=== PATIENT | male | born 1950 | race Caucasian/White ===

== ENCOUNTER 2016-08-04 09:20 | Emergency (ER) | payer MEDICARE ==
[2016-08-04 09:33] VITALS: RESP 16; TEMP 97.1
[2016-08-04] MEDS ORDERED: OXYMETAZOLINE 0.05% NASL SPRAY 15 ML NASAL STA (10:24)
--- NOTE | 2016-08-04 10:24 | ED ---
ENT HPI - General Chief complaint: ENT Stated complaint: NOSEBLEED Time Seen by Provider: 08/04/16 10:07 Source: patient, RN notes reviewed Mode of arrival: ambulatory Limitations: no limitations - History of Present Illness Initial comments: This patient is a 66-year-old man who presents today after he noticed bleeding from his nare that developed approximately 20 minutes before he arrived today. The patient states he was driving, and felt something wet on his nose. He discovered this was blood and given that he had a recent nosebleed he came directly here. He was seen on July 15 and had nasal tampon placed for nosebleed. The patient states that today's episode is not nearly as bad as that was. The patient notes that he usually takes 81 mg of aspirin per day but has not been taking this since the original nosebleed developed. MD complaint: epistaxis Onset/Timin -: hour(s) Location: nose Severity: mild Consistency: constant Improves with: none Worsens with: none Context-Epistaxis: history of similar - Related Data Home Medications Medication Instructions Recorded Confirmed Allopurinol [Zyloprim] 100 mg PO HS 08/09/15 08/04/16 Aspirin [Adult Low Dose Aspirin EC] 81 mg PO DAILY 08/09/15 08/04/16 Atorvastatin [Lipitor] 20 mg PO HS 08/09/15 08/04/16 Cholecalciferol (Vitamin D3) 1,000 unit PO HS 08/09/15 08/04/16 [Vitamin D] Enalapril [Vasotec] 10 mg PO BID 08/09/15 08/04/16 Fenofibrate Nanocrystallized 145 mg PO DAILY 08/09/15 08/04/16 [Tricor] Furosemide [Lasix] 40 mg PO BID 08/09/15 08/04/16 Insulin Aspart [NovoLOG] 3.7 - 3.9 pump SQ CONTINUOUS 08/09/15 08/04/16 Metolazone [Zaroxolyn] 5 mg PO HS 08/09/15 08/04/16 Omeprazole [PriLOSEC] 20 mg PO AC-BRKFST 08/09/15 08/04/16 Potassium Chloride [Klor-Con 20] 20 meq PO BID 08/09/15 08/04/16 Magnesium Oxide [Mag-Ox] 250 mg PO HS 01/30/16 08/04/16 Diclofenac Sodium/Misoprostol 1 tab PO BID PRN 07/15/16 08/04/16 [Arthrotec 75 mg-200 Mcg Tab] metFORMIN HCL [Glucophage] 1,000 mg PO BID 07/15/16 08/04/16 Allergies Allergy/AdvReac Type Severity Reaction Status Date / Time Sulfa (Sulfonamide Allergy Rash/Hives Verified 08/04/16 10:40 Antibiotics) codeine AdvReac Unknown Verified 08/04/16 10:40 ivory soap Allergy Rash/Hives Uncoded 08/04/16 09:32 Review of Systems ROS Statement: Those systems with pertinent positive or pertinent negative responses have been documented in the HPI. ROS Other: All systems not noted in ROS Statement are negative. Constitutional: Denies: fever, chills, weakness Eyes: Denies: eye pain, vision change ENT: Reports: epistaxis. Denies: ear pain, dental pain, hearing loss, congestion Respiratory: Denies: cough, dyspnea Cardiovascular: Denies: chest pain, palpitations, syncope Neurological: Denies: headache, weakness, numbness Hematological/Lymphatic: Denies: easy bleeding Past Medical History Past Medical History: Diabetes Mellitus, Hyperlipidemia, Hypertension, Osteoarthritis (OA), Skin Disorder Additional Past Medical History / Comment(s): wounds on both legs and swelling of the legs History of Any Multi-Drug Resistant Organisms: None Reported Past Surgical History: Appendectomy, Heart Catheterization Additional Past Surgical History / Comment(s): carpal tunnel surgery Past Anesthesia/Blood Transfusion Reactions: No Reported Reaction Past Psychological History: No Psychological Hx Reported Smoking Status: Never smoker Past Alcohol Use History: None Reported Past Drug Use History: None Reported - Past Family History Mother Family Medical History: Cancer, Thyroid Disorder Additional Family Medical History / Comment(s): of lung infection age 59 Brother(s) Family Medical History: COPD, Respiratory Disorder Additional Family Medical History / Comment(s): hx agent orange. Still living age 65 now General Exam Limitations: no limitations General appearance: alert, in no apparent distress Head exam: Present: atraumatic, normocephalic Eye exam: Present: normal appearance, PERRL, EOMI. Absent: scleral icterus, conjunctival injection ENT exam: Present: normal oropharynx, mucous membranes moist, other (There is no active bleeding into the oropharynx and the posterior pharynx is free of any visible clot.) Neck exam: Present: normal inspection, full ROM Respiratory exam: Present: normal lung sounds bilaterally. Absent: respiratory distress, wheezes, rales, rhonchi, stridor Cardiovascular Exam: Present: regular rate, normal rhythm, normal heart sounds. Absent: systolic murmur, diastolic murmur, rubs, gallop Course Vital Signs 08/04/16 08/04/16 09:29 11:48 Temperature 97.1 F L Pulse Rate 51 L 47 L Respiratory 16 16 Rate Blood Pressure 155/67 145/65 O2 Sat by Pulse 98 99 Oximetry Medical Decision Making - Medical Decision Making Patient's 66-year-old man with recurrence of epistaxis from the left nare. The patient did have oxymetazoline and pressure, and has had the bleeding stop. I did clear the anterior portion of the there and do not see a source of blood. There is a clot visible higher up and I discussed treatment options for this with the patient. I discussed that we could have him blow the clot out and see if there is any visible source of bleeding, but given how high the clot is, suspect that the patient would end up having nasal tampon placement. The patient states that the last time he had this done it was so unpleasant that he does not want to risk having this. He states that he would rather leave with the bleeding stopped and the clot intact and go see Dr. Chau. The patient will return should the bleeding recur, to have nasal tampon placed at that time. Disposition Clinical Impression: Epistaxis Disposition: HOME SELF-CARE Condition: Fair Instructions: Nosebleed (ED) Referrals: Adam Jacome DO [Primary Care Provider] - 1-2 days Odin Chapa MD [STAFF PHYSICIAN] - 1-2 days
[2016-08-04 11:49] VITALS: BP 145/65; PULSE 47
== END 2016-08-04 11:49 | disposition home or self-care (01) ==
LOC: EC 09:20
DX: R04.0 Epistaxis (principal); I10 Essential (primary) hypertension; E78.5 Hyperlipidemia, unspecified; E11.9 Type 2 diabetes mellitus without complications; M19.90 Unspecified osteoarthritis, unspecified site; Z79.82 Long term (current) use of aspirin; Z79.4 Long term (current) use of insulin; Z79.84 Long term (current) use of oral hypoglycemic drugs; Z79.899 Other long term (current) drug therapy; Z88.2 Allergy status to sulfonamides
CPT/HCPCS: 99283

== ENCOUNTER 2018-06-01 09:17 | Emergency (ER) | payer MEDICARE ==
[2018-06-01 09:27] VITALS: BP 141/58; PULSE 57; RESP 18; TEMP 97.9
--- NOTE | 2018-06-01 11:55 | CT ---
EXAMINATION TYPE: CT brain cspine wo con DATE OF EXAM: 06/01/2018 COMPARISON: NONE HISTORY: Fall head injury. Head and neck pain. CT DLP: 1360.2 mGycm. Automated Exposure Control for Dose Reduction was Utilized. TECHNIQUE: CT scan of the head and cervical spine are performed without contrast. FINDINGS: There is a 1.3 cm left frontal heterogenous scalp hematoma. There is no acute intracrania l hemorrhage, mass effect, or midline shift identified. The ventricles and sulci are symmetrically p rominent compatible with age-related volume loss. The globes are intact and the visualized sinuses a re clear. There is a well-corticated old healed fracture of the left zygomatic arch. Orbits appear sy mmetric. Lenses are in place. Cervical spine is visualized in its entirety from C1 through upper thoracic levels and demonstrates s atisfactory alignment without evidence of acute fracture or dislocation. Prevertebral soft tissue ap pears within normal limits. The C1-C2 articulation is unremarkable. There are multilevel moderate t o severe degenerative changes of the cervical spine with bridging anterior osteophytes and posterior disc osteophyte complex at C6-C7. Multilevel uncovertebral hypertrophy and facet arthropathy are also seen. There is straightening of the usual cervical lordosis. IMPRESSION: 1. There is no acute fracture or dislocation evident in the cervical spine. 2. Left frontal scalp hematoma measuring 1.3 cm in cystic thickness extending to the left supraorbita l/periorbital region without CT evidence of globe rupture or lens displacement. No acute intracranial hemorrhage, mass effect, or midline shift is seen.
--- NOTE | 2018-06-01 12:36 | ED ---
Head Injury HPI - General Chief complaint: Head Injury Stated complaint: fall, head injury Time Seen by Provider: 06/01/18 10:02 Source: patient Mode of arrival: ambulatory Limitations: no limitations - History of Present Illness Initial comments: This is a well-appearing 68-year-old male with past medical history of type 2 diabetes, hypertension and hyperlipidemia presented today for chief complaint of fall with head injury and neck stiffness. Patient states that at 7:30 AM he was sleeping off his porch from this snow when he slipped on ice falling foreward stricking left side of forehead, left shoulder and left knee on the ground. Pt stated he did not lose conciousnes and immediately stood up. Patient states he noticed pain at the site of abrasion on the left-sided forehead, as well as some neck stiffness. Patient denied headache, dizziness, chest pain, shortness breath, dyspnea on exertion, jaw pain, upper are paresthesias, gait abnormalities, palpitations or any other symptoms prior to falling. He insisted this was mechanical due to a slippery porch. He states he waited until the delivery he was expecting arrived then presented for evaluation to make sure that everything was okay, he denies any current headache , dizziness, nausea, vomiting, visual changes, gait changes, speech changes or any other neurological symptoms. Patient does admit to mild bilateral neck stiffness. He states he is able to fully range however at the neck. Remainder of ROS (-), he denies any injury to any other extremity, shoulder pain, knee pain, inability to weight-bear or ambulate, decreased range of motion at the left shoulder, left knee, anterior chest trauma, mid or low back pain, abdominal pain or any other symptoms. Denies use of anticoagulants. Patient was brought in by a friend to emergency department for evaluation. Upon arrival patient's vital signs per except limits, patient appears well he is pleasant and smiling and speaking with his friend. - Related Data Home Medications Medication Instructions Recorded Confirmed Allopurinol [Zyloprim] 100 mg PO HS 08/09/15 06/01/18 Cholecalciferol (Vitamin D3) 1,000 unit PO HS 08/09/15 06/01/18 [Vitamin D] Enalapril [Vasotec] 10 mg PO BID 08/09/15 06/01/18 Insulin Aspart [NovoLOG] 3.7 - 3.9 pump SQ CONTINUOUS 08/09/15 06/01/18 Metolazone [Zaroxolyn] 5 mg PO HS 08/09/15 06/01/18 Omeprazole [PriLOSEC] 20 mg PO AC-BRKFST 08/09/15 06/01/18 Potassium Chloride [Klor-Con 20] 20 meq PO BID 08/09/15 06/01/18 Magnesium Oxide [Mag-Ox] 250 mg PO HS 01/30/16 06/01/18 metFORMIN HCL [Glucophage] 1,000 mg PO BID 07/15/16 06/01/18 Atorvastatin [Lipitor] 40 mg PO HS 06/01/18 06/01/18 Furosemide [Lasix] 20 mg PO BID 06/01/18 06/01/18 Allergies/Adverse reactions: Allergies Allergy/AdvReac Type Severity Reaction Status Date / Time Sulfa (Sulfonamide Allergy Rash/Hives Verified 06/01/18 10:01 Antibiotics) codeine AdvReac Unknown Verified 06/01/18 10:01 ivory soap Allergy Rash/Hives Uncoded 06/01/18 09:26 Review of Systems ROS Statement: Those systems with pertinent positive or pertinent negative responses have been documented in the HPI. ROS Other: All systems not noted in ROS Statement are negative. Constitutional: Denies: fever, chills, night sweats Eyes: Denies: eye pain ENT: Denies: ear pain, throat pain, dental pain Respiratory: Denies: cough, dyspnea, wheezes, hemoptysis, stridor Cardiovascular: Denies: chest pain, palpitations, dyspnea on exertion, orthopnea Endocrine: Denies: fatigue Gastrointestinal: Denies: abdominal pain, nausea, vomiting, diarrhea, constipation, hematemesis, melena, hematochezia Genitourinary: Denies: urgency, dysuria Musculoskeletal: Reports: as per HPI (Neck pain). Denies: back pain, joint swelling, arthralgia Skin: Reports: lesions (Abrasion to left side of forehead, skin tear right lower extremity) Neurological: Denies: headache, weakness, numbness, paresthesias, confusion, abnormal gait, vertigo Past Medical History Past Medical History: Diabetes Mellitus, Hyperlipidemia, Hypertension, Osteoarthritis (OA), Skin Disorder Additional Past Medical History / Comment(s): wounds on both legs and swelling of the legs History of Any Multi-Drug Resistant Organisms: None Reported Past Surgical History: Appendectomy, Heart Catheterization Additional Past Surgical History / Comment(s): carpal tunnel surgery Past Anesthesia/Blood Transfusion Reactions: No Reported Reaction Past Psychological History: No Psychological Hx Reported Smoking Status: Never smoker Past Alcohol Use History: None Reported Past Drug Use History: None Reported - Past Family History Mother Family Medical History: Cancer, Thyroid Disorder Additional Family Medical History / Comment(s): of lung infection age 59 Brother(s) Family Medical History: COPD, Respiratory Disorder Additional Family Medical History / Comment(s): hx agent orange. Still living age 65 now General Exam - General Exam Comments Initial Comments: General: The patient is awake and alert, in no distress, and does not appear acutely ill. Eye: Pupils are equal, round and reactive to light, extra-ocular movements are intact. No nystagmus. There is normal conjunctiva bilaterally. No signs of icterus. Ears, nose, mouth and throat: There are moist mucous membranes and no oral lesions. Neck: The neck is supple, there is no tenderness or JVD. Cardiovascular: There is a regular rate and rhythm. No murmur, rub or gallop is appreciated. Respiratory: Lungs are clear to auscultation, respirations are non-labored, breath sounds are equal. No wheezes, stridor, rales, or rhonchi. Gastrointestinal: Soft, non-distended, non-tender abdomen without masses or organomegaly noted. There is no rebound or guarding present. No CVA tenderness. Bowel sounds are unremarkable. Musculoskeletal: She denies any midline tenderness to patient over the C-spine , he does admit to paravertebral tenderness. Patient is able to fully range at the C-spine with flexion and extension, lateral flexion and rotation. No tenderness to palpation along the thoracic or lumbar spine midline or paravertebral. Negative logroll no pedal patient hips. Inspection shoulders bilaterally reveals no obvious deformities, no palpable defects or step-offs, patient denies any pain to palpation of shoulder b/l Normal ROM at the shoulders equally bilaterally. Inspection the knees, reveals no swelling, abrasions or lacerations, no ecchymosis, patient is able to fully range at the knees bilaterally with vital 5 strength. Extensor mechanism intact. Strength 5 /5 of UE and LE equally b/l. Sensation intact of the UE and LE equally b/l. Radial pulses equal bilaterally 2+. Neurological: A&O x 3. CN II-XII intact, There are no obvious motor or sensory deficits. Coordination appears grossly intact. Speech is normal. Negative pronator drift, no gait abnormalities. Skin: Skin is warm and dry and no rashes. Large hematoma of the left forehead , there is superficial abrasion. Soft tissue swelling of the superior orbit. No palpable defects of the orbits patient denies any pain to palpation of the orbits. Psychiatric: Cooperative, appropriate mood & affect, normal judgment. Limitations: no limitations Course Vital Signs 06/01/18 09:24 Temperature 97.9 F Pulse Rate 57 L Respiratory 18 Rate Blood Pressure 141/58 O2 Sat by Pulse 99 Oximetry Medical Decision Making - Medical Decision Making EKG revealed no acute changes concerning for cardiac source of fall, pt adamantly states that this was mechanical denies any symptoms prior to falling. CT negative of the head and neck, patient denies any neurological symptoms, no focal neurological deficits on exam. Patient appears well. Patient states tetanus is up-to-date, he states he received a last year. Abrasion of the forehead and skin tear of the right lower extremity was cleansed with sterile water, iodine and bacitracin applied before sterile bandage. Case discussed in detail with Dr. Hawley who agrees the impression and plan, patient was discharged in stable condition. Pt is agreeable with discharge, stating is happy to go home, denies current symptoms. Return parameters discussed at length the patient verbalizes understanding. I emphasized the importance of close follow-up with primary care provider. I educated patient on expectations following large hematoma of the left forehead including eye swelling/ ecchymosis. Patient verbalized understanding of plan as well as return parameters. Patient was discharged in stable condition. Vital signs within acceptable limits. - EKG Data -: EKG Interpreted by Me (and reviewed by Dr. Hawley) EKG Comments: Ventricular rate 59 bpm, QRS duration 114 ms, QT/QTC 416/4 ms this a sinus rhythm complete heart block with junctional rhythm. EKG was done by myself as well as Dr. Jose L Hawley. No ST elevations or depressions Disposition Clinical Impression: Traumatic hematoma of forehead, Skin tear of right lower leg without complication, Abrasion of forehead Disposition: HOME SELF-CARE Condition: Good Instructions: Head Injury (ED), Hematoma (ED) Additional Instructions: Please use over the counter pain medication as discussed. Please follow-up with family doctor in the next 1-2 days, for evaluation of hematoma. Please return to emergency room if the symptoms increase or worsen or for any other concerns, including headache, dizziness, gait changes, speech changes, visual changes. Is patient prescribed a controlled substance at d/c from ED?: No Referrals: Adam Jacome DO [Primary Care Provider] - 1-2 days Time of Disposition: 12:35
== END 2018-06-01 12:50 | disposition home or self-care (01) ==
LOC: EC 09:17
DX: S81.811A Laceration without foreign body, right lower leg, initial encounter (principal); S00.83XA Contusion of other part of head, initial encounter; S13.4XXA Sprain of ligaments of cervical spine, initial encounter; E11.9 Type 2 diabetes mellitus without complications; E78.5 Hyperlipidemia, unspecified; I10 Essential (primary) hypertension; Z95.818 Presence of other cardiac implants and grafts; Z79.4 Long term (current) use of insulin; Z79.899 Other long term (current) drug therapy; Z88.2 Allergy status to sulfonamides; Z88.5 Allergy status to narcotic agent; Z91.048 Other nonmedicinal substance allergy status; W00.0XXA Fall on same level due to ice and snow, initial encounter; Y92.89 Other specified places as the place of occurrence of the external cause
CPT/HCPCS: 70450; 72125; 93005; 99284

== ENCOUNTER 2020-04-28 20:08 | Emergency (ER) | payer MEDICARE ==
[2020-04-28 20:26] VITALS: TEMP 98.7
[2020-04-28] MEDS ORDERED: BACITRACIN OINT 1 EACH PACKET TOPICAL ONE (20:46)
[2020-04-28] MEDS ORDERED: WATER FOR IRRIG, STERILE 1,000 ML BTL IRRIGATION ONE (20:46)
[2020-04-28] MEDS ORDERED: AMOXIC-POT CLAV 875MG STARTER PACK 2 TAB BTL PO STA (20:46)
--- NOTE | 2020-04-28 21:09 | XR ---
EXAMINATION TYPE: XR tibia fibula LT DATE OF EXAM: 04/28/2020 COMPARISON: NONE HISTORY: Cat bite. Pain TECHNIQUE: 3 views FINDINGS: I see no fracture nor dislocation. Joint spaces are normal. There is calcification of the a rteries. There is spurring on the patella. There is no evidence of a foreign body. Ankle mortise is a natomic. IMPRESSION: No acute bony abnormality.
[2020-04-28 21:25] VITALS: BP 113/56; PULSE 58; RESP 18
--- NOTE | 2020-04-28 21:48 | ED ---
Animal Bite HPI - General Chief Complaint: Animal Bite Stated Complaint: L Leg Cat Bite Time Seen by Provider: 04/28/20 20:37 Source: patient, family Mode of arrival: ambulatory Limitations: no limitations - History of Present Illness Initial Comments: 69-year-old male patient presents to the emergency department today for evaluation of cat bite to the left leg. Patient states that around an hour ago patient was walking through his home when the cat attacked his leg. This is his cat, up to date on immunizations. Patient states occasionally the cat gets "spooked". The cat does not go outside. Patient does admit to a history of diabetes and cellulitis to the lower legs. He denies any significant pain to the legs. Denies any other injuries. He is unsure if his tetanus is up to date. Patient denies any headache, neck pain, back pain, chest pain, shortness of breath, dizziness, weakness, abdominal pain, nausea, vomiting, or difficulties with bowel movements or urination. - Related Data Home Medications Medication Instructions Recorded Confirmed Cholecalciferol (Vitamin D3) 1,000 unit PO HS 08/09/15 06/01/18 [Vitamin D] Enalapril [Vasotec] 10 mg PO BID 08/09/15 06/01/18 Insulin Aspart [NovoLOG] 3.7 - 3.9 pump SQ CONTINUOUS 08/09/15 06/01/18 Omeprazole [PriLOSEC] 20 mg PO AC-BRKFST 08/09/15 06/01/18 Potassium Chloride [Klor-Con 20] 20 meq PO BID 08/09/15 06/01/18 allopurinoL [Zyloprim] 100 mg PO HS 08/09/15 06/01/18 metOLazone [Zaroxolyn] 5 mg PO HS 08/09/15 06/01/18 Magnesium Oxide [Mag-Ox] 250 mg PO HS 01/30/16 06/01/18 metFORMIN HCL [Glucophage] 1,000 mg PO BID 07/15/16 06/01/18 Atorvastatin [Lipitor] 40 mg PO HS 06/01/18 06/01/18 Furosemide [Lasix] 20 mg PO BID 06/01/18 06/01/18 Previous Rx's Medication Instructions Recorded Amoxic-Pot Clav 875-125Mg 1 tab PO Q12HR #20 tablet 04/28/20 [Augmentin 875-448] Allergies Allergy/AdvReac Type Severity Reaction Status Date / Time Sulfa (Sulfonamide Allergy Rash/Hives Verified 04/28/20 20:26 Antibiotics) codeine AdvReac Unknown Verified 04/28/20 20:26 ivory soap Allergy Rash/Hives Uncoded 04/28/20 20:26 Review of Systems ROS Statement: Those systems with pertinent positive or pertinent negative responses have been documented in the HPI. ROS Other: All systems not noted in ROS Statement are negative. Past Medical History Past Medical History: Diabetes Mellitus, Hyperlipidemia, Hypertension, Osteoarthritis (OA), Skin Disorder Additional Past Medical History / Comment(s): wounds on both legs and swelling of the legs History of Any Multi-Drug Resistant Organisms: None Reported Past Surgical History: Appendectomy, Heart Catheterization Additional Past Surgical History / Comment(s): carpal tunnel surgery Past Anesthesia/Blood Transfusion Reactions: No Reported Reaction Past Psychological History: No Psychological Hx Reported Smoking Status: Never smoker Past Alcohol Use History: None Reported Past Drug Use History: None Reported - Past Family History Mother Family Medical History: Cancer, Thyroid Disorder Additional Family Medical History / Comment(s): of lung infection age 59 Brother(s) Family Medical History: COPD, Respiratory Disorder Additional Family Medical History / Comment(s): hx agent orange. Still living age 65 now General Exam Limitations: no limitations General appearance: alert, in no apparent distress, other (This is a well- developed, well-nourished adult male patient in no acute distress. Vital signs upon presentation are temperature 98.7F, pulse 50, respirations 20, pulse ox 98% on room air) Respiratory exam: Present: normal lung sounds bilaterally. Absent: respiratory distress, wheezes, rales, rhonchi, stridor Cardiovascular Exam: Present: regular rate, normal rhythm, normal heart sounds. Absent: systolic murmur, diastolic murmur, rubs, gallop, clicks Extremities exam: Present: full ROM, normal capillary refill, other (There is superficial laceration noted to the left lower leg just above the ankle anteriorly, this measures about 2cm, no active bleeding. There is skin tear noted to the proximal lower leg, no active bleeding. Skin is otherwise warm and dry. There is soft tissue swelling surrounding the left ankle). Absent: normal inspection, tenderness, pedal edema, joint swelling, calf tenderness Neurological exam: Present: alert, oriented X3, CN II-XII intact Psychiatric exam: Present: normal affect, normal mood Skin exam: Present: warm, dry, intact, normal color. Absent: rash Course Vital Signs 04/28/20 04/28/20 20:21 21:24 Temperature 98.7 F Pulse Rate 50 L 58 L Respiratory 20 18 Rate Blood Pressure 79/49 113/56 O2 Sat by Pulse 98 98 Oximetry Medical Decision Making - Medical Decision Making 69-year-old male patient presents to the emergency department today for evaluation of cat bite to the right lower leg. This his domestic pet that does not go outside. Patient did intially have low blood pressure reading at 79/49 I do not feel this was accurate because multiple subsequent blood pressures in the department were in the 140s systolic over the 60s diastolic. Patient denied any dizziness or weakness. This equal examination did reveal skin tear and laceration to the right lower leg. These were irrigated and cleansed, bacitracin dressing was applied. We did not close these due to increased risk of infection. Patient was started on Augmentin. We discharged from with his primary care physician for recheck in 1-2 days. Return parameters were discussed in detail. He verbalizes understanding and agrees with this plan. - Radiology Data Radiology results: report reviewed, image reviewed X-ray of the left tibia and fibula was obtained. Report was reviewed in its entirety. Impression by Dr. Evans shows no acute bony abnormality. Disposition Clinical Impression: Cat bite of left lower leg Disposition: HOME SELF-CARE Condition: Good Instructions (If sedation given, give patient instructions): Animal Bite (ED) Additional Instructions: Keep wounds clean and dry. Complete antibiotic prescription in full. Follow up with your primary care physician for recheck in 1-2 days. Return to the emergency department for further evaluation for any new, worsening, or concerning symptoms. Prescriptions: Amoxic-Pot Clav 875-125Mg [Augmentin 875-125] 1 tab PO Q12HR #20 tablet Is patient prescribed a controlled substance at d/c from ED?: No Referrals: Adam Jacome DO [Primary Care Provider] - 1-2 days Time of Disposition: 21:49
== END 2020-04-28 21:59 | disposition home or self-care (01) ==
LOC: EC 20:08
DX: S81.812A Laceration without foreign body, left lower leg, initial encounter (principal); E11.9 Type 2 diabetes mellitus without complications; E78.5 Hyperlipidemia, unspecified; I10 Essential (primary) hypertension; M19.90 Unspecified osteoarthritis, unspecified site; Z79.899 Other long term (current) drug therapy; Z96.41 Presence of insulin pump (external) (internal); Z88.2 Allergy status to sulfonamides; Z88.5 Allergy status to narcotic agent; Z91.048 Other nonmedicinal substance allergy status; Z95.5 Presence of coronary angioplasty implant and graft; W55.01XA Bitten by cat, initial encounter; Y92.009 Unspecified place in unspecified non-institutional (private) residence as the place of occurrence of the external cause
CPT/HCPCS: 99283

== ENCOUNTER 2020-07-23 18:07 | Inpatient (IN) | payer MEDICARE ==
--- NOTE | 2020-07-23 18:39 | ED ---
General Adult HPI - General Chief complaint: Weakness Stated complaint: General weakness Time Seen by Provider: 07/23/20 18:28 Source: patient, EMS, RN notes reviewed Mode of arrival: EMS Limitations: physical limitation - History of Present Illness Initial comments: Patient is a pleasant 70-year-old male presenting to the emergency Department with complaints of general weakness. Onset of symptoms was close to week ago and progressively worsening. Patient has had several falls without significant injury. No confusion. No isolated area of weakness. Patient is easily fatigued. Patient does get some short of breath with walking up steps. No hi story of similar symptoms previously. - Related Data Home Medications Medication Instructions Recorded Confirmed Enalapril [Vasotec] 10 mg PO BID 08/09/15 07/23/20 Omeprazole [PriLOSEC] 20 mg PO DAILY 08/09/15 07/23/20 Potassium Chloride [Klor-Con 20] 20 meq PO BID 08/09/15 07/23/20 allopurinoL [Zyloprim] 100 mg PO HS 08/09/15 07/23/20 metOLazone [Zaroxolyn] 5 mg PO DAILY 08/09/15 07/23/20 Magnesium Oxide [Mag-Ox] 250 mg PO HS 01/30/16 07/23/20 metFORMIN HCL [Glucophage] 1,000 mg PO BID 07/15/16 07/23/20 Atorvastatin [Lipitor] 40 mg PO HS 06/01/18 07/23/20 Furosemide [Lasix] 40 mg PO BID 07/23/20 07/23/20 Insulin Aspart (For Pump) [NovoLOG 0.01 unit SQ-PUMP CONTINUOUS 07/23/20 07/23/20 (For Pump)] Spironolactone 100 mg PO DAILY 07/23/20 07/23/20 Zinc 50 mg PO DAILY 07/23/20 07/23/20 Allergies Allergy/AdvReac Type Severity Reaction Status Date / Time Sulfa (Sulfonamide Allergy Rash/Hives Verified 07/23/20 22:21 Antibiotics) codeine AdvReac Unknown Verified 07/23/20 22:21 ivory soap Allergy Rash/Hives Uncoded 07/23/20 18:34 Review of Systems ROS Statement: Those systems with pertinent positive or pertinent negative responses have been documented in the HPI. ROS Other: All systems not noted in ROS Statement are negative. Constitutional: Denies: fever Eyes: Denies: eye pain ENT: Denies: ear pain Respiratory: Reports: as per HPI. Denies: cough Cardiovascular: Denies: chest pain Endocrine: Reports: fatigue Gastrointestinal: Denies: abdominal pain Genitourinary: Denies: dysuria Musculoskeletal: Denies: back pain Skin: Denies: rash Neurological: Reports: as per HPI. Denies: headache, weakness, confusion Past Medical History Past Medical History: Diabetes Mellitus, Hyperlipidemia, Hypertension, Osteoarthritis (OA), Skin Disorder Additional Past Medical History / Comment(s): wounds on both legs and swelling of the legs History of Any Multi-Drug Resistant Organisms: None Reported Past Surgical History: Appendectomy, Heart Catheterization Additional Past Surgical History / Comment(s): carpal tunnel surgery Past Anesthesia/Blood Transfusion Reactions: No Reported Reaction Past Psychological History: No Psychological Hx Reported Smoking Status: Never smoker Past Alcohol Use History: None Reported Past Drug Use History: None Reported - Past Family History Mother Family Medical History: Cancer, Thyroid Disorder Additional Family Medical History / Comment(s): of lung infection age 59 Brother(s) Family Medical History: COPD, Respiratory Disorder Additional Family Medical History / Comment(s): hx agent orange. Still living age 65 now General Exam Limitations: physical limitation General appearance: alert, in no apparent distress Head exam: Present: normocephalic Eye exam: Present: normal appearance, PERRL, EOMI. Absent: nystagmus ENT exam: Present: normal oropharynx Neck exam: Present: normal inspection. Absent: tenderness, meningismus Respiratory exam: Present: normal lung sounds bilaterally Cardiovascular Exam: Present: bradycardia GI/Abdominal exam: Present: soft. Absent: tenderness Extremities exam: Present: pedal edema (+2 bilateral, patient states chronic). Absent: calf tenderness Neurological exam: Present: alert Psychiatric exam: Present: normal affect, normal mood Skin exam: Present: erythema (Bilateral lower legs which patient states is much improved from chronic) Course Vital Signs 07/23/20 07/23/20 07/23/20 18:29 21:21 22:38 Temperature 97.7 F Pulse Rate 51 L 68 68 Respiratory 16 16 Rate Blood Pressure 140/89 145/53 O2 Sat by Pulse 96 98 Oximetry 07/23/20 22:52 Temperature Pulse Rate 68 Respiratory Rate Blood Pressure O2 Sat by Pulse Oximetry EKG Findings - EKG Comments: EKG Findings:: Wide-complex bradycardia with a rate of 52. QRS 128. QT 416. QTC 382. Left axis. LVH. No acute ST change. Medical Decision Making - Medical Decision Making Patient reevaluated. Patient and family updated. Case was discussed with Dr. Patterson who will admit covering for Dr. Antonio. She is okay with admission to the floor with medications for potassium and nephrology consult - Lab Data Result diagrams: 07/23/20 20:47 07/23/20 20:47 Lab Results 07/23/20 07/23/20 07/23/20 Range/Units 20:47 20:47 20:47 WBC 11.1 H (3.8-10.6) k/uL RBC 4.16 L (4.30-5.90) m/uL Hgb 12.4 L (13.0-17.5) gm/dL Hct 38.5 L (39.0-53.0) % MCV 92.4 (80.0-100.0) fL MCH 29.9 (25.0-35.0) pg MCHC 32.3 (31.0-37.0) g/dL RDW 13.7 (11.5-15.5) % Plt Count 240 (150-450) k/uL MPV 8.1 Neutrophils % 84 % Lymphocytes % 6 % Monocytes % 7 % Eosinophils % 0 % Basophils % 1 % Neutrophils # 9.3 H (1.3-7.7) k/uL Lymphocytes # 0.7 L (1.0-4.8) k/uL Monocytes # 0.8 (0-1.0) k/uL Eosinophils # 0.0 (0-0.7) k/uL Basophils # 0.1 (0-0.2) k/uL PT 10.3 (9.0-12.0) sec INR 1.0 (<1.2) APTT 27.2 (22.0-30.0) sec Sodium 127 L (137-145) mmol/L Potassium 7.9 H* (3.5-5.1) mmol/L Chloride 100 (98-107) mmol/L Carbon Dioxide 16 L (22-30) mmol/L Anion Gap 11 mmol/L BUN 99 H (9-20) mg/dL Creatinine 1.84 H (0.66-1.25) mg/dL Est GFR (CKD-EPI)AfAm 42 (>60 ml/min/1.73 sqM) Est GFR (CKD-EPI)NonAf 36 (>60 ml/min/1.73 sqM) Glucose 117 H (74-99) mg/dL POC Glucose (mg/dL) (75-99) mg/dL POC Glu Online Producer ID Plasma Lactic Acid Clint (0.7-2.0) mmol/L Calcium 9.8 (8.4-10.2) mg/dL Magnesium 1.8 (1.6-2.3) mg/dL Total Bilirubin 0.6 (0.2-1.3) mg/dL AST 31 (17-59) U/L ALT 22 (4-49) U/L Alkaline Phosphatase 67 (38-126) U/L Troponin I (0.000-0.034) ng/mL NT-Pro-B Natriuret Pep pg/mL Total Protein 8.6 H (6.3-8.2) g/dL Albumin 4.8 (3.5-5.0) g/dL TSH 2.830 (0.465-4.680) mIU/L Free T4 1.15 (0.78-2.19) ng/dL Free T3 pg/mL 3.4 (2.8-5.3) pg/ml Urine Color Urine Appearance (Clear) Urine pH (5.0-8.0) Ur Specific [place] (1.001-1.035) Urine Protein (Negative) Urine Glucose (UA) (Negative) Urine Ketones (Negative) Urine Blood (Negative) Urine Nitrite (Negative) Urine Bilirubin (Negative) Urine Urobilinogen (<2.0) mg/dL Ur Leukocyte Esterase (Negative) 07/23/20 07/23/20 07/23/20 Range/Units 20:47 20:47 20:47 WBC (3.8-10.6) k/uL RBC (4.30-5.90) m/uL Hgb (13.0-17.5) gm/dL Hct (39.0-53.0) % MCV (80.0-100.0) fL MCH (25.0-35.0) pg MCHC (31.0-37.0) g/dL RDW (11.5-15.5) % Plt Count (150-450) k/uL MPV Neutrophils % % Lymphocytes % % Monocytes % % Eosinophils % % Basophils % % Neutrophils # (1.3-7.7) k/uL Lymphocytes # (1.0-4.8) k/uL Monocytes # (0-1.0) k/uL Eosinophils # (0-0.7) k/uL Basophils # (0-0.2) k/uL PT (9.0-12.0) sec INR (<1.2) APTT (22.0-30.0) sec Sodium (137-145) mmol/L Potassium (3.5-5.1) mmol/L Chloride (98-107) mmol/L Carbon Dioxide (22-30) mmol/L Anion Gap mmol/L BUN (9-20) mg/dL Creatinine (0.66-1.25) mg/dL Est GFR (CKD-EPI)AfAm (>60 ml/min/1.73 sqM) Est GFR (CKD-EPI)NonAf (>60 ml/min/1.73 sqM) Glucose (74-99) mg/dL POC Glucose (mg/dL) (75-99) mg/dL POC Glu Online Producer ID Plasma Lactic Acid Clint 1.3 (0.7-2.0) mmol/L Calcium (8.4-10.2) mg/dL Magnesium (1.6-2.3) mg/dL Total Bilirubin (0.2-1.3) mg/dL AST (17-59) U/L ALT (4-49) U/L Alkaline Phosphatase (38-126) U/L Troponin I <0.012 (0.000-0.034) ng/mL NT-Pro-B Natriuret Pep 30 pg/mL Total Protein (6.3-8.2) g/dL Albumin (3.5-5.0) g/dL TSH (0.465-4.680) mIU/L Free T4 (0.78-2.19) ng/dL Free T3 pg/mL (2.8-5.3) pg/ml Urine Color Urine Appearance (Clear) Urine pH (5.0-8.0) Ur Specific [place] (1.001-1.035) Urine Protein (Negative) Urine Glucose (UA) (Negative) Urine Ketones (Negative) Urine Blood (Negative) Urine Nitrite (Negative) Urine Bilirubin (Negative) Urine Urobilinogen (<2.0) mg/dL Ur Leukocyte Esterase (Negative) 07/23/20 07/23/20 Range/Units 21:10 21:48 WBC (3.8-10.6) k/uL RBC (4.30-5.90) m/uL Hgb (13.0-17.5) gm/dL Hct (39.0-53.0) % MCV (80.0-100.0) fL MCH (25.0-35.0) pg MCHC (31.0-37.0) g/dL RDW (11.5-15.5) % Plt Count (150-450) k/uL MPV Neutrophils % % Lymphocytes % % Monocytes % % Eosinophils % % Basophils % % Neutrophils # (1.3-7.7) k/uL Lymphocytes # (1.0-4.8) k/uL Monocytes # (0-1.0) k/uL Eosinophils # (0-0.7) k/uL Basophils # (0-0.2) k/uL PT (9.0-12.0) sec INR (<1.2) APTT (22.0-30.0) sec Sodium (137-145) mmol/L Potassium (3.5-5.1) mmol/L Chloride (98-107) mmol/L Carbon Dioxide (22-30) mmol/L Anion Gap mmol/L BUN (9-20) mg/dL Creatinine (0.66-1.25) mg/dL Est GFR (CKD-EPI)AfAm (>60 ml/min/1.73 sqM) Est GFR (CKD-EPI)NonAf (>60 ml/min/1.73 sqM) Glucose (74-99) mg/dL POC Glucose (mg/dL) 130 H (75-99) mg/dL POC Glu Online Producer ID Peace Brianda Plasma Lactic Acid Clint (0.7-2.0) mmol/L Calcium (8.4-10.2) mg/dL Magnesium (1.6-2.3) mg/dL Total Bilirubin (0.2-1.3) mg/dL AST (17-59) U/L ALT (4-49) U/L Alkaline Phosphatase (38-126) U/L Troponin I (0.000-0.034) ng/mL NT-Pro-B Natriuret Pep pg/mL Total Protein (6.3-8.2) g/dL Albumin (3.5-5.0) g/dL TSH (0.465-4.680) mIU/L Free T4 (0.78-2.19) ng/dL Free T3 pg/mL (2.8-5.3) pg/ml Urine Color Light Yellow Urine Appearance Clear (Clear) Urine pH 5.0 (5.0-8.0) Ur Specific [place] 1.009 (1.001-1.035) Urine Protein Negative (Negative) Urine Glucose (UA) Negative (Negative) Urine Ketones Negative (Negative) Urine Blood Negative (Negative) Urine Nitrite Negative (Negative) Urine Bilirubin Negative (Negative) Urine Urobilinogen <2.0 (<2.0) mg/dL Ur Leukocyte Esterase Negative (Negative) - Radiology Data Radiology results: report reviewed (Computed tomography scan of the brain shows atrophy. No acute intercranial abnormality.), image reviewed (Chest x-ray shows unchanged chronic elevation left diaphragm. No heart failure or consolidation. Minimal atelectasis) Critical Care Time Critical Care Time: Yes Total Critical Care Time: 33 Disposition Clinical Impression: Hyperkalemia, Acute renal failure Disposition: ADMITTED IP TO THIS [facility] Condition: Serious Is patient prescribed a controlled substance at d/c from ED?: No Referrals: Adam Jacome DO [Primary Care Provider] - 1-2 days Decision Time: 22:57
--- NOTE | 2020-07-23 19:54 | CT ---
EXAMINATION TYPE: CT brain wo con DATE OF EXAM: 07/23/2020 COMPARISON: 06/01/2018 HISTORY: Weakness in extremities CT DLP: 1159.4 mGycm Automated exposure control for dose reduction was used. There is cerebral cortical atrophy. There is no mass effect nor midline shift. There is no sign of in tracranial hemorrhage. Calvarium is intact. There is normal aeration of the mastoid sinuses. IMPRESSION: Cerebral atrophy. No acute intracranial abnormality. There is clearing of the left frontal scalp evan odin compared to old exam.
--- NOTE | 2020-07-23 19:56 | XR ---
EXAMINATION TYPE: XR chest 2V DATE OF EXAM: 07/23/2020 COMPARISON: 09/29/2012 HISTORY: Short of breath. Weakness TECHNIQUE: 2 views FINDINGS: There is some elevation of the left diaphragm. There is no heart failure. Heart appears sli ghtly enlarged. There are no hilar masses. I see no definite pleural effusion. IMPRESSION: There is some chronic elevation of the left diaphragm unchanged. No heart failure or pulm onary consolidation. Minimal atelectasis left lung base.
[2020-07-23 21:11] LABS: Basophils # (A) 0.1 k/uL (0-0.2); Basophils % (A) 1 %; Eosinophils % (A) 0 %; HCT 38.5 % (39.0-53.0); HGB 12.4 gm/dL (13.0-17.5); Lymphocytes # (A) 0.7 k/uL (1.0-4.8); Lymphocytes % (A) 6 %; MCH 29.9 pg (25.0-35.0); MCHC 32.3 g/dL (31.0-37.0); MCV 92.4 fL (80.0-100.0); Mean Platelet Volume 8.1; Monocytes # (A) 0.8 k/uL (0-1.0); Monocytes % (A) 7 %; Neutrophils # (A) 9.3 k/uL (1.3-7.7); Neutrophils % (A) 84 %; Platelet Count 240 k/uL (150-450); RBC 4.16 m/uL (4.30-5.90); RDW 13.7 % (11.5-15.5); WBC 11.1 k/uL (3.8-10.6)
[2020-07-23 21:21] LABS: Appearance,Urine Clear (Clear); Bilirubin,Urine Negative (Negative); Blood,Urine Negative (Negative); Color,Urine Light Yellow; Glucose,Urine (UA) Negative (Negative); Ketones,Urine Negative (Negative); Leukocyte Esterase,Urine Negative (Negative); Nitrite,Urine Negative (Negative); Protein,Urine Negative (Negative); Specific Gravity,Urine 1.009 (1.001-1.035); Urobilinogen,Urine <2.0 mg/dL (<2.0)
[2020-07-23 21:21] LABS: Partial Thromboplastin Time 27.2 sec (22.0-30.0); Prothrombin Time 10.3 sec (9.0-12.0)
[2020-07-23 21:50] LABS: Glucose,Whole Blood 130 mg/dL (75-99)
[2020-07-23 22:02] LABS: Albumin 4.8 g/dL (3.5-5.0); Calcium 9.8 mg/dL (8.4-10.2); Magnesium 1.8 mg/dL (1.6-2.3); Total Bilirubin 0.6 mg/dL (0.2-1.3); Total Protein 8.6 g/dL (6.3-8.2)
[2020-07-23 22:12] LABS: Potassium 7.9 mmol/L (3.5-5.1)
[2020-07-23] MEDS ORDERED: DEXTROSE 50% SYRINGE 50 ML IVP ONE (22:16)
[2020-07-23] MEDS ORDERED: ALBUTEROL NEB (CONC) 2.5 MG/0.5 ML INHALATION ONE (22:16)
[2020-07-23] MEDS ORDERED: INSULIN REGULAR 100 UNIT/ML VIAL IV ONE (22:16)
[2020-07-23] MEDS ORDERED: SODIUM CHLORIDE 0.9% 500 ML 500 ML IV STA (22:16)
[2020-07-23] MEDS ORDERED: SODIUM BICARB 8.4% 50 ML SYR (1 MEQ/ML) IV ONE (22:16)
[2020-07-23] MEDS ORDERED: SODIUM POLYSTYRENE SULFONATE 15 GM/60 ML BOTTLE PO ONE (22:16)
[2020-07-23] MEDS ORDERED: SODIUM CHLORIDE 0.9% 1,000 ML IV STA (22:16)
[2020-07-23 22:19] LABS: T4, Free (Free Thyroxine) 1.15 ng/dL (0.78-2.19)
[2020-07-23] MEDS ORDERED: CALCIUM GLUCONATE 1 GM in SODIUM CHLORIDE 0.9% 100 ML IVPB ONE (22:30)
[2020-07-23] MEDS ORDERED: NALOXONE 0.4 MG/ML 1 ML VIAL IV PRN (22:58)
--- NOTE | 2020-07-23 23:45 | XR ---
EXAMINATION TYPE: XR lumbar spine 2 or 3V DATE OF EXAM: 07/23/2020 COMPARISON: NONE HISTORY: Weakness TECHNIQUE: 3 views FINDINGS: Lumbar vertebra have normal alignment. There is spurring of the endplates. Posterior elemen ts are intact. There is no compression fracture. Disc spaces are fairly normal. Abdominal aorta is at heromatous. Sacroiliac joints are intact. IMPRESSION: Mild spondylotic changes. No fracture seen.
[2020-07-24] MEDS: ACETAMINOPHEN TAB 325 MG TAB PO PRN (01:44)
[2020-07-24 06:32] LABS: Basophils # (A) 0.1 k/uL (0-0.2); Basophils % (A) 1 %; Eosinophils # (A) 0.1 k/uL (0-0.7); Eosinophils % (A) 1 %; HCT 34.4 % (39.0-53.0); HGB 11.7 gm/dL (13.0-17.5); Lymphocytes # (A) 0.8 k/uL (1.0-4.8); Lymphocytes % (A) 10 %; MCH 31.1 pg (25.0-35.0); MCHC 33.9 g/dL (31.0-37.0); MCV 91.6 fL (80.0-100.0); Mean Platelet Volume 8.1; Monocytes # (A) 0.8 k/uL (0-1.0); Monocytes % (A) 10 %; Neutrophils # (A) 6.1 k/uL (1.3-7.7); Neutrophils % (A) 76 %; Platelet Count 213 k/uL (150-450); RBC 3.76 m/uL (4.30-5.90); RDW 13.3 % (11.5-15.5)
[2020-07-24 06:43] LABS: Albumin 4.1 g/dL (3.5-5.0); Calcium 9.5 mg/dL (8.4-10.2); Magnesium 1.9 mg/dL (1.6-2.3); Phosphorus 4.4 mg/dL (2.5-4.5); Total Bilirubin 0.6 mg/dL (0.2-1.3); Total Protein 7.4 g/dL (6.3-8.2)
[2020-07-24 06:46] LABS: Potassium 6.3 mmol/L (3.5-5.1)
[2020-07-24] MEDS ORDERED: Insulin Aspart (For Pump) 100 UNIT/ML VIAL SQ-PUMP SCH (09:00)
[2020-07-24] MEDS ORDERED: CALCIUM GLUCONATE 1 GM in SODIUM CHLORIDE 0.9% 100 ML IVPB ONE (09:00)
[2020-07-24] MEDS ORDERED: DEXTROSE 50% SYRINGE 50 ML IVP ONE (09:00)
[2020-07-24] MEDS ORDERED: INSULIN REGULAR 100 UNIT/ML VIAL IV ONE ×2 (09:00→19:36)
[2020-07-24] MEDS ORDERED: SODIUM BICARB 8.4% 50 ML SYR (1 MEQ/ML) IV ONE ×2 (09:00)
[2020-07-24] MEDS: ZINC SULFATE 220 MG CAP PO SCH (09:48)
[2020-07-24] MEDS: PANTOPRAZOLE 40 MG TABLET PO SCH (09:48)
[2020-07-24 12:01] LABS: Glucose,Whole Blood 190 mg/dL (75-99)
[2020-07-24 12:11] LABS: Calcium 9.8 mg/dL (8.4-10.2); Potassium 5.4 mmol/L (3.5-5.1)
--- NOTE | 2020-07-24 12:17 | P.HPIM ---
History of Present Illness H&P Date: 07/24/20 Chief Complaint: constipation, back and leg pain HISTORY OF PRESENT ILLNESS This is a 70-year-old male patient of Dr. Jacome and Dr. Nila Pena with past medical history of diabetes mellitus type 2, hypertension, hyperlipidemia, chronic lower extremity cellulitis. Patient complains of constipation for 1 week, pain in his lower back going into his legs. He states he has no strength in could not stand. He complains of shakiness. Symptoms have been going on for 1 week. He tried to call Dr. Jacome's office on Thursday and at the end of the day he was notified that Dr. Jacome is on vacation and thus decided to come into the hospital for evaluation. He was brought in by EMS as he states he was unable to stand or walk. Patient states he has been on Lasix and potassium for long period of time, metolazone was added and most recently spironolactone. W BC 11.1, hemoglobin 12.4. Potassium was 7.9, sodium 127, chloride 100, CO2 16, BUN 99 and creatinine 1.84. Blood sugar 117. Patient is status post Kayexalate 1 dose, insulin calcium gluconate and dextrose as well as albuterol. Repeat potassium this morning is 6.3. BUN 88 and creatinine 1.59. Patient admitted to the cardiac stepdown unit and consult in place with nephrology. REVIEW OF SYSTEMS Constitutional: No fever, no chills, no night sweats. No weight change. Reports weakness, Reportsfatigue Reports lethargy. No daytime sleepiness. EENT: No headache. No blurred vision or double vision, no loss of vision. No loss of Hearing, no ringing in the ears, no dizziness. No nasal drainage or congestion. No epistaxis. No sore throat. Lungs: No shortness of breath, cough, no sputum production. No wheezing. Cardiovascular: No chest pain, no lower extremity edema. No palpitations. No paroxysmal nocturnal dyspnea. No orthopnea. No lightheadedness or dizziness. No syncopal episodes. Abdominal: No abdominal pain. No nausea, vomiting. No diarrhea. Reports constipation. No bloody or tarry stools. No loss of appetite. Genitourinary: No dysuria, increased frequency, urgency. No urinary retention. Musculoskeletal: No myalgias. Reports muscle weakness, no gait dysfunction, no frequent falls. No back pain. No neck pain. Integumentary: Chronic lower extremity redness/wounds. No rash or pruritus. No unusual bruising. No change in hair or nails. Neurologic: No aphasia. No facial droop. No change in mentation. No head injury. No headache. No paralysis. No paresthesia. Psychiatric: No depression. No anxiety. Endocrine: No abnormal blood sugars. No weight change. No excessive sweating or thirst. No cold intolerance. SOCIAL HISTORY Patient is a lifelong nonsmoker. No alcohol use, marijuana or illicit drug use. 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 He lives at home alone. He is a . FAMILY HISTORY Mother at age 60 from lung cancer. Father at 57 after a fall off a roof. He has one brother that of cancer secondary to agent orange exposure. He has 4 half-sisters that he is never met. Patient has 2 children and 1 has an autoimmune disorder and waiting for double lung transplant. Second child has no major medical problems.. PHYSICAL EXAMINATION Gen: This is a 70-year-old morbidly obese male. He is sitting up in a recliner and appears to be comfortable and in no acute distress. HEENT: Head is atraumatic, normocephalic. Pupils equal, round. Sclerae is anicteric. NECK: Supple. No JVD. No lymphadenopathy. No thyromegaly. LUNGS: Clear to auscultation. No wheezes or rhonchi. No intercostal retractions. HEART: Regular rate and rhythm. No murmur. ABDOMEN: Morbidly obese. Soft. Bowel sounds are present. No masses. No tenderness. EXTREMITIES: No pedal edema. No calf tenderness. Chronic lower extremity erythema. NEUROLOGICAL: Patient is awake, alert and oriented x3. Cranial nerves 2 through 12 are grossly intact. ASSESSMENT AND PLAN 1. Acute kidney injury with chronic kidney disease stage III. Baseline c reatinine 1.3. Nephrology consult. Hold Lasix, Zaroxolyn, potassium, spironolactone, Vasotec. 2. Severe hyperkalemia secondary to acute kidney injury and use of spironolactone with potassium. I'll repeat calcium gluconate, regular insulin and dextrose given. Nephrology also ordered sodium bicarb. Lokelma 10 g oral 3 times daily for 48 hours and then 10 g daily ordered. 3. Metabolic acidosis secondary to acute kidney injury. Status post sodium bicarb. 4. Diabetes mellitus type 2. Patient is on insulin pump. 5. Hypertension. Hold Vasotec. 6. Chronic lower extremities edema and cellulitis. Hold Lasix, Zaroxolyn, spironolactone. Elevate legs. 7. Constipation. Senokot 2 tablets daily. Patient is status post 1 dose of oral Kayexalate. 8. Hyperlipidemia. Continue Lipitor 40 mg at bedtime. 9. Chronic gout. Continue allopurinol 100 mg daily. 10. Gastroesophageal reflux disease and GI prophylaxis. Continue Protonix 40 mg daily. 11. DVT prophylaxis. Heparin subcu. Patient will be admitted to the hospital for a minimum of 2 night stay. DISCHARGE PLAN Most likely return home. Consult PT and OT. Impression and plan of care have been directed as dictated by the signing physician. Meggan Arias nurse practitioner acting as scribe for signing physician. Past Medical History Past Medical History: Diabetes Mellitus, Hyperlipidemia, Hypertension, Osteoarthritis (OA), Skin Disorder Additional Past Medical History / Comment(s): wounds on both legs and swelling of the legs History of Any Multi-Drug Resistant Organisms: None Reported Past Surgical History: Appendectomy, Heart Catheterization Additional Past Surgical History / Comment(s): carpal tunnel surgery Past Anesthesia/Blood Transfusion Reactions: No Reported Reaction Past Psychological History: No Psychological Hx Reported Smoking Status: Never smoker Past Alcohol Use History: None Reported Past Drug Use History: None Reported - Past Family History Mother Family Medical History: Cancer, Thyroid Disorder Additional Family Medical History / Comment(s): of lung infection age 59 Brother(s) Family Medical History: COPD, Respiratory Disorder Additional Family Medical History / Comment(s): hx agent orange. Still living age 65 now Medications and Allergies Home Medications Medication Instructions Recorded Confirmed Type Enalapril [Vasotec] 10 mg PO BID 08/09/15 07/23/20 History Omeprazole [PriLOSEC] 20 mg PO DAILY 08/09/15 07/23/20 History Potassium Chloride [Klor-Con 20] 20 meq PO BID 08/09/15 07/23/20 History allopurinoL [Zyloprim] 100 mg PO HS 08/09/15 07/23/20 History metOLazone [Zaroxolyn] 5 mg PO DAILY 08/09/15 07/23/20 History Magnesium Oxide [Mag-Ox] 250 mg PO HS 01/30/16 07/23/20 History metFORMIN HCL [Glucophage] 1,000 mg PO BID 07/15/16 07/23/20 History Atorvastatin [Lipitor] 40 mg PO HS 06/01/18 07/23/20 History Furosemide [Lasix] 40 mg PO BID 07/23/20 07/23/20 History Insulin Aspart (For Pump) [NovoLOG 0.01 unit SQ-PUMP CONTINUOUS 07/23/20 07/23/20 History (For Pump)] Spironolactone 100 mg PO DAILY 07/23/20 07/23/20 History Zinc 50 mg PO DAILY 07/23/20 07/23/20 History Allergies Allergy/AdvReac Type Severity Reaction Status Date / Time Sulfa (Sulfonamide Allergy Rash/Hives Verified 07/23/20 22:21 Antibiotics) codeine AdvReac Unknown Verified 07/23/20 22:21 ivory soap Allergy Rash/Hives Uncoded 07/23/20 18:34 Physical Exam Vitals: Vital Signs Temp Pulse Resp BP Pulse Ox 07/24/20 03:00 59 L 21 96/66 98 07/24/20 02:00 55 L 20 96 07/24/20 01:00 62 19 07/24/20 00:00 58 L 20 121/43 100 07/23/20 23:00 65 19 136/77 96 07/23/20 22:56 58 L 18 136/77 98 07/23/20 22:52 68 07/23/20 22:38 68 07/23/20 22:00 53 L 22 139/68 97 07/23/20 21:21 68 16 145/53 98 07/23/20 21:00 137/49 07/23/20 20:00 100 07/23/20 19:00 140/89 07/23/20 18:29 97.7 F 51 L 16 140/89 99 Intake and Output 07/23/20 07/24/20 07/24/20 22:59 06:59 14:59 Other: Weight 127.913 kg Results CBC & Chem 7: 07/24/20 06:05 07/24/20 06:05 Labs: Abnormal Lab Results - Last 24 Hours (Table) 07/23/20 07/23/20 07/23/20 Range/Units 20:47 20:47 21:48 WBC 11.1 H (3.8-10.6) k/uL RBC 4.16 L (4.30-5.90) m/uL Hgb 12.4 L (13.0-17.5) gm/dL Hct 38.5 L (39.0-53.0) % Neutrophils # 9.3 H (1.3-7.7) k/uL Lymphocytes # 0.7 L (1.0-4.8) k/uL Sodium 127 L (137-145) mmol/L Potassium 7.9 H* (3.5-5.1) mmol/L Carbon Dioxide 16 L (22-30) mmol/L BUN 99 H (9-20) mg/dL Creatinine 1.84 H (0.66-1.25) mg/dL Glucose 117 H (74-99) mg/dL POC Glucose (mg/dL) 130 H (75-99) mg/dL Total Protein 8.6 H (6.3-8.2) g/dL 07/24/20 07/24/20 07/24/20 Range/Units 01:46 06:05 06:05 WBC (3.8-10.6) k/uL RBC 3.76 L (4.30-5.90) m/uL Hgb 11.7 L (13.0-17.5) gm/dL Hct 34.4 L (39.0-53.0) % Neutrophils # (1.3-7.7) k/uL Lymphocytes # 0.8 L (1.0-4.8) k/uL Sodium 130 L (137-145) mmol/L Potassium 6.5 H* 6.3 H* (3.5-5.1) mmol/L Carbon Dioxide 18 L (22-30) mmol/L BUN 88 H (9-20) mg/dL Creatinine 1.59 H (0.66-1.25) mg/dL Glucose (74-99) mg/dL POC Glucose (mg/dL) (75-99) mg/dL Total Protein (6.3-8.2) g/dL
--- NOTE | 2020-07-24 12:59 | P.NPCON ---
History of Present Illness - Reason for Consult acute renal failure, hyperkalemia - History of Present Illness Reason for consultation: Acute kidney injury and hyperkalemia History of present illness: Patient is a 70-year-old male seen in renal consultation for acute kidney injury and hyperkalemia. Patient has chronic kidney disease stage III with baseline creatinine in the range of 1.2-1.3 secondary to nephrosclerosis. Patient came to the hospital due to generalized weakness. He denies any dizziness or syncopal episodes. No vomiting or diarrhea. He's been a diabetic for about 12 years now. Patient's potassium level was elevated at 7.9 and creatinine was 1.84 on admission. He was taking lisinopril as well as spironolactone at home. He was also on Lasix and metolazone along with potassium supplementation. Hyperkalemia was medically treated and potassium level down to 5.4 this morning. Creatinine is also down to 1.4. He is currently sitting up in chair and having lunch. No edema. No chest pain or shortness of breath. Blood pressure is stable. Denies use of nonsteroidals. He did admit to constipation but had a good bowel movement today. Admits to good urine output. No hematuria or dysuria. Vital signs are stable. General: The patient appeared well nourished and normally developed. HEENT: Head exam is unremarkable. Neck is without jugular venous distension. LUNGS: Breath sounds decreased. HEART: Rate and Rhythm are regular. ABDOMEN: Soft, nontender. EXTREMITITES: No edema. Chronic skin changes noted. Past Medical History Past Medical History: Diabetes Mellitus, Hyperlipidemia, Hypertension, Osteoarthritis (OA), Skin Disorder Additional Past Medical History / Comment(s): wounds on both legs and swelling of the legs History of Any Multi-Drug Resistant Organisms: None Reported Past Surgical History: Appendectomy, Heart Catheterization Additional Past Surgical History / Comment(s): carpal tunnel surgery Past Anesthesia/Blood Transfusion Reactions: No Reported Reaction Past Psychological History: No Psychological Hx Reported Smoking Status: Never smoker Past Alcohol Use History: None Reported Past Drug Use History: None Reported - Past Family History Mother Family Medical History: Cancer, Thyroid Disorder Additional Family Medical History / Comment(s): of lung infection age 59 Brother(s) Family Medical History: COPD, Respiratory Disorder Additional Family Medical History / Comment(s): hx agent orange. Still living age 65 now Medications and Allergies Home Medications Medication Instructions Recorded Confirmed Type Enalapril [Vasotec] 10 mg PO BID 08/09/15 07/23/20 History Omeprazole [PriLOSEC] 20 mg PO DAILY 08/09/15 07/23/20 History Potassium Chloride [Klor-Con 20] 20 meq PO BID 08/09/15 07/23/20 History allopurinoL [Zyloprim] 100 mg PO HS 08/09/15 07/23/20 History metOLazone [Zaroxolyn] 5 mg PO DAILY 08/09/15 07/23/20 History Magnesium Oxide [Mag-Ox] 250 mg PO HS 01/30/16 07/23/20 History metFORMIN HCL [Glucophage] 1,000 mg PO BID 07/15/16 07/23/20 History Atorvastatin [Lipitor] 40 mg PO HS 06/01/18 07/23/20 History Furosemide [Lasix] 40 mg PO BID 07/23/20 07/23/20 History Insulin Aspart (For Pump) [NovoLOG 0.01 unit SQ-PUMP CONTINUOUS 07/23/20 07/23/20 History (For Pump)] Spironolactone 100 mg PO DAILY 07/23/20 07/23/20 History Zinc 50 mg PO DAILY 07/23/20 07/23/20 History Allergies Allergy/AdvReac Type Severity Reaction Status Date / Time Sulfa (Sulfonamide Allergy Rash/Hives Verified 07/23/20 22:21 Antibiotics) codeine AdvReac Unknown Verified 07/23/20 22:21 ivory soap Allergy Rash/Hives Uncoded 07/23/20 18:34 Physical Exam Vitals: Vital Signs Temp Pulse Pulse Resp BP BP Pulse Ox 07/24/20 08:00 97.8 F 63 18 158/68 99 07/24/20 03:00 59 L 21 96/66 98 07/24/20 02:00 55 L 20 96 07/24/20 01:00 62 19 07/24/20 00:00 58 L 20 121/43 100 07/23/20 23:00 65 19 136/77 96 07/23/20 22:56 58 L 18 136/77 98 07/23/20 22:52 68 07/23/20 22:38 68 07/23/20 22:00 53 L 22 139/68 97 07/23/20 21:21 68 16 145/53 98 07/23/20 21:00 137/49 07/23/20 20:00 100 07/23/20 19:00 140/89 07/23/20 18:29 97.7 F 51 L 16 140/89 99 Intake and Output 07/23/20 07/24/20 07/24/20 22:59 06:59 14:59 Intake Total 240 Balance 240 Intake: Oral 240 Other: Voiding Method Bedside Commode # Voids 1 Weight 127.913 kg 127.913 kg Results - Lab Results Most recent lab results Calcium 9.8 mg/dL (8.4-10.2) 07/24/20 11:40 Phosphorus 4.4 mg/dL (2.5-4.5) 07/24/20 06:05 Magnesium 1.9 mg/dL (1.6-2.3) 07/24/20 06:05 07/24/20 06:05 07/24/20 11:40 Assessment and Plan Plan: Assessment: 1. Acute kidney injury mostly prerenal secondary to hypovolemia from diuresis. Creatinine was 1.84 on admission and is down to 1.41 today. UA benign. 2. Chronic kidney disease stage IIIA. Baseline creatinine in the range of 1.2- 1.3 secondary to nephrosclerosis. 3. Hyperkalemia secondary to metabolic acidosis, acute kidney injury, lisin opril, Aldactone as well as potassium supplementation. Improved with medical management. 4. Metabolic acidosis secondary to acute kidney injury and metformin. Better. 5. Hypovolemic hyponatremia improved with IV hydration. 6. Diabetes mellitus. Plan: Hep-Lock IV fluids. Hold diuretics as well as lisinopril and spironolactone. Encourage oral intake. Renal diet. Add amlodipine 5 mg once daily. Add hydralazine 25 mg 3 times daily. To be held for systolic blood pressure less than 125. Check renal ultrasound. Repeat potassium level this evening. Thank you for the consultation. I will continue to follow the patient with you during his hospital stay.
[2020-07-24] MEDS: amLODIPine 5 MG TAB PO SCH (13:59)
[2020-07-24] MEDS: hydrALAZINE HCL 25 MG TAB PO SCH ×3 (13:59→21:20)
[2020-07-24] MEDS: SENNOSIDES-DOCUSATE SODIUM 1 EACH TAB PO SCH ×2 (14:00→17:32)
--- NOTE | 2020-07-24 15:09 | US ---
EXAMINATION TYPE: US kidneys/renal and bladder DATE OF EXAM: 07/24/2020 COMPARISON: None CLINICAL HISTORY: kaushal. abnormal labs EXAM MEASUREMENTS: Right Kidney: 12.8 x 6.1 x 6.8 cm Left Kidney: 14.2 x 5.6 x 6.9 cm Suboptimal due to patient body habitus Right Kidney: No hydronephrosis or masses seen Left Kidney: No hydronephrosis or masses seen Bladder: distended, anechoic Bilateral Jets not seen IMPRESSION: 1. Visualized retroperitoneal ultrasound appears unremarkable
[2020-07-24 16:56] LABS: Glucose,Whole Blood 165 mg/dL (75-99)
[2020-07-24] MEDS ORDERED: DEXTROSE 50% SYRINGE 50 ML IVP STA (19:32)
[2020-07-24] MEDS ORDERED: SODIUM BICARB 8.4% 50 ML SYR (1 MEQ/ML) IV STA (19:35)
[2020-07-24 20:13] LABS: Glucose,Whole Blood 251 mg/dL (75-99)
[2020-07-24] MEDS: [UNRECOGNIZED DRUG - OTHER] PO SCH (21:05)
[2020-07-24] MEDS: HEPARIN SODIUM,PORCINE 5,000 UNIT/ML 1 ML VIAL SQ SCH (21:11)
[2020-07-24] MEDS: INSULIN ASPART (NovoLOG) 100 UNIT/ML VIAL SQ SCH (21:11)
[2020-07-24] MEDS: ATORVASTATIN 40 MG TAB PO SCH (21:11)
[2020-07-24] MEDS: MAGNESIUM OXIDE 400 MG TAB PO SCH (21:11)
[2020-07-24] MEDS: allopurinoL 100 MG TAB PO SCH (21:11)
[2020-07-25 06:01] LABS: Glucose,Whole Blood 162 mg/dL (75-99)
[2020-07-25 08:25] LABS: Calcium 9.8 mg/dL (8.4-10.2); Magnesium 1.7 mg/dL (1.6-2.3); Potassium 5.4 mmol/L (3.5-5.1)
[2020-07-25] MEDS: ZINC SULFATE 220 MG CAP PO SCH (09:57)
[2020-07-25] MEDS: amLODIPine 5 MG TAB PO SCH (09:57)
[2020-07-25] MEDS: HEPARIN SODIUM,PORCINE 5,000 UNIT/ML 1 ML VIAL SQ SCH ×2 (09:58→21:00)
[2020-07-25] MEDS: hydrALAZINE HCL 25 MG TAB PO SCH ×3 (09:58→21:00)
[2020-07-25] MEDS: PANTOPRAZOLE 40 MG TABLET PO SCH (09:58)
[2020-07-25] MEDS: [UNRECOGNIZED DRUG - OTHER] PO SCH (10:08)
[2020-07-25 10:38] LABS: Glucose,Whole Blood 382 mg/dL (75-99)
--- NOTE | 2020-07-25 11:37 | P.PN ---
Subjective Patient is seen in follow-up for acute kidney injury on chronic kidney disease and hyperkalemia. Renal function improved. Potassium level V.4 this morning. Oral intake is good. Good urine output. No vomiting or diarrhea. Vital signs are stable. General: The patient appeared well nourished and normally developed. HEENT: Head exam is unremarkable. Neck is without jugular venous distension. LUNGS: Breath sounds decreased. HEART: Rate and Rhythm are regular. ABDOMEN: Soft, nontender. EXTREMITITES: No edema. Chronic skin changes noted. Objective - Vital Signs Vital signs: Vital Signs Temp 98.2 F 07/25/20 08:00 Pulse 60 07/25/20 08:00 Resp 18 07/25/20 08:00 BP 161/70 07/25/20 08:00 Pulse Ox 99 07/25/20 08:00 Intake & Output 07/24/20 07/25/20 07/25/20 18:59 06:59 18:59 Intake Total 695 480 236 Output Total 950 300 Balance -255 180 236 Weight 123.2 kg Intake: Oral 695 480 236 Output: Urine 950 300 Other: Voiding Method Bedside Commode Bedside Commode # Voids 1 1 # Bowel Movements 3 2 1 - Labs CBC & Chem 7: 07/24/20 06:05 07/25/20 07:00 Labs: Abnormal Lab Results - Last 24 Hours (Table) 07/24/20 07/24/20 07/24/20 Range/Units 11:40 11:45 16:50 Sodium 133 L (137-145) mmol/L Potassium 5.4 H (3.5-5.1) mmol/L BUN 78 H (9-20) mg/dL Creatinine 1.41 H (0.66-1.25) mg/dL Glucose 183 H (74-99) mg/dL POC Glucose (mg/dL) 190 H 165 H (75-99) mg/dL 07/24/20 07/24/20 07/24/20 Range/Units 17:40 20:12 22:34 Sodium (137-145) mmol/L Potassium 6.0 H 5.3 H (3.5-5.1) mmol/L BUN (9-20) mg/dL Creatinine (0.66-1.25) mg/dL Glucose (74-99) mg/dL POC Glucose (mg/dL) 251 H (75-99) mg/dL 07/25/20 07/25/20 07/25/20 Range/Units 05:59 07:00 10:36 Sodium 132 L (137-145) mmol/L Potassium 5.4 H (3.5-5.1) mmol/L BUN 64 H (9-20) mg/dL Creatinine (0.66-1.25) mg/dL Glucose 168 H (74-99) mg/dL POC Glucose (mg/dL) 162 H 382 H (75-99) mg/dL Assessment and Plan Plan: Assessment: 1. Acute kidney injury mostly prerenal secondary to hypovolemia from diuresis. Creatinine was 1.84 on admission and is down to 1.22 today. UA benign. No hydronephrosis noted on kidney ultrasound. 2. Chronic kidney disease stage IIIA. Baseline creatinine in the range of 1.2- 1.3 secondary to nephrosclerosis. 3. Hyperkalemia secondary to metabolic acidosis, acute kidney injury, lisinopril, Aldactone as well as potassium supplementation. Improved with medical management. 4. Metabolic acidosis secondary to acute kidney injury and metformin. Better. 5. Hypovolemic hyponatremia improved with IV hydration. 6. Diabetes mellitus. Plan: Lasix 20 mg IV once now. Encourage oral intake. Renal diet. Repeat potassium level this afternoon. Tight blood sugar control. Continue to hold lisinopril and Aldactone.
[2020-07-25] MEDS: INSULIN ASPART (NovoLOG) 100 UNIT/ML VIAL SQ SCH ×4 (11:38→21:00)
[2020-07-25] MEDS ORDERED: FUROSEMIDE 10 MG/ML 2 ML VIAL IV ONE (12:00)
[2020-07-25 12:07] LABS: Glucose,Whole Blood 262 mg/dL (75-99)
--- NOTE | 2020-07-25 13:22 | P.PN ---
Subjective Progress Note Date: 07/25/20 HISTORY OF PRESENT ILLNESS This is a 70-year-old male patient of Dr. Jacome and Dr. Nila Pena with past medical history of diabetes mellitus type 2, hypertension, hyperl ipidemia, chronic lower extremity cellulitis. Patient complains of constipation for 1 week, pain in his lower back going into his legs. He states he has no strength in could not stand. He complains of shakiness. Symptoms have been going on for 1 week. He tried to call Dr. Jacome's office on Thursday and at the end of the day he was notified that Dr. Jacome is on vacation and thus decided to come into the hospital for evaluation. He was brought in by EMS as he states he was unable to stand or walk. Patient states he has been on Lasix and potassium for long period of time, metolazone was added and most recently spironolactone. W BC 11.1, hemoglobin 12.4. Potassium was 7.9, sodium 127, chloride 100, CO2 16, BUN 99 and creatinine 1.84. Blood sugar 117. Patient is status post Kayexalate 1 dose, insulin calcium gluconate and dextrose as well as albuterol. Repeat potassium this morning is 6.3. BUN 88 and creatinine 1.59. Patient admitted to the cardiac stepdown unit and consult in place with nephrology. 07/25: Potassium this morning is 5.4. Sodium 132. Blood sugars are running between 168-382. Patient's insulin pump ran out of insulin last evening and this was removed. He will have his bring in supplies so he can resume insulin pump. Patient is currently covered with NovoLog scale only. Renal ultrasound was unremarkable. Nephrology is ordered Lasix 1 this morning. Lisinopril and Aldactone remain on hold. Anticipate possible discharge tomorrow REVIEW OF SYSTEMS Constitutional: No fever, no chills, no night sweats. No weight change. Reports weakness, Reportsfatigue Reports lethargy. No daytime sleepiness. EENT: No headache. No blurred vision or double vision, no loss of vision. No loss of Hearing, no ringing in the ears, no dizziness. No nasal drainage or congestion. No epistaxis. No sore throat. Lungs: No shortness of breath, cough, no sputum production. No wheezing. Cardiovascular: No chest pain, no lower extremity edema. No palpitations. No paroxysmal nocturnal dyspnea. No orthopnea. No lightheadedness or dizziness. No syncopal episodes. Abdominal: No abdominal pain. No nausea, vomiting. No diarrhea. Reports constipation. No bloody or tarry stools. No loss of appetite. Genitourinary: No dysuria, increased frequency, urgency. No urinary retention. Musculoskeletal: No myalgias. Reports muscle weakness, no gait dysfunction, no frequent falls. No back pain. No neck pain. Integumentary: Chronic lower extremity redness/wounds. No rash or pruritus. No unusual bruising. No change in hair or nails. Neurologic: No aphasia. No facial droop. No change in mentation. No head injury. No headache. No paralysis. No paresthesia. Psychiatric: No depression. No anxiety. Endocrine: No abnormal blood sugars. No weight change. No excessive sweating or thirst. No cold intolerance. PHYSICAL EXAMINATION Gen: This is a 70-year-old morbidly obese male. He is resting in a recliner and appears to be comfortable and in no acute distress. HEENT: Head is atraumatic, normocephalic. Pupils equal, round. Sclerae is anicteric. NECK: Supple. No JVD. No lymphadenopathy. No thyromegaly. LUNGS: Clear to auscultation. No wheezes or rhonchi. No intercostal retractions. HEART: Regular rate and rhythm. No murmur. ABDOMEN: Morbidly obese. Soft. Bowel sounds are present. No masses. No tenderness. EXTREMITIES: No pedal edema. No calf tenderness. Chronic lower extremity erythema. NEUROLOGICAL: Patient is awake, alert and oriented x3. Cranial nerves 2 through 12 are grossly intact. ASSESSMENT AND PLAN 1. Acute kidney injury with chronic kidney disease stage III. Baseline creatinine 1.3. Nephrology consult. Hold Lasix, Zaroxolyn, potassium, spironolactone, Vasotec. 2. Severe hyperkalemia secondary to acute kidney injury and use of spironolactone with potassium. Status post calcium gluconate, regular insulin a nd dextrose given. Nephrology also ordered sodium bicarb. Lokelma 10 g oral 3 times daily for 48 hours and then 10 g daily ordered. 3. Metabolic acidosis secondary to acute kidney injury. Status post sodium bicarb. 4. Diabetes mellitus type 2. Patient is on insulin pump. 5. Hypertension. Hold Vasotec. 6. Chronic lower extremities edema and cellulitis. Hold Lasix, Zaroxolyn, spironolactone. Elevate legs. 7. Constipation. Senokot 2 tablets daily. Patient is status post 1 dose of oral Kayexalate. 8. Hyperlipidemia. Continue Lipitor 40 mg at bedtime. 9. Chronic gout. Continue allopurinol 100 mg daily. 10. Gastroesophageal reflux disease and GI prophylaxis. Continue Protonix 40 mg daily. 11. DVT prophylaxis. Heparin subcu. DISCHARGE PLAN Most likely return home in the next 24 hours. Consult PT and OT. Impression and plan of care have been directed as dictated by the signing physician. Meggan Arias nurse practitioner acting as scribe for signing physician. Objective - Vital Signs Vital signs: Vital Signs Temp 98.1 F 07/25/20 03:58 Pulse 58 L 07/25/20 03:58 Resp 18 07/25/20 03:58 BP 140/70 07/25/20 03:58 Pulse Ox 95 07/25/20 03:58 Intake & Output 07/24/20 07/25/20 07/25/20 18:59 06:59 18:59 Intake Total 695 480 Output Total 950 300 Balance -255 180 Weight 123.2 kg Intake: Oral 695 480 Output: Urine 950 300 Other: Voiding Method Bedside Commode Bedside Commode # Voids 1 # Bowel Movements 3 2 - Labs CBC & Chem 7: 07/24/20 06:05 07/25/20 07:00 Labs: Abnormal Lab Results - Last 24 Hours (Table) 07/24/20 07/24/20 07/24/20 Range/Units 11:40 11:45 16:50 Sodium 133 L (137-145) mmol/L Potassium 5.4 H (3.5-5.1) mmol/L BUN 78 H (9-20) mg/dL Creatinine 1.41 H (0.66-1.25) mg/dL Glucose 183 H (74-99) mg/dL POC Glucose (mg/dL) 190 H 165 H (75-99) mg/dL 07/24/20 07/24/20 07/24/20 Range/Units 17:40 20:12 22:34 Sodium (137-145) mmol/L Potassium 6.0 H 5.3 H (3.5-5.1) mmol/L BUN (9-20) mg/dL Creatinine (0.66-1.25) mg/dL Glucose (74-99) mg/dL POC Glucose (mg/dL) 251 H (75-99) mg/dL 07/25/20 Range/Units 05:59 Sodium (137-145) mmol/L Potassium (3.5-5.1) mmol/L BUN (9-20) mg/dL Creatinine (0.66-1.25) mg/dL Glucose (74-99) mg/dL POC Glucose (mg/dL) 162 H (75-99) mg/dL
[2020-07-25 16:42] LABS: Glucose,Whole Blood 143 mg/dL (75-99)
[2020-07-25] MEDS: SENNOSIDES-DOCUSATE SODIUM 1 EACH TAB PO SCH (18:07)
[2020-07-25 20:25] LABS: Glucose,Whole Blood 234 mg/dL (75-99)
[2020-07-25] MEDS: allopurinoL 100 MG TAB PO SCH (20:59)
[2020-07-25] MEDS: ATORVASTATIN 40 MG TAB PO SCH (20:59)
[2020-07-25] MEDS: MAGNESIUM OXIDE 400 MG TAB PO SCH (21:00)
[2020-07-25] MEDS: ACETAMINOPHEN TAB 325 MG TAB PO PRN (22:56)
[2020-07-26 06:13] LABS: Glucose,Whole Blood 129 mg/dL (75-99)
[2020-07-26] MEDS: INSULIN ASPART (NovoLOG) 100 UNIT/ML VIAL SQ SCH (06:48)
[2020-07-26] MEDS: SENNOSIDES-DOCUSATE SODIUM 1 EACH TAB PO SCH (08:06)
[2020-07-26] MEDS: ZINC SULFATE 220 MG CAP PO SCH (08:06)
[2020-07-26] MEDS: HEPARIN SODIUM,PORCINE 5,000 UNIT/ML 1 ML VIAL SQ SCH (08:06)
[2020-07-26] MEDS: PANTOPRAZOLE 40 MG TABLET PO SCH (08:06)
--- NOTE | 2020-07-26 08:58 | P.DS ---
Providers Date of admission: 07/23/20 22:58 Expected date of discharge: 07/26/20 Attending physician: Rhoda Deng MD Consults: 07/23/20 22:58 Consult Physician Urgent Consulting Provider: Fredis Oliveira Consult Reason/Comments: Hyperkalemia, ARF Do you want consulting provider notified?: Yes Primary care physician: Adam [facility] Course: HISTORY OF PRESENT ILLNESS This is a 70-year-old male patient of Dr. Jacome and Dr. Nila Pena with past medical history of diabetes mellitus type 2, hypertension, hyperlipidemia, chronic lower extremity cellulitis. Patient complains of constipation for 1 week, pain in his lower back going into his legs. He states he has no strength in could not stand. He complains of shakiness. Symptoms have been going on for 1 week. He tried to call Dr. Jacome's office on Thursday and at the end of the day he was notified that Dr. Jacome is on vacation and thus decided to come into the hospital for evaluation. He was brought in by EMS as he states he was unable to stand or walk. Patient states he has been on Lasix and potassium for long period of time, metolazone was added and most recently spironolactone. W BC 11.1, hemoglobin 12.4. Potassium was 7.9, sodium 127, chloride 100, CO2 16, BUN 99 and creatinine 1.84. Blood sugar 117. Patient is status post Kayexalate 1 dose, insulin calcium gluconate and dextrose as well as albuterol. Repeat potassium this morning is 6.3. BUN 88 and creatinine 1.59. Patient admitted to the cardiac stepdown unit and consult in place with nephrology. 07/25: Potassium this morning is 5.4. Sodium 132. Blood sugars are running between 168-382. Patient's insulin pump ran out of insulin last evening and this was removed. He will have his bring in supplies so he can resume insulin pump. Patient is currently covered with NovoLog scale only. Renal ultrasound was unremarkable. Nephrology is ordered Lasix 1 this morning. Sari nopril and Aldactone remain on hold. Anticipate possible discharge tomorrow 07/26: Repeat blood work reveals sodium 130, potassium 4.8, chloride 97, CO2 24, BUN 57 creatinine 1.14. Insulin pump has been resumed with improved blood sugars. The patient denies any chest pain or shortness of breath. He has been seen by Dr. Oliveira with recommendations to hold diuretics potassium and Vasotec for discharge, BMP and magnesium on Thursday. He has been afebrile, heart rate 55, blood pressure 142/64, pulse ox 99% on room air. Patient will be discharged home today in stable condition. ASSESSMENT AND PLAN 1. Acute kidney injury with chronic kidney disease stage III. 2. Severe hyperkalemia secondary to acute kidney injury and use of spironolactone with potassium. 3. Metabolic acidosis secondary to acute kidney injury. 4. Diabetes mellitus type 2. 5. Hypertension. 6. Chronic lower extremities edema and cellulitis. 7. Constipation. 8. Hyperlipidemia. 9. Chronic gout. 10. Gastroesophageal reflux disease. DISCHARGE PLAN Home Impression and plan of care have been directed as dictated by the signing physician. Meggan Arias nurse practitioner acting as scribe for signing physician. Patient Condition at Discharge: Good Plan - Discharge Summary Discharge Rx Participant: No New Discharge Prescriptions: New hydrALAZINE HCL [Apresoline] 25 mg PO TID #90 tab amLODIPine [Norvasc] 5 mg PO DAILY #30 tab Sennosides-Docusate Sodium [Senokot-S] 2 each PO DAILY tab Continue Omeprazole [PriLOSEC] 20 mg PO DAILY allopurinoL [Zyloprim] 100 mg PO HS Magnesium Oxide [Mag-Ox] 250 mg PO HS metFORMIN HCL [Glucophage] 1,000 mg PO BID Atorvastatin [Lipitor] 40 mg PO HS Insulin Aspart (For Pump) [NovoLOG (For Pump)] 0.01 unit SQ-PUMP CONTINUOUS Zinc 50 mg PO DAILY Discontinued metOLazone [Zaroxolyn] 5 mg PO DAILY Enalapril [Vasotec] 10 mg PO BID Potassium Chloride [Klor-Con 20] 20 meq PO BID Furosemide [Lasix] 40 mg PO BID Spironolactone 100 mg PO DAILY Discharge Medication List Omeprazole [PriLOSEC] 20 mg PO DAILY 08/09/15 [History] allopurinoL [Zyloprim] 100 mg PO HS 08/09/15 [History] Magnesium Oxide [Mag-Ox] 250 mg PO HS 01/30/16 [History] metFORMIN HCL [Glucophage] 1,000 mg PO BID 07/15/16 [History] Atorvastatin [Lipitor] 40 mg PO HS 06/01/18 [History] Insulin Aspart (For Pump) [NovoLOG (For Pump)] 0.01 unit SQ-PUMP CONTINUOUS 07/23/20 [History] Zinc 50 mg PO DAILY 07/23/20 [History] Sennosides-Docusate Sodium [Senokot-S] 2 each PO DAILY tab 07/26/20 [Rx] amLODIPine [Norvasc] 5 mg PO DAILY #30 tab 07/26/20 [Rx] hydrALAZINE HCL [Apresoline] 25 mg PO TID #90 tab 07/26/20 [Rx] Follow up Appointment(s)/Referral(s): Adam Jacome DO [Primary Care Provider] - 1 Week Fredis Oliveira DO [STAFF PHYSICIAN] - 2 Weeks Ambulatory/Diagnostic Orders: Basic Metabolic Panel [LAB.AMB] Location: None Selected Basic Metabolic Panel [LAB.AMB] Location: None Selected Magnesium [LAB.AMB] Location: None Selected Discharge Disposition: HOME SELF-CARE
[2020-07-26] MEDS: hydrALAZINE HCL 25 MG TAB PO SCH (09:25)
[2020-07-26] MEDS: amLODIPine 5 MG TAB PO SCH (09:25)
[2020-07-26] MEDS: [UNRECOGNIZED DRUG - OTHER] PO SCH (09:26)
[2020-07-26 10:13] LABS: Calcium 9.8 mg/dL (8.4-10.2); Magnesium 1.6 mg/dL (1.6-2.3); Potassium 4.8 mmol/L (3.5-5.1)
[2020-07-26] MEDS: MAGNESIUM SULFATE-D5W PMX 1 GM in DEXTROSE/WATER 1 100ML.BAG IVPB SCH ×2 (11:43→12:55)
[2020-07-26 11:48] LABS: Glucose,Whole Blood 149 mg/dL (75-99)
[2020-07-26 11:59] VITALS: BP 142/64; PULSE 55; RESP 18; TEMP 97.6
--- NOTE | 2020-07-26 12:20 | P.PN ---
Subjective Patient is seen in follow-up for acute kidney injury on chronic kidney disease and hyperkalemia. Renal function continues to improve. Potassium level normal this morning. Oral intake is good. Good urine output. No vomiting or diarrhea. Vital signs are stable. General: The patient appeared well nourished and normally developed. HEENT: Head exam is unremarkable. Neck is without jugular venous distension. LUNGS: Breath sounds decreased. HEART: Rate and Rhythm are regular. ABDOMEN: Soft, nontender. EXTREMITITES: No edema. Chronic skin changes noted. Objective - Vital Signs Vital signs: Vital Signs Temp 97.6 F 07/26/20 11:57 Pulse 55 L 07/26/20 11:57 Resp 18 07/26/20 11:57 BP 142/64 07/26/20 11:57 Pulse Ox 99 07/26/20 11:57 Intake & Output 07/25/20 07/26/20 07/26/20 18:59 06:59 18:59 Intake Total 708 250 Balance 708 250 Weight 126.8 kg Intake: Oral 708 250 Other: Voiding Method Toilet Toilet # Voids 1 1 # Bowel Movements 1 - Labs CBC & Chem 7: 07/24/20 06:05 07/26/20 09:00 Labs: Abnormal Lab Results - Last 24 Hours (Table) 07/25/20 07/25/20 07/25/20 Range/Units 15:16 16:39 20:24 Sodium (137-145) mmol/L Potassium 5.5 H (3.5-5.1) mmol/L Chloride (98-107) mmol/L BUN (9-20) mg/dL Glucose (74-99) mg/dL POC Glucose (mg/dL) 143 H 234 H (75-99) mg/dL 07/26/20 07/26/20 07/26/20 Range/Units 06:11 09:00 11:47 Sodium 130 L (137-145) mmol/L Potassium (3.5-5.1) mmol/L Chloride 97 L (98-107) mmol/L BUN 57 H (9-20) mg/dL Glucose 169 H (74-99) mg/dL POC Glucose (mg/dL) 129 H 149 H (75-99) mg/dL Assessment and Plan Plan: Assessment: 1. Acute kidney injury mostly prerenal secondary to hypovolemia from diuresis. Creatinine was 1.84 on admission and is down to 1.14 today. UA benign. No hydronephrosis noted on kidney ultrasound. 2. Chronic kidney disease stage IIIA. Baseline creatinine in the range of 1.2- 1.3 secondary to nephrosclerosis. 3. Hyperkalemia secondary to metabolic acidosis, acute kidney injury, lisinopril, Aldactone as well as potassium supplementation. Improved with medical management. 4. Metabolic acidosis secondary to acute kidney injury and metformin. Better. 5. Hyponatremia secondary to acute kidney injury. 6. Diabetes mellitus. Plan: Encourage oral intake. Renal diet. Tight blood sugar control. Continue to hold diuretics, lisinopril and potassium supplementation. Anticipate discharge soon. Repeat BMP and magnesium level 2-3 days postdischarge. Patient will be provided with information on low potassium diet. He was also advised to monitor his weight closely at home and to call if gains more than 2-3 pounds or edema worsens. Follow up outpatient in 1 week.
== END 2020-07-26 14:52 | disposition home or self-care (01) | DRG 683 ==
LOC: EC 18:07 → 6NMEDSUR 22:58 → 3SCARD 23:31
PROVIDERS: ADMIT Internal Medicine; ATTEND Internal Medicine
DX: N17.9 Acute kidney failure, unspecified (principal); E87.1 Hypo-osmolality and hyponatremia; E87.2 Acidosis; E87.5 Hyperkalemia; Z79.4 Long term (current) use of insulin; R29.6 Repeated falls; E78.5 Hyperlipidemia, unspecified; I10 Essential (primary) hypertension; M19.90 Unspecified osteoarthritis, unspecified site; Z96.41 Presence of insulin pump (external) (internal); E11.22 Type 2 diabetes mellitus with diabetic chronic kidney disease; I12.9 Hypertensive chronic kidney disease with stage 1 through stage 4 chronic kidney disease, or unspecified chronic kidney disease; N18.31 Chronic kidney disease, stage 3a; K59.00 Constipation, unspecified; M1A.9XX0 Chronic gout, unspecified, without tophus (tophi); K21.9 Gastro-esophageal reflux disease without esophagitis; E86.1 Hypovolemia; T50.2X5A Adverse effect of carbonic-anhydrase inhibitors, benzothiadiazides and other diuretics, initial encounter; Z88.5 Allergy status to narcotic agent; Z88.2 Allergy status to sulfonamides; Z79.899 Other long term (current) drug therapy; Z83.49 Family history of other endocrine, nutritional and metabolic diseases; Z83.6 Family history of other diseases of the respiratory system; Z80.9 Family history of malignant neoplasm, unspecified; Z91.09 Other allergy status, other than to drugs and biological substances; Z82.5 Family history of asthma and other chronic lower respiratory diseases; Z80.1 Family history of malignant neoplasm of trachea, bronchus and lung
CPT/HCPCS: 36415; 70450; 71046; 72100; 76770; 80048; 80053; 81003; 83605; 83735; 83880; 84100; 84132; 84439; 84443; 84481; 84484; 85025; 85610; 85730; 93005; 94640; 96361; 96365; 96366; 96375; 99291

== ENCOUNTER 2020-08-13 15:08 | Inpatient (IN) | payer MEDICARE ==
[2020-08-13] MEDS ORDERED: FUROSEMIDE 10 MG/ML 4 ML VIAL IV STA (15:25)
--- NOTE | 2020-08-13 15:31 | ED ---
General Adult HPI - General Chief complaint: Extremity Problem,Nontraumatic Stated complaint: Water retention Time Seen by Provider: 08/13/20 15:16 Source: patient, RN notes reviewed, old records reviewed Mode of arrival: ambulatory Limitations: no limitations - History of Present Illness Initial comments: Patient is a pleasant 70-year-old male presenting to the emergency Department with leg edema. Onset of symptoms was over the past couple weeks, worse the past couple days. He should does have mild discomfort. Patient does notice some redness however this is somewhat chronic. Patient has had some leaking from his legs. Patient is having mild exertional dyspnea. No dyspnea at rest. No chest pain. Patient was in the hospital several weeks ago with critical potassium level. Patient states he was taken off his diuretics at that time. - Related Data Home Medications Medication Instructions Recorded Confirmed Omeprazole [PriLOSEC] 20 mg PO DAILY 08/09/15 08/13/20 allopurinoL [Zyloprim] 100 mg PO HS 08/09/15 08/13/20 metFORMIN HCL [Glucophage] 1,000 mg PO BID 07/15/16 08/13/20 Atorvastatin [Lipitor] 40 mg PO HS 06/01/18 08/13/20 Insulin Aspart (For Pump) [NovoLOG 0.01 unit SQ-PUMP CONTINUOUS 07/23/20 08/13/20 (For Pump)] Zinc 50 mg PO DAILY 07/23/20 08/13/20 Furosemide [Lasix] 80 mg PO DAILY 08/13/20 08/13/20 Magnesium Oxide 400 mg PO DAILY 08/13/20 08/13/20 Previous Rx's Medication Instructions Recorded Sennosides-Docusate Sodium 2 each PO DAILY tab 07/26/20 [Senokot-S] amLODIPine [Norvasc] 5 mg PO DAILY #30 tab 07/26/20 hydrALAZINE HCL [Apresoline] 25 mg PO TID #90 tab 07/26/20 Allergies Allergy/AdvReac Type Severity Reaction Status Date / Time Sulfa (Sulfonamide Allergy Rash/Hives Verified 08/13/20 15:13 Antibiotics) codeine AdvReac Unknown Verified 08/13/20 15:13 ivory soap Allergy Rash/Hives Uncoded 08/13/20 15:13 Review of Systems ROS Statement: Those systems with pertinent positive or pertinent negative responses have been documented in the HPI. ROS Other: All systems not noted in ROS Statement are negative. Constitutional: Denies: fever Eyes: Denies: eye pain ENT: Denies: ear pain Respiratory: Reports: as per HPI. Denies: cough Cardiovascular: Reports: dyspnea on exertion, edema. Denies: chest pain Endocrine: Denies: fatigue Gastrointestinal: Denies: abdominal pain Genitourinary: Denies: dysuria Musculoskeletal: Denies: back pain Skin: Denies: rash Neurological: Denies: weakness Past Medical History Past Medical History: Diabetes Mellitus, Hyperlipidemia, Hypertension, Osteoarthritis (OA), Skin Disorder Additional Past Medical History / Comment(s): wounds on both legs and swelling of the legs History of Any Multi-Drug Resistant Organisms: None Reported Past Surgical History: Appendectomy, Heart Catheterization Additional Past Surgical History / Comment(s): carpal tunnel surgery Past Anesthesia/Blood Transfusion Reactions: No Reported Reaction Past Psychological History: No Psychological Hx Reported Smoking Status: Never smoker Past Alcohol Use History: None Reported Past Drug Use History: None Reported - Past Family History Mother Family Medical History: Cancer, Thyroid Disorder Additional Family Medical History / Comment(s): of lung infection age 59 Brother(s) Family Medical History: COPD, Respiratory Disorder Additional Family Medical History / Comment(s): hx agent orange. Still living age 65 now General Exam Limitations: no limitations General appearance: alert, in no apparent distress Head exam: Present: normocephalic Eye exam: Present: normal appearance Neck exam: Present: normal inspection Respiratory exam: Present: normal lung sounds bilaterally Cardiovascular Exam: Present: regular rate, normal rhythm GI/Abdominal exam: Present: soft. Absent: tenderness Extremities exam: Present: pedal edema, other (Bilateral lower legs with +3 edema, erythema.). Absent: calf tenderness Neurological exam: Present: alert Psychiatric exam: Present: normal affect, normal mood Skin exam: Present: erythema (Bilateral lower legs) Course Vital Signs 08/13/20 15:09 Temperature 98.5 F Pulse Rate 71 Respiratory 18 Rate Blood Pressure 123/53 O2 Sat by Pulse 99 Oximetry EKG Findings - EKG Comments: EKG Findings:: Wide complex rhythm with a rate of 64. QRS 182. QT 46. QTc 501. Left axis. Right bundle branch block. Borderline ST depression laterally. Medical Decision Making - Medical Decision Making Patient reevaluated and updated. Case was discussed with Dr. Bland, who will admit covering for Dr. Antonio. - Lab Data Result diagrams: 08/13/20 15:58 08/13/20 15:58 Lab Results 08/13/20 08/13/20 08/13/20 Range/Units 15:58 15:58 15:58 WBC 7.7 (3.8-10.6) k/uL RBC 3.38 L (4.30-5.90) m/uL Hgb 9.9 L D (13.0-17.5) gm/dL Hct 30.6 L (39.0-53.0) % MCV 90.5 (80.0-100.0) fL MCH 29.3 (25.0-35.0) pg MCHC 32.3 (31.0-37.0) g/dL RDW 14.3 (11.5-15.5) % Plt Count 277 (150-450) k/uL MPV 8.0 Neutrophils % 79 % Lymphocytes % 10 % Monocytes % 8 % Eosinophils % 1 % Basophils % 1 % Neutrophils # 6.1 (1.3-7.7) k/uL Lymphocytes # 0.7 L (1.0-4.8) k/uL Monocytes # 0.6 (0-1.0) k/uL Eosinophils # 0.1 (0-0.7) k/uL Basophils # 0.1 (0-0.2) k/uL Hypochromasia Slight Poikilocytosis Slight PT 10.7 (9.0-12.0) sec INR 1.0 (<1.2) APTT 25.5 (22.0-30.0) sec Sodium 134 L (137-145) mmol/L Potassium 4.9 (3.5-5.1) mmol/L Chloride 99 (98-107) mmol/L Carbon Dioxide 26 (22-30) mmol/L Anion Gap 9 mmol/L BUN 26 H (9-20) mg/dL Creatinine 1.16 (0.66-1.25) mg/dL Est GFR (CKD-EPI)AfAm 73 (>60 ml/min/1.73 sqM) Est GFR (CKD-EPI)NonAf 64 (>60 ml/min/1.73 sqM) Glucose 176 H (74-99) mg/dL Plasma Lactic Acid Clint (0.7-2.0) mmol/L Calcium 9.0 (8.4-10.2) mg/dL Magnesium 1.8 (1.6-2.3) mg/dL Total Bilirubin 0.3 (0.2-1.3) mg/dL AST 24 (17-59) U/L ALT 29 (4-49) U/L Alkaline Phosphatase 91 (38-126) U/L Troponin I (0.000-0.034) ng/mL NT-Pro-B Natriuret Pep pg/mL Total Protein 6.9 (6.3-8.2) g/dL Albumin 3.8 (3.5-5.0) g/dL 08/13/20 08/13/20 08/13/20 Range/Units 15:58 15:58 15:58 WBC (3.8-10.6) k/uL RBC (4.30-5.90) m/uL Hgb (13.0-17.5) gm/dL Hct (39.0-53.0) % MCV (80.0-100.0) fL MCH (25.0-35.0) pg MCHC (31.0-37.0) g/dL RDW (11.5-15.5) % Plt Count (150-450) k/uL MPV Neutrophils % % Lymphocytes % % Monocytes % % Eosinophils % % Basophils % % Neutrophils # (1.3-7.7) k/uL Lymphocytes # (1.0-4.8) k/uL Monocytes # (0-1.0) k/uL Eosinophils # (0-0.7) k/uL Basophils # (0-0.2) k/uL Hypochromasia Poikilocytosis PT (9.0-12.0) sec INR (<1.2) APTT (22.0-30.0) sec Sodium (137-145) mmol/L Potassium (3.5-5.1) mmol/L Chloride (98-107) mmol/L Carbon Dioxide (22-30) mmol/L Anion Gap mmol/L BUN (9-20) mg/dL Creatinine (0.66-1.25) mg/dL Est GFR (CKD-EPI)AfAm (>60 ml/min/1.73 sqM) Est GFR (CKD-EPI)NonAf (>60 ml/min/1.73 sqM) Glucose (74-99) mg/dL Plasma Lactic Acid Clint 2.2 H* (0.7-2.0) mmol/L Calcium (8.4-10.2) mg/dL Magnesium (1.6-2.3) mg/dL Total Bilirubin (0.2-1.3) mg/dL AST (17-59) U/L ALT (4-49) U/L Alkaline Phosphatase (38-126) U/L Troponin I 0.015 (0.000-0.034) ng/mL NT-Pro-B Natriuret Pep 382 pg/mL Total Protein (6.3-8.2) g/dL Albumin (3.5-5.0) g/dL - Radiology Data Radiology results: image reviewed (Chest x-ray shows left lower lobe infiltrate) Disposition Clinical Impression: Leg edema, Pneumonia, Cellulitis Disposition: ADMITTED IP TO THIS HOSP Is patient prescribed a controlled substance at d/c from ED?: No Referrals: Adam Jacome DO [Primary Care Provider] - 1-2 days Decision Time: 18:11
[2020-08-13 16:12] LABS: Basophils # (A) 0.1 k/uL (0-0.2); Basophils % (A) 1 %; Eosinophils # (A) 0.1 k/uL (0-0.7); Eosinophils % (A) 1 %; HCT 30.6 % (39.0-53.0); HGB 9.9 gm/dL (13.0-17.5); Hypochromasia Slight; Lymphocytes # (A) 0.7 k/uL (1.0-4.8); Lymphocytes % (A) 10 %; MCH 29.3 pg (25.0-35.0); MCHC 32.3 g/dL (31.0-37.0); MCV 90.5 fL (80.0-100.0); Monocytes # (A) 0.6 k/uL (0-1.0); Monocytes % (A) 8 %; Neutrophils # (A) 6.1 k/uL (1.3-7.7); Neutrophils % (A) 79 %; Platelet Count 277 k/uL (150-450); Poikilocytosis Slight; RBC 3.38 m/uL (4.30-5.90); RDW 14.3 % (11.5-15.5); WBC 7.7 k/uL (3.8-10.6)
--- NOTE | 2020-08-13 16:14 | XR ---
EXAMINATION TYPE: XR chest 2V DATE OF EXAM: 08/13/2020 COMPARISON: 07/23/2020 HISTORY: Shortness of breath TECHNIQUE: Frontal and lateral views of the chest are obtained. FINDINGS: Scattered senescent parenchymal changes noted. Hyperinflation compatible with COPD. Patchy left lower lobe infiltrate may reflect developing pneumonia. Heart size is stable. Mediastinal structures are stable and grossly unremarkable. No evidence for hilar prominence. Degenerative changes dorsal spine. IMPRESSION: 1. Patchy left lower lobe infiltrate may reflect developing pneumonia.
[2020-08-13 16:23] LABS: Albumin 3.8 g/dL (3.5-5.0); Magnesium 1.8 mg/dL (1.6-2.3); Potassium 4.9 mmol/L (3.5-5.1); Total Bilirubin 0.3 mg/dL (0.2-1.3); Total Protein 6.9 g/dL (6.3-8.2)
[2020-08-13 16:30] LABS: Partial Thromboplastin Time 25.5 sec (22.0-30.0); Prothrombin Time 10.7 sec (9.0-12.0)
[2020-08-13] MEDS ORDERED: AZITHROMYCIN 500 MG in SODIUM CHLORIDE 0.9% 250 ML IVPB STA (18:12)
[2020-08-13] MEDS ORDERED: PNEUMONIA PROTOCOL UTILIZED 1 EACH MISC PO PRN (18:12)
[2020-08-13 18:18] LABS: Glucose,Whole Blood 142 mg/dL (75-99)
[2020-08-13] MEDS ORDERED: PIPERACILLIN-TAZOBACTAM 3.375 GM in SODIUM CHLORIDE 0.9% 100 ML IVPB STA (18:51)
[2020-08-13] MEDS ORDERED: Insulin Aspart (For Pump) 100 UNIT/ML VIAL SQ-PUMP SCH (19:15)
[2020-08-13] MEDS: allopurinoL 100 MG TAB PO SCH (20:15)
[2020-08-13] MEDS: metFORMIN 500 MG TAB PO SCH (20:15)
[2020-08-13] MEDS: ATORVASTATIN 40 MG TAB PO SCH (20:15)
[2020-08-13] MEDS: HEPARIN SODIUM,PORCINE 5,000 UNIT/ML 1 ML VIAL SQ SCH (20:16)
[2020-08-13 20:35] LABS: Glucose,Whole Blood 139 mg/dL (75-99)
[2020-08-13] MEDS: hydrALAZINE HCL 25 MG TAB PO SCH (21:32)
[2020-08-13] MEDS ORDERED: ACETAMINOPHEN TAB 325 MG TAB PO PRN (21:34)
[2020-08-13] MEDS ORDERED: INSPUCOR MISCELLANE PRN (21:44)
--- NOTE | 2020-08-13 21:45 | P.HPIM ---
History of Present Illness H&P Date: 08/13/20 Chief Complaint: Bilateral lower extremity slightness, left lower lobe pneum onia, anasarca, 70-year-old morbidly obese male one of Dr. Jacome patient was hospitalized in or service on 07/24/2020 for acute kidney injury with severe hyperkalemia and metabolic acidosis at the time. Patient was treated and done well was discharged home earlier without any diuretics based on the kidney function and the severely elevated BUN also potassium had subtle down since then back to normal. Patient apparently developed to have worsening anasarca and edema in the lower extremity was seen Dr. Oliveira nephrology started on furosemide 40 mg a day did not help much ended up calling Dr. Valenzuela office and was started on furosemide 40 mg twice a day still having significant water retention and had gained total of 15 pounds since he left the hospital with worsening dermatitis and broking skin in the lower part of his legs from the knee down with worsening redness discomfort irritation and drainage with his symptoms are more severe today and the been diuretic to the emergency department where was seen and evaluated found to be in anasarca with acute cellulitis of the lower extremity and chest x-ray showed left lower lobe pneumonia his kidney function and potassium level were better this time. Patient be continue on IV antibiotics to help both the cellulitis and pneumonia Review of Systems CONSTITUTIONAL: Well-developed no acute respiratory distress. Morbidly obese EYES: No icterus sclerae, no conjunctivitis. EARS, NOSE, MOUTH, THROAT, and FACE: No sore throat, lymphadenopathy, carotid bruits or deformity. RESPIRATORY: Decreased breath sound bilaterally with mild shortness of breath with exertion. CARDIOVASCULAR: Positive PND orthopnea palpitations no chest pain GASTROINTESTINAL: No Abd pain, Nausea or vomiting, no Diarrhea or constipation, No GI Bleed, no distention or masses. Significant abdominal distention and water retention with edema and anasarca fluid. GENITOURINARY: Negative for Hematuria or UTI, no kidney stones. Polyuria and frequency INTEGUMENT/BREAST: Negative for any muscular injury with mild osteoarthritis.. Significant cellulitis and anasarca worsening the lower extremity. HEMATOLOGIC/LYMPHATIC: Negative for bleed or purpura. MUSCULOSKELTAL: Negative for Myalgia or arthralgia. NEURLOGICAL: No LOC, Sz or syncope, blurred vision dizziness or abnormality.. BEHAVIORAL/PSYCH: Negative. ENDOCRINE: Negative. Family history: Mother age 60 from lung cancer, father age 57 from an accident, patient had 1 brother with eye from cancer from agent orange in [place] had for half-sister she never met patient has 2 children one of them has an autoimmune disorders waiting for double lung transplant second child has no major medical problem. Social history: Patient does not smoke, no alcohol or drug use, lives at home alone is a . Past Medical History Past Medical History: Diabetes Mellitus, Hyperlipidemia, Hypertension, Osteoarthritis (OA), Skin Disorder Additional Past Medical History / Comment(s): wounds on both legs and swelling of the legs History of Any Multi-Drug Resistant Organisms: None Reported Past Surgical History: Appendectomy, Heart Catheterization Additional Past Surgical History / Comment(s): carpal tunnel surgery Past Anesthesia/Blood Transfusion Reactions: No Reported Reaction Past Psychological History: No Psychological Hx Reported Smoking Status: Never smoker Past Alcohol Use History: None Reported Past Drug Use History: None Reported - Past Family History Mother Family Medical History: Cancer, Thyroid Disorder Additional Family Medical History / Comment(s): of lung infection age 59 Brother(s) Family Medical History: COPD, Respiratory Disorder Additional Family Medical History / Comment(s): hx agent orange. Still living age 65 now Medications and Allergies Home Medications Medication Instructions Recorded Confirmed Type Omeprazole [PriLOSEC] 20 mg PO DAILY 08/09/15 08/13/20 History allopurinoL [Zyloprim] 100 mg PO HS 08/09/15 08/13/20 History metFORMIN HCL [Glucophage] 1,000 mg PO BID 07/15/16 08/13/20 History Atorvastatin [Lipitor] 40 mg PO HS 06/01/18 08/13/20 History Insulin Aspart (For Pump) [NovoLOG 0.01 unit SQ-PUMP CONTINUOUS 07/23/20 08/13/20 History (For Pump)] Zinc 50 mg PO DAILY 07/23/20 08/13/20 History Sennosides-Docusate Sodium 2 each PO DAILY tab 07/26/20 08/13/20 Rx [Senokot-S] amLODIPine [Norvasc] 5 mg PO DAILY #30 tab 07/26/20 08/13/20 Rx hydrALAZINE HCL [Apresoline] 25 mg PO TID #90 tab 07/26/20 08/13/20 Rx Furosemide [Lasix] 80 mg PO DAILY 08/13/20 08/13/20 History Magnesium Oxide 400 mg PO DAILY 08/13/20 08/13/20 History Allergies Allergy/AdvReac Type Severity Reaction Status Date / Time Sulfa (Sulfonamide Allergy Rash/Hives Verified 08/13/20 15:13 Antibiotics) codeine AdvReac Unknown Verified 08/13/20 15:13 ivory soap Allergy Rash/Hives Uncoded 08/13/20 15:13 Physical Exam Vitals: Vital Signs Temp Pulse Resp BP Pulse Ox 08/13/20 15:09 98.5 F 71 18 123/53 99 Intake and Output 08/13/20 08/13/20 08/13/20 06:59 14:59 22:59 Other: Weight 131.542 kg General Appearance: Alert, cooperative, no distress, appears stated age. Morbidly obese Neck HEENT: Supple, no lymphadenopathy, no thyroid enlargement, no carotid bruits. Lungs: Decreased breath some bilaterally with fine rhonchi positive mild crack les mild expected wheezes. Worsening the left lower lobe Chest Wall: Decrease expansion with deep inspiration no tenderness and no deformity was found on exam, no costochondral pain or discomfort. Heart: Regular rate and rhythm, S1, S2 positive S3 with systolic murmur. Back: Symmetric, no curvature, ROM normal, no CVA tenderness. Abdomen: Soft, non-tender, bowel sounds active all four quadrants, no masses, no organomegaly. Significant anasarca consult tissue swelling the lower part of the abdomen. Extremities: Extremities normal, atraumatic, 2+ edema with significant cellulitis and swelling from 4 inches below the knee all the way to the ankle area with a broken skin and slight drainage Skin: Skin color, texture, tugor normal, no rashes or lesions. Neurologic: Alert oriented x3 cranial nerves II through XII intact, no motor deficit, no abnormal balance or gait. Results CBC & Chem 7: 08/13/20 15:58 08/13/20 15:58 Labs: Abnormal Lab Results - Last 24 Hours (Table) 08/13/20 08/13/20 08/13/20 Range/Units 15:58 15:58 15:58 RBC 3.38 L (4.30-5.90) m/uL Hgb 9.9 L D (13.0-17.5) gm/dL Hct 30.6 L (39.0-53.0) % Lymphocytes # 0.7 L (1.0-4.8) k/uL Sodium 134 L (137-145) mmol/L BUN 26 H (9-20) mg/dL Glucose 176 H (74-99) mg/dL POC Glucose (mg/dL) (75-99) mg/dL Plasma Lactic Acid Clint 2.2 H* (0.7-2.0) mmol/L 08/13/20 Range/Units 18:13 RBC (4.30-5.90) m/uL Hgb (13.0-17.5) gm/dL Hct (39.0-53.0) % Lymphocytes # (1.0-4.8) k/uL Sodium (137-145) mmol/L BUN (9-20) mg/dL Glucose (74-99) mg/dL POC Glucose (mg/dL) 142 H (75-99) mg/dL Plasma Lactic Acid Clint (0.7-2.0) mmol/L Thrombosis Risk Factor Assmnt - DVT/VTE Prophylaxis DVT/VTE Prophylaxis: Pharmacologic Prophylaxis ordered, Mechanical Prophylaxis ordered Assessment and Plan Assessment: 1 bilateral legs colitis: Patient will be admitted to the hospital started on Zosyn and azithromycin originally to cover both cellulitis and pneumonia with switch patient eventually to Unasyn and keep azithromycin for the lung. Cont inue topical care patient might see wound care continue 790 cream and change dressing daily. 2 left lower lobe pneumonia: Most likely atypical pneumonitis: Patient be on azithromycin currently keep watching for any hypoxia updraft with treatment on regular basis. 3 chronic kidney disease: Kidney function slightly but better than last admission been on less diuretics at this point. 4 anasarca: Patient is back on furosemide 40 mg twice a day titrate dose higher while watching the kidney function. 5 type 2 diabetes: Patient is on insulin pump to be continue. 6 hyperlipidemia: Continue patient on Lipitor 40 mg a day. 7 history of gout: Has been on allopurinol 100 mg daily. 8 severe electrolyte imbalance mostly secondary to acute kidney injury and spironolactone has not had problems since he left the hospital patient was tried on lokelma from last admission. 9 DVT prophylaxis: Patient will be on subcu heparin. 11 GI prophylaxis: Patient be on Protonix 40 mg daily. CODE STATUS: Full code. Admit patient to the inpatient service for more than 2 night stay.
[2020-08-13] MEDS: FUROSEMIDE 10 MG/ML 4 ML VIAL IV SCH (22:43)
[2020-08-14] MEDS ORDERED: PIPERACILLIN-TAZOBACTAM 3.375 GM in SODIUM CHLORIDE 0.9% 100 ML IVPB SCH (04:00)
[2020-08-14 07:10] LABS: Glucose,Whole Blood 107 mg/dL (75-99)
[2020-08-14] MEDS: amLODIPine 5 MG TAB PO SCH (07:34)
[2020-08-14] MEDS: PANTOPRAZOLE 40 MG TABLET PO SCH (07:34)
[2020-08-14] MEDS: MAGNESIUM OXIDE 400 MG TAB PO SCH (07:34)
[2020-08-14] MEDS: metFORMIN 500 MG TAB PO SCH ×2 (07:34→20:20)
[2020-08-14] MEDS: hydrALAZINE HCL 25 MG TAB PO SCH ×3 (07:34→21:08)
[2020-08-14] MEDS: ZINC SULFATE 220 MG CAP PO SCH (07:35)
[2020-08-14] MEDS: SENNOSIDES-DOCUSATE SODIUM 1 EACH TAB PO SCH (07:35)
[2020-08-14] MEDS: HEPARIN SODIUM,PORCINE 5,000 UNIT/ML 1 ML VIAL SQ SCH ×2 (07:35→20:20)
[2020-08-14] MEDS: FUROSEMIDE 10 MG/ML 4 ML VIAL IV SCH ×3 (07:35→23:23)
--- NOTE | 2020-08-14 08:07 | XR ---
EXAMINATION TYPE: XR chest 2V DATE OF EXAM: 08/14/2020 COMPARISON: Prior chest x-ray 08/13/2020 HISTORY: Pneumonia TECHNIQUE: Frontal and lateral views of the chest are obtained. FINDINGS: Right basilar density is present, the costophrenic angles are blunted. No evident pneumoth orax. Heart size is likely stable accounting for technique, rotation. Question some mild prominence o f interstitium IMPRESSION: Correlate for possible pneumonia, there may be pleural effusions, atelectasis, edema wit h congestive heart failure
[2020-08-14] MEDS ORDERED: NON FORMULARY DRUG (Omeprazole [Prilosec] 20 MG Capsule.Dr) PO SCH (09:00)
[2020-08-14] MEDS ORDERED: FUROSEMIDE 40 MG TAB PO SCH (09:00)
--- NOTE | 2020-08-14 09:34 | P.PN ---
Subjective Progress Note Date: 08/14/20 HISTORY OF PRESENT ILLNESS 70-year-old morbidly obese male one of Dr. Jacome patient was hospitalized in or service on 07/24/2020 for acute kidney injury with severe hyperkalemia and metabolic acidosis at the time. Patient was treated and done well was discharged home earlier without any diuretics based on the kidney function and the severely elevated BUN also potassium had subtle down since then back to normal. Patient apparently developed to have worsening anasarca and edema in the lower extremity was seen Dr. Oliveira nephrology started on furosemide 40 mg a day did not help much ended up calling Dr. Valenzuela office and was started on furosemide 40 mg twice a day still having significant water retention and had gained total of 15 pounds since he left the hospital with worsening dermatitis and broking skin in the lower part of his legs from the knee down with worsening redness discomfort irritation and drainage with his symptoms are more severe today and the been diuretic to the emergency department where was seen and evaluated found to be in anasarca with acute cellulitis of the lower extremity and chest x-ray showed left lower lobe pneumonia his kidney function and potassium level were better this time. Patient be continue on IV antibiotics to help both the cellulitis and pneumonia 08/14: Patient denies any new complaints. No shortness of breath. He has slight decreased edema from yesterday. Consult in place with Dr. Chang. We will change antibiotics to Unasyn for now will hold care to be addressed by Dr. Chang. Patient has been afebrile, heart rate 58, blood pressure 141/51, pulse ox 97% on room air. Repeat lactic acid 1.8. Patient is sitting in recliner encouraged to keep legs elevated. REVIEW OF SYSTEMS CONSTITUTIONAL: Well-developed no acute respiratory distress. Morbidly obese. Denies fever. EYES: No icterus sclerae, no conjunctivitis. EARS, NOSE, MOUTH, THROAT, and FACE: No sore throat, lymphadenopathy, carotid bruits or deformity. RESPIRATORY: Decreased breath sound bilaterally with mild shortness of breath with exertion. CARDIOVASCULAR: Positive PND orthopnea palpitations no chest pain GASTROINTESTINAL: No Abd pain, Nausea or vomiting, no Diarrhea or constipation, No GI Bleed, no distention or masses. Significant abdominal distention and water retention with edema and anasarca fluid. GENITOURINARY: Negative for Hematuria or UTI, no kidney stones. Polyuria and frequency INTEGUMENT/BREAST: Negative for any muscular injury with mild osteoarthritis.. Significant cellulitis and anasarca worsening the lower extremity. HEMATOLOGIC/LYMPHATIC: Negative for bleed or purpura. MUSCULOSKELTAL: Negative for Myalgia or arthralgia. NEURLOGICAL: No LOC, Sz or syncope, blurred vision dizziness or abnormality.. BEHAVIORAL/PSYCH: Negative. ENDOCRINE: Negative. PHYSICAL EXAMINATION General Appearance: Alert, cooperative, no distress, appears stated age. Morbidly obese. Resting in chair. Neck HEENT: Supple, no lymphadenopathy, no thyroid enlargement, no carotid b ruits. Lungs: Decreased breath some bilaterally with fine rhonchi positive mild crackles mild expected wheezes. Worsening the left lower lobe Chest Wall: Decrease expansion with deep inspiration no tenderness and no deformity was found on exam, no costochondral pain or discomfort. Heart: Regular rate and rhythm, S1, S2 positive S3 with systolic murmur. Back: Symmetric, no curvature, ROM normal, no CVA tenderness. Abdomen: Soft, non-tender, bowel sounds active all four quadrants, no masses, no organomegaly. Significant anasarca consult tissue swelling the lower part of the abdomen. Extremities: Extremities normal, atraumatic, 2+ edema with significant cellulitis and swelling from 4 inches below the knee all the way to the ankle area with a broken skin and slight drainage Skin: Skin color, texture, tugor normal, no rashes or lesions. Neurologic: Alert oriented x3 cranial nerves II through XII intact, no motor deficit, no abnormal balance or gait. ASSESSMENT AND PLAN 1 bilateral legs colitis: Patient will be admitted to the hospital started on Zosyn and azithromycin originally to cover both cellulitis and pneumonia with switch patient eventually to Unasyn and keep azithromycin for the lung. Consult with infectious disease. 2 left lower lobe pneumonia: Most likely atypical pneumonitis: Patient be on azithromycin currently keep watching for any hypoxia updraft with treatment on regular basis. 3 chronic kidney disease: Kidney function slightly but better than last admission been on less diuretics at this point. 4 anasarca: Patient is back on furosemide 40 mg twice a day titrate dose higher while watching the kidney function. 5 type 2 diabetes: Patient is on insulin pump to be continue. 6 hyperlipidemia: Continue patient on Lipitor 40 mg a day. 7 history of gout: Has been on allopurinol 100 mg daily. 8 severe electrolyte imbalance mostly secondary to acute kidney injury and spironolactone has not had problems since he left the hospital patient was tried on lokelma from last admission. 9 DVT prophylaxis: Patient will be on subcu heparin. 11 GI prophylaxis: Patient be on Protonix 40 mg daily. CODE STATUS: Full code. DISCHARGE PLAN Home Impression and plan of care have been directed as dictated by the signing physician. Meggan Arias nurse practitioner acting as scribe for signing physician. Objective - Vital Signs Vital signs: Vital Signs Temp 98.2 F 08/14/20 07:19 Pulse 58 L 08/14/20 07:19 Resp 19 08/14/20 07:19 BP 141/51 08/14/20 07:19 Pulse Ox 97 08/14/20 07:19 Intake & Output 08/13/20 08/14/20 08/14/20 18:59 06:59 18:59 Weight 131.542 kg 131.542 kg Other: # Voids 5 - Labs CBC & Chem 7: 08/13/20 15:58 08/13/20 15:58 Labs: Abnormal Lab Results - Last 24 Hours (Table) 08/13/20 08/13/20 08/13/20 Range/Units 15:58 15:58 15:58 RBC 3.38 L (4.30-5.90) m/uL Hgb 9.9 L D (13.0-17.5) gm/dL Hct 30.6 L (39.0-53.0) % Lymphocytes # 0.7 L (1.0-4.8) k/uL Sodium 134 L (137-145) mmol/L BUN 26 H (9-20) mg/dL Glucose 176 H (74-99) mg/dL POC Glucose (mg/dL) (75-99) mg/dL Plasma Lactic Acid Clint 2.2 H* (0.7-2.0) mmol/L 08/13/20 08/13/20 08/14/20 Range/Units 18:13 20:34 07:09 RBC (4.30-5.90) m/uL Hgb (13.0-17.5) gm/dL Hct (39.0-53.0) % Lymphocytes # (1.0-4.8) k/uL Sodium (137-145) mmol/L BUN (9-20) mg/dL Glucose (74-99) mg/dL POC Glucose (mg/dL) 142 H 139 H 107 H (75-99) mg/dL Plasma Lactic Acid Clint (0.7-2.0) mmol/L
[2020-08-14] MEDS ORDERED: AMPICILLIN-SULBACTAM 1.5 GM in SODIUM CHLORIDE 0.9% 50 ML IVPB SCH (10:00)
[2020-08-14 11:29] LABS: African American GFR (CKD) >90 (>60 ml/min/1.73 sqM); Anion Gap 10 mmol/L; Blood Urea Nitrogen 30 mg/dL (9-20); Carbon Dioxide 25 mmol/L (22-30); Chloride 99 mmol/L (98-107); Glucose 118 mg/dL (74-99); Non-African American GFR(CKD) 81 (>60 ml/min/1.73 sqM); Potassium 5.4 mmol/L (3.5-5.1); Sodium 134 mmol/L (137-145)
[2020-08-14 11:49] LABS: Glucose,Whole Blood 116 mg/dL (75-99)
[2020-08-14] MEDS ORDERED: INSULIN PUMP TARGET GLUCOSE 1 EACH MISC MISCELLANE PRN (14:49)
[2020-08-14] MEDS ORDERED: INSULIN ASPART (NovoLOG) 100 UNIT/ML VIAL SQ PRN (14:49)
[2020-08-14] MEDS ORDERED: INSULIN PUMP BASAL RATES 1 EACH MISC MISCELLANE PRN (14:49)
[2020-08-14] MEDS ORDERED: INSULIN PUMP ACTIVE INSULIN 1 EACH MISC MISCELLANE PRN (14:49)
[2020-08-14] MEDS: ceFAZolin 3 GM in SODIUM CHLORIDE 0.9% 100 ML IVPB SCH ×2 (16:25→23:23)
[2020-08-14] MEDS: AZITHROMYCIN 500 MG TAB PO SCH (16:25)
--- NOTE | 2020-08-14 16:48 | CONS ---
CONSULTATION REASON FOR CONSULT: Hyperkalemia. HISTORY OF PRESENT ILLNESS: Patient is a 70-year-old male who has a history of recent acute kidney injury in the earlier part of July which was mostly prerenal. He also had significant hyperkalemia at that time. The patient was discharged home and was supposed to follow up as outpatient. He was initially not sent home on diuretics; however, Lasix was started as outpatient, but patient developed worsening swelling of the lower extremities, about a 15-pound weight gain, and some shortness of breath. His potassium was elevated at 5.4 today. However, review of labs shows a serum potassium at 6.0 yesterday morning. The patient is complaining of constipation. His blood sugars have not been significantly elevated. He is currently voiding on his own. He has had issues with his prostate previously. The patient states that he has been careful with high-potassium foods prior to admission. No history of use of NSAIDs prior to admission. The patient was not on any KAYLIE inhibitors or angiotensin receptor blockers. PAST MEDICAL HISTORY: Recent acute kidney injury during a hospitalization the first week of July, type 2 diabetes, hyperlipidemia, hypertension, osteoarthritis, wounds in bilateral lower extremities. PAST SURGICAL HISTORY: Appendectomy, cardiac catheterization, carpal tunnel surgery. SOCIAL HISTORY: Negative for smoking, drug abuse or alcohol abuse. MEDICATIONS: Medications prior to admission included Prilosec, Zyloprim, Glucophage, Lipitor, insulin, Norvasc, hydralazine, Lasix, magnesium. ALLERGIES: ALLERGIES include SULFA, which causes rash and hives; CODEINE, unknown reaction; IVORY SOAP causes rash and hives. REVIEW OF SYSTEMS: As per HPI. Other systems negative. PHYSICAL EXAMINATION: Blood pressure was 141/51, heart rate 58 per minute. Patient is afebrile. EXAMINATION OF THE HEART: S1 and S2. EXAMINATION OF LUNGS: Decreased breath sounds at bases. ABDOMEN: Soft, morbidly obese. Examination of lower extremities shows 3 to 4+ edema bilaterally with chronic skin changes and some erythema noted on the lower extremities as well. CONTINUOUS WAVE OPERATOR exam is grossly intact. LABS: Labs show sodium 134, potassium 5.4, chloride 99, BUN 30, creatinine 0.95. ASSESSMENT: 1. Hyperkalemia along with volume overload. Rule out urine retention. Serum creatinine is at 0.9 to 1 mg/dL, which is better than 1.8 during his hospitalization in the first week of July. The patient also complains of constipation, which can add to the hyperkalemia. At this time blood sugar is not significantly elevated and there is no obvious GI bleed noted. The patient is being diuresed, which will hopefully help with the potassium. I will hold off on any Kayexalate. 2. Recent acute kidney injury, mostly prerenal, improved with hydration on the last admission. 3. Volume overload with significant lower extremity edema, maintained on IV Lasix q.8 hours, which I will continue for now. 4. Type 2 diabetes, maintained on Glucophage and sliding scale. 5. Pneumonia with chest x-ray showing right basilar density, currently maintained on antibiotics for pneumonia. 6. Recent acute kidney injury which was prerenal, with creatinine peaking at 1.8, now decreased, staying about 0.9 to 1 mg/dL. 7. Type 2 diabetes. 8. Chronic kidney disease, stage 3, secondary to nephrosclerosis. Creatinine about 0.9 to 1 mg/dL. PLAN: Continue to diurese patient. Expect improvement in potassium with ongoing use of loop diuretics. Rule out urine retention. Check postvoid residual. Repeat labs in a.m. Continue to maintain low-potassium diet. Patient does not need to follow the renal diets, particularly in terms of phosphate restriction. He needs specifically low- potassium diet. Thank you for this consultation. Will continue to follow the patient with you during his hospitalization. MMODL / IJN: [id number] /
[2020-08-14 17:07] LABS: Glucose,Whole Blood 88 mg/dL (75-99)
[2020-08-14] MEDS: INSULIN PUMP MEAL BOLUS 1 UNIT MISC MISCELLANE SCH ×2 (18:13→21:08)
--- NOTE | 2020-08-14 18:17 | CONS ---
CONSULTATION DATE OF SERVICE: 08/14/2020 REASON FOR FOLLOWUP: Bilateral lower extremity cellulitis. HISTORY OF PRESENT ILLNESS: The patient is a 70-year-old male with multiple comorbidities. The patient mentioned he was admitted to the hospital recently and did have diuretics that were discontinued, more likely because of his kidney function. The patient mentioned that since then he has noticed a gradual increase in swelling of both of his lower extremities. He has been evaluated in the outpatient setting by his primary care physician and Lasix was restarted. Dose was subsequently upped by his compensation analyst. However, the patient continued to have increasing swelling to the lower extremities and also developed some redness. The patient did have mild dull aching pain to the leg with intensity 3 to 4 out of 10 and no radiation. The patient also has some weeping edema. Denies high-grade fever, though. With these symptoms, the patient was evaluated by the ER physician on arrival in the ER. The patient has been afebrile. He is saturating 96% on room air. Initial chest x-ray did show some infiltrate in the left lower lobe, repeat x-ray showing a right basilar density and blunting of costophrenic angles, prominence of interstitium. Patient was started on Unasyn. Infectious Disease was consulted for further management of antibiotic therapy. REVIEW OF SYSTEMS: Positive points have been mentioned in HPI. Rest of the systems are negative. PAST MEDICAL HISTORY: Hypertension, hyperlipidemia, osteoarthritis, diabetes mellitus, previous history of venostasis ulcer. PAST SURGICAL HISTORY: Appendectomy, heart catheterization and carpal tunnel surgery. SOCIAL HISTORY: No history of smoking, drinking or drug use. FAMILY HISTORY: Mother with history of lung hypothyroidism. Father and brother with history of COPD. ALLERGIES: SULFA. MEDICATIONS: The patient is currently on Tylenol, Zyloprim, Norvasc, Lipitor, Zithromax, Unasyn, Lasix, heparin, hydralazine, NovoLog, magnesium oxide, Glucophage, Protonix, Senokot and zinc. PHYSICAL EXAMINATION: Blood pressure 136/56, pulse of 65, temperature 98. He is 96% on room air. General description is an elderly male up in the chair in no distress. No tachypnea or accessory muscle of respiration use. HEENT: Examination shows slight pallor. No scleral icterus. Oral mucous membrane is dry. No pharyngeal erythema or thrush. NECK: Trachea is central. No thyromegaly. LUNGS: Unlabored breathing. Decreased breath sounds in the base. No wheeze or crackle. HEART: S1, S2. Regular rate and rhythm. ABDOMEN: Soft. No tenderness. No guarding or rigidity. EXTREMITIES: Bilateral extremities with 3+ edema of the feet. This patient did have diffuse swelling and redness, slightly warm to touch. No foul-smelling drainage. Neurologically the patient is awake, alert, oriented x3. Mood and affect normal. LABS: Hemoglobin is 9.2, white count 7.7, BUN of 30, creatinine 0.95. DIAGNOSTIC IMPRESSION AND PLAN: 1. Patient with bilateral lower extremity cellulitis in this patient who did have diffuse swelling and redness, likely streptococcal disease. 2. Patient with abnormal x-ray. However, the patient does not have any respiratory symptoms. No fever to be suspicious for pneumonia. PLAN: 1. Discontinue Unasyn. 2. Start the patient on cefazolin 3 grams q.8 hours. 3. Santhosh wrap to the legs from just above to below the knee. 4. Will follow clinical condition and culture to further adjust medication if needed. Thank you for this consultation. Will follow this patient along with you. MMODL / IJN: [id number] /
[2020-08-14 20:18] LABS: Glucose,Whole Blood 216 mg/dL (75-99)
[2020-08-14] MEDS: allopurinoL 100 MG TAB PO SCH (20:20)
[2020-08-14] MEDS: ATORVASTATIN 40 MG TAB PO SCH (20:20)
[2020-08-15 02:17] LABS: Glucose,Whole Blood 75 mg/dL (75-99)
[2020-08-15 06:57] LABS: Glucose,Whole Blood 154 mg/dL (75-99)
[2020-08-15] MEDS: MAGNESIUM OXIDE 400 MG TAB PO SCH (08:29)
[2020-08-15] MEDS: HEPARIN SODIUM,PORCINE 5,000 UNIT/ML 1 ML VIAL SQ SCH ×2 (08:29→20:12)
[2020-08-15] MEDS: ZINC SULFATE 220 MG CAP PO SCH ×2 (08:29→08:38)
[2020-08-15] MEDS: hydrALAZINE HCL 25 MG TAB PO SCH ×3 (08:29→20:13)
[2020-08-15] MEDS: FUROSEMIDE 10 MG/ML 4 ML VIAL IV SCH ×3 (08:29→23:37)
[2020-08-15] MEDS: AZITHROMYCIN 500 MG TAB PO SCH (08:29)
[2020-08-15] MEDS: PANTOPRAZOLE 40 MG TABLET PO SCH (08:29)
[2020-08-15] MEDS: amLODIPine 5 MG TAB PO SCH (08:29)
[2020-08-15] MEDS: ceFAZolin 3 GM in SODIUM CHLORIDE 0.9% 100 ML IVPB SCH ×3 (08:29→23:37)
[2020-08-15] MEDS: SENNOSIDES-DOCUSATE SODIUM 1 EACH TAB PO SCH (08:30)
[2020-08-15] MEDS: INSULIN PUMP MEAL BOLUS 1 UNIT MISC MISCELLANE SCH ×4 (08:30→20:12)
[2020-08-15] MEDS: metFORMIN 500 MG TAB PO SCH ×2 (08:30→20:13)
--- NOTE | 2020-08-15 10:32 | P.PN ---
Subjective Progress Note Date: 08/15/20 HISTORY OF PRESENT ILLNESS This is a 70-year-old male admitted to the hospital for bilateral lo wer external he cellulitis and possible pneumonia. Blood culture no growth after 24 hours. Patient is afebrile, heart rate 58, blood pressure 157/68, pulse ox 97% on room air. Patient is maintained on Kefzol with signs of improvement. PHYSICAL EXAMINATION Gen: This is a 70-year-old male. He sitting in recliner. Legs are dependent position. HEENT: Head is atraumatic, normocephalic. Pupils equal, round. Sclerae is anicteric. NECK: Supple. No JVD. No lymphadenopathy. LUNGS: Decreased breath sounds at the bases. No wheezes or rhonchi. No intercostal retractions. HEART: Regular rate and rhythm. ABDOMEN: Soft. Bowel sounds are present. No masses. No tenderness. EXTREMITIES: 2+ bilateral pedal edema. Diffuse swelling and redness, slightly warm to touch. No drainage. NEUROLOGICAL: Patient is awake, alert and oriented x3. ASSESSMENT Bilateral lower extremity cellulitis Abnormal chest x-ray without respiratory symptoms Diabetes mellitus type 2 PLAN Continue Kefzol 3 g IV piggyback every 8 hours Santhosh wrap to the bilateral lower legs without Silvadene Plan for Keflex for 10 day course at the time of discharge Further recommendations as patient progresses. Thank you kindly for this consultation. The above dictated assessment and findings were discussed with Dr. Chang. The impression and plan of care have been directed as dictated. Meggan Arias nurse practitioner acting as scribe for Dr. Chang. Objective - Vital Signs Vital signs: Vital Signs Temp 97.5 F L 08/15/20 07:45 Pulse 58 L 08/15/20 07:45 Resp 17 08/15/20 07:45 BP 157/68 08/15/20 07:45 Pulse Ox 97 08/15/20 07:45 Intake & Output 08/14/20 08/15/20 08/15/20 18:59 06:59 18:59 Intake Total 250 Balance 250 Intake: Intake, IV Titration 250 Amount Ampicillin-Sulbactam 1.5 50 gm In Sodium Chloride 0.9 % 50 ml @ 100 mls/hr IVPB Q6HR [facility] Rx#:[id number] Piperacillin-Tazobactam 3 100 .375 gm In Sodium Chloride 0.9% 100 ml @ 25 mls/hr IVPB Q8H [facility] Rx#: [id number] ceFAZolin 3 gm In Sodium 100 Chloride 0.9% 100 ml @ 200 mls/hr IVPB Q8HR [facility] Rx#:[id number] Other: # Voids 2 - Labs CBC & Chem 7: 08/13/20 15:58 08/14/20 10:34 Labs: Abnormal Lab Results - Last 24 Hours (Table) 08/14/20 08/14/20 08/14/20 Range/Units 10:34 11:40 20:17 Sodium 134 L (137-145) mmol/L Potassium 5.4 H (3.5-5.1) mmol/L BUN 30 H (9-20) mg/dL Glucose 118 H (74-99) mg/dL POC Glucose (mg/dL) 116 H 216 H (75-99) mg/dL 08/15/20 Range/Units 06:55 Sodium (137-145) mmol/L Potassium (3.5-5.1) mmol/L BUN (9-20) mg/dL Glucose (74-99) mg/dL POC Glucose (mg/dL) 154 H (75-99) mg/dL Microbiology - Last 24 Hours (Table) 08/13/20 15:58 Blood Culture - Preliminary Blood No Growth after 24 hours
--- NOTE | 2020-08-15 10:38 | P.PN ---
Subjective Progress Note Date: 08/15/20 HISTORY OF PRESENT ILLNESS 70-year-old morbidly obese male one of Dr. Jacome patient was hospitalized in or service on 07/24/2020 for acute kidney injury with severe hyperkalemia and metabolic acidosis at the time. Patient was treated and done well was discharged home earlier without any diuretics based on the kidney function and the severely elevated BUN also potassium had subtle down since then back to normal. Patient apparently developed to have worsening anasarca and edema in the lower extremity was seen Dr. Oliveira nephrology started on furosemide 40 mg a day did not help much ended up calling Dr. Valenzuela office and was started on furosemide 40 mg twice a day still having significant water retention and had gained total of 15 pounds since he left the hospital with worsening dermatitis and broking skin in the lower part of his legs from the knee down with worsening redness discomfort irritation and drainage with his symptoms are more severe today and the been diuretic to the emergency department where was seen and evaluated found to be in anasarca with acute cellulitis of the lower extremity and chest x-ray showed left lower lobe pneumonia his kidney function and potassium level were better this time. Patient be continue on IV antibiotics to help both the cellulitis and pneumonia 08/14: Patient denies any new complaints. No shortness of breath. He has slight decreased edema from yesterday. Consult in place with Dr. Chang. We will change antibiotics to Unasyn for now will hold care to be addressed by Dr. Chang. Patient has been afebrile, heart rate 58, blood pressure 141/51, pulse ox 97% on room air. Repeat lactic acid 1.8. Patient is sitting in recliner encouraged to keep legs elevated. 08/15: Patient has been seen by Dr. Chang with plan to continue Kefzol only. Significant pneumonia has been ruled out. He denies any chest pain or shortness of breath. Patient has decreased edema today continued warmth to the lower extremity. Dr. Chang is recommending Santhosh wrap and elevation. No Silvadene. Patient has been afebrile, heart rate 50, blood pressure 157/68, pulse ox 97% on room air. Blood sugars are running between 75 and 154. Anticipate that he will be ready for discharge tomorrow. REVIEW OF SYSTEMS CONSTITUTIONAL: Well-developed no acute respiratory distress. Morbidly obese. Denies fever. EYES: No icterus sclerae, no conjunctivitis. EARS, NOSE, MOUTH, THROAT, and FACE: No sore throat, lymphadenopathy, carotid bruits or deformity. RESPIRATORY: Denies shortness of breath. CARDIOVASCULAR: Positive PND orthopnea palpitations no chest pain GASTROINTESTINAL: No Abd pain, Nausea or vomiting, no Diarrhea or constipation, No GI Bleed, no distention or masses. Significant abdominal distention and water retention with edema and anasarca fluid. GENITOURINARY: Negative for Hematuria or UTI, no kidney stones. Polyuria and frequency INTEGUMENT/BREAST: Negative for any muscular injury with mild osteoarthritis.. Significant cellulitis and anasarca worsening the lower extremity. HEMATOLOGIC/LYMPHATIC: Negative for bleed or purpura. MUSCULOSKELTAL: Negative for Myalgia or arthralgia. NEURLOGICAL: No LOC, Sz or syncope, blurred vision dizziness or abnormality.. BEHAVIORAL/PSYCH: Negative. ENDOCRINE: Negative. PHYSICAL EXAMINATION General Appearance: Alert, cooperative, no distress, appears stated age. Morbidly obese. Resting in chair with legs in a dependent position. Neck HEENT: Supple, no lymphadenopathy, no thyroid enlargement, no carotid bruits. Lungs: Decreased breath some bilaterally with fine rhonchi positive mild crackles mild expected wheezes. Worsening the left lower lobe Chest Wall: Decrease expansion with deep inspiration no tenderness and no deformity was found on exam, no costochondral pain or discomfort. Heart: Regular rate and rhythm, S1, S2 positive S3 with systolic murmur. Back: Symmetric, no curvature, ROM normal, no CVA tenderness. Abdomen: Soft, non-tender, bowel sounds active all four quadrants, no masses, no organomegaly. Significant anasarca consult tissue swelling the lower part of the abdomen. Extremities: Extremities normal, atraumatic, 2+ edema with significant cellulitis and swelling from 4 inches below the knee all the way to the ankle area with a broken skin and slight drainage Skin: Skin color, texture, tugor normal, no rashes or lesions. Neurologic: Alert oriented x3 cranial nerves II through XII intact, no motor deficit, no abnormal balance or gait. ASSESSMENT AND PLAN 1 bilateral legs cellulitis related to lower extremity edema with component of diabetes. Consult with Dr. Chang appreciated. Patient is on Kefzol. 2 left lower lobe pneumonia not entirely ruled out: Most likely atypical pneumonitis: Patient be on azithromycin currently keep watching for any hypoxia. 3 chronic kidney disease stage III: Kidney function slightly but better than last admission been on less diuretics at this point. 4 anasarca: Patient is back on furosemide 40 mg twice a day titrate dose higher while watching the kidney function. 5 type 2 diabetes: Patient is on insulin pump to be continue. 6 hyperlipidemia: Continue patient on Lipitor 40 mg a day. 7 chronic gout: Has been on allopurinol 100 mg daily. 8 severe electrolyte imbalance. 9 DVT prophylaxis: Patient will be on subcu heparin. 11 GI prophylaxis: Patient be on Protonix 40 mg daily. CODE STATUS: Full code. DISCHARGE PLAN Home on Impression and plan of care have been directed as dictated by the signing physician. Meggan Arias nurse practitioner acting as scribe for signing physician. Objective - Vital Signs Vital signs: Vital Signs Temp 97.5 F L 08/15/20 07:45 Pulse 58 L 08/15/20 07:45 Resp 17 08/15/20 07:45 BP 157/68 08/15/20 07:45 Pulse Ox 97 08/15/20 07:45 Intake & Output 08/14/20 08/15/20 08/15/20 18:59 06:59 18:59 Intake Total 250 Balance 250 Intake: Intake, IV Titration 250 Amount Ampicillin-Sulbactam 1.5 50 gm In Sodium Chloride 0.9 % 50 ml @ 100 mls/hr IVPB Q6HR [facility] Rx#:[id number] Piperacillin-Tazobactam 3 100 .375 gm In Sodium Chloride 0.9% 100 ml @ 25 mls/hr IVPB Q8H [facility] Rx#: [id number] ceFAZolin 3 gm In Sodium 100 Chloride 0.9% 100 ml @ 200 mls/hr IVPB Q8HR [facility] Rx#:[id number] Other: # Voids 2 - Labs CBC & Chem 7: 08/13/20 15:58 08/14/20 10:34 Labs: Abnormal Lab Results - Last 24 Hours (Table) 08/14/20 08/14/20 08/14/20 Range/Units 10:34 11:40 20:17 Sodium 134 L (137-145) mmol/L Potassium 5.4 H (3.5-5.1) mmol/L BUN 30 H (9-20) mg/dL Glucose 118 H (74-99) mg/dL POC Glucose (mg/dL) 116 H 216 H (75-99) mg/dL 08/15/20 Range/Units 06:55 Sodium (137-145) mmol/L Potassium (3.5-5.1) mmol/L BUN (9-20) mg/dL Glucose (74-99) mg/dL POC Glucose (mg/dL) 154 H (75-99) mg/dL Microbiology - Last 24 Hours (Table) 08/13/20 15:58 Blood Culture - Preliminary Blood No Growth after 24 hours
[2020-08-15 11:43] LABS: African American GFR (CKD) 81 (>60 ml/min/1.73 sqM); Anion Gap 12 mmol/L; Blood Urea Nitrogen 29 mg/dL (9-20); Calcium 9.1 mg/dL (8.4-10.2); Carbon Dioxide 23 mmol/L (22-30); Chloride 99 mmol/L (98-107); Glucose 164 mg/dL (74-99); Non-African American GFR(CKD) 70 (>60 ml/min/1.73 sqM); Potassium 4.3 mmol/L (3.5-5.1); Sodium 134 mmol/L (137-145)
[2020-08-15 12:00] LABS: Glucose,Whole Blood 162 mg/dL (75-99)
--- NOTE | 2020-08-15 15:24 | PN ---
PROGRESS NOTE Patient is seen for followup for hyperkalemia and history of acute kidney injury during his last admission. Patient was admitted with severe volume overload. He is currently being diuresed. Serum potassium is down to 4.3. Overall patient states he is feeling better. On examination today, blood pressure was 157/68, heart rate 58 per minute. He is afebrile. EXAMINATION OF THE HEART: S1 and S2. EXAMINATION OF LUNGS: Decreased breath sounds at bases. ABDOMEN: Soft, non-tender, obese. Examination of lower extremities shows chronic skin changes, chronic edema bilaterally. Labs show sodium 134, potassium 4.3, chloride 99, BUN 29, serum creatinine 1.07. ASSESSMENT: 1. Hyperkalemia associated with acute kidney injury, use of KAYLIE inhibitors, currently improved. The patient is being diuresed and serum potassium is around 4.3 at this time. Patient is also maintained on low-potassium diet. 2. Hypertension, currently maintained on Norvasc. However, Norvasc can contribute to lower extremity edema. Consider switching to another antihypertensive medication, possibly Coreg. Hydralazine will also cause salt and water retention. Continue with the Lasix for now. 3. Acute kidney injury on last admission, which was mostly prerenal, now improved. 4. Chronic kidney disease, stage 3, secondary to nephrosclerosis. Creatinine 0.9 to 1 at baseline. 5. Pneumonia with chest x-ray showing right basilar density, currently maintained on antibiotics. PLAN: Continue with IV Lasix. Consider changing Norvasc to Coreg, given the significant lower extremity edema. MMODL / IJN: [id number] /
[2020-08-15 16:48] LABS: Glucose,Whole Blood 127 mg/dL (75-99)
[2020-08-15] MEDS: allopurinoL 100 MG TAB PO SCH (20:11)
[2020-08-15] MEDS: ATORVASTATIN 40 MG TAB PO SCH (20:11)
[2020-08-15 20:42] LABS: Glucose,Whole Blood 177 mg/dL (75-99)
[2020-08-16 02:45] LABS: Glucose,Whole Blood 109 mg/dL (75-99)
[2020-08-16 04:02] VITALS: PULSE 53
[2020-08-16 07:00] LABS: Glucose,Whole Blood 198 mg/dL (75-99)
[2020-08-16] MEDS: hydrALAZINE HCL 25 MG TAB PO SCH (07:08)
[2020-08-16] MEDS: SENNOSIDES-DOCUSATE SODIUM 1 EACH TAB PO SCH (07:08)
[2020-08-16] MEDS: amLODIPine 5 MG TAB PO SCH (07:08)
[2020-08-16] MEDS: metFORMIN 500 MG TAB PO SCH (07:08)
[2020-08-16] MEDS: MAGNESIUM OXIDE 400 MG TAB PO SCH (07:08)
[2020-08-16] MEDS: PANTOPRAZOLE 40 MG TABLET PO SCH (07:09)
[2020-08-16] MEDS: FUROSEMIDE 10 MG/ML 4 ML VIAL IV SCH (07:09)
[2020-08-16] MEDS: ceFAZolin 3 GM in SODIUM CHLORIDE 0.9% 100 ML IVPB SCH (07:09)
[2020-08-16] MEDS: AZITHROMYCIN 500 MG TAB PO SCH (07:10)
[2020-08-16] MEDS: HEPARIN SODIUM,PORCINE 5,000 UNIT/ML 1 ML VIAL SQ SCH (07:10)
[2020-08-16 07:36] VITALS: BP 184/54; RESP 20; TEMP 99.2
[2020-08-16] MEDS: INSULIN PUMP MEAL BOLUS 1 UNIT MISC MISCELLANE SCH (09:01)
--- NOTE | 2020-08-16 11:23 | P.DS ---
Providers Date of admission: 08/13/20 18:12 Expected date of discharge: 08/16/20 Attending physician: Derek Bland Consults: 08/13/20 19:10 Consult Physician Routine Consulting Provider: Akila Nieves Consult Reason/Comments: CKD, Hyperkalemia Do you want consulting provider notified?: Yes 08/13/20 19:11 Consult Physician Routine Consulting Provider: Juan Chang Consult Reason/Comments: Celulitis Do you want consulting provider notified?: Yes Primary care physician: Adam Jacome [facility] Course: HISTORY OF PRESENT ILLNESS 70-year-old morbidly obese male one of Dr. Jacome patient was hospitalized in or service on 07/24/2020 for acute kidney injury with severe hyperkalemia and metabolic acidosis at the time. Patient was treated and done well was discharged home earlier without any diuretics based on the kidney function and the severely elevated BUN also potassium had subtle down since then back to normal. Patient apparently developed to have worsening anasarca and edema in the lower extremity was seen Dr. Oliveira nephrology started on furosemide 40 mg a day did not help much ended up calling Dr. Valenzuela office and was started on furosemide 40 mg twice a day still having significant water retention and had gained total of 15 pounds since he left the hospital with worsening dermatitis and broking skin in the lower part of his legs from the knee down with worsening redness discomfort irritation and drainage with his symptoms are more severe today and the been diuretic to the emergency department where was seen and billy mai found to be in anasarca with acute cellulitis of the lower extremity and chest x-ray showed left lower lobe pneumonia his kidney function and potassium level were better this time. Patient be continue on IV antibiotics to help both the cellulitis and pneumonia 08/14: Patient denies any new complaints. No shortness of breath. He has slight decreased edema from yesterday. Consult in place with Dr. Chang. We will change antibiotics to Unasyn for now will hold care to be addressed by Dr. Chang. Patient has been afebrile, heart rate 58, blood pressure 141/51, pulse ox 97% on room air. Repeat lactic acid 1.8. Patient is sitting in recliner encouraged to keep legs elevated. 08/15: Patient has been seen by Dr. Chang with plan to continue Kefzol only. Significant pneumonia has been ruled out. He denies any chest pain or shortness of breath. Patient has decreased edema today continued warmth to the lower extremity. Dr. Chang is recommending Santhosh wrap and elevation. No Silvadene. Patient has been afebrile, heart rate 50, blood pressure 157/68, pulse ox 97% on room air. Blood sugars are running between 75 and 154. Anticipate that he will be ready for discharge tomorrow. 08/16: Patient has been afebrile, heart rate 53, blood pressure 184/54, pulse ox 94% on room air. Patient is noted to have decreased swelling slight decrease in erythema. He does state he has decreased edema to his lower abdomen as well. Patient is currently on Kefzol and Dr. Chang has recommended Keflex at discharge. Patient encouraged to use support hose at home or Santhosh wraps to help with edema. Patient will be discharged home today in stable condition. ASSESSMENT AND PLAN 1 bilateral legs cellulitis related to lower extremity edema with component of diabetes. 2 left lower lobe pneumonia not entirely ruled out. 3 chronic kidney disease stage III 4 anasarca 5 type 2 diabetes 6 hyperlipidemia 7 chronic gout 8 severe electrolyte imbalance. DISCHARGE PLAN Home on Impression and plan of care have been directed as dictated by the signing physician. Meggan Arias nurse practitioner acting as scribe for signing physician. Patient Condition at Discharge: Good Plan - Discharge Summary Discharge Rx Participant: No New Discharge Prescriptions: New Cephalexin [Keflex] 500 mg PO Q8HR 10 Days #30 cap Continue Omeprazole [PriLOSEC] 20 mg PO DAILY allopurinoL [Zyloprim] 100 mg PO HS metFORMIN HCL [Glucophage] 1,000 mg PO BID Atorvastatin [Lipitor] 40 mg PO HS Insulin Aspart (For Pump) [NovoLOG (For Pump)] 0.01 unit SQ-PUMP CONTINUOUS Zinc 50 mg PO DAILY hydrALAZINE HCL [Apresoline] 25 mg PO TID #90 tab amLODIPine [Norvasc] 5 mg PO DAILY #30 tab Sennosides-Docusate Sodium [Senokot-S] 2 each PO DAILY tab Magnesium Oxide 400 mg PO DAILY Furosemide [Lasix] 80 mg PO DAILY Discharge Medication List Omeprazole [PriLOSEC] 20 mg PO DAILY 08/09/15 [History] allopurinoL [Zyloprim] 100 mg PO HS 08/09/15 [History] metFORMIN HCL [Glucophage] 1,000 mg PO BID 07/15/16 [History] Atorvastatin [Lipitor] 40 mg PO HS 06/01/18 [History] Insulin Aspart (For Pump) [NovoLOG (For Pump)] 0.01 unit SQ-PUMP CONTINUOUS 07/23/20 [History] Zinc 50 mg PO DAILY 07/23/20 [History] Sennosides-Docusate Sodium [Senokot-S] 2 each PO DAILY tab 07/26/20 [Rx] amLODIPine [Norvasc] 5 mg PO DAILY #30 tab 07/26/20 [Rx] hydrALAZINE HCL [Apresoline] 25 mg PO TID #90 tab 07/26/20 [Rx] Furosemide [Lasix] 80 mg PO DAILY 08/13/20 [History] Magnesium Oxide 400 mg PO DAILY 08/13/20 [History] Cephalexin [Keflex] 500 mg PO Q8HR 10 Days #30 cap 08/16/20 [Rx] Follow up Appointment(s)/Referral(s): Adam Jacome DO [Primary Care Provider] - 1-2 days (office will call with appointment time)
[2020-08-16 11:39] LABS: Glucose,Whole Blood 124 mg/dL (75-99)
--- NOTE | 2020-08-16 13:22 | P.PN ---
Subjective Progress Note Date: 08/16/20 HISTORY OF PRESENT ILLNESS This is a 70-year-old male admitted to the hospital for bilateral low er external he cellulitis and possible pneumonia. Blood culture no growth after 48 hours. Patient has been afebrile, heart rate 53, blood pressure 184/54, pulse ox 94% on room air. Patient is noted to have decreased swelling slight decrease in erythema. He does state he has decreased edema to his lower abdomen as well. Patient is currently on Kefzol with improvement. PHYSICAL EXAMINATION Gen: This is a 70-year-old male. He sitting in recliner. Legs are dependent position. HEENT: Head is atraumatic, normocephalic. Pupils equal, round. Sclerae is anicteric. NECK: Supple. No JVD. No lymphadenopathy. LUNGS: Decreased breath sounds at the bases. No wheezes or rhonchi. No intercostal retractions. HEART: Regular rate and rhythm. ABDOMEN: Soft. Bowel sounds are present. No masses. No tenderness. EXTREMITIES: 2+ bilateral pedal edema. Mild swelling and redness. No drainage. NEUROLOGICAL: Patient is awake, alert and oriented x3. ASSESSMENT Bilateral lower extremity cellulitis Abnormal chest x-ray without respiratory symptoms Diabetes mellitus type 2 PLAN Continue Kefzol 3 g IV piggyback every 8 hours Santhosh wrap to the bilateral lower legs without Silvadene Plan for Keflex for 10 day course at the time of discharge Further recommendations as patient progresses. Thank you kindly for this consultation. The above dictated assessment and findings were discussed with Dr. Chang. The impression and plan of care have been directed as dictated. Meggan Arias nurse practitioner acting as scribe for Dr. Chang. Objective - Vital Signs Vital signs: Vital Signs Temp 99.2 F 08/16/20 07:36 Pulse 53 L 08/16/20 07:36 Resp 20 08/16/20 08:00 BP 184/54 08/16/20 07:36 Pulse Ox 94 L 08/16/20 07:36 Intake & Output 08/15/20 08/16/20 08/16/20 18:59 06:59 18:59 Intake Total 100 700 Balance 100 700 Intake: Intake, IV Titration 100 200 Amount ceFAZolin 3 gm In Sodium 100 200 Chloride 0.9% 100 ml @ 200 mls/hr IVPB Q8HR [facility] Rx#:[id number] Oral 500 - Labs CBC & Chem 7: 08/13/20 15:58 08/15/20 10:39 Labs: Abnormal Lab Results - Last 24 Hours (Table) 08/15/20 08/15/20 08/15/20 Range/Units 10:39 11:56 16:42 Sodium 134 L (137-145) mmol/L BUN 29 H (9-20) mg/dL Glucose 164 H (74-99) mg/dL POC Glucose (mg/dL) 162 H 127 H (75-99) mg/dL 08/15/20 08/16/20 08/16/20 Range/Units 20:41 02:44 06:58 Sodium (137-145) mmol/L BUN (9-20) mg/dL Glucose (74-99) mg/dL POC Glucose (mg/dL) 177 H 109 H 198 H (75-99) mg/dL Microbiology - Last 24 Hours (Table) 08/13/20 15:58 Blood Culture - Preliminary Blood No Growth after 48 hours
--- NOTE | 2020-08-16 17:34 | PN ---
PROGRESS NOTE Patient is seen for followup for hyperkalemia and chronic kidney disease with a history of acute kidney injury on previous admission on 07/24/2020. Currently the patient is being diuresed for significant lower extremity edema. Serum potassium has improved and it is down to 4.3 from yesterday. PHYSICAL EXAMINATION: On examination today, blood pressure was 184/54, heart rate 53 per minute. Patient is afebrile. EXAMINATION OF THE HEART: S1 and S2. EXAMINATION OF LUNGS: Bilateral breath sounds are heard. Decreased breath sounds at bases. ABDOMEN: Soft, morbidly obese. Examination of lower extremities shows chronic edema bilaterally. RECREATION COUNSELOR exam is grossly intact. LABS: Labs show sodium 134 yesterday, potassium 4.3, BUN 29, creatinine 1.07. ASSESSMENT: 1. Chronic kidney disease secondary to nephrosclerosis. Baseline creatinine around 1 mg/dL, NKF stage III. 2. Hyperkalemia associated with acute kidney injury, currently improved with ongoing diuresis, and patient is maintained on a low-potassium diet. 3. Hypertension, currently on Norvasc and hydralazine. Consider switching the Norvasc down the road because of lower extremity edema. 4. Acute kidney injury last admission on 07/24/2020, mostly prerenal at that time. 5. Pneumonia with chest x-ray showing right basilar density, maintained on antibiotics. PLAN: Patient can be discharged. We will see him as outpatient for followup in about one week's time. He can continue with Lasix 60 mg twice a day post discharge along with Zaroxolyn 2.5 mg daily with close monitoring of weight and edema. MMODL / IJN: [id number] /
== END 2020-08-16 15:00 | disposition home or self-care (01) | DRG 637 ==
LOC: EC 15:08 → 4SSUR 18:12
PROVIDERS: ADMIT Internal Medicine Geriatric Medicine; ATTEND Internal Medicine Geriatric Medicine
DX: E11.628 Type 2 diabetes mellitus with other skin complications (principal); J18.9 Pneumonia, unspecified organism; E87.2 Acidosis; L03.115 Cellulitis of right lower limb; L03.116 Cellulitis of left lower limb; Z68.41 Body mass index [BMI] 40.0-44.9, adult; N17.9 Acute kidney failure, unspecified; E11.22 Type 2 diabetes mellitus with diabetic chronic kidney disease; N18.30 Chronic kidney disease, stage 3 unspecified; Z79.4 Long term (current) use of insulin; E66.01 Morbid (severe) obesity due to excess calories; E78.5 Hyperlipidemia, unspecified; I12.9 Hypertensive chronic kidney disease with stage 1 through stage 4 chronic kidney disease, or unspecified chronic kidney disease; M19.90 Unspecified osteoarthritis, unspecified site; I45.10 Unspecified right bundle-branch block; E87.5 Hyperkalemia; K59.00 Constipation, unspecified; E87.70 Fluid overload, unspecified; M1A.9XX0 Chronic gout, unspecified, without tophus (tophi); L30.9 Dermatitis, unspecified; I87.8 Other specified disorders of veins; Z96.41 Presence of insulin pump (external) (internal); Z79.899 Other long term (current) drug therapy; Z90.49 Acquired absence of other specified parts of digestive tract; Z98.890 Other specified postprocedural states; Z82.5 Family history of asthma and other chronic lower respiratory diseases; Z88.5 Allergy status to narcotic agent; Z88.2 Allergy status to sulfonamides; Z83.49 Family history of other endocrine, nutritional and metabolic diseases; Z80.1 Family history of malignant neoplasm of trachea, bronchus and lung
CPT/HCPCS: 36415; 71046; 80048; 80053; 83605; 83735; 83880; 84484; 85025; 85610; 85730; 87040; 93005; 96365; 96375; 99285

== ENCOUNTER 2020-08-25 14:58 | Inpatient (IN) | payer MEDICARE ==
[2020-08-25] MEDS ORDERED: SODIUM CHLORIDE 0.9% 500 ML 500 ML IV STA (15:32)
--- NOTE | 2020-08-25 15:42 | ED ---
SOB HPI - General Chief Complaint: Shortness of Breath Stated Complaint: Diff Breathing Time Seen by Provider: 08/25/20 15:25 Source: patient, EMS, RN notes reviewed Mode of arrival: EMS Limitations: no limitations - History of Present Illness Initial Comments: This is a 70-year-old male with a recent admission for renal failure and hyperkalemia who was brought in by family today because of fever and difficulty breathing and altered mental status. Patient still states his legs are weak is cannulated anywhere. He was found on arrival have a temperature 102.7. He has been shortness of breath he denies any overt cough or phlegm production at this time no chest pain. No dysuria no hematuria no sore throat rhinorrhea earaches MD Complaint: shortness of breath - Related Data Home Medications Medication Instructions Recorded Confirmed Omeprazole [PriLOSEC] 20 mg PO DAILY 08/09/15 08/25/20 allopurinoL [Zyloprim] 100 mg PO HS 08/09/15 08/25/20 metFORMIN HCL [Glucophage] 1,000 mg PO BID 07/15/16 08/25/20 Atorvastatin [Lipitor] 40 mg PO HS 06/01/18 08/25/20 Insulin Aspart (For Pump) [NovoLOG 0.01 unit SQ-PUMP CONTINUOUS 07/23/20 08/25/20 (For Pump)] Zinc 50 mg PO DAILY 07/23/20 08/25/20 Magnesium Oxide 400 mg PO BID 08/13/20 08/25/20 Ammonium Lactate Cream [Lac-Hydrin 1 applic TOPICAL DAILY PRN 08/25/20 08/25/20 12% Cream] Cephalexin [Keflex] 500 mg PO Q8H 08/25/20 08/25/20 Furosemide [Lasix] 40 mg PO BID 08/25/20 08/25/20 Sennosides-Docusate Sodium 2 tab PO DAILY 08/25/20 08/25/20 [Senokot-S] metOLazone [Zaroxolyn] 2.5 mg PO DAILY 08/25/20 08/25/20 Previous Rx's Medication Instructions Recorded amLODIPine [Norvasc] 5 mg PO DAILY #30 tab 07/26/20 hydrALAZINE HCL [Apresoline] 25 mg PO TID #90 tab 07/26/20 Allergies Allergy/AdvReac Type Severity Reaction Status Date / Time Sulfa (Sulfonamide Allergy Rash/Hives Verified 08/25/20 15:43 Antibiotics) codeine AdvReac Unknown Verified 08/25/20 15:43 ivory soap Allergy Rash/Hives Uncoded 08/25/20 15:43 Review of Systems ROS Statement: Those systems with pertinent positive or pertinent negative responses have been documented in the HPI. ROS Other: All systems not noted in ROS Statement are negative. Past Medical History Past Medical History: Diabetes Mellitus, Hyperlipidemia, Hypertension, Os teoarthritis (OA), Skin Disorder Additional Past Medical History / Comment(s): wounds on both legs and swelling of the legs History of Any Multi-Drug Resistant Organisms: None Reported Past Surgical History: Appendectomy, Heart Catheterization Additional Past Surgical History / Comment(s): carpal tunnel surgery Past Anesthesia/Blood Transfusion Reactions: No Reported Reaction Past Psychological History: No Psychological Hx Reported Smoking Status: Never smoker Past Alcohol Use History: None Reported Past Drug Use History: None Reported - Past Family History Mother Family Medical History: Cancer, Thyroid Disorder Additional Family Medical History / Comment(s): of lung infection age 59 Brother(s) Family Medical History: COPD, Respiratory Disorder Additional Family Medical History / Comment(s): hx agent orange. Still living age 65 now General Exam - General Exam Comments Initial Comments: this is a well-developed well-nourished awake alert oriented 3 male Limitations: no limitations General appearance: alert, lethargic Head exam: Present: atraumatic, normocephalic, normal inspection Eye exam: Present: normal appearance, PERRL, EOMI. Absent: scleral icterus, conjunctival injection, periorbital swelling ENT exam: Present: mucous membranes dry Neck exam: Present: normal inspection. Absent: tenderness, meningismus, lymphadenopathy Respiratory exam: Present: decreased breath sounds. Absent: respiratory distress, wheezes, rales, rhonchi, stridor Cardiovascular Exam: Present: regular rate, normal rhythm, normal heart sounds. Absent: systolic murmur, diastolic murmur, rubs, gallop, clicks GI/Abdominal exam: Present: soft, normal bowel sounds. Absent: distended, tenderness, guarding, rebound, rigid Extremities exam: Present: full ROM, normal capillary refill, pedal edema, other (stasis dermaitis on both lower extremities). Absent: tenderness, joint swelling, calf tenderness Back exam: Present: normal inspection Neurological exam: Present: alert, oriented X3, CN II-XII intact Psychiatric exam: Present: normal affect, normal mood Skin exam: Present: warm, dry, other (stasis dermatitis is mentioned above). Absent: rash Course Vital Signs 08/25/20 08/25/20 08/25/20 14:59 15:30 16:00 Temperature 102.7 F H Pulse Rate 84 82 85 Respiratory 20 26 H 26 H Rate Blood Pressure 162/64 158/54 143/59 O2 Sat by Pulse 97 Oximetry 08/25/20 08/25/20 16:30 17:21 Temperature Pulse Rate 85 Respiratory 26 H 26 H Rate Blood Pressure 153/57 O2 Sat by Pulse 99 Oximetry - Reevaluation(s) Reevaluation #1: 08/25/20 17:33 patient was noted have elevated troponin though he is had no complaints of chest pain palpitations or shortness of breath. Medical Decision Making - Medical Decision Making I did discuss [employer] the patient family as well as Dr. Deng. Patient be admitted consultation by cardiology. IV antibiotics. UA is pending at this time is patient has not been able to produce urine thus far. - Lab Data Result diagrams: 08/25/20 15:51 08/25/20 15:51 Lab Results 08/25/20 08/25/20 08/25/20 Range/Units 15:51 15:51 15:51 WBC 15.4 H (3.8-10.6) k/uL RBC 3.74 L (4.30-5.90) m/uL Hgb 10.6 L (13.0-17.5) gm/dL Hct 32.4 L (39.0-53.0) % MCV 86.7 (80.0-100.0) fL MCH 28.3 (25.0-35.0) pg MCHC 32.7 (31.0-37.0) g/dL RDW 14.9 (11.5-15.5) % Plt Count 266 (150-450) k/uL MPV 7.7 Neutrophils % 94 % Lymphocytes % 2 % Monocytes % 2 % Eosinophils % 0 % Basophils % 0 % Neutrophils # 14.5 H (1.3-7.7) k/uL Lymphocytes # 0.3 L (1.0-4.8) k/uL Monocytes # 0.3 (0-1.0) k/uL Eosinophils # 0.0 (0-0.7) k/uL Basophils # 0.0 (0-0.2) k/uL Poikilocytosis Slight Sodium 128 L (137-145) mmol/L Potassium 3.7 (3.5-5.1) mmol/L Chloride 85 L (98-107) mmol/L Carbon Dioxide 28 (22-30) mmol/L Anion Gap 15 mmol/L BUN 49 H (9-20) mg/dL Creatinine 1.35 H (0.66-1.25) mg/dL Est GFR (CKD-EPI)AfAm 61 (>60 ml/min/1.73 sqM) Est GFR (CKD-EPI)NonAf 52 (>60 ml/min/1.73 sqM) Glucose 100 H (74-99) mg/dL Plasma Lactic Acid Clint 3.5 H* (0.7-2.0) mmol/L Calcium 9.2 (8.4-10.2) mg/dL Magnesium 1.9 (1.6-2.3) mg/dL Total Bilirubin 1.1 (0.2-1.3) mg/dL AST 42 (17-59) U/L ALT 36 (4-49) U/L Alkaline Phosphatase 110 (38-126) U/L Creatine Kinase 107 (55-170) U/L Troponin I (0.000-0.034) ng/mL Total Protein 7.7 (6.3-8.2) g/dL Albumin 4.1 (3.5-5.0) g/dL Lipase 49 (23-300) U/L 08/25/20 Range/Units 15:51 WBC (3.8-10.6) k/uL RBC (4.30-5.90) m/uL Hgb (13.0-17.5) gm/dL Hct (39.0-53.0) % MCV (80.0-100.0) fL MCH (25.0-35.0) pg MCHC (31.0-37.0) g/dL RDW (11.5-15.5) % Plt Count (150-450) k/uL MPV Neutrophils % % Lymphocytes % % Monocytes % % Eosinophils % % Basophils % % Neutrophils # (1.3-7.7) k/uL Lymphocytes # (1.0-4.8) k/uL Monocytes # (0-1.0) k/uL Eosinophils # (0-0.7) k/uL Basophils # (0-0.2) k/uL Poikilocytosis Sodium (137-145) mmol/L Potassium (3.5-5.1) mmol/L Chloride (98-107) mmol/L Carbon Dioxide (22-30) mmol/L Anion Gap mmol/L BUN (9-20) mg/dL Creatinine (0.66-1.25) mg/dL Est GFR (CKD-EPI)AfAm (>60 ml/min/1.73 sqM) Est GFR (CKD-EPI)NonAf (>60 ml/min/1.73 sqM) Glucose (74-99) mg/dL Plasma Lactic Acid Clint (0.7-2.0) mmol/L Calcium (8.4-10.2) mg/dL Magnesium (1.6-2.3) mg/dL Total Bilirubin (0.2-1.3) mg/dL AST (17-59) U/L ALT (4-49) U/L Alkaline Phosphatase (38-126) U/L Creatine Kinase (55-170) U/L Troponin I 0.091 H* (0.000-0.034) ng/mL Total Protein (6.3-8.2) g/dL Albumin (3.5-5.0) g/dL Lipase (23-300) U/L - EKG Data -: EKG Interpreted by Ct EKG shows normal: sinus rhythm EKG Comments: sinus rhythm with evidence of maxillary junctional rhythm QRS 102 QT since QTC 338/399 with exodeviation LVH this was compared with EKG dated 08/13/20 - Radiology Data Radiology results: report reviewed (Imaging reviewed evidence of basilar atelectasis with pleural reaction no evident overt infiltrate at this time though pneumonitis is suspected), image reviewed Disposition Clinical Impression: Pneumonitis, Renal insufficiency, Elevated troponin, Dehydration, Leukocytosis, Dysrhythmia, cardiac, Failure to thrive Disposition: ADMITTED IP TO THIS [facility] Condition: Fair Referrals: Adam Jacome DO [Primary Care Provider] - 1-2 days
[2020-08-25 16:19] LABS: Albumin 4.1 g/dL (3.5-5.0); Calcium 9.2 mg/dL (8.4-10.2); Magnesium 1.9 mg/dL (1.6-2.3); Potassium 3.7 mmol/L (3.5-5.1); Total Bilirubin 1.1 mg/dL (0.2-1.3); Total Protein 7.7 g/dL (6.3-8.2)
[2020-08-25 16:20] LABS: Basophils % (A) 0 %; Eosinophils % (A) 0 %; HCT 32.4 % (39.0-53.0); HGB 10.6 gm/dL (13.0-17.5); Lymphocytes # (A) 0.3 k/uL (1.0-4.8); Lymphocytes % (A) 2 %; MCH 28.3 pg (25.0-35.0); MCHC 32.7 g/dL (31.0-37.0); MCV 86.7 fL (80.0-100.0); Mean Platelet Volume 7.7; Monocytes # (A) 0.3 k/uL (0-1.0); Monocytes % (A) 2 %; Neutrophils # (A) 14.5 k/uL (1.3-7.7); Neutrophils % (A) 94 %; Platelet Count 266 k/uL (150-450); Poikilocytosis Slight; RBC 3.74 m/uL (4.30-5.90); RDW 14.9 % (11.5-15.5); WBC 15.4 k/uL (3.8-10.6)
[2020-08-25] MEDS ORDERED: SODIUM CHLORIDE 0.9% 1,000 ML IV STA ×2 (16:25)
[2020-08-25] MEDS ORDERED: cefTRIAXone IN SWFI 1,000 MG/10 ML SYRINGE IVP STA (16:37)
--- NOTE | 2020-08-25 17:00 | XR ---
EXAMINATION TYPE: XR chest 2V DATE OF EXAM: 08/25/2020 COMPARISON: 08/14/2020 HISTORY: Fever and weakness TECHNIQUE: 2 views FINDINGS: There is poor inspiration. Left and right diaphragm are slightly elevated. There is slight blunting of the costophrenic angles. There is mild pulmonary congestion. IMPRESSION: There is some mild atelectasis at the lung bases and pleural reaction. Pulmonary vascular ity increased slightly compared to old exam. No overt heart failure. Atelectasis increased compared t o old exam.
[2020-08-25] MEDS ORDERED: PNEUMONIA PROTOCOL UTILIZED 1 EACH MISC PO PRN (17:36)
[2020-08-25] MEDS ORDERED: Insulin Aspart (For Pump) 100 UNIT/ML VIAL SQ-PUMP SCH (17:45)
[2020-08-25] MEDS ORDERED: ACETAMINOPHEN TAB 325 MG TAB PO STA (18:29)
[2020-08-25] MEDS: FUROSEMIDE 40 MG TAB PO SCH (19:02)
[2020-08-25] MEDS ORDERED: ACETAMINOPHEN TAB 325 MG TAB PO PRN (19:17)
[2020-08-25] MEDS: allopurinoL 100 MG TAB PO SCH (19:44)
[2020-08-25] MEDS ORDERED: metFORMIN 500 MG TAB PO SCH (21:00)
[2020-08-25 21:10] LABS: Glucose,Whole Blood 104 mg/dL (75-99)
[2020-08-25] MEDS: INSULIN ASPART (NovoLOG) 100 UNIT/ML VIAL SQ SCH (21:34)
[2020-08-25] MEDS: MAGNESIUM OXIDE 400 MG TAB PO SCH (21:39)
[2020-08-25] MEDS: ATORVASTATIN 40 MG TAB PO SCH (21:39)
[2020-08-25] MEDS: hydrALAZINE HCL 25 MG TAB PO SCH (21:39)
[2020-08-26 04:22] LABS: Appearance,Urine Clear (Clear); Bilirubin,Urine Negative (Negative); Blood,Urine Negative (Negative); Color,Urine Yellow; Glucose,Urine (UA) Negative (Negative); Hyaline Casts,Urine 1 /lpf (0-2); Ketones,Urine Negative (Negative); Leukocyte Esterase,Urine Negative (Negative); Nitrite,Urine Negative (Negative); PH, Urine 5.5 (5.0-8.0); Protein,Urine 1+ (Negative); RBC,Urine 2 /hpf (0-5); Specific Gravity,Urine 1.012 (1.001-1.035); Urobilinogen,Urine <2.0 mg/dL (<2.0); WBC,Urine 1 /hpf (0-5)
[2020-08-26] MEDS: INSULIN ASPART (NovoLOG) 100 UNIT/ML VIAL SQ SCH ×4 (06:28→19:37)
[2020-08-26] MEDS: PANTOPRAZOLE 40 MG TABLET PO SCH (06:30)
[2020-08-26] MEDS: FUROSEMIDE 40 MG TAB PO SCH (06:30)
[2020-08-26 06:36] LABS: Glucose,Whole Blood 193 mg/dL (75-99)
--- NOTE | 2020-08-26 07:35 | XR ---
EXAMINATION TYPE: XR chest 1V portable DATE OF EXAM: 08/26/2020 HISTORY: Shortness of breath. COMPARISON: August 25, 2020 TECHNIQUE: Single view of the chest is submitted. FINDINGS: Demonstrated are scattered senescent parenchymal change. There is no evidence for focal infiltrate. Blunting left costophrenic angle may reflect small effusio n. Mild pleural parenchymal reaction and minimal atelectasis The heart is stable. Hilar and mediastinal structures are within normal limits. Degenerative changes are seen of the dorsal spine. IMPRESSION: 1. Overall stable chest..
--- NOTE | 2020-08-26 08:56 | P.HPIM ---
History of Present Illness H&P Date: 08/26/20 Chief Complaint: Shortness of breath History of present illness This is a 70-year-old morbidly obese patient of Dr. Jacome. Who was recently admitted on 08/13/2020 with worsening anasarca and edema to the lower extremities. He was discharged on 08/16/2020 with Keflex for bilateral lower leg cellulitis related to edema and left lower lobe pneumonia. Prior to that hospitalization patient was admitted on 07/24/2020 for acute kidney injury with severe hyper kalemia and metabolic acidosis. Patient presented to the emergency room complaint of shortness of breath, fever and altered mental status. Patient states that he had shortness of breath denied any cough or sputum production. No chest pain. No complaints of lower extremity edema, redness or drainage. No dysuria, no hematuria no rhinorrhea sore throat or earaches. Upon arrival to the emergency department patient's temperature was 102.7. Patient had elevated troponin EKG showed junctional rhythm. Patient had no complaints of chest pain palpitations. At this time patient is found resting comfortably in bed in no acute distress. Patient states that on Thursday he had a doctor's appointment when he went home he began having chills and was unable to get warm. Patient denies any difficulty swallowing. Denies any cough or history of blood clots. He is complaining of constipation. Patient states that his legs have improved significantly. Patient was discharged on Keflex which she completed. Patient's pulse ox of 93% on room air. The patient seen his family doctor on Thursday he was found to have a systolic murmur that was new. He was set up for an echocardiogram and an EKG for next week. Review Of Systems: Constitutional: + fever,+ chills, no night sweats. No weight change. No weakness, fatigue or lethargy. No daytime sleepiness. EENT: No headache. No blurred vision or double vision, no loss of vision. No loss of Hearing, no ringing in the ears, no dizziness. No nasal drainage or congestion. No epistaxis. No sore throat. Lungs: + shortness of breath, no cough, no sputum production. No wheezing. Cardiovascular: No chest pain, no lower extremity edema. No palpitations. No paroxysmal nocturnal dyspnea. No orthopnea. No lightheadedness or dizziness. No syncopal episodes. Abdominal: no abdominal discomfort. No nausea, vomiting. no diarrhea. No constipation. No bloody or tarry stools. no loss of appetite. Genitourinary: No dysuria, increased frequency, urgency. No urinary retention. Musculoskeletal: No myalgias. No muscle weakness, no gait dysfunction, no frequent falls. No back pain. No neck pain. Integumentary: No wounds, no lesions. No rash or pruritus. No unusual bruising. No change in hair or nails. Neurologic: No aphasia. No facial droop. No change in mentation. No head injury. No headache. No paralysis. No paresthesia. Psychiatric: No depression. No anxiety. No mood swings. Endocrine: No abnormal blood sugars. No weight change. No excessive sweating or thirst. Social history: Mother age 60 from lung cancer, father age 67 from an accident. Francois sanchez has one brother who from cancer from [place] in [place]. Half- sister never met, patient has 2 children one of them has autoimmune disorder awaiting a double lung transplant. Second child has no major medical problems Family history: Patient does not smoke, no alcohol or drug use, lives at home alone he is a Physical examination General Appearance: Alert, cooperative, no distress, 70-year-old obese male appears stated age. Neck HEENT: Supple, no lymphadenopathy, no thyroid enlargement, no carotid bruits. Lungs: Clear to auscultation without crackles or wheezes no rhonchi, no deformity. Chest Wall: Chest wall normal expansion with deep inspiration no tenderness and no deformity was found on exam, no costochondral pain or discomfort. Heart: Regular rate and rhythm, S1, S2 normal, + pansystolic murmur, no rub or gallop. Back: Symmetric, no curvature, ROM normal, no CVA tenderness. Abdomen: Soft, non-tender, no rebound or rigidity, no hepatosplenomegaly. Extremities: Vascular dermatitis resolved Extremities normal, atraumatic, no cyanosis or edema. Pulses: 2+ and symmetric. Skin: Skin color, texture, tugor normal, no rashes or lesions. Neurologic: Alert oriented x3 cranial nerves II through XII intact, no motor deficit, no abnormal balance or gait Assessment and plan 1. Sepsis with unknown source possible pneumonitis rule out aspiration pneumonia venous stasis dermatitis bilateral lower extremities improved unlikely source. Swallowing evaluation, Rocephin 2 g, consult infectious disease, blood cultures pending, sputum culture pending, pro-calcitonin ordered 2. Acute hypoxic respiratory failure underlining atelectasis with mild pleural effusion and possible chf., See above note. 3. Elevated troponin with junctional rhythm noted, a new systolic murmur. Consult cardiology, echocardiogram ordered 4. Diabetes mellitus. Hold metformin, NovoLog sliding scale, Accu-Cheks before meals at bedtime 5. Hyperlipidemia. Continue Lipitor 40 mg by mouth at bedtime 6. Hypertension. Continue amlodipine 5 mg by mouth daily, hydralazine 25 mg by mouth 3 times a day, Levoxyl and 2.5 mg by mouth daily 7. Chronic kidney disease stage III. Consult nephrology 8. Gout. Continue allopurinol 100 mg by mouth at bedtime 9. GERD. Protonix 40 mg by mouth before meals breakfast 10. DVT prophylaxis. Heparin subcu, pneumatic compression stockings 11. GI prophylaxis. Protonix CODE STATUS: Full code The patient will be admitted for minimum of 2 nights day Discharge plan: Past Medical History Past Medical History: Diabetes Mellitus, Hyperlipidemia, Hypertension, Osteoarthritis (OA), Skin Disorder Additional Past Medical History / Comment(s): wounds on both legs and swelling of the legs-treated for cellulitis Jul-2020 History of Any Multi-Drug Resistant Organisms: None Reported Past Surgical History: Appendectomy, Heart Catheterization Additional Past Surgical History / Comment(s): carpal tunnel surgery Past Anesthesia/Blood Transfusion Reactions: No Reported Reaction Smoking Status: Never smoker - Past Family History Mother Family Medical History: Cancer, Thyroid Disorder Additional Family Medical History / Comment(s): of lung infection age 59 Brother(s) Family Medical History: COPD, Respiratory Disorder Additional Family Medical History / Comment(s): hx agent orange. Still living age 64 now Medications and Allergies Home Medications Medication Instructions Recorded Confirmed Type Omeprazole [PriLOSEC] 20 mg PO DAILY 08/09/15 08/25/20 History allopurinoL [Zyloprim] 100 mg PO HS 08/09/15 08/25/20 History metFORMIN HCL [Glucophage] 1,000 mg PO BID 07/15/16 08/25/20 History Atorvastatin [Lipitor] 40 mg PO HS 06/01/18 08/25/20 History Insulin Aspart (For Pump) [NovoLOG 0.01 unit SQ-PUMP CONTINUOUS 07/23/20 08/25/20 History (For Pump)] Zinc 50 mg PO DAILY 07/23/20 08/25/20 History amLODIPine [Norvasc] 5 mg PO DAILY #30 tab 07/26/20 08/25/20 Rx hydrALAZINE HCL [Apresoline] 25 mg PO TID #90 tab 07/26/20 08/25/20 Rx Magnesium Oxide 400 mg PO BID 08/13/20 08/25/20 History Ammonium Lactate Cream [Lac-Hydrin 1 applic TOPICAL DAILY PRN 08/25/20 08/25/20 History 12% Cream] Cephalexin [Keflex] 500 mg PO Q8H 08/25/20 08/25/20 History Furosemide [Lasix] 40 mg PO BID 08/25/20 08/25/20 History Sennosides-Docusate Sodium 2 tab PO DAILY 08/25/20 08/25/20 History [Senokot-S] metOLazone [Zaroxolyn] 2.5 mg PO DAILY 08/25/20 08/25/20 History Allergies Allergy/AdvReac Type Severity Reaction Status Date / Time Sulfa (Sulfonamide Allergy Rash/Hives Verified 08/25/20 15:43 Antibiotics) codeine AdvReac Unknown Verified 08/25/20 15:43 ivory soap Allergy Rash/Hives Uncoded 08/25/20 15:43 Physical Exam Vitals: Vital Signs Temp Pulse Pulse Resp BP BP Pulse Ox 08/26/20 04:00 98.4 F 70 20 128/60 95 08/26/20 02:00 79 20 08/26/20 00:00 99.9 F H 79 20 135/60 96 08/25/20 20:00 102.0 F H 90 20 141/63 95 08/25/20 19:01 90 20 144/63 95 08/25/20 18:53 102.8 F H 08/25/20 18:30 93 28 H 125/56 08/25/20 17:21 26 H 08/25/20 16:30 85 26 H 153/57 99 08/25/20 16:00 85 26 H 143/59 08/25/20 15:30 82 26 H 158/54 08/25/20 14:59 102.7 F H 84 20 162/64 97 Intake and Output 08/25/20 08/26/20 08/26/20 22:59 06:59 14:59 Intake Total 1550 1280 Balance 1550 1280 Intake: Intake, IV Titration 1550 800 Amount Sodium Chloride 0.9% 1, 800 000 ml @ 130 mls/hr IV . Q7H42M [facility] Rx#:[id number] Sodium Chloride 0.9% 1, 1000 000 ml @ 999 mls/hr IV . Q1H1M [facility] Rx#:[id number] Sodium Chloride 0.9% 500 500 ml 500 ml @ 999 mls/hr IV .Q31M [facility] Rx#:[id number] cefTRIAXone 2 gm In 50 Sodium Chloride 0.9% 50 ml @ 100 mls/hr IVPB Q24H [facility] Rx#:[id number] Oral 480 Other: Voiding Method Diaper Diaper Incontinent Incontinent # Voids 3 Weight 78.018 kg Results CBC & Chem 7: 08/25/20 15:51 08/25/20 15:51 Labs: Abnormal Lab Results - Last 24 Hours (Table) 08/25/20 08/25/20 08/25/20 Range/Units 15:51 15:51 15:51 WBC 15.4 H (3.8-10.6) k/uL RBC 3.74 L (4.30-5.90) m/uL Hgb 10.6 L (13.0-17.5) gm/dL Hct 32.4 L (39.0-53.0) % Neutrophils # 14.5 H (1.3-7.7) k/uL Lymphocytes # 0.3 L (1.0-4.8) k/uL Sodium 128 L (137-145) mmol/L Chloride 85 L (98-107) mmol/L BUN 49 H (9-20) mg/dL Creatinine 1.35 H (0.66-1.25) mg/dL Glucose 100 H (74-99) mg/dL POC Glucose (mg/dL) (75-99) mg/dL Plasma Lactic Acid Clint 3.5 H* (0.7-2.0) mmol/L Troponin I (0.000-0.034) ng/mL Urine Protein (Negative) 08/25/20 08/25/20 08/26/20 Range/Units 15:51 21:05 03:52 WBC (3.8-10.6) k/uL RBC (4.30-5.90) m/uL Hgb (13.0-17.5) gm/dL Hct (39.0-53.0) % Neutrophils # (1.3-7.7) k/uL Lymphocytes # (1.0-4.8) k/uL Sodium (137-145) mmol/L Chloride (98-107) mmol/L BUN (9-20) mg/dL Creatinine (0.66-1.25) mg/dL Glucose (74-99) mg/dL POC Glucose (mg/dL) 104 H (75-99) mg/dL Plasma Lactic Acid Clint (0.7-2.0) mmol/L Troponin I 0.091 H* (0.000-0.034) ng/mL Urine Protein 1+ H (Negative) 08/26/20 Range/Units 06:23 WBC (3.8-10.6) k/uL RBC (4.30-5.90) m/uL Hgb (13.0-17.5) gm/dL Hct (39.0-53.0) % Neutrophils # (1.3-7.7) k/uL Lymphocytes # (1.0-4.8) k/uL Sodium (137-145) mmol/L Chloride (98-107) mmol/L BUN (9-20) mg/dL Creatinine (0.66-1.25) mg/dL Glucose (74-99) mg/dL POC Glucose (mg/dL) 193 H (75-99) mg/dL Plasma Lactic Acid Clint (0.7-2.0) mmol/L Troponin I (0.000-0.034) ng/mL Urine Protein (Negative) Thrombosis Risk Factor Assmnt - Choose All That Apply Any of the Below Risk Factors Present?: Yes Each Factor Represents 1 point: Obesity (BMI >25), Sepsis (< 1month), Swollen legs (current) Other Risk Factors: Yes Each Risk Factor Represents 2 Points: Age 61-74 years Other congenital or acquired thrombophilia - If yes, enter type in comment: No Thrombosis Risk Factor Assessment Total Risk Factor Score: 5 Thrombosis Risk Factor Assessment Level: High Risk
[2020-08-26] MEDS ORDERED: metOLazone 2.5 MG TAB PO SCH (09:00)
[2020-08-26] MEDS: amLODIPine 5 MG TAB PO SCH (09:12)
[2020-08-26] MEDS: SENNOSIDES-DOCUSATE SODIUM 1 EACH TAB PO SCH (09:12)
[2020-08-26] MEDS: ZINC SULFATE 220 MG CAP PO SCH (09:12)
[2020-08-26] MEDS: MAGNESIUM OXIDE 400 MG TAB PO SCH (09:12)
[2020-08-26] MEDS: hydrALAZINE HCL 25 MG TAB PO SCH ×2 (09:12→19:45)
[2020-08-26 12:22] LABS: Glucose,Whole Blood 201 mg/dL (75-99)
[2020-08-26] MEDS ORDERED: SODIUM CHLORIDE 0.9% 1,000 ML IV SCH (13:15)
--- NOTE | 2020-08-26 13:18 | P.NPCON ---
History of Present Illness - Reason for Consult Consult date: 08/26/20 acute renal failure - Chief Complaint Shortness of breath - History of Present Illness 70-year-old gentleman coming to the hospital with the above complaints. He has history of edema, takes Lasix and metolazone at home. As per him he was getting weak denies any nausea vomiting diarrhea. Poor oral intake. On admission labs were abnormal with a serum potassium of 3.7, sodium of 128, bicarb of 28 and a creatinine of 1.35. Baseline creatinine 0.9-1.0 MG per DL. His lactic acid was 3.5 and takes metformin at home. No documented hypotensive episodes takes amlodipine and hydralazine at home. Denies any NSAID use or recent contrast studies. Review of Systems Constitutional: Reports as per HPI Past Medical History Past Medical History: Diabetes Mellitus, Hyperlipidemia, Hypertension, Osteoarthritis (OA), Skin Disorder Additional Past Medical History / Comment(s): wounds on both legs and swelling of the legs-treated for cellulitis Jul-2020 History of Any Multi-Drug Resistant Organisms: None Reported Past Surgical History: Appendectomy, Heart Catheterization Additional Past Surgical History / Comment(s): carpal tunnel surgery Past Anesthesia/Blood Transfusion Reactions: No Reported Reaction Smoking Status: Never smoker - Past Family History Mother Family Medical History: Cancer, Thyroid Disorder Additional Family Medical History / Comment(s): of lung infection age 59 Brother(s) Family Medical History: COPD, Respiratory Disorder Additional Family Medical History / Comment(s): hx agent orange. Still living age 64 now Medications and Allergies Home Medications Medication Instructions Recorded Confirmed Type Omeprazole [PriLOSEC] 20 mg PO DAILY 08/09/15 08/25/20 History allopurinoL [Zyloprim] 100 mg PO HS 08/09/15 08/25/20 History metFORMIN HCL [Glucophage] 1,000 mg PO BID 07/15/16 08/25/20 History Atorvastatin [Lipitor] 40 mg PO HS 06/01/18 08/25/20 History Insulin Aspart (For Pump) [NovoLOG 0.01 unit SQ-PUMP CONTINUOUS 07/23/20 08/25/20 History (For Pump)] Zinc 50 mg PO DAILY 07/23/20 08/25/20 History amLODIPine [Norvasc] 5 mg PO DAILY #30 tab 07/26/20 08/25/20 Rx hydrALAZINE HCL [Apresoline] 25 mg PO TID #90 tab 07/26/20 08/25/20 Rx Magnesium Oxide 400 mg PO BID 08/13/20 08/25/20 History Ammonium Lactate Cream [Lac-Hydrin 1 applic TOPICAL DAILY PRN 08/25/20 08/25/20 History 12% Cream] Cephalexin [Keflex] 500 mg PO Q8H 08/25/20 08/25/20 History Furosemide [Lasix] 40 mg PO BID 08/25/20 08/25/20 History Sennosides-Docusate Sodium 2 tab PO DAILY 08/25/20 08/25/20 History [Senokot-S] metOLazone [Zaroxolyn] 2.5 mg PO DAILY 08/25/20 08/25/20 History Allergies Allergy/AdvReac Type Severity Reaction Status Date / Time Sulfa (Sulfonamide Allergy Rash/Hives Verified 08/25/20 15:43 Antibiotics) codeine AdvReac Unknown Verified 08/25/20 15:43 ivory soap Allergy Rash/Hives Uncoded 08/25/20 15:43 Physical Exam Vitals: Vital Signs Temp Pulse Pulse Resp BP BP Pulse Ox 08/26/20 11:55 99.1 F 71 20 132/60 92 L 08/26/20 08:00 98.5 F 68 20 139/64 97 08/26/20 04:00 98.4 F 70 20 128/60 95 08/26/20 02:00 79 20 08/26/20 00:00 99.9 F H 79 20 135/60 96 08/25/20 20:00 102.0 F H 90 20 141/63 95 08/25/20 19:01 90 20 144/63 95 08/25/20 18:53 102.8 F H 08/25/20 18:30 93 28 H 125/56 08/25/20 17:21 26 H 08/25/20 16:30 85 26 H 153/57 99 08/25/20 16:00 85 26 H 143/59 08/25/20 15:30 82 26 H 158/54 08/25/20 14:59 102.7 F H 84 20 162/64 97 Intake and Output 08/25/20 08/26/20 08/26/20 22:59 06:59 14:59 Intake Total 1550 1280 0 Output Total 1075 Balance 1550 1280 -1075 Intake: Intake, IV Titration 1550 800 Amount Sodium Chloride 0.9% 1, 800 000 ml @ 130 mls/hr IV . Q7H42M [facility] Rx#:[id number] Sodium Chloride 0.9% 1, 1000 000 ml @ 999 mls/hr IV . Q1H1M [facility] Rx#:[id number] Sodium Chloride 0.9% 500 500 ml 500 ml @ 999 mls/hr IV .Q31M [facility] Rx#:[id number] cefTRIAXone 2 gm In 50 Sodium Chloride 0.9% 50 ml @ 100 mls/hr IVPB Q24H [facility] Rx#:[id number] Oral 480 0 Output: Urine 1075 Other: Voiding Method Diaper Diaper Incontinent Incontinent # Voids 3 Weight 78.018 kg No acute distress S1-S2 heard Lungs clear Abdomen soft No edema Results - Lab Results Most recent lab results Calcium 9.2 mg/dL (8.4-10.2) 08/25/20 15:51 Magnesium 1.9 mg/dL (1.6-2.3) 08/25/20 15:51 08/25/20 15:51 08/25/20 15:51 Assessment and Plan Assessment: #1 acute kidney injury secondary to prerenal process from overdiuresis. Baseline creatinine 0.9-1.0 MG per DL. -Urine analysis benign. #2 hypokalemia with alkalosis secondary to diuretics #3 hypovolemic hyponatremia #4 hypertension #5 lactic acidosis secondary to metformin. Plan: #1 agree with stopping metformin. Can be restarted at discharge based on the kidney function if GFR more than 45 ML's per minute. #2 discontinue diuretics, clinically dry. Start on normal saline at 75 ML's an hour. #3 reason hydralazine to 25 mg twice a day. If systolic persistently more than 140 systolic increase amlodipine to 10 mg. #4 repeat labs in the morning, avoid nephrotoxic agents and hypotensive episodes.
[2020-08-26 14:15] LABS: Hemoglobin A1C 7.2 % (4.0-6.0)
--- NOTE | 2020-08-26 15:04 | P.CRDCN ---
History of Present Illness Consult date: 08/26/20 Chief complaint: arrythmia History of present illness: The patient is a 70-year-old male with past medical history of diabetes mellitus, dyslipidemia, hypertension, and chronic cellulitis, who was admitted to the hospital for increased shortness of breath, fever, and mental status changes. The patient was recently admitted in July, where he was treated for cellulitis and left lower lobe pneumonia. He was febrile on admission. EKG showed AV disassociation with a ventricular rate of 70. The patient had no complaints of palpitations, dizziness, or lightheadedness. The patient was interviewed and examined lying comfortably in bed. He did report some back discomfort. He states his shortness of breath has improved. He continues to have lower extremity swelling and cellulitis, however the patient states it has significantly improved since his last admission. No chest pain or chest pressure. DIAGNOSTICS: EKG shows AV dissociation with ventricular rate of 70 bpm WBC 15.4, hemoglobin 10.6, platelet 266, sodium 128, potassium 3.7, BUN 49, creatinine 1.35, troponin 0.091, AST 42, ALT 36, BNP 1590 Vital signs 139/64, SpO2 97% on 4 L nasal cannula, respiratory rate 20, pulse rate 68, temperature 98.5F PAST MEDICAL HISTORY: Diabetes, dyslipidemia, hypertension, cellulitis REVIEW OF SYSTEMS: No fever or chills. No cough or expectoration. No diaphoresis. Patient denies headache, dizziness, blurred vision, double vision. Patient denies any stomach discomfort. No nausea, vomiting. No hematochezia. No hematemesis. Denies any black stools or blood in his stools. Denies dysuria or hematuria. No muscle weakness or numbness. PHYSICAL EXAMINATION: This is a 70-year-old [place] male in no apparent distress at the time of my examination. HEENT: Head is atraumatic, normocephalic. Pupils are equal, round. Sclerae anicteric. Conjunctivae are clear. Mucous membranes of the mouth are moist. Neck is supple. There is no jugular venous distention. No carotid bruit is heard. CHEST EXAMINATION: Lungs are diminished auscultation bilaterally. No chest wall tenderness is noted on palpation or with deep breathing. HEART EXAMINATION: Heart regular rate and rhythm. S1, S2 heard. Systolic murmur audible. No gallops or rub. ABDOMEN: Soft, nontender. Bowel sounds are heard. No organomegaly noted. EXTREMITIES: 2+ peripheral edema with chronic ulcers. NEUROLOGIC EXAMINATION: Patient is awake, alert and oriented x3. FINAL ASSESSMENT AND PLAN: #1 septicemia, unknown source #2 shortness of breath, acute hypoxic respiratory failure #3 elevated troponin #4 AV disassociation, currently asymptomatic #5 systolic murmur, echocardiogram pending #6 hypertension #7 dylipidemia #8 diabetes mellitus #9 hyponatremia PLAN: Echocardiogram pending for new systolic murmur Continue telemetry monitoring, avoid AV justine ce agents Further recommendations based on clinical course The patient has been seen and evaluated. Plan of care has been reviewed and agreed upon by Dr Starks. Past Medical History Past Medical History: Diabetes Mellitus, Hyperlipidemia, Hypertension, Osteoarthritis (OA), Skin Disorder Additional Past Medical History / Comment(s): wounds on both legs and swelling of the legs-treated for cellulitis Jul-2020 History of Any Multi-Drug Resistant Organisms: None Reported Past Surgical History: Appendectomy, Heart Catheterization Additional Past Surgical History / Comment(s): carpal tunnel surgery Past Anesthesia/Blood Transfusion Reactions: No Reported Reaction Smoking Status: Never smoker - Past Family History Mother Family Medical History: Cancer, Thyroid Disorder Additional Family Medical History / Comment(s): of lung infection age 59 Brother(s) Family Medical History: COPD, Respiratory Disorder Additional Family Medical History / Comment(s): hx agent orange. Still living age 65 now Medications and Allergies Home Medications Medication Instructions Recorded Confirmed Type Omeprazole [PriLOSEC] 20 mg PO DAILY 08/09/15 08/25/20 History allopurinoL [Zyloprim] 100 mg PO HS 08/09/15 08/25/20 History metFORMIN HCL [Glucophage] 1,000 mg PO BID 07/15/16 08/25/20 History Atorvastatin [Lipitor] 40 mg PO HS 06/01/18 08/25/20 History Insulin Aspart (For Pump) [NovoLOG 0.01 unit SQ-PUMP CONTINUOUS 07/23/20 08/25/20 History (For Pump)] Zinc 50 mg PO DAILY 07/23/20 08/25/20 History amLODIPine [Norvasc] 5 mg PO DAILY #30 tab 07/26/20 08/25/20 Rx hydrALAZINE HCL [Apresoline] 25 mg PO TID #90 tab 07/26/20 08/25/20 Rx Magnesium Oxide 400 mg PO BID 08/13/20 08/25/20 History Ammonium Lactate Cream [Lac-Hydrin 1 applic TOPICAL DAILY PRN 08/25/20 08/25/20 History 12% Cream] Cephalexin [Keflex] 500 mg PO Q8H 08/25/20 08/25/20 History Furosemide [Lasix] 40 mg PO BID 08/25/20 08/25/20 History Sennosides-Docusate Sodium 2 tab PO DAILY 08/25/20 08/25/20 History [Senokot-S] metOLazone [Zaroxolyn] 2.5 mg PO DAILY 08/25/20 08/25/20 History Allergies Allergy/AdvReac Type Severity Reaction Status Date / Time Sulfa (Sulfonamide Allergy Rash/Hives Verified 08/25/20 15:43 Antibiotics) codeine AdvReac Unknown Verified 08/25/20 15:43 ivory soap Allergy Rash/Hives Uncoded 08/25/20 15:43 Physical Exam Vitals: Vital Signs Temp Pulse Pulse Resp BP BP Pulse Ox 08/26/20 11:55 99.1 F 71 20 132/60 92 L 08/26/20 08:00 98.5 F 68 20 139/64 97 08/26/20 04:00 98.4 F 70 20 128/60 95 08/26/20 02:00 79 20 08/26/20 00:00 99.9 F H 79 20 135/60 96 08/25/20 20:00 102.0 F H 90 20 141/63 95 08/25/20 19:01 90 20 144/63 95 08/25/20 18:53 102.8 F H 08/25/20 18:30 93 28 H 125/56 08/25/20 17:21 26 H 08/25/20 16:30 85 26 H 153/57 99 08/25/20 16:00 85 26 H 143/59 08/25/20 15:30 82 26 H 158/54 08/25/20 14:59 102.7 F H 84 20 162/64 97 Intake and Output 08/25/20 08/26/20 08/26/20 22:59 06:59 14:59 Intake Total 1550 1280 240 Output Total 1325 Balance 1550 1280 -1085 Intake: Intake, IV Titration 1550 800 Amount Sodium Chloride 0.9% 1, 800 000 ml @ 130 mls/hr IV . Q7H42M [facility] Rx#:[id number] Sodium Chloride 0.9% 1, 1000 000 ml @ 999 mls/hr IV . Q1H1M [facility] Rx#:[id number] Sodium Chloride 0.9% 500 500 ml 500 ml @ 999 mls/hr IV .Q31M [facility] Rx#:[id number] cefTRIAXone 2 gm In 50 Sodium Chloride 0.9% 50 ml @ 100 mls/hr IVPB Q24H [facility] Rx#:[id number] Oral 480 240 Output: Urine 1325 Other: Voiding Method Diaper Diaper Incontinent Incontinent # Voids 3 Weight 78.018 kg Results 08/25/20 15:51 08/25/20 15:51 Cardiac Enzymes 08/25/20 08/25/20 Range/Units 15:51 15:51 AST 42 (17-59) U/L Troponin I 0.091 H* (0.000-0.034) ng/mL CBC 08/25/20 Range/Units 15:51 WBC 15.4 H (3.8-10.6) k/uL RBC 3.74 L (4.30-5.90) m/uL Hgb 10.6 L (13.0-17.5) gm/dL Hct 32.4 L (39.0-53.0) % Plt Count 266 (150-450) k/uL Comprehensive Metabolic Panel 08/25/20 Range/Units 15:51 Sodium 128 L (137-145) mmol/L Potassium 3.7 (3.5-5.1) mmol/L Chloride 85 L (98-107) mmol/L Carbon Dioxide 28 (22-30) mmol/L BUN 49 H (9-20) mg/dL Creatinine 1.35 H (0.66-1.25) mg/dL Glucose 100 H (74-99) mg/dL Calcium 9.2 (8.4-10.2) mg/dL AST 42 (17-59) U/L ALT 36 (4-49) U/L Alkaline Phosphatase 110 (38-126) U/L Total Protein 7.7 (6.3-8.2) g/dL Albumin 4.1 (3.5-5.0) g/dL Current Medications Generic Name Dose Route Start Last Admin Trade Name Freq PRN Reason Stop Dose Admin Acetaminophen 650 mg 08/25/20 19:17 Acetaminophen Tab 325 Mg Tab PO Q4HR PRN Fever and/ or Pain Allopurinol 100 mg 08/25/20 21:00 08/25/20 19:44 Allopurinol 100 Mg Tab PO 100 mg HS [facility] Administration Amlodipine Besylate 5 mg 08/26/20 09:00 08/26/20 09:12 Amlodipine 5 Mg Tab PO 5 mg DAILY [facility] Administration Atorvastatin Calcium 40 mg 08/25/20 21:00 08/25/20 21:39 Atorvastatin 40 Mg Tab PO 40 mg HS [facility] Administration Heparin Sodium (Porcine) 5,000 unit 08/26/20 21:00 Heparin Sodium,Porcine 5,000 Unit/Ml 1 Ml Vial SQ Q12HR [facility] Hydralazine HCl 25 mg 08/26/20 21:00 Hydralazine Hcl 25 Mg Tab PO BID [facility] Ceftriaxone Sodium 2 gm/ 50 mls @ 100 mls/hr 08/26/20 17:00 Sodium Chloride IVPB Q24H [facility] Sodium Chloride 1,000 mls @ 75 mls/hr 08/26/20 13:15 Saline 0.9% IV .[id number] [facility] Insulin Aspart 0 unit 08/25/20 21:00 08/26/20 12:22 Insulin Aspart (Novolog) 100 Unit/Ml Vial SQ 2 unit ACHS [facility] Administration Protocol Lactic Acid 1 applic 08/25/20 17:41 Ammonium Lactate 12% Cream 140 Gm Tube TOPICAL DAILY PRN dry skin on feet Miscellaneous Information 1 each 08/25/20 17:36 Pneumonia Protocol Utilized 1 Each Misc PO ONCE PRN Per Protocol Pantoprazole Sodium 40 mg 08/26/20 07:30 08/26/20 06:30 Pantoprazole 40 Mg Tablet PO 40 mg AC-BRKFST [facility] Administration Senna/Docusate Sodium 2 each 08/26/20 09:00 08/26/20 09:12 Sennosides-Docusate Sodium 1 Each Tab PO 2 each DAILY [facility] Administration Zinc Sulfate 220 mg 08/26/20 09:00 08/26/20 09:12 Zinc Sulfate 220 Mg Cap PO 220 mg DAILY [facility] Administration Intake and Output 08/25/20 08/26/20 08/26/20 22:59 06:59 14:59 Intake Total 1550 1280 240 Output Total 1325 Balance 1550 1280 -1085 Intake: Intake, IV Titration 1550 800 Amount Sodium Chloride 0.9% 1, 800 000 ml @ 130 mls/hr IV . Q7H42M [facility] Rx#:[id number] Sodium Chloride 0.9% 1, 1000 000 ml @ 999 mls/hr IV . Q1H1M [facility] Rx#:[id number] Sodium Chloride 0.9% 500 500 ml 500 ml @ 999 mls/hr IV .Q31M [facility] Rx#:[id number] cefTRIAXone 2 gm In 50 Sodium Chloride 0.9% 50 ml @ 100 mls/hr IVPB Q24H [facility] Rx#:[id number] Oral 480 240 Output: Urine 1325 Other: Voiding Method Diaper Diaper Incontinent Incontinent # Voids 3 Weight 78.018 kg 08/25/20 15:51 08/25/20 15:51
[2020-08-26 17:16] LABS: Glucose,Whole Blood 287 mg/dL (75-99)
[2020-08-26] MEDS ORDERED: FUROSEMIDE 10 MG/ML 4 ML VIAL ONE (18:46)
[2020-08-26] MEDS ORDERED: FUROSEMIDE 10 MG/ML 2 ML VIAL IV ONE (18:54)
[2020-08-26] MEDS: IPRATROPIUM-ALBUTEROL 3 ML NEB INHALATION SCH (19:12)
--- NOTE | 2020-08-26 19:24 | XR ---
EXAMINATION TYPE: XR chest 1V portable DATE OF EXAM: 08/26/2020 COMPARISON: Today HISTORY: Fluid overload Heart is enlarged. There is pulmonary vascular congestion. There is blunting of the costophrenic angl es more on the left side. There are chest leads. IMPRESSION: Congestive heart failure. There is increasing pleural fluid and some infiltrate at the le ft lung base compared to exam 12 hours ago. Pulmonary congestion increased.
[2020-08-26 19:31] LABS: Glucose,Whole Blood 319 mg/dL (75-99)
[2020-08-26] MEDS: methylPREDNISolone SOD SUCCI 40 MG/ML 1 ML VIAL IV SCH ×2 (19:31→23:01)
[2020-08-26] MEDS: LORATADINE-PSEUDOEPH 5-120 MG 1 EACH TAB.ER.12H PO SCH (19:38)
[2020-08-26] MEDS: ATORVASTATIN 40 MG TAB PO SCH (19:44)
[2020-08-26] MEDS: allopurinoL 100 MG TAB PO SCH (19:44)
[2020-08-26 19:50] LABS: HCT 31.7 % (39.0-53.0); Hypochromasia Slight; MCH 28.5 pg (25.0-35.0); MCHC 31.6 g/dL (31.0-37.0); MCV 90.1 fL (80.0-100.0); Mean Platelet Volume 8.1; Platelet Count 220 k/uL (150-450); Poikilocytosis Slight; RBC 3.51 m/uL (4.30-5.90); RDW 14.8 % (11.5-15.5); WBC 14.8 k/uL (3.8-10.6)
[2020-08-26] MEDS: HEPARIN SODIUM,PORCINE 5,000 UNIT/ML 1 ML VIAL SQ SCH (19:57)
[2020-08-26 20:22] LABS: Calcium 8.3 mg/dL (8.4-10.2)
[2020-08-26] MEDS ORDERED: LEVOFLOXACIN 750MG-D5W PMX 750 MG in DEXTROSE/WATER 1 150ML.BAG IVPB ONE (22:45)
--- NOTE | 2020-08-27 00:05 | CONS ---
CONSULTATION DATE OF SERVICE: 08/26/2020 REASON FOR CONSULTATION: Fever and question of pneumonia. HISTORY OF PRESENT ILLNESS: The patient is a 70-year-old male who was recently admitted to this facility with extensive bilateral lower extremity swelling and cellulitis. The patient was treated with IV cefazolin, subsequent discharged home on oral Keflex. The patient now presented back to the hospital concerning for rigors and chills that apparently started on Thursday after the patient came home from a doctor's visit. The patient denies having any headache or URI symptoms. Denies having any chest pain. He did have some shortness of breath on exertion, though denies any cough or sputum production. Denies any abdominal pain and no diarrhea. The patient did have swelling bilateral lower extremities with some dry skin. Mentioned swelling and redness is slightly worse over the last few days. The patient did not have any open wound or any drainage. The patient was noticed to have some mental status changes at home. With these symptoms, the patient was brought to the hospital. On arrival to the ER, the patient did have fever of 102.7 degrees Fahrenheit. The patient was initially not hypoxic, subsequently had slight hypoxemia requiring a nasal cannula oxygen. The patient did have a white count of 15.4 on admission. Creatinine was 1.12. Urine was negative. Phipps PCR was negative. Influenza PCR negative. Chest x-ray mostly pulmonary vascular congestion and CHF with some confusion and atelectasis. The patient was started on Rocephin with concern for possible pneumonia. Infectious Disease was consulted for further management of antibiotic therapy. REVIEW OF SYSTEMS: Positive points have been mentioned in HPI. Rest of the systems are negative. PAST MEDICAL HISTORY: Hypertension, hyperlipidemia, osteoarthritis, diabetes mellitus, venous stasis ulcer, history of recent admission for cellulitis. PAST SURGICAL HISTORY: Appendectomy, PTCA with stent, carpal tunnel surgery. SOCIAL HISTORY: Denies smoking, drinking or drug use. FAMILY HISTORY: Father and brother with history of COPD. ALLERGIES: TO SULFA AND CODEINE. MEDICATIONS: The patient is currently on Rocephin 2 grams daily. He is on Tylenol, DuoNeb, Zyloprim, Norvasc, Lipitor, Lasix, heparin, hydralazine, NovoLog, Claritin, Solu-Medrol Protonix, zinc sulfate. PHYSICAL EXAMINATION: Blood pressure 152/100 with a pulse of 87, temperature 99, T-max 102, he is 95% on 5 L nasal cannula. General description is an elderly male up in the chair in no distress. No tachypnea or accessory muscles of respiration use. HEENT: Examination shows slight pallor. No scleral icterus. Oral mucous membranes dry. NECK: Trachea central. No thyromegaly. LUNGS: Unlabored breathing, decreased breath sounds at bases. No wheeze. HEART: S1, S2. Regular rate and rhythm. ABDOMEN soft. No tenderness. No guarding. No rigidity. EXTREMITIES did have diffuse swelling and redness, slightly warm. Right leg ischemia and no drainage. NEUROLOGICAL: Patient is awake, alert, oriented times three. Mood and affect normal. LABS: Hemoglobin is 10.3, white count 14.8, admission white count was 15.4. BUN of 43, creatinine 1.12. Procalcitonin 15.31. Urine is negative. Phipps PCR is negative. DIAGNOSTIC IMPRESSION AND PLAN: Patient admitted to the hospital with fever and mental status changes in this patient who did have x-ray finding. However, the patient did not have significant cough or sputum production concerning for possible lower extremity cellulitis. Pneumonia less likely but not entirely excluded. PLAN: 1. Antibiotic will be adjusted to cefazolin 2 grams q.8 hours and Levaquin. 2. Try to obtain sputum for Gram stain and culture. 3. Santhosh wrap to the leg to keep the swelling down. 4. We will follow on his clinical condition and culture to further adjust medication if needed. Thank you for this consultation. Will follow this patient along with you. MMODL / IJN: [id number] /
[2020-08-27] MEDS: INSULIN ASPART (NovoLOG) 100 UNIT/ML VIAL SQ SCH (06:29)
[2020-08-27] MEDS: PANTOPRAZOLE 40 MG TABLET PO SCH (06:30)
[2020-08-27 06:36] LABS: Glucose,Whole Blood 321 mg/dL (75-99)
[2020-08-27 07:04] LABS: Basophils % (A) 0 %; Eosinophils % (A) 0 %; HCT 28.9 % (39.0-53.0); HGB 9.3 gm/dL (13.0-17.5); Hypochromasia Slight; Lymphocytes # (A) 0.4 k/uL (1.0-4.8); Lymphocytes % (A) 4 %; MCH 28.5 pg (25.0-35.0); MCHC 32.2 g/dL (31.0-37.0); MCV 88.5 fL (80.0-100.0); Mean Platelet Volume 8.2; Monocytes # (A) 0.3 k/uL (0-1.0); Monocytes % (A) 4 %; Neutrophils # (A) 7.3 k/uL (1.3-7.7); Neutrophils % (A) 90 %; Platelet Count 200 k/uL (150-450); Poikilocytosis Slight; RBC 3.27 m/uL (4.30-5.90); RDW 14.5 % (11.5-15.5); WBC 8.1 k/uL (3.8-10.6)
[2020-08-27 07:13] LABS: Albumin 3.5 g/dL (3.5-5.0); Calcium 8.3 mg/dL (8.4-10.2); Potassium 4.3 mmol/L (3.5-5.1); Total Bilirubin 0.7 mg/dL (0.2-1.3); Total Protein 6.7 g/dL (6.3-8.2)
[2020-08-27] MEDS: IPRATROPIUM-ALBUTEROL 3 ML NEB INHALATION SCH ×4 (08:30→20:41)
[2020-08-27] MEDS: SENNOSIDES-DOCUSATE SODIUM 1 EACH TAB PO SCH (08:54)
[2020-08-27] MEDS: amLODIPine 5 MG TAB PO SCH (08:54)
[2020-08-27] MEDS: ZINC SULFATE 220 MG CAP PO SCH (08:54)
[2020-08-27] MEDS: HEPARIN SODIUM,PORCINE 5,000 UNIT/ML 1 ML VIAL SQ SCH ×2 (08:55→20:32)
[2020-08-27] MEDS: methylPREDNISolone SOD SUCCI 40 MG/ML 1 ML VIAL IV SCH ×2 (08:55→20:32)
[2020-08-27] MEDS: hydrALAZINE HCL 25 MG TAB PO SCH ×3 (08:55→20:30)
[2020-08-27] MEDS ORDERED: FUROSEMIDE 40 MG TAB PO SCH (09:00)
[2020-08-27] MEDS: LORATADINE-PSEUDOEPH 5-120 MG 1 EACH TAB.ER.12H PO SCH ×2 (09:12→20:31)
--- NOTE | 2020-08-27 11:32 | ECHOF ---
Referral Reason:elevated troponin MEASUREMENTS -------- HEIGHT: 172.7 cm WEIGHT: 78.0 kg BP: 140/90 RVIDd: 3.0 cm (< 3.3) IVSd: 1.5 cm (0.6 - 1.1) LVIDd: 4.9 cm (3.9 - 5.3) LVPWd: 1.4 cm (0.6 - 1.1) IVSs: 2.5 cm LVIDs: 2.0 cm LVPWs: 2.5 cm Ao Diam: 2.5 cm (2.0 - 3.7) AV Cusp: 1.1 cm (1.5 - 2.6) LA Diam: 5.2 cm (2.7 - 3.8) MV EXCURSION: 27.332 mm (> 18.000) MV EF SLOPE: 96 mm/s (70 - 150) EPSS: 0.5 cm MV E Cruz: 1.05 m/s MV DecT: 177 ms MV A Cruz: 0.55 m/s MV E/A Ratio: 1.93 AV maxP.01 mmHg AV meanP.95 mmHg RAP: 5.00 mmHg RVSP: 13.45 mmHg FINDINGS -------- Sinus rhythm. This was a technically difficult study with suboptimal views. The left ventricular size is normal. There is moderate concentric left ventricular hypertrophy. O verall left ventricular systolic function is normal with, an EF between 55 - 60 %. The right ventricle is normal in size. The left atrial size is normal. The right atrial size is normal. Lumason used There is moderate to severe aortic valve sclerosis. There is mild aortic stenosis present. Peak/m oren gradient across the Aortic Valve is 24.01mmHg / 14.95mmHg. Mild mitral annular calcification present. There is trace mitral regurgitation. The tricuspid valve appears structurally normal. Trace tricuspid regurgitation present. Right greg tricular systolic pressure is normal at < 35 mmHg. The pulmonic valve was not well visualized. There is no pulmonic regurgitation present. The aortic root size is normal. IVC Not well visulized. There is no pericardial effusion. CONCLUSIONS -------- 1. This was a technically difficult study with suboptimal views. 2. There is moderate concentric left ventricular hypertrophy. 3. Overall left ventricular systolic function is normal with, an EF between 55 - 60 %. 4. There is moderate to severe aortic valve sclerosis. 5. There is mild aortic stenosis present. 6. Peak/mean gradient across the Aortic Valve is 24.01mmHg / 14.95mmHg. 7. There is trace mitral regurgitation. 8. Trace tricuspid regurgitation present. 9. There is no pericardial effusion. VEGETABLE GRADER: Niharika Pedersen RDCS
[2020-08-27 11:39] LABS: Glucose,Whole Blood 501 mg/dL (75-99)
[2020-08-27 11:39] LABS: Glucose,Whole Blood 457 mg/dL (75-99)
[2020-08-27] MEDS ORDERED: INSULIN PUMP BASAL RATES 1 EACH MISC MISCELLANE PRN (11:55)
[2020-08-27] MEDS ORDERED: INSULIN PUMP TARGET GLUCOSE 1 EACH MISC MISCELLANE PRN (11:55)
[2020-08-27] MEDS ORDERED: INSULIN PUMP ACTIVE INSULIN 1 EACH MISC MISCELLANE PRN (11:55)
[2020-08-27] MEDS ORDERED: INSPUCOR MISCELLANE PRN (11:55)
--- NOTE | 2020-08-27 11:56 | US ---
EXAMINATION TYPE: US chest DATE OF EXAM: 08/27/2020 COMPARISON: Chest x-ray 08/26/2020 CLINICAL HISTORY: eval pleural eff. possible pleural effusion TECHNIQUE: Targeted ultrasound of the posterior lower bilateral hemithoraces EXAM MEASUREMENTS: Right Pleural Effusion pocket size: no significant fluid collection visualized at this time Left Pleural Effusion pocket size: no significant fluid collection visualized at this time Right side NOT marked for possible thoracentesis outside the dept. Left side NOT marked for possible thoracentesis outside the dept. Pulmonologists are able to review the images in the patient?s EMR. IMPRESSIONS: No evident posterior pleural effusion
[2020-08-27] MEDS ORDERED: INSULIN ASPART (NovoLOG) 100 UNIT/ML VIAL SQ ONE (12:51)
--- NOTE | 2020-08-27 13:51 | P.PN ---
Subjective Progress Note Date: 08/27/20 HISTORY OF PRESENT ILLNESS: Patient examined this morning. He is sitting up in the chair. He states he is feeling well. He denies chest pain or pressure. Denies shortness of breath. Infectious disease is following for sepsis. Cultures are negative. Repeat EKG today shows continued AV disassociation. patient asymptomatic. Vital signs stable. Echocardiogram completed revealing ejection fraction 55-60%, moderate to severe aortic valve sclerosis, mild aortic stenosis, trace mitral regurgitation, and trace tricuspid regurgitation PHYSICAL EXAM: VITAL SIGNS: Reviewed. GENERAL: Well-developed in no acute distress. NECK: Supple. No JVD or thyromegaly LUNGS: Respirations even and unlabored. Lungs diminished bilaterally. HEART: Regular rate and rhythm. S1 and S2 heard. Systolic murmur noted. EXTREMITIES: Normal range of motion. No clubbing or cyanosis. Peripheral pulses intact. 2+ bilateral lower extremity edema with evidence of cellulitis. ASSESSMENT: Sepsis, possible due to pneumonia versus cellulitis of lower extremities Acute hypoxic respiratory failure AV disassociation, currently asymptomatic New systolic murmur: echo revealing moderate to severe aortic valve sclerosis, mild aortic stenosis, trace mitral regurgitation, and trace tricuspid regurgitation Abnormal troponin, no sign of acute coronary syndrome Hypertension Hyperlipidemia Diabetes mellitus, type II Chronic kidney disease PLAN: Continue antibiotics per infectious disease Continue current cardiac medications Repeat EKG in AM. No plans for PPM at this time. Avoid AV justine blocking agents. Patient stated on IV lasix today per internal medicine. Further recommendations pending patient course Nurse practitioner note has been reviewed by physician. Signing provider agrees with the documented findings, assessment, and plan of care. Objective - Vital Signs Vital signs: Vital Signs Temp 98.4 F 08/27/20 12:00 Pulse 72 08/27/20 12:14 Resp 16 08/27/20 12:14 BP 136/61 08/27/20 12:00 Pulse Ox 96 08/27/20 12:00 Intake & Output 08/26/20 08/27/20 08/27/20 18:59 06:59 18:59 Intake Total 1158 150 720 Output Total 1325 300 Balance -167 -150 720 Weight 124.1 kg Intake: Intake, IV Titration 800 150 Amount Levofloxacin 750Mg-D5w 100 Pmx 750 mg In Dextrose/ Water 1 150ml.bag @ 100 mls/hr IVPB ONCE ONE Rx#: [id number] Sodium Chloride 0.9% 1, 700 000 ml @ 75 mls/hr IV . [id number] [facility] Rx#:[id number] ceFAZolin 2 gm In Sodium 50 Chloride 0.9% 50 ml @ 100 mls/hr IVPB Q8HR [facility] Rx# :[id number] cefTRIAXone 2 gm In 100 Sodium Chloride 0.9% 50 ml @ 100 mls/hr IVPB Q24H [facility] Rx#:[id number] Oral 358 720 Output: Urine 1325 300 Other: Voiding Method Toilet Toilet Urinal Urinal # Voids 1 2 - Labs CBC & Chem 7: 08/27/20 06:11 08/27/20 06:11 Labs: Abnormal Lab Results - Last 24 Hours (Table) 08/25/20 08/26/20 08/26/20 Range/Units 21:59 09:12 16:54 WBC (3.8-10.6) k/uL RBC (4.30-5.90) m/uL Hgb (13.0-17.5) gm/dL Hct (39.0-53.0) % Lymphocytes # (1.0-4.8) k/uL Sodium (137-145) mmol/L Chloride (98-107) mmol/L BUN (9-20) mg/dL Glucose (74-99) mg/dL POC Glucose (mg/dL) 287 H (75-99) mg/dL Hemoglobin A1c 7.2 H (4.0-6.0) % Calcium (8.4-10.2) mg/dL Alkaline Phosphatase (38-126) U/L Procalcitonin 15.31 H (0.02-0.09) ng/mL 08/26/20 08/26/20 08/26/20 Range/Units 19:30 19:37 19:37 WBC 14.8 H (3.8-10.6) k/uL RBC 3.51 L (4.30-5.90) m/uL Hgb 10.0 L (13.0-17.5) gm/dL Hct 31.7 L (39.0-53.0) % Lymphocytes # (1.0-4.8) k/uL Sodium 128 L (137-145) mmol/L Chloride 88 L (98-107) mmol/L BUN 43 H (9-20) mg/dL Glucose 321 H (74-99) mg/dL POC Glucose (mg/dL) 319 H (75-99) mg/dL Hemoglobin A1c (4.0-6.0) % Calcium 8.3 L (8.4-10.2) mg/dL Alkaline Phosphatase (38-126) U/L Procalcitonin (0.02-0.09) ng/mL 08/27/20 08/27/20 08/27/20 Range/Units 06:11 06:11 06:14 WBC (3.8-10.6) k/uL RBC 3.27 L (4.30-5.90) m/uL Hgb 9.3 L (13.0-17.5) gm/dL Hct 28.9 L (39.0-53.0) % Lymphocytes # 0.4 L (1.0-4.8) k/uL Sodium 127 L (137-145) mmol/L Chloride 87 L (98-107) mmol/L BUN 44 H (9-20) mg/dL Glucose 318 H (74-99) mg/dL POC Glucose (mg/dL) 321 H (75-99) mg/dL Hemoglobin A1c (4.0-6.0) % Calcium 8.3 L (8.4-10.2) mg/dL Alkaline Phosphatase 141 H (38-126) U/L Procalcitonin (0.02-0.09) ng/mL 08/27/20 08/27/20 Range/Units 11:35 11:37 WBC (3.8-10.6) k/uL RBC (4.30-5.90) m/uL Hgb (13.0-17.5) gm/dL Hct (39.0-53.0) % Lymphocytes # (1.0-4.8) k/uL Sodium (137-145) mmol/L Chloride (98-107) mmol/L BUN (9-20) mg/dL Glucose (74-99) mg/dL POC Glucose (mg/dL) 501 H 457 H (75-99) mg/dL Hemoglobin A1c (4.0-6.0) % Calcium (8.4-10.2) mg/dL Alkaline Phosphatase (38-126) U/L Procalcitonin (0.02-0.09) ng/mL Microbiology - Last 24 Hours (Table) 08/25/20 19:03 Blood Culture - Preliminary Blood No Growth after 24 hours 08/25/20 19:04 Blood Culture - Preliminary Blood No Growth after 24 hours 08/25/20 15:51 Blood Culture - Preliminary Blood No Growth after 24 hours
[2020-08-27] MEDS: INSULIN PUMP MEAL BOLUS 1 UNIT MISC MISCELLANE SCH ×3 (13:54→20:35)
[2020-08-27 14:05] LABS: Glucose,Whole Blood 514 mg/dL (75-99)
[2020-08-27 14:05] LABS: Glucose,Whole Blood 531 mg/dL (75-99)
--- NOTE | 2020-08-27 14:35 | P.PN ---
Subjective Progress Note Date: 08/27/20 History of present illness This is a 70-year-old morbidly obese patient of Dr. Jacome. Who was recently admitted on 08/13/2020 with worsening anasarca and edema to the lower extremities. He was discharged on 08/16/2020 with Keflex for bilateral lower leg cellulitis related to edema and left lower lobe pneumonia. Prior to that hospitalization patient was admitted on 07/24/2020 for acute kidney injury with severe hyper kalemia and metabolic acidosis. Patient presented to the emergency room complaint of shortness of breath, fever and altered mental status. Patient states that he had shortness of breath denied any cough or sputum production. No chest pain. No complaints of lower extremity edema, redness or drainage. No dysuria, no hematuria no rhinorrhea sore throat or earaches. Upon arrival to the emergency department patient's temperature was 102.7. Patient had elevated troponin EKG showed junctional rhythm. Patient had no complaints of chest pain palpitations. At this time patient is found resting comfortably in bed in no acute distress. Patient states that on Thursday he had a doctor's appointment when he went home he began having chills and was unable to get warm. Patient denies any difficulty swallowing. Denies any cough or history of blood clots. He is complaining of constipation. Patient states that his legs have improved significantly. Patient was discharged on Keflex which she completed. Patient's pulse ox of 93% on room air. The patient seen his family doctor on Thursday he was found to have a systolic murmur that was new. He was set up for an echocardiogram and an EKG for next week. 08/27: Chest x-ray done last evening reveals heart failure. Increasing pleural fluid and some infiltrate at the left lung base. Echocardiogram reveals EF of 55-60% with moderate concentric left ventricular hypertrophy, moderate to severe aortic sclerosis, mild aortic stenosis, trace mitral regurgitation, trace tricuspid regurgitation. Patient has been seen by Dr. Chang and adjusted antibiotics to cefazolin 2 g every 8 hours and continue Levaquin. Sputum culture is status post received. Santhosh wrap to be on the patient's lower legs. Ultrasound of the chest ordered which found no evidence of pleural effusion. Patient is followed by cardiology with plan for repeat EKG, avoid AV justine blocking agents, no plan for permanent pacemaker at this time. Patient is currently on oral Lasix 40 mg twice daily which will be changed to IV. Solu- Medrol decreased frequency to 40 mg every 12 hours. The patient denies sore throat. No choking episodes. He states his lower extremity legs are looking better. He does complain of constipation for 1 week for which Senokot S obese scheduled. He denies having any cough. Patient has been afebrile, heart rate 68, blood pressure 136/61, pulse ox 96% on 5 L high flow nasal cannula. Review Of Systems: Constitutional: Denies fever, denies chills, no night sweats. No weight change. Reports weakness, fatigue or lethargy. No daytime sleepiness. EENT: No headache. No blurred vision or double vision, no loss of vision. No loss of Hearing, no ringing in the ears, no dizziness. No nasal drainage or congestion. No epistaxis. No sore throat. Lungs: + shortness of breath, no cough, no sputum production. No wheezing. Cardiovascular: No chest pain, no lower extremity edema. No palpitations. No paroxysmal nocturnal dyspnea. No orthopnea. No lightheadedness or dizziness. No syncopal episodes. Abdominal: no abdominal discomfort. No nausea, vomiting. no diarrhea. Reports constipation. No bloody or tarry stools. no loss of appetite. Genitourinary: No dysuria, increased frequency, urgency. No urinary retention. Musculoskeletal: No myalgias. No muscle weakness, no gait dysfunction, no frequent falls. No back pain. No neck pain. Integumentary: No wounds, no lesions. No rash or pruritus. No unusual bruising. No change in hair or nails. Neurologic: No aphasia. No facial droop. No change in mentation. No head injury. No headache. No paralysis. No paresthesia. Psychiatric: No depression. No anxiety. No mood swings. Endocrine: No abnormal blood sugars. No weight change. No excessive sweating or thirst. Physical examination General Appearance: Alert, cooperative, no distress, 70-year-old obese male appears stated age. Neck HEENT: Supple, no lymphadenopathy, no thyroid enlargement, no carotid bruits. Lungs: Clear to auscultation without crackles or wheezes no rhonchi, no deformity. Chest Wall: Chest wall normal expansion with deep inspiration no tenderness and no deformity was found on exam, no costochondral pain or discomfort. Heart: Regular rate and rhythm, S1, S2 normal, + pansystolic murmur, no rub or gallop. Back: Symmetric, no curvature, ROM normal, no CVA tenderness. Abdomen: Soft, non-tender, no rebound or rigidity, no hepatosplenomegaly. Extremities: Vascular dermatitis resolved Extremities normal, atraumatic, no cyanosis 1-2+ edema. Pulses: 2+ and symmetric. Skin: Skin color, texture, tugor normal, no rashes or lesions. Neurologic: Alert oriented x3 cranial nerves II through XII intact, no motor deficit, no abnormal balance or gait Assessment and plan 1. Sepsis with unknown source possible pneumonitis rule out aspiration pneumonia venous stasis dermatitis bilateral lower extremities improved unlikely source. Swallowing evaluation, Rocephin 2 g, consult infectious disease, blood cultures pending, sputum culture pending, pro-calcitonin ordered 2. Acute hypoxic respiratory failure underlining atelectasis with mild pleural effusion and possible chf., See above note. 3. Elevated troponin with junctional rhythm noted, a new systolic murmur. Con sult cardiology, echocardiogram ordered 4. Diabetes mellitus2, uncontrolled with hyperglycemia. Resume metformin 1000 mg twice daily, patient to be resumed on his insulin pump. Family to bring and supplies. 5. Hyperlipidemia. Continue Lipitor 40 mg by mouth at bedtime 6. Hypertension. Continue amlodipine 5 mg by mouth daily, hydralazine 25 mg by mouth 3 times a day. 7. Chronic kidney disease stage III. Consult nephrology 8. Gout. Continue allopurinol 100 mg by mouth at bedtime 9. GERD. Protonix 40 mg by mouth before meals breakfast 10. DVT prophylaxis. Heparin subcu, pneumatic compression stockings 11. GI prophylaxis. Protonix CODE STATUS: Full code Discharge plan: home Impression and plan of care have been directed as dictated by the signing physician. Meggan Arias nurse practitioner acting as scribe for signing physician. Objective - Vital Signs Vital signs: Vital Signs Temp 97.5 F L 08/27/20 08:00 Pulse 78 08/27/20 08:40 Resp 18 08/27/20 08:40 BP 138/63 08/27/20 08:00 Pulse Ox 100 08/27/20 08:00 Intake & Output 08/26/20 08/27/20 08/27/20 18:59 06:59 18:59 Intake Total 1158 150 240 Output Total 1325 300 Balance -167 -150 240 Weight 124.1 kg Intake: Intake, IV Titration 800 150 Amount Levofloxacin 750Mg-D5w 100 Pmx 750 mg In Dextrose/ Water 1 150ml.bag @ 100 mls/hr IVPB ONCE ONE Rx#: [id number] Sodium Chloride 0.9% 1, 700 000 ml @ 75 mls/hr IV . [id number] [facility] Rx#:[id number] ceFAZolin 2 gm In Sodium 50 Chloride 0.9% 50 ml @ 100 mls/hr IVPB Q8HR [facility] Rx# :[id number] cefTRIAXone 2 gm In 100 Sodium Chloride 0.9% 50 ml @ 100 mls/hr IVPB Q24H [facility] Rx#:[id number] Oral 358 240 Output: Urine 1325 300 Other: Voiding Method Toilet Urinal # Voids 1 - Labs CBC & Chem 7: 08/27/20 06:11 08/27/20 06:11 Labs: Abnormal Lab Results - Last 24 Hours (Table) 08/25/20 08/26/20 08/26/20 Range/Units 21:59 09:12 12:00 WBC (3.8-10.6) k/uL RBC (4.30-5.90) m/uL Hgb (13.0-17.5) gm/dL Hct (39.0-53.0) % Lymphocytes # (1.0-4.8) k/uL Sodium (137-145) mmol/L Chloride (98-107) mmol/L BUN (9-20) mg/dL Glucose (74-99) mg/dL POC Glucose (mg/dL) 201 H (75-99) mg/dL Hemoglobin A1c 7.2 H (4.0-6.0) % Calcium (8.4-10.2) mg/dL Alkaline Phosphatase (38-126) U/L Procalcitonin 15.31 H (0.02-0.09) ng/mL 08/26/20 08/26/20 08/26/20 Range/Units 16:54 19:30 19:37 WBC 14.8 H (3.8-10.6) k/uL RBC 3.51 L (4.30-5.90) m/uL Hgb 10.0 L (13.0-17.5) gm/dL Hct 31.7 L (39.0-53.0) % Lymphocytes # (1.0-4.8) k/uL Sodium (137-145) mmol/L Chloride (98-107) mmol/L BUN (9-20) mg/dL Glucose (74-99) mg/dL POC Glucose (mg/dL) 287 H 319 H (75-99) mg/dL Hemoglobin A1c (4.0-6.0) % Calcium (8.4-10.2) mg/dL Alkaline Phosphatase (38-126) U/L Procalcitonin (0.02-0.09) ng/mL 08/26/20 08/27/20 08/27/20 Range/Units 19:37 06:11 06:11 WBC (3.8-10.6) k/uL RBC 3.27 L (4.30-5.90) m/uL Hgb 9.3 L (13.0-17.5) gm/dL Hct 28.9 L (39.0-53.0) % Lymphocytes # 0.4 L (1.0-4.8) k/uL Sodium 128 L 127 L (137-145) mmol/L Chloride 88 L 87 L (98-107) mmol/L BUN 43 H 44 H (9-20) mg/dL Glucose 321 H 318 H (74-99) mg/dL POC Glucose (mg/dL) (75-99) mg/dL Hemoglobin A1c (4.0-6.0) % Calcium 8.3 L 8.3 L (8.4-10.2) mg/dL Alkaline Phosphatase 141 H (38-126) U/L Procalcitonin (0.02-0.09) ng/mL 08/27/20 Range/Units 06:14 WBC (3.8-10.6) k/uL RBC (4.30-5.90) m/uL Hgb (13.0-17.5) gm/dL Hct (39.0-53.0) % Lymphocytes # (1.0-4.8) k/uL Sodium (137-145) mmol/L Chloride (98-107) mmol/L BUN (9-20) mg/dL Glucose (74-99) mg/dL POC Glucose (mg/dL) 321 H (75-99) mg/dL Hemoglobin A1c (4.0-6.0) % Calcium (8.4-10.2) mg/dL Alkaline Phosphatase (38-126) U/L Procalcitonin (0.02-0.09) ng/mL Microbiology - Last 24 Hours (Table) 08/25/20 19:03 Blood Culture - Preliminary Blood No Growth after 24 hours 08/25/20 19:04 Blood Culture - Preliminary Blood No Growth after 24 hours 08/25/20 15:51 Blood Culture - Preliminary Blood No Growth after 24 hours
[2020-08-27] MEDS: metFORMIN 500 MG TAB PO SCH (15:05)
[2020-08-27] MEDS: FUROSEMIDE 10 MG/ML 4 ML VIAL IV SCH (15:05)
--- NOTE | 2020-08-27 16:29 | PN ---
PROGRESS NOTE Patient is seen for followup for acute kidney injury and hyponatremia. The patient was recently discharged from the hospital after admission for hyperkalemia and volume overload. He had been on diuretics which were held, but now restarted. During this time patient was started on antibiotics for possible underlying infection. The source is likely cellulitis. There was concern for pneumonia as well. The patient is being followed by ID. It looks like IV diuretics have been restarted. At this time, patient does have significant edema in his lower extremities. He denies any chest pains, shortness of breath, nausea or vomiting. PHYSICAL EXAMINATION: On examination today, blood pressure was 136/61, heart rate 68 per minute. Patient is afebrile. Examination of lower extremities shows chronic skin changes with significant scaling and edema noted bilaterally. GRADES 1 6 TUTOR exam grossly intact. Edema in the upper extremities also noted. LABS: Labs show sodium 127, potassium 4.0, chloride 87, BUN 44, creatinine 1.04. Calcium was 8.3. ASSESSMENT: 1. Hyponatremia appears to be hypervolemic at this time. Agree with restarting IV diuretics. If serum sodium is not improved tomorrow, I will add tolvaptan. 2. Cellulitis lower extremities, maintained on antibiotics. 3. Hypokalemia secondary to diuretics, status post replacement. 4. History of chronic obstructive pulmonary disease. 5. Metabolic alkalosis secondary to diuretics, currently improved. 6. Chronic kidney disease stage 3 secondary to nephrosclerosis. Baseline creatinine around 1 to 1.2 mg/dL. 7. Pneumonia on last admission with right basilar density, status post antibiotics at that time. PLAN: Continue with IV Lasix. Repeat labs in a.m. Add tolvaptan if sodium is not improved. Monitor potassium as patient has history of hyperkalemia. Continue antibiotics as per ID. MMODL / IJN: [id number] /
[2020-08-27 16:38] LABS: Glucose,Whole Blood 429 mg/dL (75-99)
[2020-08-27] MEDS: LEVOFLOXACIN 500 MG TAB PO SCH (20:31)
[2020-08-27] MEDS: allopurinoL 100 MG TAB PO SCH (20:32)
[2020-08-27] MEDS: ATORVASTATIN 40 MG TAB PO SCH (20:32)
[2020-08-27 20:35] LABS: Glucose,Whole Blood 322 mg/dL (75-99)
[2020-08-27] MEDS: AMMONIUM LACTATE 12% CREAM 140 GM TUBE TOPICAL PRN (23:24)
--- NOTE | 2020-08-28 05:52 | PN ---
PROGRESS NOTE DATE OF SERVICE: 08/27/2020 REASON FOR FOLLOWUP: Lower extremity cellulitis and question of pneumonia. INTERVAL HISTORY: Patient is currently afebrile. Patient is breathing more comfortably. The patient denies having any chest pain. Minimal cough. No nausea, no vomiting. No abdominal pain. No diarrhea. EXAMINATION: VITAL SIGNS: Blood pressure 172/77 with a pulse of 78, temperature 97.5. He is 99% on 4 L nasal cannula. GENERAL DESCRIPTION: Is an elderly male up in the bed in no distress. RESPIRATORY SYSTEM: Unlabored breathing, decreased breath sounds at the bases, no wheeze. HEART: S1, S2. Regular rate and rhythm. ABDOMEN: Soft, no tenderness. SKIN: Lower extremities have swelling and dry scaly skin. Minimal redness, no drainage. LABS: Hemoglobin 9.8, white count 8.1. BUN of 44, creatinine 1.04. Sputum culture pending. Blood culture so far negative. DIAGNOSTIC IMPRESSION AND PLAN: Patient admitted to the hospital with fever. Concern for lower extremity cellulitis and pneumonia. Patient is covered with cefazolin and Levaquin. X-ray will be repeated and we will round on the patient tomorrow. Continue supportive care. MMODL / IJN: [id number] /
[2020-08-28] MEDS: PANTOPRAZOLE 40 MG TABLET PO SCH (06:35)
[2020-08-28] MEDS: metFORMIN 500 MG TAB PO SCH ×2 (06:35→17:00)
[2020-08-28] MEDS: INSULIN PUMP MEAL BOLUS 1 UNIT MISC MISCELLANE SCH ×4 (07:12→20:18)
[2020-08-28 07:13] LABS: Glucose,Whole Blood 197 mg/dL (75-99)
[2020-08-28] MEDS: IPRATROPIUM-ALBUTEROL 3 ML NEB INHALATION SCH ×4 (08:04→19:50)
[2020-08-28] MEDS: HEPARIN SODIUM,PORCINE 5,000 UNIT/ML 1 ML VIAL SQ SCH ×2 (09:24→20:18)
[2020-08-28] MEDS: FUROSEMIDE 10 MG/ML 4 ML VIAL IV SCH ×2 (09:24→20:19)
[2020-08-28] MEDS: hydrALAZINE HCL 25 MG TAB PO SCH ×3 (09:25→20:18)
[2020-08-28] MEDS: amLODIPine 5 MG TAB PO SCH (09:25)
[2020-08-28] MEDS: LORATADINE-PSEUDOEPH 5-120 MG 1 EACH TAB.ER.12H PO SCH ×2 (09:25→20:18)
[2020-08-28] MEDS: ZINC SULFATE 220 MG CAP PO SCH (09:25)
[2020-08-28] MEDS: methylPREDNISolone SOD SUCCI 40 MG/ML 1 ML VIAL IV SCH (09:25)
[2020-08-28] MEDS: SENNOSIDES-DOCUSATE SODIUM 1 EACH TAB PO SCH (09:25)
[2020-08-28] MEDS: AMMONIUM LACTATE 12% CREAM 140 GM TUBE TOPICAL PRN (09:35)
--- NOTE | 2020-08-28 09:49 | XR ---
EXAMINATION TYPE: XR chest 1V portable DATE OF EXAM: 08/28/2020 COMPARISON: 08/26/2020 HISTORY: Shortness of breath TECHNIQUE: Single frontal view of the chest is obtained. FINDINGS: The heart is enlarged and there is elevated hemidiaphragm bilaterally with small bilateral effusions and basilar infiltrate. Interval improvement in appearance of the interstitium. No pneumot horax. Arthropathy of the shoulders. IMPRESSION: 1. Bilateral lower lobe infiltrate and small effusion. 2. Improving CHF.
[2020-08-28 09:50] LABS: Calcium 8.7 mg/dL (8.4-10.2); Magnesium 2.4 mg/dL (1.6-2.3); Potassium 4.2 mmol/L (3.5-5.1)
[2020-08-28] MEDS ORDERED: TOLVAPTAN 15 MG 1/2 TABLET PO ONE (10:15)
[2020-08-28 12:07] LABS: Glucose,Whole Blood 284 mg/dL (75-99)
[2020-08-28] MEDS: CLOTRIMAZOLE/BETAMETH 1-0.05% LOTION 30 ML BTL TOPICAL SCH ×2 (13:02→20:19)
--- NOTE | 2020-08-28 14:44 | P.PN ---
Subjective Progress Note Date: 08/28/20 History of present illness This is a 70-year-old morbidly obese patient of Dr. Jacome. Who was recently admitted on 08/13/2020 with worsening anasarca and edema to the lower extremities. He was discharged on 08/16/2020 with Keflex for bilateral lower leg cellulitis related to edema and left lower lobe pneumonia. Prior to that hospitalization patient was admitted on 07/24/2020 for acute kidney injury with severe hyper kalemia and metabolic acidosis. Patient presented to the emergency room complaint of shortness of breath, fever and altered mental status. Patient states that he had shortness of breath denied any cough or sputum production. No chest pain. No complaints of lower extremity edema, redness or drainage. No dysuria, no hematuria no rhinorrhea sore throat or earaches. Upon arrival to the emergency department patient's temperature was 102.7. Patient had elevated troponin EKG showed junctional rhythm. Patient had no complaints of chest pain palpitations. At this time patient is found resting comfortably in bed in no acute distress. Patient states that on Thursday he had a doctor's appointment when he went home he began having chills and was unable to get warm. Patient denies any difficulty swallowing. Denies any cough or history of blood clots. He is complaining of constipation. Patient states that his legs have improved significantly. Patient was discharged on Keflex which she completed. Patient's pulse ox of 93% on room air. The patient seen his family doctor on Thursday he was found to have a systolic murmur that was new. He was set up for an echocardiogram and an EKG for next week. 08/27: Chest x-ray done last evening reveals heart failure. Increasing pleural fluid and some infiltrate at the left lung base. Echocardiogram reveals EF of 55-60% with moderate concentric left ventricular hypertrophy, moderate to severe aortic sclerosis, mild aortic stenosis, trace mitral regurgitation, trace tricuspid regurgitation. Patient has been seen by Dr. Chang and adjusted antibiotics to cefazolin 2 g every 8 hours and continue Levaquin. Sputum culture is status post received. Santhosh wrap to be on the patient's lower legs. Ultrasound of the chest ordered which found no evidence of pleural effusion. Patient is followed by cardiology with plan for repeat EKG, avoid AV justine blocking agents, no plan for permanent pacemaker at this time. Patient is currently on oral Lasix 40 mg twice daily which will be changed to IV. Solu- Medrol decreased frequency to 40 mg every 12 hours. The patient denies sore throat. No choking episodes. He states his lower extremity legs are looking better. He does complain of constipation for 1 week for which Senokot S obese scheduled. He denies having any cough. Patient has been afebrile, heart rate 68, blood pressure 136/61, pulse ox 96% on 5 L high flow nasal cannula. 08/28: Patient denies any new complaints. We will discontinue IV steroids. Discussed case with Dr. Pena and recommended Lasix transitioned to oral. Patient has been seen by Dr. Virgen this morning. Lotrisone cream will be added to wound care for the lower legs. Patient has been afebrile, heart rate 60, blood pressure 144/65, pulse ox 90% on room air. Sodium 125, potassium 4.2, chloride 86, BUN 52 and creatinine 1.02. Blood sugars running between 197 and 284. Patient has been resumed on his insulin pump with improvement of his blood sugars although still high. Dr. Nieves is added Samsca 15 mg oral once today. Anticipate possible discharge home tomorrow. Review Of Systems: Constitutional: Denies fever, denies chills, no night sweats. No weight change. Reports weakness, fatigue or lethargy. No daytime sleepiness. EENT: No headache. No blurred vision or double vision, no loss of vision. No loss of Hearing, no ringing in the ears, no dizziness. No nasal drainage or congestion. No epistaxis. No sore throat. Lungs: Denies shortness of breath, no cough, no sputum production. No wheezing. Cardiovascular: No chest pain, no lower extremity edema. No palpitations. No paroxysmal nocturnal dyspnea. No orthopnea. No lightheadedness or dizziness. No syncopal episodes. Abdominal: no abdominal discomfort. No nausea, vomiting. no diarrhea. Reports constipation. No bloody or tarry stools. no loss of appetite. Genitourinary: No dysuria, increased frequency, urgency. No urinary retention. Musculoskeletal: No myalgias. No muscle weakness, no gait dysfunction, no frequent falls. No back pain. No neck pain. Integumentary: No wounds, no lesions. No rash or pruritus. No unusual bruising. No change in hair or nails. Neurologic: No aphasia. No facial droop. No change in mentation. No head injury. No headache. No paralysis. No paresthesia. Psychiatric: No depression. No anxiety. No mood swings. Endocrine: No abnormal blood sugars. No weight change. No excessive sweating or thirst. Physical examination General Appearance: Alert, cooperative, no distress, 70-year-old obese male appears stated age. Neck HEENT: Supple, no lymphadenopathy, no thyroid enlargement, no carotid bruits. Lungs: Clear to auscultation without crackles or wheezes no rhonchi, no deformity. Chest Wall: Chest wall normal expansion with deep inspiration no tenderness and no deformity was found on exam, no costochondral pain or discomfort. Heart: Regular rate and rhythm, S1, S2 normal, + pansystolic murmur, no rub or gallop. Back: Symmetric, no curvature, ROM normal, no CVA tenderness. Abdomen: Soft, non-tender, no rebound or rigidity, no hepatosplenomegaly. Extremities: Vascular dermatitis resolved Extremities normal, atraumatic, no cya nosis 1+ edema. Pulses: 2+ and symmetric. Skin: Skin color, texture, tugor normal, no rashes or lesions. Neurologic: Alert oriented x3 cranial nerves II through XII intact, no motor deficit, no abnormal balance or gait Assessment and plan 1. Sepsis with unknown source possible pneumonitis rule out aspiration pneumonia venous stasis dermatitis bilateral lower extremities improved unlikely source. Swallowing evaluation, Kefzol 2 g IV piggyback every 8 hours, Levaquin, consult infectious disease appreciated, blood cultures pending, sputum culture pending. 2. Acute hypoxic respiratory failure underlining atelectasis with mild pleural effusion and possible chf. IV Lasix changed to oral 40 mg twice daily. 3. Elevated troponin with junctional rhythm noted, a new systolic murmur. Consult cardiology, echocardiogram ordered 4. Diabetes mellitus2, uncontrolled with hyperglycemia. Resume metformin 1000 mg twice daily, patient to be resumed on his insulin pump. 5. Hyperlipidemia. Continue Lipitor 40 mg by mouth at bedtime 6. Hypertension. Continue amlodipine 5 mg by mouth daily, hydralazine 25 mg by mouth 3 times a day. 7. Chronic kidney disease stage III. Consult nephrology 8. Gout. Continue allopurinol 100 mg by mouth at bedtime 9. GERD. Protonix 40 mg by mouth before meals breakfast 10. DVT prophylaxis. Heparin subcu, pneumatic compression stockings 11. GI prophylaxis. Protonix CODE STATUS: Full code Discharge plan: home on Thursday Impression and plan of care have been directed as dictated by the signing physician. Meggan Arias nurse practitioner acting as scribe for signing physician. Objective - Vital Signs Vital signs: Vital Signs Temp 97.8 F 08/28/20 12:00 Pulse 68 08/28/20 12:00 Resp 16 08/28/20 12:00 BP 144/65 08/28/20 12:00 Pulse Ox 98 08/28/20 12:00 Intake & Output 08/27/20 08/28/20 08/28/20 18:59 06:59 18:59 Intake Total 2346 512 6753 Output Total 1000 Balance 1440 -460 1080 Weight 125.1 kg Intake: Oral 4273 928 2132 Output: Urine 1000 Other: Voiding Method Toilet Toilet Toilet Urinal # Voids 2 1 - Labs CBC & Chem 7: 08/27/20 06:11 08/28/20 09:15 Labs: Abnormal Lab Results - Last 24 Hours (Table) 08/27/20 08/27/20 08/28/20 Range/Units 16:37 20:34 07:11 Sodium (137-145) mmol/L Chloride (98-107) mmol/L BUN (9-20) mg/dL Glucose (74-99) mg/dL POC Glucose (mg/dL) 429 H 322 H 197 H (75-99) mg/dL Magnesium (1.6-2.3) mg/dL 08/28/20 08/28/20 Range/Units 09:15 12:06 Sodium 125 L (137-145) mmol/L Chloride 86 L (98-107) mmol/L BUN 52 H (9-20) mg/dL Glucose 261 H (74-99) mg/dL POC Glucose (mg/dL) 284 H (75-99) mg/dL Magnesium 2.4 H (1.6-2.3) mg/dL Microbiology - Last 24 Hours (Table) 08/27/20 08:41 Gram Stain - Final Sputum Sputum Culture - Final 08/25/20 19:04 Blood Culture - Preliminary Blood No Growth after 48 hours 08/25/20 19:03 Blood Culture - Preliminary Blood No Growth after 48 hours 08/25/20 15:51 Blood Culture - Preliminary Blood No Growth after 48 hours
--- NOTE | 2020-08-28 14:47 | P.PN ---
Subjective Progress Note Date: 08/28/20 HISTORY OF PRESENT ILLNESS: 08/27/2020 Patient examined this morning. He is sitting up in the chair. He states he is feeling well. He denies chest pain or pressure. Denies shortness of breath. Infectious disease is following for sepsis. Cultures are negative. Repeat EKG today shows continued AV disassociation. patient asymptomatic. Vital signs stable. Echocardiogram completed revealing ejection fraction 55-60%, moderate to severe aortic valve sclerosis, mild aortic stenosis, trace mitral regurgitation, and trace tricuspid regurgitation 08/28/2020 Patient examined this morning. He is sitting up in the chair. He denies chest pain or pressure. Denies shortness of breath. Patient was transitioned to oral Lasix today per internal medicine. Repeat chest x-ray today reveals bilateral lower lobe infiltrate and small effusion. Improving CHF. Blood pressure 144/65. He is on room air with oxygen saturations greater than 92%. Repeat EKG today shows continued AV disassociation. Patient remains asymptomatic. PHYSICAL EXAM: VITAL SIGNS: Reviewed. GENERAL: Well-developed in no acute distress. NECK: Supple. No JVD or thyromegaly LUNGS: Respirations even and unlabored. Lungs diminished bilaterally. HEART: Regular rate and rhythm. S1 and S2 heard. Systolic murmur noted. EXTREMITIES: Normal range of motion. No clubbing or cyanosis. Peripheral pulses intact. 2+ bilateral lower extremity edema with evidence of cellulitis. ASSESSMENT: Sepsis, possible due to pneumonia versus cellulitis of lower extremities Acute hypoxic respiratory failure AV disassociation, currently asymptomatic New systolic murmur: echo revealing moderate to severe aortic valve sclerosis, mild aortic stenosis, trace mitral regurgitation, and trace tricuspid regurgitation Abnormal troponin, no sign of acute coronary syndrome Hypertension Hyperlipidemia Diabetes mellitus, type II Chronic kidney disease PLAN: Continue antibiotics per infectious disease Continue current cardiac medications Repeat EKG in AM. No plans for PPM at this time. Avoid AV justine blocking agents. Further recommendations pending patient course Nurse practitioner note has been reviewed by physician. Signing provider agrees with the documented findings, assessment, and plan of care. Objective - Vital Signs Vital signs: Vital Signs Temp 97.8 F 08/28/20 12:00 Pulse 68 08/28/20 12:00 Resp 16 08/28/20 12:00 BP 144/65 08/28/20 12:00 Pulse Ox 98 08/28/20 12:00 Intake & Output 08/27/20 08/28/20 08/28/20 18:59 06:59 18:59 Intake Total 4319 885 6243 Output Total 1000 Balance 1440 -460 1080 Weight 125.1 kg Intake: Oral 5777 765 4327 Output: Urine 1000 Other: Voiding Method Toilet Toilet Toilet Urinal # Voids 2 1 - Labs CBC & Chem 7: 08/27/20 06:11 08/28/20 09:15 Labs: Abnormal Lab Results - Last 24 Hours (Table) 08/27/20 08/27/20 08/28/20 Range/Units 16:37 20:34 07:11 Sodium (137-145) mmol/L Chloride (98-107) mmol/L BUN (9-20) mg/dL Glucose (74-99) mg/dL POC Glucose (mg/dL) 429 H 322 H 197 H (75-99) mg/dL Magnesium (1.6-2.3) mg/dL 08/28/20 08/28/20 Range/Units 09:15 12:06 Sodium 125 L (137-145) mmol/L Chloride 86 L (98-107) mmol/L BUN 52 H (9-20) mg/dL Glucose 261 H (74-99) mg/dL POC Glucose (mg/dL) 284 H (75-99) mg/dL Magnesium 2.4 H (1.6-2.3) mg/dL Microbiology - Last 24 Hours (Table) 08/27/20 08:41 Gram Stain - Final Sputum Sputum Culture - Final 08/25/20 19:04 Blood Culture - Preliminary Blood No Growth after 48 hours 08/25/20 19:03 Blood Culture - Preliminary Blood No Growth after 48 hours 08/25/20 15:51 Blood Culture - Preliminary Blood No Growth after 48 hours
[2020-08-28] MEDS ORDERED: FUROSEMIDE 40 MG TAB PO SCH (16:00)
--- NOTE | 2020-08-28 16:12 | PN ---
PROGRESS NOTE Patient is seen for followup for acute kidney injury and hyponatremia. This morning his sodium has dropped to 125. Overall patient states he is feeling well. He is maintained on Lasix for volume overload. No significant chest pains or shortness of breath. On examination today, this morning blood pressure was 141/63, heart rate of 68 per minute. He is afebrile. Examination shows chronic skin changes, lower extremities, with chronic edema. ABDOMEN: Soft. Morbidly obese. Lungs and heart are not examined. 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 Labs show sodium 125, potassium 4.2, chloride 86, BUN 52, creatinine 1.02. ASSESSMENT: 1. Hyponatremia, currently hypervolemic, maintained on IV Lasix. Will add a dose of tolvaptan. Repeat labs in a.m. 2. Acute kidney injury, currently mostly cardiorenal. Renal function has improved. Continue to diurese patient. 3. History of hyperkalemia, now resolved. 4. Cellulitis of the lower extremities creatinine 1 to 1.2 mg/dL. 5. Pneumonia on last admission with right basilar density, status post antibiotics. PLAN: Maintain IV Lasix. Tolvaptan x1. Avoid excessive free water intake and continue with salt restriction. Repeat labs in a.m. MMODL / IJN: [id number] /
[2020-08-28 17:00] LABS: Glucose,Whole Blood 375 mg/dL (75-99)
[2020-08-28 19:58] LABS: Glucose,Whole Blood 355 mg/dL (75-99)
[2020-08-28] MEDS: LEVOFLOXACIN 500 MG TAB PO SCH (20:18)
[2020-08-28] MEDS: allopurinoL 100 MG TAB PO SCH (20:18)
[2020-08-28] MEDS: ATORVASTATIN 40 MG TAB PO SCH (20:18)
--- NOTE | 2020-08-28 21:59 | PN ---
PROGRESS NOTE DATE OF SERVICE: 08/28/2020 REASON FOR FOLLOWUP: Bilateral lower extremity cellulitis and a question of pneumonia. INTERVAL HISTORY: The patient is currently afebrile. The patient is breathing more comfortably. The patient denies having any chest pain. Minimal cough. No nausea or vomiting. No abdominal pain or diarrhea. PHYSICAL EXAMINATION: Blood pressure 152/68 with a pulse of 78, temperature 98. He is 93% on room air. General description is an elderly male up in the chair in no distress. RESPIRATORY SYSTEM: Unlabored breathing with decreased breath sounds at the base. No wheeze. HEART: S1, S2. Regular rate and rhythm. ABDOMEN: Soft. No tenderness. LOWER EXTREMITIES: Swelling. Minimal redness. No drainage. LABS: BUN of 52, creatinine 1.02. DIAGNOSTIC IMPRESSION AND PLAN: Patient with bilateral lower extremity cellulitis and a question of pneumonia. Sputum has been negative. Chest x-ray did show improvement. Currently on cefazolin and Levaquin; to continue and monitor his clinical course closely. MMODL / IJN: [id number] /
[2020-08-29] MEDS: metFORMIN 500 MG TAB PO SCH (06:40)
[2020-08-29] MEDS: PANTOPRAZOLE 40 MG TABLET PO SCH (06:40)
[2020-08-29 07:04] LABS: Glucose,Whole Blood 95 mg/dL (75-99)
[2020-08-29] MEDS: IPRATROPIUM-ALBUTEROL 3 ML NEB INHALATION SCH ×2 (08:36→12:08)
[2020-08-29 08:39] VITALS: RESP 18
[2020-08-29] MEDS ORDERED: FUROSEMIDE 40 MG TAB PO SCH (09:00)
[2020-08-29] MEDS: LORATADINE-PSEUDOEPH 5-120 MG 1 EACH TAB.ER.12H PO SCH (09:04)
[2020-08-29] MEDS: SENNOSIDES-DOCUSATE SODIUM 1 EACH TAB PO SCH (09:04)
[2020-08-29] MEDS: FUROSEMIDE 10 MG/ML 4 ML VIAL IV SCH (09:04)
[2020-08-29] MEDS: hydrALAZINE HCL 25 MG TAB PO SCH (09:04)
[2020-08-29] MEDS: ZINC SULFATE 220 MG CAP PO SCH (09:04)
[2020-08-29] MEDS: amLODIPine 5 MG TAB PO SCH (09:04)
[2020-08-29] MEDS: HEPARIN SODIUM,PORCINE 5,000 UNIT/ML 1 ML VIAL SQ SCH (09:04)
[2020-08-29] MEDS: INSULIN PUMP MEAL BOLUS 1 UNIT MISC MISCELLANE SCH ×2 (09:13→13:15)
[2020-08-29] MEDS: CLOTRIMAZOLE/BETAMETH 1-0.05% LOTION 30 ML BTL TOPICAL SCH (09:14)
[2020-08-29 11:27] VITALS: BP 146/67; PULSE 60; TEMP 97.9
[2020-08-29 11:43] LABS: Calcium 9.2 mg/dL (8.4-10.2)
[2020-08-29 11:47] LABS: Glucose,Whole Blood 128 mg/dL (75-99)
--- NOTE | 2020-08-29 13:25 | P.DS ---
Providers Date of admission: 08/25/20 17:36 Expected date of discharge: 08/29/20 Attending physician: Rhoda Deng MD Consults: 08/25/20 17:36 Consult Physician Routine Consulting Provider: Eder Starks Consult Reason/Comments: elevated troponin, cardiac dysrhythmia Do you want consulting provider notified?: Already Contacted 08/26/20 08:40 Consult Physician Routine Consulting Provider: Akila Nieves Consult Reason/Comments: CKD 3 Do you want consulting provider notified?: Yes 08/26/20 08:42 Consult Physician Routine Consulting Provider: Juan Chang Consult Reason/Comments: poss. aspiration pneumonia Do you want consulting provider notified?: Yes Primary care physician: Adam BerryAyaz [facility] Course: History of present illness This is a 70-year-old morbidly obese patient of Dr. Jacome. Who was recently admitted on 08/13/2020 with worsening anasarca and edema to the lower extremities. He was discharged on 08/16/2020 with Keflex for bilateral lower leg cellulitis related to edema and left lower lobe pneumonia. Prior to that hospitalization patient was admitted on 07/24/2020 for acute kidney injury with severe hyper kalemia and metabolic acidosis. Patient presented to the emergency room complaint of shortness of breath, fever and altered mental status. Patient states that he had shortness of breath denied any cough or sputum production. No chest pain. No complaints of lower extremity edema, redness or drainage. No dysuria, no hematuria no rhinorrhea sore throat or earaches. Upon arrival to the emergency department patient's temperature was 102.7. Patient had elevated troponin EKG showed junctional rhythm. Patient had no complaints of chest pain palpitations. At this time patient is found resting comfortably in bed in no acute distress. Patient states that on Thursday he had a doctor's appointment when he went home he began having chills and was unable to get warm. Patient denies any difficulty swallowing. Denies any cough or history of blood clots. He is complaining of constipation. Patient states that his legs have improved significantly. Patient was discharged on Keflex which she completed. Patient's pulse ox of 93% on room air. The patient seen his family doctor on Thursday he was found to have a systolic murmur that was new. He was set up for an echocardiogram and an EKG for next week. 08/27: Chest x-ray done last evening reveals heart failure. Increasing pleural fluid and some infiltrate at the left lung base. Echocardiogram reveals EF of 55-60% with moderate concentric left ventricular hypertrophy, moderate to severe aortic sclerosis, mild aortic stenosis, trace mitral regurgitation, trace tricuspid regurgitation. Patient has been seen by Dr. Chang and adjusted ant ibiotics to cefazolin 2 g every 8 hours and continue Levaquin. Sputum culture is status post received. Santhosh wrap to be on the patient's lower legs. Ultrasound of the chest ordered which found no evidence of pleural effusion. Patient is followed by cardiology with plan for repeat EKG, avoid AV justine blocking agents, no plan for permanent pacemaker at this time. Patient is currently on oral Lasix 40 mg twice daily which will be changed to IV. Solu-Medrol decreased frequency to 40 mg every 12 hours. The patient denies sore throat. No choking episodes. He states his lower extremity legs are looking better. He does complain of constipation for 1 week for which Senokot S obese scheduled. He denies having any cough. Patient has been afebrile, heart rate 68, blood pressure 136/61, pulse ox 96% on 5 L high flow nasal cannula. 08/28: Patient denies any new complaints. We will discontinue IV steroids. Discussed case with Dr. Pena and recommended Lasix transitioned to oral. Patient has been seen by Dr. Chang this morning. Lotrisone cream will be added to wound care for the lower legs. Patient has been afebrile, heart rate 60, blood pressure 144/65, pulse ox 90% on room air. Sodium 125, potassium 4.2, chloride 86, BUN 52 and creatinine 1.02. Blood sugars running between 197 and 284. Patient has been resumed on his insulin pump with improvement of his blood sugars although still high. Dr. Nieves is added Samsca 15 mg oral once today. Anticipate possible discharge home tomorrow. 08/29: Patient is hoping to go home today. Repeat blood work reveals a sodium of 130, BUN 62 and creatinine 1.04. Patient is currently on Lasix 40 mg IV every 12 hours. Patient is also on antibiotics in the form of Levaquin and cefazolin. Dr. Chang is recommended Keflex for a [address] Nieves is recommended to continue Lasix 40 mg twice daily. He has been afebrile, heart rate 60, blood pressure 147/67, pulse ox 98% on room air. Patient will be discharged home today in stable condition. Assessment and plan 1. Sepsis secondary to lower extremity cellulitis and possible pneumonia not completely ruled out 2. Acute hypoxic respiratory failure underlining atelectasis with mild pleural effusion and possible acute on chronic diastolic heart failure 3. Elevated troponin with junctional rhythm noted, a new systolic murmur. No acute coronary syndrome. 4. Diabetes mellitus2, uncontrolled with hyperglycemia. 5. Hyperlipidemia. 6. Hypertension. 7. Chronic kidney disease stage III. 8. Chronic gout. 9. GERD. Discharge plan: home Impression and plan of care have been directed as dictated by the signing physician. Meggan Arias nurse practitioner acting as scribe for signing physician. Patient Condition at Discharge: Good Plan - Discharge Summary Discharge Rx Participant: No New Discharge Prescriptions: New Cephalexin [Keflex] 500 mg PO TID 10 Days #30 cap Continue Omeprazole [PriLOSEC] 20 mg PO DAILY allopurinoL [Zyloprim] 100 mg PO HS metFORMIN HCL [Glucophage] 1,000 mg PO BID Atorvastatin [Lipitor] 40 mg PO HS Insulin Aspart (For Pump) [NovoLOG (For Pump)] 0.01 unit SQ-PUMP CONTINUOUS Zinc 50 mg PO DAILY hydrALAZINE HCL [Apresoline] 25 mg PO TID #90 tab amLODIPine [Norvasc] 5 mg PO DAILY #30 tab Magnesium Oxide 400 mg PO BID Ammonium Lactate Cream [Lac-Hydrin 12% Cream] 1 applic TOPICAL DAILY PRN PRN Reason: dry skin on feet Sennosides-Docusate Sodium [Senokot-S] 2 tab PO DAILY Furosemide [Lasix] 40 mg PO BID Discontinued metOLazone [Zaroxolyn] 2.5 mg PO DAILY Cephalexin [Keflex] 500 mg PO Q8H Discharge Medication List Omeprazole [PriLOSEC] 20 mg PO DAILY 08/09/15 [History] allopurinoL [Zyloprim] 100 mg PO HS 08/09/15 [History] metFORMIN HCL [Glucophage] 1,000 mg PO BID 07/15/16 [History] Atorvastatin [Lipitor] 40 mg PO HS 06/01/18 [History] Insulin Aspart (For Pump) [NovoLOG (For Pump)] 0.01 unit SQ-PUMP CONTINUOUS 07/23/20 [History] Zinc 50 mg PO DAILY 07/23/20 [History] amLODIPine [Norvasc] 5 mg PO DAILY #30 tab 07/26/20 [Rx] hydrALAZINE HCL [Apresoline] 25 mg PO TID #90 tab 07/26/20 [Rx] Magnesium Oxide 400 mg PO BID 08/13/20 [History] Ammonium Lactate Cream [Lac-Hydrin 12% Cream] 1 applic TOPICAL DAILY PRN 08/25/20 [History] Furosemide [Lasix] 40 mg PO BID 08/25/20 [History] Sennosides-Docusate Sodium [Senokot-S] 2 tab PO DAILY 08/25/20 [History] Cephalexin [Keflex] 500 mg PO TID 10 Days #30 cap 08/29/20 [Rx] Follow up Appointment(s)/Referral(s): Adam Jacome DO [Primary Care Provider] - 1 Week Fredis Oliveira DO [STAFF PHYSICIAN] - 1 Week Clifton Pena MD [STAFF PHYSICIAN] - 1 Week Juan Chang MD [STAFF PHYSICIAN] - 1 Week Discharge Disposition: HOME SELF-CARE
--- NOTE | 2020-08-29 14:36 | PN ---
PROGRESS NOTE DATE OF SERVICE: 08/29/2020 REASON FOR FOLLOWUP: Bilateral lower extremity cellulitis and question of pneumonia. INTERVAL HISTORY: The patient is currently afebrile. Patient is breathing comfortably, currently 98% on room air. The patient denies having any chest pain or shortness of breath. Minimal cough. No nausea, no vomiting. No abdominal pain. Overall swelling and discomfort the leg has improved. PHYSICAL EXAMINATION: Blood pressure 146/67 with a pulse of 60, temperature 97.9. He is 98% on room air. General description is an elderly male up in the chair in no distress. RESPIRATORY SYSTEM: Unlabored breathing with decreased intensity of breath sounds. No wheeze. HEART: S1, S2. Regular rate and rhythm. ABDOMEN: Soft, no tenderness. Legs are currently swollen and minimally red, no drainage. LABS: BUN of 62, creatinine 1.04. Blood culture negative. Sputum is negative. DIAGNOSTIC IMPRESSION AND PLAN: Patient with fever source likely bilateral lower extremity cellulitis. Pneumonitis less likely, but not entirely excluded. Overall improvement. Finish therapy with oral Keflex 500 mg p.o. q.8 hours for 10 days. This was discussed with the admitting team. MMODL / IJN: [id number] /
--- NOTE | 2020-08-29 14:36 | P.PN ---
Subjective Progress Note Date: 08/29/20 HISTORY OF PRESENT ILLNESS: 08/27/2020 Patient examined this morning. He is sitting up in the chair. He states he is feeling well. He denies chest pain or pressure. Denies shortness of breath. Infectious disease is following for sepsis. Cultures are negative. Repeat EKG today shows continued AV disassociation. patient asymptomatic. Vital signs stable. Echocardiogram completed revealing ejection fraction 55-60%, moderate to severe aortic valve sclerosis, mild aortic stenosis, trace mitral regurgitation, and trace tricuspid regurgitation 08/28/2020 Patient examined this morning. He is sitting up in the chair. He denies chest pain or pressure. Denies shortness of breath. Patient was transitioned to oral Lasix today per internal medicine. Repeat chest x-ray today reveals bilateral lower lobe infiltrate and small effusion. Improving CHF. Blood pressure 144/65. He is on room air with oxygen saturations greater than 92%. Repeat EKG today shows continued AV disassociation. Patient remains asymptomatic. 08/29/2020 Patient examined this morning at the bedside. Patient denies chest pain or pressure. Denies shortness of breath. Vital signs are stable. He is hoping to be discharged home today. PHYSICAL EXAM: VITAL SIGNS: Reviewed. GENERAL: Well-developed in no acute distress. NECK: Supple. No JVD or thyromegaly LUNGS: Respirations even and unlabored. Lungs diminished bilaterally. HEART: Regular rate and rhythm. S1 and S2 heard. Systolic murmur noted. EXTREMITIES: Normal range of motion. No clubbing or cyanosis. Peripheral pul ses intact. 2+ bilateral lower extremity edema with evidence of cellulitis. ASSESSMENT: Sepsis, possible due to pneumonia versus cellulitis of lower extremities Acute hypoxic respiratory failure AV disassociation, currently asymptomatic New systolic murmur: echo revealing moderate to severe aortic valve sclerosis, mild aortic stenosis, trace mitral regurgitation, and trace tricuspid regurgitation Abnormal troponin, no sign of acute coronary syndrome Hypertension Hyperlipidemia Diabetes mellitus, type II Chronic kidney disease PLAN: Patient is stable for discharge home today from a cardiac perspective Patient is to follow up on an outpatient basis. Nurse practitioner note has been reviewed by physician. Signing provider agrees with the documented findings, assessment, and plan of care. Objective - Vital Signs Vital signs: Vital Signs Temp 97.9 F 08/29/20 11:26 Pulse 60 08/29/20 13:05 Resp 18 08/29/20 13:05 BP 146/67 08/29/20 11:26 Pulse Ox 98 08/29/20 11:26 Intake & Output 08/28/20 08/29/20 08/29/20 18:59 06:59 18:59 Intake Total 2986 463 2628 Output Total 1000 1650 Balance 620 -1110 1100 Weight 123.5 kg Intake: Oral 8890 590 7245 Output: Urine 1000 1650 Other: Voiding Method Toilet Toilet # Voids 1 # Bowel Movements 1 - Labs CBC & Chem 7: 08/27/20 06:11 08/29/20 09:05 Labs: Abnormal Lab Results - Last 24 Hours (Table) 08/28/20 08/28/20 08/29/20 Range/Units 16:58 19:56 09:05 Sodium 130 L (137-145) mmol/L Chloride 90 L (98-107) mmol/L BUN 62 H (9-20) mg/dL Glucose 150 H (74-99) mg/dL POC Glucose (mg/dL) 375 H 355 H (75-99) mg/dL 08/29/20 Range/Units 11:43 Sodium (137-145) mmol/L Chloride (98-107) mmol/L BUN (9-20) mg/dL Glucose (74-99) mg/dL POC Glucose (mg/dL) 128 H (75-99) mg/dL Microbiology - Last 24 Hours (Table) 08/25/20 19:04 Blood Culture - Preliminary Blood No Growth after 72 hours 08/25/20 19:03 Blood Culture - Preliminary Blood No Growth after 72 hours 08/25/20 15:51 Blood Culture - Preliminary Blood No Growth after 72 hours
--- NOTE | 2020-08-29 14:51 | PN ---
PROGRESS NOTE Patient is seen for followup for acute kidney injury, hypokalemia and hyponatremia. Patient's serum sodium had dropped to 125 yesterday. He is hypervolemic and is maintained on IV Lasix. Patient did get a dose of tolvaptan yesterday and his sodium is up to 130 today. He feels well. Denies any significant complaints. PHYSICAL EXAMINATION: On examination today, blood pressure was 146/67, heart rate 60 per minute. He is afebrile. Examination of lower extremities shows significant chronic skin changes with chronic edema. 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 Lungs and heart are not examined. Abdomen is obese. LABS: Labs show sodium 130, potassium 4.0, chloride 90, CO2 of 27. BUN 62, creatinine 1.04. ASSESSMENT: 1. Hyponatremia which is hypervolemic currently improved, status post tolvaptan yesterday. Continue to maintain patient on fluid restriction. Continue with the diuresis. Repeat labs as outpatient in 2 to 3 days. Follow up in the office in one week's time. 2. Acute kidney injury mostly cardiorenal and from over-diuresis on initial admission. However, currently the patient is volume overloaded. 3. History of hyperkalemia, could now resolved. 4. Cellulitis lower extremities. 5. Chronic kidney disease secondary to nephrosclerosis. Baseline creatinine 1-1.2 mg/dL, stage 3. PLAN: Continue with oral Lasix 40 mg b.i.d. post discharge. Follow up in the office in one week. Continue with fluid restriction. The patient can liberalize potassium intake in his diet to some degree. MMODL / IJN: [id number] /
== END 2020-08-29 14:48 | disposition home or self-care (01) | DRG 871 ==
LOC: EC 14:58 → 3SCARD 17:36
PROVIDERS: ADMIT Internal Medicine; ATTEND Internal Medicine
PROC: 5A0935A Assistance with Respiratory Ventilation, Less than 24 Consecutive Hours, High Flow/Velocity Cannula (ICD-10-PCS; principal; 2020-08-27)
DX: A41.9 Sepsis, unspecified organism (principal); J18.9 Pneumonia, unspecified organism; J96.01 Acute respiratory failure with hypoxia; I50.33 Acute on chronic diastolic (congestive) heart failure; N17.9 Acute kidney failure, unspecified; E87.4 Mixed disorder of acid-base balance; I45.89 Other specified conduction disorders; I13.0 Hypertensive heart and chronic kidney disease with heart failure and stage 1 through stage 4 chronic kidney disease, or unspecified chronic kidney disease; E87.1 Hypo-osmolality and hyponatremia; J44.0 Chronic obstructive pulmonary disease with (acute) lower respiratory infection; L03.115 Cellulitis of right lower limb; Z68.41 Body mass index [BMI] 40.0-44.9, adult; L03.116 Cellulitis of left lower limb; E11.22 Type 2 diabetes mellitus with diabetic chronic kidney disease; E66.01 Morbid (severe) obesity due to excess calories; E11.65 Type 2 diabetes mellitus with hyperglycemia; Z79.4 Long term (current) use of insulin; N18.30 Chronic kidney disease, stage 3 unspecified; Z20.822 Contact with and (suspected) exposure to COVID-19; T50.2X5A Adverse effect of carbonic-anhydrase inhibitors, benzothiadiazides and other diuretics, initial encounter; R62.7 Adult failure to thrive; E86.0 Dehydration; E86.1 Hypovolemia; E87.6 Hypokalemia; I87.2 Venous insufficiency (chronic) (peripheral); E78.5 Hyperlipidemia, unspecified; I35.8 Other nonrheumatic aortic valve disorders; K59.00 Constipation, unspecified; K21.9 Gastro-esophageal reflux disease without esophagitis; M1A.9XX0 Chronic gout, unspecified, without tophus (tophi); T38.3X5A Adverse effect of insulin and oral hypoglycemic [antidiabetic] drugs, initial encounter; M19.90 Unspecified osteoarthritis, unspecified site; R77.8 Other specified abnormalities of plasma proteins; Z79.899 Other long term (current) drug therapy; Z96.41 Presence of insulin pump (external) (internal); Z87.19 Personal history of other diseases of the digestive system; Z90.49 Acquired absence of other specified parts of digestive tract; Z87.39 Personal history of other diseases of the musculoskeletal system and connective tissue; Z95.5 Presence of coronary angioplasty implant and graft; Z98.890 Other specified postprocedural states; Z88.5 Allergy status to narcotic agent; Z88.2 Allergy status to sulfonamides; Z91.048 Other nonmedicinal substance allergy status; Z82.5 Family history of asthma and other chronic lower respiratory diseases; Z80.1 Family history of malignant neoplasm of trachea, bronchus and lung; Z83.49 Family history of other endocrine, nutritional and metabolic diseases
CPT/HCPCS: 36415; 71045; 71046; 76604; 80048; 80053; 81001; 82550; 83036; 83605; 83690; 83735; 83880; 84145; 84484; 85025; 85027; 87040; 87070; 87205; 87636; 93005; 93306; 94640; 94760; 96361; 96374; 99285

== ENCOUNTER 2020-08-30 19:13 | Inpatient (IN) | payer MEDICARE ==
--- NOTE | 2020-08-30 20:38 | ED ---
Weakness HPI - General Chief complaint: Weakness Stated complaint: Weakness Time Seen by Provider: 08/30/20 19:28 Source: patient, EMS Mode of arrival: EMS Limitations: no limitations - History of Present Illness Initial comments: 70-year-old male patient with past medical history significant for coronary artery disease, diabetes mellitus, hyperlipidemia, hypertension recently admitted for sepsis related to cellulitis bilateral lower extremities, metabolic acidosis with acute kidney injury was discharged from the hospital yesterday. Returning today for evaluation due to increased exhaustion. States that he is unable to get up to even go to the bathroom on his own. States that he feels super dry and dehydrated. Denies headache, blurred vision, double vision. Denies chest pain or shortness of breath. Denies any nausea or vomiting. States he has not had any meals or drinks today. Did have elevated temperature today at 102 degrees F. Is taking Keflex prescribed at discharge. Patient denies any recent rash, cough, abdominal pain, diarrhea, constipation, back pain, numbness, tingling, hematuria, dysuria, urinary urgency, urinary frequency, or any other complaints. - Related Data Home Medications Medication Instructions Recorded Confirmed Omeprazole [PriLOSEC] 20 mg PO DAILY 08/09/15 08/30/20 allopurinoL [Zyloprim] 100 mg PO HS 08/09/15 08/30/20 metFORMIN HCL [Glucophage] 1,000 mg PO BID 07/15/16 08/30/20 Atorvastatin [Lipitor] 40 mg PO HS 06/01/18 08/30/20 Insulin Aspart (For Pump) [NovoLOG 0.01 unit SQ-PUMP CONTINUOUS 07/23/20 08/30/20 (For Pump)] Zinc 50 mg PO DAILY 07/23/20 08/30/20 Magnesium Oxide 400 mg PO BID 08/13/20 08/30/20 Ammonium Lactate Cream [Lac-Hydrin 1 applic TOPICAL DAILY PRN 08/25/20 08/30/20 12% Cream] Furosemide [Lasix] 40 mg PO BID 08/25/20 08/30/20 Sennosides-Docusate Sodium 2 tab PO DAILY 08/25/20 08/30/20 [Senokot-S] Previous Rx's Medication Instructions Recorded amLODIPine [Norvasc] 5 mg PO DAILY #30 tab 07/26/20 hydrALAZINE HCL [Apresoline] 25 mg PO TID #90 tab 07/26/20 Cephalexin [Keflex] 500 mg PO TID 10 Days #30 cap 08/29/20 Allergies Allergy/AdvReac Type Severity Reaction Status Date / Time Sulfa (Sulfonamide Allergy Rash/Hives Verified 08/30/20 21:00 Antibiotics) codeine AdvReac Unknown Verified 08/30/20 21:00 ivory soap Allergy Rash/Hives Uncoded 08/30/20 21:00 Review of Systems ROS Statement: Those systems with pertinent positive or pertinent negative responses have been documented in the HPI. ROS Other: All systems not noted in ROS Statement are negative. Past Medical History Past Medical History: Coronary Artery Disease (CAD), Diabetes Mellitus, Hyperlipidemia, Hypertension, Osteoarthritis (OA), Skin Disorder Additional Past Medical History / Comment(s): wounds on both legs and swelling of the legs-treated for cellulitis Jul-2020 History of Any Multi-Drug Resistant Organisms: None Reported Past Surgical History: Appendectomy, Heart Catheterization Additional Past Surgical History / Comment(s): carpal tunnel surgery Past Anesthesia/Blood Transfusion Reactions: No Reported Reaction Past Psychological History: No Psychological Hx Reported Smoking Status: Never smoker Past Alcohol Use History: None Reported Past Drug Use History: None Reported - Past Family History Mother Family Medical History: Cancer, Thyroid Disorder Additional Family Medical History / Comment(s): of lung infection age 59 Brother(s) Family Medical History: COPD, Respiratory Disorder Additional Family Medical History / Comment(s): hx agent orange. Still living age 65 now General Exam Limitations: no limitations General appearance: alert, in no apparent distress, other (This is a well-developed, well-nourished male patient in no acute distress.) Respiratory exam: Present: normal lung sounds bilaterally. Absent: respiratory distress, wheezes, rales, rhonchi, stridor Cardiovascular Exam: Present: regular rate, normal rhythm, normal heart sounds. Absent: systolic murmur, diastolic murmur, rubs, gallop, clicks GI/Abdominal exam: Present: soft, normal bowel sounds. Absent: distended, tenderness, guarding, rebound, rigid Neurological exam: Present: alert, oriented X3, CN II-XII intact Psychiatric exam: Present: normal affect, normal mood Skin exam: Present: warm, dry, intact, normal color. Absent: rash Course Vital Signs 08/30/20 08/30/20 08/30/20 19:24 20:28 21:00 Temperature 99.0 F Pulse Rate 76 71 87 Respiratory 20 20 20 Rate Blood Pressure 104/57 108/65 107/64 O2 Sat by Pulse 93 L 94 L 94 L Oximetry 08/30/20 22:00 Temperature Pulse Rate 60 Respiratory 20 Rate Blood Pressure 101/57 O2 Sat by Pulse 94 L Oximetry EKG Findings - EKG Comments: EKG Findings:: EKG obtained at 2013 shows A-V dissociation with a rate of 71. QRS is 104, QT 400, QTC 434. No evidence of ST elevation or depression. Medical Decision Making - Medical Decision Making 70-year-old male patient presents to the emergency department today for evaluation of generalized weakness, "exhaustion", and fever. Physical examination did reveal flaking skin to the lower extremities with generalized swelling. Lungs are clear to auscultation. Vital signs are unremarkable here. Labs reviewed and did reveal increased white blood cell count at 25,000. Also elevated lactic acid 2.1. BUN and creatinine are elevated. Patient was discharged yesterday after admission for similar complaints. He'll be admitted to the hospital restarted on IV antibiotics. Case was discussed with Dr. Marrero who wanted Dr. Chang and Dr. Nieves consulted. Patient is agreeable with this plan. Case discussed with my attending Dr. Barxton. - Lab Data Result diagrams: 08/30/20 20:37 08/30/20 20:37 Lab Results 08/30/20 08/30/20 08/30/20 Range/Units 20:37 20:37 20:37 WBC 25.5 H (3.8-10.6) k/uL RBC 3.62 L (4.30-5.90) m/uL Hgb 10.3 L (13.0-17.5) gm/dL Hct 31.1 L (39.0-53.0) % MCV 85.9 (80.0-100.0) fL MCH 28.5 (25.0-35.0) pg MCHC 33.2 (31.0-37.0) g/dL RDW 14.7 (11.5-15.5) % Plt Count 274 (150-450) k/uL MPV 8.4 Neutrophils % 96 % Lymphocytes % 0 % Monocytes % 4 % Eosinophils % 0 % Basophils % 1 % Neutrophils # 24.4 H (1.3-7.7) k/uL Lymphocytes # 0.1 L (1.0-4.8) k/uL Monocytes # 0.9 (0-1.0) k/uL Eosinophils # 0.0 (0-0.7) k/uL Basophils # 0.1 (0-0.2) k/uL Poikilocytosis Slight PT 12.0 (9.0-12.0) sec INR 1.2 H (<1.2) APTT 28.0 (22.0-30.0) sec Sodium 131 L (137-145) mmol/L Potassium 4.4 (3.5-5.1) mmol/L Chloride 88 L (98-107) mmol/L Carbon Dioxide 33 H (22-30) mmol/L Anion Gap 10 mmol/L BUN 62 H (9-20) mg/dL Creatinine 1.63 H (0.66-1.25) mg/dL Est GFR (CKD-EPI)AfAm 48 (>60 ml/min/1.73 sqM) Est GFR (CKD-EPI)NonAf 42 (>60 ml/min/1.73 sqM) Glucose 94 (74-99) mg/dL Plasma Lactic Acid Clint (0.7-2.0) mmol/L Calcium 9.0 (8.4-10.2) mg/dL Magnesium 1.6 (1.6-2.3) mg/dL Total Bilirubin 0.9 (0.2-1.3) mg/dL AST 34 (17-59) U/L ALT 33 (4-49) U/L Alkaline Phosphatase 119 (38-126) U/L Troponin I (0.000-0.034) ng/mL Total Protein 6.5 (6.3-8.2) g/dL Albumin 3.4 L (3.5-5.0) g/dL 08/30/20 08/30/20 Range/Units 20:37 20:37 WBC (3.8-10.6) k/uL RBC (4.30-5.90) m/uL Hgb (13.0-17.5) gm/dL Hct (39.0-53.0) % MCV (80.0-100.0) fL MCH (25.0-35.0) pg MCHC (31.0-37.0) g/dL RDW (11.5-15.5) % Plt Count (150-450) k/uL MPV Neutrophils % % Lymphocytes % % Monocytes % % Eosinophils % % Basophils % % Neutrophils # (1.3-7.7) k/uL Lymphocytes # (1.0-4.8) k/uL Monocytes # (0-1.0) k/uL Eosinophils # (0-0.7) k/uL Basophils # (0-0.2) k/uL Poikilocytosis PT (9.0-12.0) sec INR (<1.2) APTT (22.0-30.0) sec Sodium (137-145) mmol/L Potassium (3.5-5.1) mmol/L Chloride (98-107) mmol/L Carbon Dioxide (22-30) mmol/L Anion Gap mmol/L BUN (9-20) mg/dL Creatinine (0.66-1.25) mg/dL Est GFR (CKD-EPI)AfAm (>60 ml/min/1.73 sqM) Est GFR (CKD-EPI)NonAf (>60 ml/min/1.73 sqM) Glucose (74-99) mg/dL Plasma Lactic Acid Clint 2.1 H* (0.7-2.0) mmol/L Calcium (8.4-10.2) mg/dL Magnesium (1.6-2.3) mg/dL Total Bilirubin (0.2-1.3) mg/dL AST (17-59) U/L ALT (4-49) U/L Alkaline Phosphatase (38-126) U/L Troponin I 0.033 (0.000-0.034) ng/mL Total Protein (6.3-8.2) g/dL Albumin (3.5-5.0) g/dL - Radiology Data Radiology results: report reviewed, image reviewed Two-view x-ray of the chest is obtained. Report is reviewed in its entirety. Impression by Dr. Evans shows pleural reaction infiltrate and atelectasis left lung bases not significantly different than recent exam. Cardiomegaly unchanged. No obvious heart failure. Disposition Clinical Impression: Sepsis, Leukocytosis, Weakness Disposition: ADMITTED IP TO THIS HOSP Condition: Serious Referrals: Adam Jacome DO [Primary Care Provider] - 1-2 days Decision to Admit Reason: Admit from EC Decision Date: 08/30/20 Decision Time: 22:38
[2020-08-30 20:50] LABS: Basophils # (A) 0.1 k/uL (0-0.2); Basophils % (A) 1 %; Eosinophils % (A) 0 %; HCT 31.1 % (39.0-53.0); HGB 10.3 gm/dL (13.0-17.5); Lymphocytes # (A) 0.1 k/uL (1.0-4.8); Lymphocytes % (A) 0 %; MCH 28.5 pg (25.0-35.0); MCHC 33.2 g/dL (31.0-37.0); MCV 85.9 fL (80.0-100.0); Mean Platelet Volume 8.4; Monocytes # (A) 0.9 k/uL (0-1.0); Monocytes % (A) 4 %; Neutrophils # (A) 24.4 k/uL (1.3-7.7); Neutrophils % (A) 96 %; Platelet Count 274 k/uL (150-450); Poikilocytosis Slight; RBC 3.62 m/uL (4.30-5.90); RDW 14.7 % (11.5-15.5); WBC 25.5 k/uL (3.8-10.6)
[2020-08-30 20:58] LABS: Albumin 3.4 g/dL (3.5-5.0); Magnesium 1.6 mg/dL (1.6-2.3); Potassium 4.4 mmol/L (3.5-5.1); Total Bilirubin 0.9 mg/dL (0.2-1.3); Total Protein 6.5 g/dL (6.3-8.2)
[2020-08-30 21:04] LABS: INR 1.2 (<1.2)
--- NOTE | 2020-08-30 22:10 | XR ---
EXAMINATION TYPE: XR chest 2V DATE OF EXAM: 08/30/2020 COMPARISON: 08/28/2020 HISTORY: Fever TECHNIQUE: FINDINGS: Heart is enlarged. There is some mild infiltrate and atelectasis in left lower lobe. There is some blunting of left costophrenic angle. There are no hilar masses. There are chest leads. There is no heart failure. Right costophrenic angle is clear. IMPRESSION: There is some pleural reaction and infiltrate and atelectasis left lung base not signific antly different than recent exam. Cardiomegaly unchanged. No obvious heart failure.
[2020-08-30] MEDS ORDERED: LEVOFLOXACIN 500 MG TAB PO STA (22:33)
[2020-08-30] MEDS ORDERED: NALOXONE 0.4 MG/ML 1 ML VIAL IV PRN (22:33)
[2020-08-30] MEDS: LEVOFLOXACIN 500 MG TAB PO SCH (23:01)
[2020-08-30 23:03] LABS: Appearance,Urine Clear (Clear); Bilirubin,Urine Negative (Negative); Blood,Urine Negative (Negative); Color,Urine Yellow; Glucose,Urine (UA) Negative (Negative); Ketones,Urine Negative (Negative); Leukocyte Esterase,Urine Negative (Negative); Nitrite,Urine Negative (Negative); Protein,Urine Trace (Negative); Specific Gravity,Urine 1.013 (1.001-1.035); Urobilinogen,Urine <2.0 mg/dL (<2.0)
[2020-08-31 06:03] LABS: Basophils % (A) 0 %; Eosinophils % (A) 0 %; HCT 29.6 % (39.0-53.0); HGB 9.6 gm/dL (13.0-17.5); Lymphocytes # (A) 0.3 k/uL (1.0-4.8); Lymphocytes % (A) 2 %; MCHC 32.4 g/dL (31.0-37.0); MCV 86.5 fL (80.0-100.0); Mean Platelet Volume 8.8; Monocytes # (A) 0.4 k/uL (0-1.0); Monocytes % (A) 3 %; Neutrophils # (A) 14.1 k/uL (1.3-7.7); Neutrophils % (A) 94 %; Platelet Count 217 k/uL (150-450); Poikilocytosis Slight; RBC 3.43 m/uL (4.30-5.90); RDW 14.9 % (11.5-15.5); WBC 15.1 k/uL (3.8-10.6)
[2020-08-31 06:17] LABS: Albumin 3.1 g/dL (3.5-5.0); Calcium 8.4 mg/dL (8.4-10.2); Magnesium 1.7 mg/dL (1.6-2.3); Potassium 3.6 mmol/L (3.5-5.1)
[2020-08-31 08:03] LABS: Glucose,Whole Blood 155 mg/dL (75-99)
[2020-08-31] MEDS ORDERED: INSPUCOR MISCELLANE PRN (08:34)
[2020-08-31] MEDS ORDERED: INSULIN PUMP ACTIVE INSULIN 1 EACH MISC MISCELLANE PRN (08:34)
[2020-08-31] MEDS ORDERED: INSULIN PUMP TARGET GLUCOSE 1 EACH MISC MISCELLANE PRN (08:34)
[2020-08-31] MEDS ORDERED: INSULIN ASPART (NovoLOG) 100 UNIT/ML VIAL SQ PRN (08:34)
[2020-08-31] MEDS ORDERED: INSULIN PUMP BASAL RATES 1 EACH MISC MISCELLANE PRN (08:34)
[2020-08-31] MEDS ORDERED: AMMONIUM LACTATE 12% CREAM 140 GM TUBE TOPICAL PRN (09:15)
[2020-08-31] MEDS ORDERED: CEPHALEXIN 500 MG CAP PO SCH (09:30)
--- NOTE | 2020-08-31 11:31 | P.HPIM ---
History of Present Illness H&P Date: 08/31/20 Chief Complaint: Weakness HISTORY OF PRESENT ILLNESS This is a 70-year-old male patient of Dr. Jacome and Dr. Nila Pena with past medical history of diabetes mellitus type 2, hypertension, hyperlipidemia, chronic kidney disease stage III, chronic lower extremity cellulitis. Patient was discharged home from the hospital on August 29 at which time he was treated for sepsis from lower extremity cellulitis with possible pneumonia, acute hypoxic respiratory failure secondary to atelectasis pleural effusion and acute on chronic diastolic heart failure. The patient states that once he was home he developed weakness in his legs. He states he was eating and drinking okay. He denies having any palpitations. He's had no increase in the chronic edema of his lower extremities. He denies any headache, no sore throat. He denies having any falls. No back pain. There was concern however for fever of 102 at home. Patient was discharged home on Keflex. Patient presented to [facility] emergency center and he has been afebrile. Heart rate 70s, blood pressure 104/57, pulse ox 93% on room air. Kathy BC initially 25.5, hemoglobin 10.3. Sodium 131, potassium 4.4, chloride 88, CO2 33, BUN 62 and creatinine 1.63. Blood sugar 94. Urinalysis showed trace protein. COVID-19 not detected. Note that at the day of discharge his BUN was 62 and creatinine 1.04. Patient was admitted to the [facility] floor and consu lt requested with Dr. Chang, and nephrology. Patient was started on Kefzol and Levaquin. Subsequently, influenza testing added. Blood cultures are in progress. REVIEW OF SYSTEMS Constitutional: No fever, no chills, no night sweats. No weight change. Reports weakness, Reportsfatigue Reports lethargy. No daytime sleepiness. EENT: No headache. No blurred vision or double vision, no loss of vision. No loss of Hearing, no ringing in the ears, no dizziness. No nasal drainage or congestion. No epistaxis. No sore throat. Lungs: No shortness of breath, cough, no sputum production. No wheezing. Cardiovascular: No chest pain, no lower extremity edema. No palpitations. No paroxysmal nocturnal dyspnea. No orthopnea. No lightheadedness or dizziness. No syncopal episodes. Abdominal: No abdominal pain. No nausea, vomiting. No diarrhea. Reports constipation. No bloody or tarry stools. No loss of appetite. Genitourinary: No dysuria, increased frequency, urgency. No urinary retention. Musculoskeletal: No myalgias. Reports muscle weakness, reports gait dysfunction, no frequent falls. No back pain. No neck pain. Integumentary: Chronic lower extremity redness/wounds. No rash or pruritus. No unusual bruising. No change in hair or nails. Neurologic: No aphasia. No facial droop. No change in mentation. No head injury. No headache. No paralysis. No paresthesia. Psychiatric: No depression. No anxiety. Endocrine: No abnormal blood sugars. No weight change. No excessive sweating or thirst. No cold intolerance. SOCIAL HISTORY Patient is a lifelong nonsmoker. No alcohol use, marijuana or illicit drug use. 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 He lives at home alone. He is a . FAMILY HISTORY Mother at age 60 from lung cancer. Father at 57 after a fall off a roof. He has one brother that of cancer secondary to agent orange exposur e. He has 4 half-sisters that he is never met. Patient has 2 children and 1 has an autoimmune disorder and waiting for double lung transplant. Second child has no major medical problems.. PHYSICAL EXAMINATION Gen: This is a 70-year-old morbidly obese male. He is sitting up in a recliner and appears to be comfortable and in no acute distress. HEENT: Head is atraumatic, normocephalic. Pupils equal, round. Sclerae is anicteric. NECK: Supple. No JVD. No lymphadenopathy. No thyromegaly. LUNGS: Clear to auscultation. No wheezes or rhonchi. No intercostal re tractions. HEART: Regular rate and rhythm. Systolic murmur. ABDOMEN: Morbidly obese. Soft. Bowel sounds are present. No masses. No tenderness. EXTREMITIES: 1+ pedal edema. No calf tenderness. Chronic lower extremity erythema. NEUROLOGICAL: Patient is awake, alert and oriented x3. Cranial nerves 2 through 12 are grossly intact. ASSESSMENT AND PLAN 1. Acute kidney injury with chronic kidney disease stage III. Baseline creatinine 1.3. Nephrology consult. The following medications were discontinued on previous hospitalization Zaroxolyn, potassium, spironolactone, Vasotec. Continue Lasix 40 mg oral twice daily for now. 2. Hyponatremia . Consult with nephrology. 3. Chronic systolic heart failure, stable. 4. Diabetes mellitus type 2. Patient is on insulin pump. Continue patient's insulin pump. 5. Hypertension. Continue amlodipine 5 mg daily, hydralazine 25 mg twice daily. 6. Chronic lower extremities mild cellulitis. Continue Kefzol, Levaquin, consult with Dr. Chang. Elevate legs. 7. Constipation. Senokot 2 tablets daily. Patient is status post 1 dose of oral Kayexalate. 8. Hyperlipidemia. Continue Lipitor 40 mg at bedtime. 9. Chronic gout. Continue allopurinol 100 mg daily. 10. Gastroesophageal reflux disease and GI prophylaxis. Continue Protonix 40 mg daily. 11. DVT prophylaxis. Heparin subcu. Patient will be admitted to the hospital for a minimum of 2 night stay. DISCHARGE PLAN Most likely return home. Consult PT and OT. Impression and plan of care have been directed as dictated by the signing physician. Meggan Arias nurse practitioner acting as scribe for signing physician. Past Medical History Past Medical History: Coronary Artery Disease (CAD), Diabetes Mellitus, Hyperlipidemia, Hypertension, Osteoarthritis (OA), Skin Disorder Additional Past Medical History / Comment(s): wounds on both legs and swelling of the legs-treated for cellulitis Jul-2020 History of Any Multi-Drug Resistant Organisms: None Reported Past Surgical History: Appendectomy, Heart Catheterization Additional Past Surgical History / Comment(s): carpal tunnel surgery Past Anesthesia/Blood Transfusion Reactions: No Reported Reaction Past Psychological History: No Psychological Hx Reported Smoking Status: Never smoker Past Alcohol Use History: None Reported Past Drug Use History: None Reported - Past Family History Mother Family Medical History: Cancer, Thyroid Disorder Additional Family Medical History / Comment(s): of lung infection age 59 Brother(s) Family Medical History: COPD, Respiratory Disorder Additional Family Medical History / Comment(s): hx agent orange. Still living age 65 now Medications and Allergies Home Medications Medication Instructions Recorded Confirmed Type Omeprazole [PriLOSEC] 20 mg PO DAILY 08/09/15 08/30/20 History allopurinoL [Zyloprim] 100 mg PO HS 08/09/15 08/30/20 History metFORMIN HCL [Glucophage] 1,000 mg PO BID 07/15/16 08/30/20 History Atorvastatin [Lipitor] 40 mg PO HS 06/01/18 08/30/20 History Insulin Aspart (For Pump) [NovoLOG 0.01 unit SQ-PUMP CONTINUOUS 07/23/20 08/30/20 History (For Pump)] Zinc 50 mg PO DAILY 07/23/20 08/30/20 History amLODIPine [Norvasc] 5 mg PO DAILY #30 tab 07/26/20 08/30/20 Rx hydrALAZINE HCL [Apresoline] 25 mg PO TID #90 tab 07/26/20 08/30/20 Rx Magnesium Oxide 400 mg PO BID 08/13/20 08/30/20 History Ammonium Lactate Cream [Lac-Hydrin 1 applic TOPICAL DAILY PRN 08/25/20 08/30/20 History 12% Cream] Furosemide [Lasix] 40 mg PO BID 08/25/20 08/30/20 History Sennosides-Docusate Sodium 2 tab PO DAILY 08/25/20 08/30/20 History [Senokot-S] Cephalexin [Keflex] 500 mg PO TID 10 Days #30 cap 08/29/20 08/30/20 Rx Allergies Allergy/AdvReac Type Severity Reaction Status Date / Time Sulfa (Sulfonamide Allergy Rash/Hives Verified 08/30/20 21:00 Antibiotics) codeine AdvReac Unknown Verified 08/30/20 21:00 ivory soap Allergy Rash/Hives Uncoded 08/30/20 21:00 Physical Exam Vitals: Vital Signs Temp Pulse Pulse Resp BP BP Pulse Ox 08/31/20 08:00 98 F 59 L 16 118/64 95 08/31/20 06:51 73 16 143/77 97 08/31/20 00:00 98.6 F 63 20 150/48 95 08/30/20 22:00 60 20 101/57 94 L 08/30/20 21:00 87 20 107/64 94 L 08/30/20 20:28 71 20 108/65 94 L 08/30/20 19:24 99.0 F 76 20 104/57 93 L Intake and Output 08/30/20 08/31/20 08/31/20 22:59 06:59 14:59 Intake Total 236 Output Total 400 Balance -400 236 Intake: Oral 236 Output: Urine 400 Other: Weight 123.377 kg Results CBC & Chem 7: 08/31/20 05:50 08/31/20 05:50 Labs: Abnormal Lab Results - Last 24 Hours (Table) 08/30/20 08/30/20 08/30/20 Range/Units 20:37 20:37 20:37 WBC 25.5 H (3.8-10.6) k/uL RBC 3.62 L (4.30-5.90) m/uL Hgb 10.3 L (13.0-17.5) gm/dL Hct 31.1 L (39.0-53.0) % Neutrophils # 24.4 H (1.3-7.7) k/uL Lymphocytes # 0.1 L (1.0-4.8) k/uL INR 1.2 H (<1.2) Sodium 131 L (137-145) mmol/L Chloride 88 L (98-107) mmol/L Carbon Dioxide 33 H (22-30) mmol/L BUN 62 H (9-20) mg/dL Creatinine 1.63 H (0.66-1.25) mg/dL Glucose (74-99) mg/dL POC Glucose (mg/dL) (75-99) mg/dL Plasma Lactic Acid Clint (0.7-2.0) mmol/L Total Protein (6.3-8.2) g/dL Albumin 3.4 L (3.5-5.0) g/dL Urine Protein (Negative) 08/30/20 08/30/20 08/31/20 Range/Units 20:37 22:31 05:50 WBC 15.1 H (3.8-10.6) k/uL RBC 3.43 L (4.30-5.90) m/uL Hgb 9.6 L (13.0-17.5) gm/dL Hct 29.6 L (39.0-53.0) % Neutrophils # 14.1 H (1.3-7.7) k/uL Lymphocytes # 0.3 L (1.0-4.8) k/uL INR (<1.2) Sodium (137-145) mmol/L Chloride (98-107) mmol/L Carbon Dioxide (22-30) mmol/L BUN (9-20) mg/dL Creatinine (0.66-1.25) mg/dL Glucose (74-99) mg/dL POC Glucose (mg/dL) (75-99) mg/dL Plasma Lactic Acid Clint 2.1 H* (0.7-2.0) mmol/L Total Protein (6.3-8.2) g/dL Albumin (3.5-5.0) g/dL Urine Protein Trace H (Negative) 08/31/20 08/31/20 Range/Units 05:50 08:01 WBC (3.8-10.6) k/uL RBC (4.30-5.90) m/uL Hgb (13.0-17.5) gm/dL Hct (39.0-53.0) % Neutrophils # (1.3-7.7) k/uL Lymphocytes # (1.0-4.8) k/uL INR (<1.2) Sodium 128 L (137-145) mmol/L Chloride 89 L (98-107) mmol/L Carbon Dioxide 31 H (22-30) mmol/L BUN 55 H (9-20) mg/dL Creatinine (0.66-1.25) mg/dL Glucose 152 H (74-99) mg/dL POC Glucose (mg/dL) 155 H (75-99) mg/dL Plasma Lactic Acid Clint (0.7-2.0) mmol/L Total Protein 6.0 L (6.3-8.2) g/dL Albumin 3.1 L (3.5-5.0) g/dL Urine Protein (Negative)
[2020-08-31 11:39] LABS: Glucose,Whole Blood 216 mg/dL (75-99)
[2020-08-31] MEDS: FUROSEMIDE 40 MG TAB PO SCH ×2 (12:48→16:11)
[2020-08-31] MEDS: amLODIPine 5 MG TAB PO SCH (12:49)
[2020-08-31] MEDS: Insulin Aspart (For Pump) 100 UNIT/ML VIAL SQ-PUMP SCH (12:50)
[2020-08-31] MEDS: INSULIN PUMP MEAL BOLUS 1 UNIT MISC MISCELLANE SCH ×3 (12:50→23:45)
--- NOTE | 2020-08-31 14:38 | P.CONS ---
History of Present Illness - Reason for Consult Consult date: 08/31/20 - History of Present Illness HISTORY OF PRESENT ILLNESS This is a 70-year-old male patient known to ID service with past medical history of diabetes mellitus type 2, hypertension, hyperlipidemia, chronic kidney disease stage III, chronic lower extremity cellulitis. Patient was discharged home from the hospital on August 29 at which time he was treated for sepsis from lower extremity cellulitis with possible pneumonia, acute hypoxic respiratory failure secondary to atelectasis pleural effusion and acute on chronic diastolic heart failure. The patient states that once he was home he developed weakness over his body but especially in his legs. He states he was eating and drinking okay. He denies having any palpitations. He's had no increase in the chronic edema of his lower extremities. No worsening of the redness in the lower extremities. He denies any headache, no sore throat. He denies having any falls. No back pain. There was concern however for fever of 102 at home. Patient was discharged home on Keflex. Patient presented to [facility] emergency center and he has been afebrile. Heart rate 70s, blood pressure 104/57, pulse ox 93% on room air. Kathy BC initially 25.5, hemoglobin 10.3. Sodium 131, potassium 4.4, chloride 88, CO2 33, BUN 62 and creatinine 1.63. Blood sugar 94. Urinalysis showed trace protein. COVID-19 not detected. Note that at the day of discharge his BUN was 62 and creatinine 1.04. Patient was admitted to the [facility] floor and consu lt requested with Dr. Chang, and nephrology. Patient was started on Kefzol and Levaquin. Subsequently, influenza testing added. Blood cultures are in progress. REVIEW OF SYSTEMS Constitutional: No fever, no chills, no night sweats. No weight change. Reports weakness, fatigue or lethargy. EENT: No headache. No nasal drainage or congestion. No epistaxis. No sore throat. Lungs: No shortness of breath, cough, no sputum production. No wheezing. Cardiovascular: No chest pain, chronic lower extremity edema. No lightheadedness or dizziness. No syncopal episodes. Abdominal: No abdominal pain. No nausea, vomiting. No diarrhea. No constipation. No loss of appetite. Genitourinary: No dysuria, increased frequency, urgency. No urinary retention. Musculoskeletal: No myalgias. Reports muscle weakness. Integumentary: No wounds, no lesions. No rash or pruritus. Neurologic: No aphasia. No facial droop. No change in mentation. Endocrine: No abnormal blood sugars. PHYSICAL EXAMINATION Gen: This is a 70-year-old morbidly obese male. He is sitting up in a recliner and appears to be comfortable and in no acute distress. HEENT: Head is atraumatic, normocephalic. Pupils equal, round. Sclerae is anicteric. NECK: Supple. No JVD. No lymphadenopathy. No thyromegaly. LUNGS: Clear to auscultation. No wheezes or rhonchi. No intercostal retractions. HEART: Regular rate and rhythm. Systolic murmur. ABDOMEN: Morbidly obese. Soft. Bowel sounds are present. No masses. No tenderness. EXTREMITIES: 1+ pedal edema. No calf tenderness. Chronic lower extremity erythema. NEUROLOGICAL: Patient is awake, alert and oriented x3. Cranial nerves 2 through 12 are grossly intact. ASSESSMENT Fever at home of unclear etiology Acute kidney injury and chronic kidney disease stage III Chronic lower extremity cellulitis, stable Diabetes mellitus type 2 on insulin pump PLAN Continue Kefzol and Levaquin Continue Lac-Hydrin on lower extremities Elevation of the lower extremities Follow up on blood culture results Further recommendations based upon patient's clinical course Thank you kindly for this consultation. The above dictated assessment and findings were discussed with Dr. Chang. The impression and plan of care have been directed as dictated. Meggan Arias nurse practitioner acting as scribe for Dr. Chang. Past Medical History Past Medical History: Coronary Artery Disease (CAD), Diabetes Mellitus, Hyperlipidemia, Hypertension, Osteoarthritis (OA), Skin Disorder Additional Past Medical History / Comment(s): wounds on both legs and swelling of the legs-treated for cellulitis Jul-2020 History of Any Multi-Drug Resistant Organisms: None Reported Past Surgical History: Appendectomy, Heart Catheterization Additional Past Surgical History / Comment(s): carpal tunnel surgery Past Anesthesia/Blood Transfusion Reactions: No Reported Reaction Past Psychological History: No Psychological Hx Reported Smoking Status: Never smoker Past Alcohol Use History: None Reported Past Drug Use History: None Reported - Past Family History Mother Family Medical History: Cancer, Thyroid Disorder Additional Family Medical History / Comment(s): of lung infection age 59 Brother(s) Family Medical History: COPD, Respiratory Disorder Additional Family Medical History / Comment(s): hx agent orange. Still living age 65 now Medications and Allergies Home Medications Medication Instructions Recorded Confirmed Type Omeprazole [PriLOSEC] 20 mg PO DAILY 08/09/15 08/30/20 History allopurinoL [Zyloprim] 100 mg PO HS 08/09/15 08/30/20 History metFORMIN HCL [Glucophage] 1,000 mg PO BID 07/15/16 08/30/20 History Atorvastatin [Lipitor] 40 mg PO HS 06/01/18 08/30/20 History Insulin Aspart (For Pump) [NovoLOG 0.01 unit SQ-PUMP CONTINUOUS 07/23/20 08/30/20 History (For Pump)] Zinc 50 mg PO DAILY 07/23/20 08/30/20 History amLODIPine [Norvasc] 5 mg PO DAILY #30 tab 07/26/20 08/30/20 Rx hydrALAZINE HCL [Apresoline] 25 mg PO TID #90 tab 07/26/20 08/30/20 Rx Magnesium Oxide 400 mg PO BID 08/13/20 08/30/20 History Ammonium Lactate Cream [Lac-Hydrin 1 applic TOPICAL DAILY PRN 08/25/20 08/30/20 History 12% Cream] Furosemide [Lasix] 40 mg PO BID 08/25/20 08/30/20 History Sennosides-Docusate Sodium 2 tab PO DAILY 08/25/20 08/30/20 History [Senokot-S] Cephalexin [Keflex] 500 mg PO TID 10 Days #30 cap 08/29/20 08/30/20 Rx Allergies Allergy/AdvReac Type Severity Reaction Status Date / Time Sulfa (Sulfonamide Allergy Rash/Hives Verified 08/30/20 21:00 Antibiotics) codeine AdvReac Unknown Verified 08/30/20 21:00 ivory soap Allergy Rash/Hives Uncoded 08/30/20 21:00 Physical Exam Vitals: Vital Signs Temp Pulse Pulse Resp BP BP Pulse Ox 08/31/20 08:00 98 F 59 L 16 118/64 95 08/31/20 06:51 73 16 143/77 97 08/31/20 00:00 98.6 F 63 20 150/48 95 08/30/20 22:00 60 20 101/57 94 L 08/30/20 21:00 87 20 107/64 94 L 08/30/20 20:28 71 20 108/65 94 L 08/30/20 19:24 99.0 F 76 20 104/57 93 L Intake and Output 08/30/20 08/31/20 08/31/20 22:59 06:59 14:59 Intake Total 236 Output Total 400 Balance -400 236 Intake: Oral 236 Output: Urine 400 Other: Weight 123.377 kg Results CBC & Chem 7: 08/31/20 05:50 08/31/20 05:50 Labs: Abnormal Lab Results - Last 24 Hours (Table) 08/30/20 08/30/20 08/30/20 Range/Units 20:37 20:37 20:37 WBC 25.5 H (3.8-10.6) k/uL RBC 3.62 L (4.30-5.90) m/uL Hgb 10.3 L (13.0-17.5) gm/dL Hct 31.1 L (39.0-53.0) % Neutrophils # 24.4 H (1.3-7.7) k/uL Lymphocytes # 0.1 L (1.0-4.8) k/uL INR 1.2 H (<1.2) Sodium 131 L (137-145) mmol/L Chloride 88 L (98-107) mmol/L Carbon Dioxide 33 H (22-30) mmol/L BUN 62 H (9-20) mg/dL Creatinine 1.63 H (0.66-1.25) mg/dL Glucose (74-99) mg/dL POC Glucose (mg/dL) (75-99) mg/dL Plasma Lactic Acid Clint (0.7-2.0) mmol/L Total Protein (6.3-8.2) g/dL Albumin 3.4 L (3.5-5.0) g/dL Urine Protein (Negative) 08/30/20 08/30/20 08/31/20 Range/Units 20:37 22:31 05:50 WBC 15.1 H (3.8-10.6) k/uL RBC 3.43 L (4.30-5.90) m/uL Hgb 9.6 L (13.0-17.5) gm/dL Hct 29.6 L (39.0-53.0) % Neutrophils # 14.1 H (1.3-7.7) k/uL Lymphocytes # 0.3 L (1.0-4.8) k/uL INR (<1.2) Sodium (137-145) mmol/L Chloride (98-107) mmol/L Carbon Dioxide (22-30) mmol/L BUN (9-20) mg/dL Creatinine (0.66-1.25) mg/dL Glucose (74-99) mg/dL POC Glucose (mg/dL) (75-99) mg/dL Plasma Lactic Acid Clint 2.1 H* (0.7-2.0) mmol/L Total Protein (6.3-8.2) g/dL Albumin (3.5-5.0) g/dL Urine Protein Trace H (Negative) 08/31/20 08/31/20 08/31/20 Range/Units 05:50 08:01 11:38 WBC (3.8-10.6) k/uL RBC (4.30-5.90) m/uL Hgb (13.0-17.5) gm/dL Hct (39.0-53.0) % Neutrophils # (1.3-7.7) k/uL Lymphocytes # (1.0-4.8) k/uL INR (<1.2) Sodium 128 L (137-145) mmol/L Chloride 89 L (98-107) mmol/L Carbon Dioxide 31 H (22-30) mmol/L BUN 55 H (9-20) mg/dL Creatinine (0.66-1.25) mg/dL Glucose 152 H (74-99) mg/dL POC Glucose (mg/dL) 155 H 216 H (75-99) mg/dL Plasma Lactic Acid Clint (0.7-2.0) mmol/L Total Protein 6.0 L (6.3-8.2) g/dL Albumin 3.1 L (3.5-5.0) g/dL Urine Protein (Negative)
[2020-08-31] MEDS: FLUTICASONE 50MCG/SPRAY NASAL 16GM EA NOSTRIL SCH (15:43)
[2020-08-31] MEDS ORDERED: hydrALAZINE HCL 25 MG TAB PO SCH (16:00)
--- NOTE | 2020-08-31 16:27 | CONS ---
CONSULTATION REASON FOR CONSULT: Renal failure. HISTORY OF PRESENT ILLNESS: The patient is a 70-year-old male who was recently discharged from the hospital on 08/29/2020 and was readmitted on 08/31/2020 with complaints of increased weakness. The patient on initial admission last admission he was noted to be mildly volume depleted and diuretics were held. However, he developed worsening edema of lower extremities and was restarted on diuretics. He stated that when he went home, he was quite weak and was not able to perform activities of daily living and therefore came right back to the hospital. On admission, patient was noted to have low blood pressure with systolic around 101 mmHg. Lasix is currently at 40 mg p.o. b.i.d. His lower extremity edema is stable, somewhat improved, but still present. No significant complaints of chest pains or shortness of breath. No fever or cough noted. No abdominal pain, diarrhea, nausea or vomiting. PAST MEDICAL HISTORY: Chronic kidney disease stage 3, lower extremity cellulitis, chronic edema lower extremities, type 2 diabetes, hypertension, lower extremity cellulitis, coronary artery disease. PAST SURGICAL HISTORY: Appendectomy, cardiac catheterization, carpal tunnel surgery. SOCIAL HISTORY: Negative for smoking, drug abuse or alcohol abuse. MEDICATIONS: Medications prior to admission included Prilosec, Zyloprim, Glucophage, Lipitor, Norvasc, hydralazine, magnesium, Lasix, Keflex. ALLERGIES: Allergies include SULFA, CODEINE, IVORY SOAP. REVIEW OF SYSTEMS: As per HPI. Other systems negative. PHYSICAL EXAMINATION: On examination, patient is comfortable, awake, alert, oriented x3, not in any acute distress. Blood pressure is 143/77, heart rate 59 per minute. He is afebrile. O2 saturations 95% on room air. EXAMINATION OF THE HEART: S1, S2. EXAMINATION OF THE LUNGS: Bilateral breath sounds are heard. Abdomen is soft, nontender. Examination of lower extremities shows chronic skin changes, chronic edema which is somewhat improved. CROWN BUFFER exam is grossly intact. LABS: Labs show sodium 128, potassium 3.6, chloride 89. CO2 is 31, BUN 55, serum creatinine 1.12. ASSESSMENT: 1. Hyponatremia with hyponatremia present on last admission as well which was mostly hypervolemic and the patient is maintained on loop diuretics, which I will continue. He did receive a couple of doses of tolvaptan on his last admission and we can repeat the tolvaptan if his sodium is lower in a.m. I will continue with the oral Lasix for now. 2. Weakness, possibly related to hypotension. The hydralazine has been decreased and we can check orthostatics. Parameters for hydralazine have been added. We may be able to discontinue the Norvasc down the road. 3. History of hyperkalemia previously, now resolved. Potassium is actually on the lower side now associated with diuresis. 4. Lower extremity cellulitis, maintained on antibiotics. PLAN: May continue with oral Lasix for now. Maintain salt restriction. Add tolvaptan if sodium is lower tomorrow. Decrease hydralazine. Consider holding Norvasc if blood pressure remains on the lower side as it can also cause lower extremity edema. Repeat labs in a.m. MMODL / IJN: [id number] /
[2020-08-31 16:46] LABS: Glucose,Whole Blood 191 mg/dL (75-99)
[2020-08-31] MEDS: ACETAMINOPHEN TAB 325 MG TAB PO PRN (17:49)
[2020-08-31 20:31] LABS: Glucose,Whole Blood 151 mg/dL (75-99)
[2020-08-31] MEDS: allopurinoL 100 MG TAB PO SCH (21:09)
[2020-08-31] MEDS: ATORVASTATIN 40 MG TAB PO SCH (21:09)
[2020-08-31] MEDS: hydrALAZINE HCL 25 MG TAB PO SCH (21:09)
[2020-08-31] MEDS: MAGNESIUM OXIDE 400 MG TAB PO SCH (21:10)
[2020-08-31] MEDS: HEPARIN SODIUM,PORCINE 5,000 UNIT/ML 1 ML VIAL SQ SCH (21:15)
[2020-08-31] MEDS: LEVOFLOXACIN 500 MG TAB PO SCH (23:46)
[2020-09-01] MEDS: ACETAMINOPHEN TAB 325 MG TAB PO PRN (00:25)
[2020-09-01 07:05] LABS: Glucose,Whole Blood 134 mg/dL (75-99)
[2020-09-01] MEDS: hydrALAZINE HCL 25 MG TAB PO SCH ×2 (08:14→20:57)
[2020-09-01] MEDS: HEPARIN SODIUM,PORCINE 5,000 UNIT/ML 1 ML VIAL SQ SCH ×2 (08:14→20:56)
[2020-09-01] MEDS: SENNOSIDES-DOCUSATE SODIUM 1 EACH TAB PO SCH (08:14)
[2020-09-01] MEDS: PANTOPRAZOLE 40 MG TABLET PO SCH (08:15)
[2020-09-01] MEDS: amLODIPine 5 MG TAB PO SCH (08:15)
[2020-09-01] MEDS: MAGNESIUM OXIDE 400 MG TAB PO SCH ×2 (08:15→20:57)
[2020-09-01] MEDS: ZINC SULFATE 220 MG CAP PO SCH (08:15)
[2020-09-01] MEDS: FUROSEMIDE 40 MG TAB PO SCH ×2 (08:15→15:21)
[2020-09-01] MEDS: INSULIN PUMP MEAL BOLUS 1 UNIT MISC MISCELLANE SCH ×4 (10:15→21:02)
--- NOTE | 2020-09-01 11:03 | P.PN ---
Subjective Patient is seen in follow-up for acute kidney injury and hyponatremia. Currently maintained on Lasix 40 mg twice daily. Good urine output. Oral i ntake is fair. No vomiting or diarrhea. Vital signs are stable. General: The patient appeared well nourished and normally developed. HEENT: Head exam is unremarkable. Neck is without jugular venous distension. LUNGS: Breath sounds decreased. HEART: Rate and Rhythm are regular. ABDOMEN: Soft, nontender. EXTREMITITES: Chronic changes noted. 2+ edema. No drainage. Objective - Vital Signs Vital signs: Vital Signs Temp 98.1 F 09/01/20 07:57 Pulse 74 09/01/20 07:57 Resp 19 09/01/20 07:57 BP 114/65 09/01/20 07:57 Pulse Ox 97 09/01/20 07:57 Intake & Output 08/31/20 09/01/20 09/01/20 18:59 06:59 18:59 Intake Total 1068 Output Total 400 Balance 1068 -400 Weight 123.377 kg Intake: Oral 1068 Output: Urine 400 Other: Voiding Method Toilet Urinal # Voids 1 - Labs CBC & Chem 7: 08/31/20 05:50 08/31/20 05:50 Labs: Abnormal Lab Results - Last 24 Hours (Table) 08/31/20 08/31/20 08/31/20 Range/Units 11:38 16:46 20:29 POC Glucose (mg/dL) 216 H 191 H 151 H (75-99) mg/dL 09/01/20 Range/Units 07:00 POC Glucose (mg/dL) 134 H (75-99) mg/dL Microbiology - Last 24 Hours (Table) 08/30/20 23:00 Blood Culture - Preliminary Blood No Growth after 24 hours 08/30/20 22:42 Blood Culture - Preliminary Blood No Growth after 24 hours Assessment and Plan Plan: Assessment: 1. Hypervolemic hyponatremia. Today's labs pending. 2. Lower extremity cellulitis maintained on antibiotics. 3. Volume overload. Improving with diuresis. 4. Generalized weakness possibly related to hypotension. 5. Acute on chronic diastolic CHF. 6. Acute kidney injury mostly prerenal secondary to hypotension and cardiorenal syndrome. Creatinine 1.63 on admission and was down to 1.12 as of yesterday. Plan: Maintain Lasix 40 mg twice daily. 1500 mL fluid restriction and low-salt diet. Follow-up morning labs. Hold antihypertensives for systolic blood pressure less than 110. Continue to monitor renal function and urine output.
[2020-09-01 11:08] LABS: African American GFR (CKD) 74 (>60 ml/min/1.73 sqM); Anion Gap 11 mmol/L; Blood Urea Nitrogen 57 mg/dL (9-20); Calcium 8.4 mg/dL (8.4-10.2); Carbon Dioxide 29 mmol/L (22-30); Chloride 87 mmol/L (98-107); Glucose 193 mg/dL (74-99); Magnesium 1.9 mg/dL (1.6-2.3); Non-African American GFR(CKD) 64 (>60 ml/min/1.73 sqM); Potassium 3.7 mmol/L (3.5-5.1); Sodium 127 mmol/L (137-145)
[2020-09-01 11:30] LABS: Glucose,Whole Blood 189 mg/dL (75-99)
[2020-09-01] MEDS: FLUTICASONE 50MCG/SPRAY NASAL 16GM EA NOSTRIL SCH (11:32)
--- NOTE | 2020-09-01 14:49 | P.PN ---
Subjective Progress Note Date: 09/01/20 This is a 70-year-old male patient of Dr. Jacome and Dr. Nila Pena with past medical history of diabetes mellitus type 2, hypertension, hyperlipidemia, chronic kidney disease stage III, chronic lower extremity cellulitis. Patient was discharged home from the hospital on August 29 at which time he was treated for sepsis from lower extremity cellulitis with possible pneumonia, acute hypoxic respiratory failure secondary to atelectasis pleural effusion and acute on chronic diastolic heart failure. The patient states that once he was home he developed weakness in his legs. He states he w as eating and drinking okay. He denies having any palpitations. He's had no increase in the chronic edema of his lower extremities. He denies any headache, no sore throat. He denies having any falls. No back pain. There was concern however for fever of 102 at home. Patient was discharged home on Keflex. Patient presented to [facility] emergency center and he has been afebrile. Heart rate 70s, blood pressure 104/57, pulse ox 93% on room air. Kathy BC initially 25.5, hemoglobin 10.3. Sodium 131, potassium 4.4, chloride 88, CO2 33, BUN 62 and creatinine 1.63. Blood sugar 94. Urinalysis showed trace protein. COVID-19 not detected. Note that at the day of discharge his BUN was 62 and creatinine 1.04. Patient was admitted to the [facility] floor and consult requested with Dr. Chang, and nephrology. Patient was started on Kefzol and Levaquin. Subsequently, influenza testing added. Blood cultures are in progress. 09/01: Patient is not having any significant complaints except for fatigue, no murmur chills, he still has a T-max of 100.2, etiology could still be the leg cellulitis bilaterally, however this is improving, echocardiogram failed to reveal any vegetation, there is no abdominal pain diarrhea, there is no new rashes, patient does not have any sinus infection, no abdominal etiology for the fever, there is no discogenic pain to worry about discitis Dr. Bernardo Oliveira is following, still has hyponatremia of 128, required total BAP 10, on oral L asix. REVIEW OF SYSTEMS Constitutional: No fever, no chills, no night sweats. No weight change. Reports weakness, Reportsfatigue Reports lethargy. No daytime sleepiness. EENT: No headache. No blurred vision or double vision, no loss of vision. No loss of Hearing, no ringing in the ears, no dizziness. No nasal drainage or congestion. No epistaxis. No sore throat. Lungs: No shortness of breath, cough, no sputum production. No wheezing. Cardiovascular: No chest pain, no lower extremity edema. No palpitations. No paroxysmal nocturnal dyspnea. No orthopnea. No lightheadedness or dizziness. No syncopal episodes. Abdominal: No abdominal pain. No nausea, vomiting. No diarrhea. Reports constipation. No bloody or tarry stools. No loss of appetite. Genitourinary: No dysuria, increased frequency, urgency. No urinary retention. Musculoskeletal: No myalgias. Reports muscle weakness, reports gait dysfunction, no frequent falls. No back pain. No neck pain. Integumentary: Chronic lower extremity redness/wounds. No rash or pruritus. No unusual bruising. No change in hair or nails. Neurologic: No aphasia. No facial droop. No change in mentation. No head injury. No headache. No paralysis. No paresthesia. Psychiatric: No depression. No anxiety. Endocrine: No abnormal blood sugars. No weight change. No excessive sweating or thirst. No cold intolerance. Objective - Vital Signs Vital signs: Vital Signs Temp 98.1 F 09/01/20 07:57 Pulse 74 09/01/20 07:57 Resp 19 09/01/20 07:57 BP 114/65 09/01/20 07:57 Pulse Ox 97 09/01/20 07:57 Intake & Output 08/31/20 09/01/20 09/01/20 18:59 06:59 18:59 Intake Total 1068 1080 Output Total 400 1150 Balance 1068 -400 -70 Weight 123.377 kg Intake: Oral 1068 1080 Output: Urine 400 1150 Other: Voiding Method Toilet Urinal # Voids 1 - Constitutional General appearance: Present: cooperative - EENT Eyes: Present: anicteric sclerae, EOMI, PERRLA, dentition normal ENT: Present: NA/AT, normal oropharynx - Neck Neck: Present: normal ROM - Respiratory Respiratory: bilateral: CTA, negative: diminished, dullness - Cardiovascular Rhythm: regular Heart sounds: normal: S1, S2 Abnormal Heart Sounds: Absent: systolic murmur, diastolic murmur, rub, S3 Gallop, S4 Gallop, click, other - Gastrointestinal General gastrointestinal: Present: normal bowel sounds, soft - Integumentary Integumentary: Present: decreased turgor, normal, rash - Neurologic Neurologic: Present: CNII-XII intact - Musculoskeletal Musculoskeletal: Present: gait normal, strength equal bilaterally - Psychiatric Psychiatric: Present: A&O x's 3 - Labs CBC & Chem 7: 08/31/20 05:50 09/01/20 10:42 Labs: Abnormal Lab Results - Last 24 Hours (Table) 08/31/20 08/31/20 09/01/20 Range/Units 16:46 20:29 07:00 Sodium (137-145) mmol/L Chloride (98-107) mmol/L BUN (9-20) mg/dL Glucose (74-99) mg/dL POC Glucose (mg/dL) 191 H 151 H 134 H (75-99) mg/dL 09/01/20 09/01/20 Range/Units 10:42 11:29 Sodium 127 L (137-145) mmol/L Chloride 87 L (98-107) mmol/L BUN 57 H (9-20) mg/dL Glucose 193 H (74-99) mg/dL POC Glucose (mg/dL) 189 H (75-99) mg/dL Microbiology - Last 24 Hours (Table) 08/30/20 23:00 Blood Culture - Preliminary Blood No Growth after 24 hours 08/30/20 22:42 Blood Culture - Preliminary Blood No Growth after 24 hours Assessment and Plan Plan: 1. Acute kidney injury with chronic kidney disease stage III. Baseline creatinine 1.3. Nephrology consult. The following medications were discontinued on previous hospitalization Zaroxolyn, potassium, spironolactone, V asotec. Continue Lasix 40 mg oral twice daily for now. Check for serum protein electrophoresis, and spep VALERIA, joi level 2. Hyponatremia . Consult with nephrology. Status post TOLVAPTAN during the last admission 3. Chronic systolic heart failure, stable. Has +1 dependent edema chronically. Lasix 40 mg twice a day 4. Diabetes mellitus type 2. A1c 7.2 Patient is on insulin pump. Continue patient's insulin pump. 5. Hypertension. Continue amlodipine 5 mg daily, might discontinue amlodipine hydralazine 25 mg twice daily. 6. Sepsis with SIRS recurrent fevers, with recurrent admissions. Sepsis with SIRS, etiology most likely would be from the chronic lower extremity cellulitis Continue sevens ON Levaquin, consult with Dr. Chang. Elevate legs. , Patient might need whirlpool treatments, there is no identifiable abscess that requires IND, 7. Constipation. Senokot 2 tablets daily. Patient is status post 1 dose of oral Kayexalate. 8. Hyperlipidemia. Continue Lipitor 40 mg at bedtime. 9. Chronic gout. Continue allopurinol 100 mg daily. 10. Gastroesophageal reflux disease and GI prophylaxis. Continue Protonix 40 mg daily. 11. DVT prophylaxis. Heparin subcu. Patient will be admitted to the hospital for a minimum of 2 night stay. DISCHARGE PLAN Most likely return home. Consult PT and OT.
[2020-09-01] MEDS: Insulin Aspart (For Pump) 100 UNIT/ML VIAL SQ-PUMP SCH (15:18)
[2020-09-01 16:47] LABS: Glucose,Whole Blood 287 mg/dL (75-99)
[2020-09-01] MEDS ORDERED: TOLVAPTAN 15 MG 1/2 TABLET PO ONE (20:00)
[2020-09-01 20:40] LABS: Glucose,Whole Blood 159 mg/dL (75-99)
[2020-09-01] MEDS: allopurinoL 100 MG TAB PO SCH (20:57)
[2020-09-01] MEDS: ATORVASTATIN 40 MG TAB PO SCH (20:57)
[2020-09-01] MEDS: LEVOFLOXACIN 500 MG TAB PO SCH (23:11)
--- NOTE | 2020-09-01 23:21 | PN ---
PROGRESS NOTE DATE OF SERVICE: 09/01/2020 REASON FOR FOLLOWUP: Bilateral lower extremity cellulitis. INTERVAL HISTORY: Patient is currently afebrile, has been breathing comfortably and is complaining of slight weakness. No chest pain. No shortness of breath or cough. No abdominal pain or any worsening pain to the lower extremity. PHYSICAL EXAMINATION: Blood pressure 128/67, pulse of 69, temperature 98. He is 97% on room air. General description is a middle-aged male up in the chair in no distress. Respiratory system: Unlabored breathing, decreased breath sounds in the bases. Heart S1, S2. Regular rate and rhythm. ABDOMEN: Soft, no tenderness. Lower extremity swelling. Some dry scaly skin. No open wound or any drainage. LABS: No new labs have been obtained today. Blood culture has been negative. DIAGNOSTIC IMPRESSION AND PLAN: Patient with bilateral lower extremity cellulitis in this patient who did have diffuse swelling and redness likely Streptococcal covered with Cefazolin. Local care with Santhosh wrap to keep the swelling down to finish therapy with Keflex. Continue supportive care. MMODL / IJN: [id number] /
[2020-09-02 07:10] LABS: Glucose,Whole Blood 156 mg/dL (75-99)
[2020-09-02] MEDS: INSULIN PUMP MEAL BOLUS 1 UNIT MISC MISCELLANE SCH ×5 (07:54→22:43)
[2020-09-02] MEDS: SENNOSIDES-DOCUSATE SODIUM 1 EACH TAB PO SCH (08:30)
[2020-09-02] MEDS: PANTOPRAZOLE 40 MG TABLET PO SCH (08:31)
[2020-09-02] MEDS: ZINC SULFATE 220 MG CAP PO SCH (08:31)
[2020-09-02] MEDS: FUROSEMIDE 40 MG TAB PO SCH ×2 (08:31→16:45)
[2020-09-02] MEDS: hydrALAZINE HCL 25 MG TAB PO SCH ×2 (08:31→22:41)
[2020-09-02] MEDS: MAGNESIUM OXIDE 400 MG TAB PO SCH ×2 (08:31→22:53)
[2020-09-02] MEDS: amLODIPine 5 MG TAB PO SCH (08:31)
[2020-09-02] MEDS: FLUTICASONE 50MCG/SPRAY NASAL 16GM EA NOSTRIL SCH (08:31)
[2020-09-02] MEDS: HEPARIN SODIUM,PORCINE 5,000 UNIT/ML 1 ML VIAL SQ SCH ×2 (08:31→22:42)
[2020-09-02] MEDS: Insulin Aspart (For Pump) 100 UNIT/ML VIAL SQ-PUMP SCH (08:32)
--- NOTE | 2020-09-02 09:30 | P.PN ---
Subjective Patient is seen in follow-up for acute kidney injury and hyponatremia. Currently maintained on Lasix 40 mg twice daily. Also received a dose of Samsca yesterday. Morning labs pending. Good urine output. Oral intake is fair. No vomiting or diarrhea. Vital signs are stable. General: The patient appeared well nourished and normally developed. HEENT: Head exam is unremarkable. Neck is without jugular venous distension. LUNGS: Breath sounds decreased. HEART: Rate and Rhythm are regular. ABDOMEN: Soft, nontender. EXTREMITITES: Chronic changes noted. 2+ edema. No drainage. Lower extremities wrapped. Objective - Vital Signs Vital signs: Vital Signs Temp 97.9 F 09/02/20 07:51 Pulse 62 09/02/20 07:51 Resp 18 09/02/20 07:51 BP 130/71 09/02/20 07:51 Pulse Ox 97 09/02/20 07:51 Intake & Output 09/01/20 09/02/20 09/02/20 18:59 06:59 18:59 Intake Total 1620 296 Output Total 1150 Balance 470 296 Intake: Oral 1620 296 Output: Urine 1150 Other: # Voids 2 3 - Labs CBC & Chem 7: 08/31/20 05:50 09/01/20 10:42 Labs: Abnormal Lab Results - Last 24 Hours (Table) 09/01/20 09/01/20 09/01/20 Range/Units 10:42 11:29 16:46 Sodium 127 L (137-145) mmol/L Chloride 87 L (98-107) mmol/L BUN 57 H (9-20) mg/dL Glucose 193 H (74-99) mg/dL POC Glucose (mg/dL) 189 H 287 H (75-99) mg/dL 09/01/20 09/02/20 Range/Units 20:37 07:08 Sodium (137-145) mmol/L Chloride (98-107) mmol/L BUN (9-20) mg/dL Glucose (74-99) mg/dL POC Glucose (mg/dL) 159 H 156 H (75-99) mg/dL Microbiology - Last 24 Hours (Table) 08/30/20 23:00 Blood Culture - Preliminary Blood No Growth after 48 hours 08/30/20 22:42 Blood Culture - Preliminary Blood No Growth after 48 hours Assessment and Plan Plan: Assessment: 1. Hypervolemic hyponatremia. Sodium level 127 as of yesterday. Status post S amsca yesterday. 2. Lower extremity cellulitis maintained on antibiotics. 3. Volume overload. Improving with diuresis. 4. Generalized weakness possibly related to hypotension. Blood pressure st able. 5. Acute on chronic diastolic CHF. 6. Acute kidney injury mostly prerenal secondary to hypotension and cardiorenal syndrome. Creatinine 1.63 on admission and was stable at 1.15 as of yesterday. Plan: Maintain Lasix 40 mg twice daily. Low-salt diet. Liberalize fluid restriction to 1800 mL daily. Follow-up morning labs. Hold antihypertensives for systolic blood pressure less than 110. Continue to monitor renal function and urine output.
[2020-09-02 10:00] LABS: Basophils # (A) 0.02 X 10*3/uL (0.00-0.10); Basophils % (A) 0.2 %; Eosinophils # (A) 0.06 X 10*3/uL (0.04-0.35); Eosinophils % (A) 0.6 %; HCT 27.9 % (39.6-50.0); HGB 8.8 g/dL (13.0-17.0); Lymphocytes # (A) 0.88 X 10*3/uL (0.90-5.00); Lymphocytes % (A) 9.4 %; MCH 27.7 pg (27.0-32.0); MCHC 31.5 g/dL (32.0-37.0); MCV 87.7 fL (80.0-97.0); Mean Platelet Volume 11.1 fL (9.5-12.2); Monocytes # (A) 0.83 X 10*3/uL (0.20-1.00); Monocytes % (A) 8.8 %; Neutrophils # (A) 7.25 X 10*3/uL (1.80-7.70); Neutrophils % (A) 77.2 %; Platelet Count 206 X 10*3/uL (140-440); RBC 3.18 X 10*6/uL (4.40-5.60); RDW 14.5 % (11.5-14.5)
[2020-09-02 10:06] LABS: Protein, Total 5.8 g/dL (6.2-8.2)
[2020-09-02 10:09] LABS: African American GFR (CKD) 70.1 (60.0-200.0); Anion Gap 6.3 mmol/L (4.00-12.00); BUN/Creat Ratio 38.33 Ratio (12.00-20.00); C Reactive Protein 13.1 mg/dL (0.0-0.8); Calcium 8.8 mg/dL (8.7-10.3); Carbon Dioxide 31.7 mmol/L (21.6-31.8); Magnesium 1.9 mg/dL (1.5-2.4); Non-African American GFR(CKD) 60.5 (60.0-200.0); Potassium 3.8 mmol/L (3.5-5.5)
[2020-09-02 11:34] LABS: Glucose,Whole Blood 205 mg/dL (75-99)
--- NOTE | 2020-09-02 14:54 | P.PN ---
Subjective Progress Note Date: 09/02/20 This is a 70-year-old male patient of Dr. Jacome and Dr. Nila Pena with past medical history of diabetes mellitus type 2, hypertension, hyperlipidemia, chronic kidney disease stage III, chronic lower extremity cellulitis. Patient was discharged home from the hospital on August 29 at which time he was treated for sepsis from lower extremity cellulitis with possible pneumonia, acute hypoxic respiratory failure secondary to atelectasis pleural effusion and acute on chronic diastolic heart failure. The patient states that once he was home he developed weakness in his legs. He states he w as eating and drinking okay. He denies having any palpitations. He's had no increase in the chronic edema of his lower extremities. He denies any headache, no sore throat. He denies having any falls. No back pain. There was concern however for fever of 102 at home. Patient was discharged home on Keflex. Patient presented to [facility] emergency center and he has been afebrile. Heart rate 70s, blood pressure 104/57, pulse ox 93% on room air. Kathy BC initially 25.5, hemoglobin 10.3. Sodium 131, potassium 4.4, chloride 88, CO2 33, BUN 62 and creatinine 1.63. Blood sugar 94. Urinalysis showed trace protein. COVID-19 not detected. Note that at the day of discharge his BUN was 62 and creatinine 1.04. Patient was admitted to the [facility] floor and consult requested with Dr. Chang, and nephrology. Patient was started on Kefzol and Levaquin. Subsequently, influenza testing added. Blood cultures are in progress. 09/01: Patient is not having any significant complaints except for fatigue, no murmur chills, he still has a T-max of 100.2, etiology could still be the leg cellulitis bilaterally, however this is improving, echocardiogram failed to reveal any vegetation, there is no abdominal pain diarrhea, there is no new rashes, patient does not have any sinus infection, no abdominal etiology for the fever, there is no discogenic pain to worry about discitis Dr. Bernardo Oliveira is following, still has hyponatremia of 128, required total BAP 10, on oral L asix. REVIEW OF SYSTEMS Constitutional: No fever, no chills, no night sweats. No weight change. Reports weakness, Reportsfatigue Reports lethargy. No daytime sleepiness. EENT: No headache. No blurred vision or double vision, no loss of vision. No loss of Hearing, no ringing in the ears, no dizziness. No nasal drainage or congestion. No epistaxis. No sore throat. Lungs: No shortness of breath, cough, no sputum production. No wheezing. Cardiovascular: No chest pain, no lower extremity edema. No palpitations. No paroxysmal nocturnal dyspnea. No orthopnea. No lightheadedness or dizziness. No syncopal episodes. Abdominal: No abdominal pain. No nausea, vomiting. No diarrhea. Reports constipation. No bloody or tarry stools. No loss of appetite. Genitourinary: No dysuria, increased frequency, urgency. No urinary retention. Musculoskeletal: No myalgias. Reports muscle weakness, reports gait dysfunction, no frequent falls. No back pain. No neck pain. Integumentary: Chronic lower extremity redness/wounds. No rash or pruritus. No unusual bruising. No change in hair or nails. Neurologic: No aphasia. No facial droop. No change in mentation. No head injury. No headache. No paralysis. No paresthesia. Psychiatric: No depression. No anxiety. Endocrine: No abnormal blood sugars. No weight change. No excessive sweating or thirst. No cold intolerance. Objective - Vital Signs Vital signs: Vital Signs Temp 97.9 F 09/02/20 07:51 Pulse 62 09/02/20 07:51 Resp 18 09/02/20 07:51 BP 130/71 09/02/20 07:51 Pulse Ox 97 09/02/20 07:51 Intake & Output 09/01/20 09/02/20 09/02/20 18:59 06:59 18:59 Intake Total 1620 296 Output Total 1150 Balance 470 296 Intake: Oral 1620 296 Output: Urine 1150 Other: Voiding Method Toilet Urinal # Voids 2 3 - Constitutional General appearance: Present: cooperative, no acute distress - EENT Eyes: Present: EOMI, PERRLA, dentition normal, normal appearance - Neck Neck: Present: normal ROM - Respiratory Respiratory: bilateral: CTA, negative: diminished, dullness, rales - Cardiovascular Rhythm: regular Heart sounds: normal: S1, S2 Abnormal Heart Sounds: Absent: systolic murmur, diastolic murmur, rub, S3 Gallop, S4 Gallop, click, other - Gastrointestinal General gastrointestinal: Present: normal bowel sounds, soft - Integumentary Integumentary: Present: decreased turgor, normal - Musculoskeletal Musculoskeletal: Present: gait normal, strength equal bilaterally ( ) - Psychiatric Psychiatric: Present: A&O x's 3, intact judgment & insight - Labs CBC & Chem 7: 09/02/20 05:57 09/02/20 05:57 Labs: Abnormal Lab Results - Last 24 Hours (Table) 09/01/20 09/01/20 09/02/20 Range/Units 16:46 20:37 05:57 RBC (4.40-5.60) X 10*6/uL Hgb (13.0-17.0) g/dL Hct (39.6-50.0) % MCHC (32.0-37.0) g/dL Immature Gran # (0.00-0.04) X 10*3/uL Lymphocytes # (0.90-5.00) X 10*3/uL Sodium (135-145) mmol/L Chloride (96-109) mmol/L BUN (9.0-27.0) mg/dL BUN/Creatinine Ratio (12.00-20.00) Ratio Glucose (70-110) mg/dL POC Glucose (mg/dL) 287 H 159 H (75-99) mg/dL C-Reactive Protein (0.0-0.8) mg/dL Total Protein (PEP) 5.8 L (6.2-8.2) g/dL 09/02/20 09/02/20 09/02/20 Range/Units 05:57 05:57 07:08 RBC 3.18 L (4.40-5.60) X 10*6/uL Hgb 8.8 L (13.0-17.0) g/dL Hct 27.9 L (39.6-50.0) % MCHC 31.5 L (32.0-37.0) g/dL Immature Gran # 0.36 H (0.00-0.04) X 10*3/uL Lymphocytes # 0.88 L (0.90-5.00) X 10*3/uL Sodium 132 L (135-145) mmol/L Chloride 94 L (96-109) mmol/L BUN 46.0 H (9.0-27.0) mg/dL BUN/Creatinine Ratio 38.33 H (12.00-20.00) Ratio Glucose 141 H (70-110) mg/dL POC Glucose (mg/dL) 156 H (75-99) mg/dL C-Reactive Protein 13.1 H (0.0-0.8) mg/dL Total Protein (PEP) (6.2-8.2) g/dL 09/02/20 Range/Units 11:33 RBC (4.40-5.60) X 10*6/uL Hgb (13.0-17.0) g/dL Hct (39.6-50.0) % MCHC (32.0-37.0) g/dL Immature Gran # (0.00-0.04) X 10*3/uL Lymphocytes # (0.90-5.00) X 10*3/uL Sodium (135-145) mmol/L Chloride (96-109) mmol/L BUN (9.0-27.0) mg/dL BUN/Creatinine Ratio (12.00-20.00) Ratio Glucose (70-110) mg/dL POC Glucose (mg/dL) 205 H (75-99) mg/dL C-Reactive Protein (0.0-0.8) mg/dL Total Protein (PEP) (6.2-8.2) g/dL Microbiology - Last 24 Hours (Table) 08/30/20 23:00 Blood Culture - Preliminary Blood No Growth after 48 hours 08/30/20 22:42 Blood Culture - Preliminary Blood No Growth after 48 hours Assessment and Plan Plan: 1 Sepsis with SIRS recurrent fevers, with recurrent admissions. Sepsis with SIRS, etiology most likely would be from the chronic lower extremity cellulitis Continue sevens ON Levaquin, consult with Dr. Chang. Elevate legs. , Patient might need whirlpool treatments, there is no identifiable abscess that requires IND, 2 Acute kidney injury with chronic kidney disease stage III. Baseline creatinine 1.3. Nephrology consult. The following medications were discontinued on previous hospitalization Zaroxolyn, potassium, spironolactone, Vasotec. Continue Lasix 40 mg oral twice daily for now. Check for serum protein electrophoresis, and spep VALERIA, santhosh level 3. Chronic cellulitis suspected streptococcal, bilateral legs, with chronic dependent edema, Santhosh wrap, diuretics, Dr. Chang, on Kefzol and Levaquin failed Kefzol on the last admission for discharge. 4 Hyponatremia . Consult with nephrology. Status post TOLVAPTAN during the last admission 5 Chronic systolic heart failure, stable. Has +1 dependent edema chronically. Lasix 40 mg twice a day 6 Diabetes mellitus type 2. A1c 7.2 Patient is on insulin pump. Continue patient's insulin pump. 7. Hypertension. Continue amlodipine 5 mg daily, might discontinue amlodipine hydralazine 25 mg twice daily. 8. Constipation. Senokot 2 tablets daily. Patient is status post 1 dose of oral Kayexalate. 9. Hyperlipidemia. Continue Lipitor 40 mg at bedtime. 9. Chronic gout. Continue allopurinol 100 mg daily. 10. Gastroesophageal reflux disease and GI prophylaxis. Continue Protonix 40 mg daily. 11. DVT prophylaxis. Heparin subcu. Patient will be admitted to the hospital for a minimum of 2 night stay. DISCHARGE PLAN Most likely return home. Consult PT and OT.
[2020-09-02 16:39] LABS: Glucose,Whole Blood 306 mg/dL (75-99)
[2020-09-02 21:03] LABS: Glucose,Whole Blood 214 mg/dL (75-99)
--- NOTE | 2020-09-02 22:28 | PN ---
PROGRESS NOTE DATE OF SERVICE: 09/02/2020 REASON FOR FOLLOWUP: Bilateral lower extremity cellulitis. INTERVAL HISTORY: Patient is currently afebrile. The patient is breathing comfortably. The patient denies having any chest pain. No shortness of breath. Occasional cough. No abdominal pain or pain to the lower extremity. PHYSICAL EXAMINATION: Blood pressure 122/69, pulse of 76, temperature 98.1. He is 97% on room air. General description: The patient is an elderly male up in the chair in no distress. Respiratory system: Unlabored breathing. Clear to auscultation anteriorly. Heart S1, S2. Regular rate and rhythm. Abdomen soft, no tenderness. Legs: Currently wrapped up. No obvious drainage on the dressing. LABS: Hemoglobin is 8.8, white count 9.0, BUN of 46, creatinine 1.2. DIAGNOSTIC IMPRESSION AND PLAN: Patient with bilateral lower extremity cellulitis. Patient is covered with cefazolin to continue along with Santhosh wrap to keep the swelling down and monitor clinical course closely. MMODL / IJN: [id number] /
[2020-09-02] MEDS: allopurinoL 100 MG TAB PO SCH (22:41)
[2020-09-02] MEDS: ATORVASTATIN 40 MG TAB PO SCH (22:41)
[2020-09-02] MEDS: LEVOFLOXACIN 500 MG TAB PO SCH (22:41)
[2020-09-03 06:31] VITALS: TEMP 97.5
[2020-09-03 07:34] LABS: Glucose,Whole Blood 72 mg/dL (75-99)
[2020-09-03] MEDS: INSULIN PUMP MEAL BOLUS 1 UNIT MISC MISCELLANE SCH ×2 (08:04→14:03)
[2020-09-03 08:26] VITALS: BP 161/66; PULSE 54; RESP 20
[2020-09-03] MEDS: PANTOPRAZOLE 40 MG TABLET PO SCH (08:29)
[2020-09-03] MEDS: ZINC SULFATE 220 MG CAP PO SCH (08:29)
[2020-09-03] MEDS: HEPARIN SODIUM,PORCINE 5,000 UNIT/ML 1 ML VIAL SQ SCH (08:29)
[2020-09-03] MEDS: FUROSEMIDE 40 MG TAB PO SCH (08:29)
[2020-09-03] MEDS: amLODIPine 5 MG TAB PO SCH (08:29)
[2020-09-03] MEDS: hydrALAZINE HCL 25 MG TAB PO SCH (08:29)
[2020-09-03] MEDS: MAGNESIUM OXIDE 400 MG TAB PO SCH (08:29)
[2020-09-03] MEDS: SENNOSIDES-DOCUSATE SODIUM 1 EACH TAB PO SCH (08:29)
[2020-09-03] MEDS: FLUTICASONE 50MCG/SPRAY NASAL 16GM EA NOSTRIL SCH (08:32)
[2020-09-03] MEDS: Insulin Aspart (For Pump) 100 UNIT/ML VIAL SQ-PUMP SCH (08:33)
[2020-09-03 09:30] LABS: Basophils # (A) 0.02 X 10*3/uL (0.00-0.10); Basophils % (A) 0.2 %; Eosinophils # (A) 0.07 X 10*3/uL (0.04-0.35); Eosinophils % (A) 0.8 %; HCT 30.5 % (39.6-50.0); HGB 9.7 g/dL (13.0-17.0); Lymphocytes # (A) 1.41 X 10*3/uL (0.90-5.00); Lymphocytes % (A) 16.2 %; MCHC 31.8 g/dL (32.0-37.0); MCV 88.2 fL (80.0-97.0); Mean Platelet Volume 11.4 fL (9.5-12.2); Monocytes # (A) 1.13 X 10*3/uL (0.20-1.00); Neutrophils # (A) 5.65 X 10*3/uL (1.80-7.70); Platelet Count 217 X 10*3/uL (140-440); RBC 3.46 X 10*6/uL (4.40-5.60); RDW 14.4 % (11.5-14.5)
[2020-09-03 09:34] LABS: African American GFR (CKD) >90 (>60 ml/min/1.73 sqM); Anion Gap 10 mmol/L; Blood Urea Nitrogen 38 mg/dL (9-20); Calcium 9.4 mg/dL (8.4-10.2); Carbon Dioxide 30 mmol/L (22-30); Chloride 95 mmol/L (98-107); Glucose 60 mg/dL (74-99); Non-African American GFR(CKD) 85 (>60 ml/min/1.73 sqM); Potassium 4.2 mmol/L (3.5-5.1); Sodium 135 mmol/L (137-145)
[2020-09-03 11:41] LABS: Glucose,Whole Blood 135 mg/dL (75-99)
--- NOTE | 2020-09-03 11:43 | P.PN ---
Subjective Patient is seen in follow-up for acute kidney injury and hyponatremia. Currently maintained on Lasix 40 mg twice daily. Sodium level normal today. Good urine output. Oral intake is fair. No vomiting or diarrhea. GFR at baseline. Vital signs are stable. General: The patient appeared well nourished and normally developed. HEENT: Head exam is unremarkable. Neck is without jugular venous distension. LUNGS: Breath sounds decreased. HEART: Rate and Rhythm are regular. ABDOMEN: Soft, nontender. EXTREMITITES: Chronic changes noted. 2+ edema. No drainage. Lower extremities wrapped. Objective - Vital Signs Vital signs: Vital Signs Temp 97.5 F L 09/03/20 08:00 Pulse 54 L 09/03/20 08:00 Resp 20 09/03/20 08:00 BP 161/66 09/03/20 08:00 Pulse Ox 99 09/03/20 08:00 Intake & Output 09/02/20 09/03/20 09/03/20 18:59 06:59 18:59 Intake Total 540 Balance 540 Intake: Oral 540 Other: Voiding Method Toilet Toilet Toilet Urinal # Voids 3 3 - Labs CBC & Chem 7: 09/03/20 06:21 09/03/20 06:21 Labs: Abnormal Lab Results - Last 24 Hours (Table) 09/02/20 09/02/20 09/03/20 Range/Units 16:36 20:57 06:21 RBC 3.46 L (4.40-5.60) X 10*6/uL Hgb 9.7 L (13.0-17.0) g/dL Hct 30.5 L (39.6-50.0) % MCHC 31.8 L (32.0-37.0) g/dL Immature Gran # 0.42 H (0.00-0.04) X 10*3/uL Monocytes # 1.13 H (0.20-1.00) X 10*3/uL Sodium (137-145) mmol/L Chloride (98-107) mmol/L BUN (9-20) mg/dL Glucose (74-99) mg/dL POC Glucose (mg/dL) 306 H 214 H (75-99) mg/dL 09/03/20 09/03/20 09/03/20 Range/Units 06:21 07:28 11:38 RBC (4.40-5.60) X 10*6/uL Hgb (13.0-17.0) g/dL Hct (39.6-50.0) % MCHC (32.0-37.0) g/dL Immature Gran # (0.00-0.04) X 10*3/uL Monocytes # (0.20-1.00) X 10*3/uL Sodium 135 L (137-145) mmol/L Chloride 95 L (98-107) mmol/L BUN 38 H (9-20) mg/dL Glucose 60 L (74-99) mg/dL POC Glucose (mg/dL) 72 L 135 H (75-99) mg/dL Microbiology - Last 24 Hours (Table) 08/30/20 23:00 Blood Culture - Preliminary Blood No Growth after 72 hours 08/30/20 22:42 Blood Culture - Preliminary Blood No Growth after 72 hours Assessment and Plan Plan: Assessment: 1. Hypervolemic hyponatremia. Sodium level 135. Status post [facility] on September 01. 2. Lower extremity cellulitis maintained on antibiotics. 3. Volume overload. Improving with diuresis. 4. Generalized weakness possibly related to hypotension. Blood pressure stable. 5. Acute on chronic diastolic CHF. 6. Acute kidney injury mostly prerenal secondary to hypotension and cardiorenal syndrome. Creatinine 1.63 on admission and is down to 0.9 today. Plan: Maintain Lasix 40 mg twice daily. Maintain low salt diet and fluid restriction. Hold antihypertensives for systolic blood pressure less than 110. Continue to monitor renal function and urine output.
[2020-09-03 14:17] LABS: Albumin 2.73 g/dL (3.80-4.90); Gamma Globulin 0.96 g/dL (0.70-1.50)
--- NOTE | 2020-09-03 14:24 | PN ---
PROGRESS NOTE DATE OF SERVICE: 09/03/2020 REASON FOR FOLLOWUP: Bilateral lower extremity cellulitis. INTERVAL HISTORY: The patient is currently afebrile. Patient is breathing comfortably. Patient denies having any chest pain or any cough. No nausea, no vomiting. No abdominal pain or pain to the lower extremity, now complaining of some dryness and itching. PHYSICAL EXAMINATION: Blood pressure 161/66, pulse of 54, temperature 97.5. He is 99% on room air. General description is an elderly male up in the chair in no distress. RESPIRATORY SYSTEM: Unlabored breathing, decreased breath sounds at bases. No wheeze. HEART: S1, S2. Regular rate and rhythm. ABDOMEN: Soft, no tenderness. LEGS: Currently wrapped up. Overall swelling has decreased. LABS: Hemoglobin 9.7, white count 8.7, BUN of 38, creatinine 0.91. DIAGNOSTIC IMPRESSION AND PLAN: Patient with bilateral lower extremity cellulitis. The patient did have diffuse swelling with overall improvement with cefazolin, to finish therapy with oral Keflex. Continue with supportive care. MMODL / IJN: [id number] /
== END 2020-09-03 15:33 | disposition home or self-care (01) | DRG 871 ==
LOC: EC 19:13 → 4SSUR 22:41
PROVIDERS: ADMIT Family Medicine; ATTEND Family Medicine
DX: A41.9 Sepsis, unspecified organism (principal); I50.43 Acute on chronic combined systolic (congestive) and diastolic (congestive) heart failure; E87.1 Hypo-osmolality and hyponatremia; I13.0 Hypertensive heart and chronic kidney disease with heart failure and stage 1 through stage 4 chronic kidney disease, or unspecified chronic kidney disease; L03.115 Cellulitis of right lower limb; L03.116 Cellulitis of left lower limb; N17.9 Acute kidney failure, unspecified; E11.22 Type 2 diabetes mellitus with diabetic chronic kidney disease; E78.5 Hyperlipidemia, unspecified; E86.0 Dehydration; I25.10 Atherosclerotic heart disease of native coronary artery without angina pectoris; K59.00 Constipation, unspecified; M1A.9XX0 Chronic gout, unspecified, without tophus (tophi); Z96.41 Presence of insulin pump (external) (internal); K21.9 Gastro-esophageal reflux disease without esophagitis; N18.30 Chronic kidney disease, stage 3 unspecified; Z20.822 Contact with and (suspected) exposure to COVID-19; Z79.4 Long term (current) use of insulin; Z79.899 Other long term (current) drug therapy; Z80.1 Family history of malignant neoplasm of trachea, bronchus and lung; Z82.5 Family history of asthma and other chronic lower respiratory diseases
CPT/HCPCS: 36415; 71046; 80048; 80053; 81003; 82164; 83605; 83735; 84165; 84484; 85025; 85610; 85730; 86038; 86140; 86334; 87040; 87502; 87635; 93005; 96365; 99285

== ENCOUNTER 2021-08-05 12:02 | Observation (INO) | payer MEDICARE ==
[2021-08-05 17:28] LABS: Appearance,Urine Clear (Clear); Bilirubin,Urine Negative (Negative); Blood,Urine Negative (Negative); Color,Urine Light Yellow; Glucose,Urine (UA) Negative (Negative); Ketones,Urine Negative (Negative); Leukocyte Esterase,Urine Negative (Negative); Nitrite,Urine Negative (Negative); PH, Urine 6.5 (5.0-8.0); Protein,Urine Trace (Negative); Specific Gravity,Urine 1.009 (1.001-1.035); Urobilinogen,Urine <2.0 mg/dL (<2.0)
[2021-08-05 17:38] LABS: Glucose,Whole Blood 194 mg/dL (75-99)
--- NOTE | 2021-08-05 17:44 | XR ---
EXAMINATION TYPE: XR chest 2V DATE OF EXAM: 08/05/2021 COMPARISON: NONE HISTORY: Short of breath. Chest pain TECHNIQUE: 2 views FINDINGS: there is slight elevated left diaphragm. There is mild linear density left lung base. Heart size is n ormal. There are no hilar masses. IMPRESSION: There are some mild atelectasis at the left lung base similar to the old exam. No heart f ailure. Normal heart.
[2021-08-05 17:45] LABS: Anisocytosis Slight; Basophils % (A) 0 %; Eosinophils % (A) 1 %; HCT 22.1 % (39.0-53.0); Hypochromasia Marked; Lymphocytes # (A) 1.1 k/uL (1.0-4.8); Lymphocytes % (A) 15 %; MCH 23.4 pg (25.0-35.0); MCHC 30.3 g/dL (31.0-37.0); MCV 77.4 fL (80.0-100.0); Mean Platelet Volume 8.7; Microcytosis Slight; Monocytes # (A) 0.5 k/uL (0-1.0); Monocytes % (A) 7 %; Neutrophils # (A) 5.2 k/uL (1.3-7.7); Neutrophils % (A) 73 %; Platelet Count 245 k/uL (150-450); Poikilocytosis Marked; RBC 2.85 m/uL (4.30-5.90); RDW 18.8 % (11.5-15.5); WBC 7.1 k/uL (3.8-10.6)
[2021-08-05 17:55] LABS: HGB 6.7 gm/dL (13.0-17.5)
[2021-08-05 17:55] LABS: Partial Thromboplastin Time 25.4 sec (22.0-30.0)
[2021-08-05 18:06] LABS: Albumin 4.2 g/dL (3.5-5.0); Calcium 9.7 mg/dL (8.4-10.2); Potassium 3.6 mmol/L (3.5-5.1); Total Bilirubin 0.5 mg/dL (0.2-1.3); Total Protein 7.3 g/dL (6.3-8.2)
[2021-08-05 18:27] LABS: Stomatocytes Present
[2021-08-05 18:28] LABS: Ovalocytes Present
[2021-08-05] MEDS ORDERED: NALOXONE 0.4 MG/ML 1 ML VIAL IV PRN (18:56)
--- NOTE | 2021-08-05 20:45 | ED ---
General Adult HPI - General Chief complaint: Shortness of Breath Stated complaint: chest congestion, SOB Time Seen by Provider: 08/05/21 16:27 Source: patient, RN notes reviewed, old records reviewed Mode of arrival: wheelchair Limitations: no limitations - History of Present Illness Initial comments: Patient is a 71-year-old male with past medical history remarkable for a microcytic anemia, CAD, diabetes, hypertension, atrial fibrillation on Eliquis who presents emergency Department complaining of worsening shortness of breath over the last 5 days. Patient was vaccinated for COVID-19. Nurse's worsening exertional shortness breath, as well as occasional lightheadedness over the last 5 days. Denies any worsening lower extremity edema. Denies any cough, fevers, chills. Denies any chest pain, abdominal pain, nausea, vomiting. Denies any diarrhea. Denies any blood in her stool or urine. His no urinary complaints. Denies any blurry vision. Denies any syncopal episodes. Has no other acute complaint at this time. I evaluated the patient when he was placed in a room. - Related Data Home Medications Medication Instructions Recorded Confirmed Omeprazole [PriLOSEC] 20 mg PO DAILY 08/09/15 08/05/21 allopurinoL [Zyloprim] 200 mg PO HS 08/09/15 08/05/21 metFORMIN HCL [Glucophage] 1,000 mg PO BID 07/15/16 08/05/21 Atorvastatin [Lipitor] 40 mg PO HS 06/01/18 08/05/21 Insulin Aspart (For Pump) [NovoLOG 0.01 unit SQ-PUMP CONTINUOUS 07/23/20 08/05/21 (For Pump)] Zinc 100 mg PO DAILY 07/23/20 08/05/21 Furosemide [Lasix] 40 mg PO BID 08/25/20 08/05/21 Sennosides-Docusate Sodium 2 tab PO DAILY 08/25/20 08/05/21 [Senokot-S] Apixaban [Eliquis] 5 mg PO BID 11/20/20 08/05/21 Cholecalciferol [Vitamin D3 (25 25 mcg PO HS 08/05/21 08/05/21 Mcg = 1000 Iu)] Magnesium 250 mg PO DAILY 08/05/21 08/05/21 metOLazone 2.5 mg PO Q48H 08/05/21 08/05/21 Previous Rx's Medication Instructions Recorded hydrALAZINE HCL [Apresoline] 25 mg PO TID #90 tab 07/26/20 Allergies Allergy/AdvReac Type Severity Reaction Status Date / Time Sulfa (Sulfonamide Allergy Rash/Hives Verified 08/05/21 19:03 Antibiotics) codeine AdvReac Unknown Verified 08/05/21 19:03 ivory soap Allergy Rash/Hives Uncoded 08/05/21 19:03 Review of Systems ROS Statement: Those systems with pertinent positive or pertinent negative responses have been documented in the HPI. Review of Systems: CONST: Denies fever EYES: Denies blurry vision ENT: Denies nasal congestion C/V: Denies Chest pain RESP: Endorses shortness of breath GI: Denies abdominal pain : Denies dysuria SKIN: Denies rash. MSK: Denies joint pain. NEURO: Denies headache ROS Other: All systems not noted in ROS Statement are negative. Past Medical History Past Medical History: Blood Disorder, Coronary Artery Disease (CAD), Diabetes Me llitus, Hyperlipidemia, Hypertension, Osteoarthritis (OA), Skin Disorder Additional Past Medical History / Comment(s): wounds on both legs and swelling of the legs-treated for cellulitis Jul-2020. ANEMIA. History of Any Multi-Drug Resistant Organisms: None Reported Past Surgical History: Appendectomy, Heart Catheterization Additional Past Surgical History / Comment(s): carpal tunnel surgery Past Anesthesia/Blood Transfusion Reactions: No Reported Reaction Past Psychological History: No Psychological Hx Reported Smoking Status: Never smoker Past Alcohol Use History: None Reported Past Drug Use History: None Reported - Past Family History Mother Family Medical History: Cancer, Thyroid Disorder Additional Family Medical History / Comment(s): of lung infection age 59 Brother(s) Family Medical History: COPD, Respiratory Disorder Additional Family Medical History / Comment(s): hx agent orange. Still living age 65 now General Exam - General Exam Comments Initial Comments: General: Appears in no acute distress. HEAD: Normal with no signs of head trauma. EYES: PERRLA, EOMI, conjunctiva normal, no discharge. ENT: Hearing grossly intact, normal oropharynx. RESPIRATORY: Clear breath sounds bilaterally. No wheezes, rales, or rhonchi. C/V: Irregular rate and rhythm. S1 and S2 auscultated. Patient does have stable pitting edema bilaterally, approximately 1+ and bilateral lower extremities. Peripheral pulses are 2+ intact throughout. ABD: Abd is soft, nontender, nondistended EXT: Normal range of motion, no obvious deformity SKIN: Patient does have some skin changes secondary to venous stasis and lower extremities but no signs of acute infection. NEURO: I alert and oriented 4. No focal deficits. Limitations: no limitations Course Vital Signs 08/05/21 08/05/21 12:24 16:38 Temperature 97.6 F Pulse Rate 54 L 57 L Respiratory 20 20 Rate Blood Pressure 142/51 162/48 O2 Sat by Pulse 100 98 Oximetry Medical Decision Making - Medical Decision Making Based on the patient's presentation and physical exam, I cannot rule out possible cardiopulmonary cause for his current symptoms. Patient also has a history of anemia and has recurred transfusion past. His no signs of bleeding per patient. Patient is taking his blood thinner as prescribed and has not missed any doses. Therefore we will obtain cardiac work up, COVID-19 swab, fecal occult blood sample. Chest x-ray and EKG will also be obtained. He was in agreement this plan. Patient's EKG shows no signs of acute ischemia, but rate controlled atrial fibrillation/flutter. Chest x-ray revealed no acute cardiopulmonary process. Laboratory studies are remarkable for a microcytic anemia with a hemoglobin was 6.7 and MCV of 77.4. Troponin is within normal limits at 0.02. BNP is within normal limits at 248. Urinalysis is unremarkable, Covid is negative, SOB T is negative. On reevaluation, I believe he is experiencing symptomatic anemia which is chronic for the patient. I did discuss this with the patient and he consented to blood transfusion. We will admit to the hospital for further evaluation. Patient will be transfused 1 unit of packed red blood cells here in the department. No suspicion for GI bleed or bleeding at this time. We'll continue his home medications. We did discuss his symptomatic anemia, and he states that he has required multiple blood transfusions in the past. There is no bleeding for the patient. He otherwise remained stable. Last hemoglobin here was found to be 11. No signs of acute GI bleed or other source of bleed at this time. I spoke with the admitting physician, Dr. Deng who was in agreement this plan. Patient was therefore admitted in stable condition. - Lab Data Result diagrams: 08/05/21 17:35 08/05/21 17:42 Lab Results 08/05/21 08/05/21 08/05/21 Range/Units 17:03 17:03 17:35 WBC 7.1 (3.8-10.6) k/uL RBC 2.85 L (4.30-5.90) m/uL Hgb 6.7 L* (13.0-17.5) gm/dL Hct 22.1 L (39.0-53.0) % MCV 77.4 L (80.0-100.0) fL MCH 23.4 L (25.0-35.0) pg MCHC 30.3 L (31.0-37.0) g/dL RDW 18.8 H (11.5-15.5) % Plt Count 245 (150-450) k/uL MPV 8.7 Neutrophils % 73 % Lymphocytes % 15 % Monocytes % 7 % Eosinophils % 1 % Basophils % 0 % Neutrophils # 5.2 (1.3-7.7) k/uL Lymphocytes # 1.1 (1.0-4.8) k/uL Monocytes # 0.5 (0-1.0) k/uL Eosinophils # 0.0 (0-0.7) k/uL Basophils # 0.0 (0-0.2) k/uL Manual Slide Review Performed Hypochromasia Marked Poikilocytosis Marked Anisocytosis Slight Microcytosis Slight Ovalocytes Present Stomatocytes Present PT (9.0-12.0) sec INR (<1.2) APTT (22.0-30.0) sec Sodium (137-145) mmol/L Potassium (3.5-5.1) mmol/L Chloride (98-107) mmol/L Carbon Dioxide (22-30) mmol/L Anion Gap mmol/L BUN (9-20) mg/dL Creatinine (0.66-1.25) mg/dL Est GFR (CKD-EPI)AfAm (>60 ml/min/1.73 sqM) Est GFR (CKD-EPI)NonAf (>60 ml/min/1.73 sqM) Glucose (74-99) mg/dL POC Glucose (mg/dL) (75-99) mg/dL POC Glu Security Supervisor ID Calcium (8.4-10.2) mg/dL Total Bilirubin (0.2-1.3) mg/dL AST (17-59) U/L ALT (4-49) U/L Alkaline Phosphatase (38-126) U/L Troponin I (0.000-0.034) ng/mL NT-Pro-B Natriuret Pep pg/mL Total Protein (6.3-8.2) g/dL Albumin (3.5-5.0) g/dL Urine Color Light Yellow Urine Appearance Clear (Clear) Urine pH 6.5 (5.0-8.0) Ur Specific [place] 1.009 (1.001-1.035) Urine Protein Trace H (Negative) Urine Glucose (UA) Negative (Negative) Urine Ketones Negative (Negative) Urine Blood Negative (Negative) Urine Nitrite Negative (Negative) Urine Bilirubin Negative (Negative) Urine Urobilinogen <2.0 (<2.0) mg/dL Ur Leukocyte Esterase Negative (Negative) Stool Occult Blood (Negative) Coronavirus (PCR) Not Detected (Not Detectd) 08/05/21 08/05/21 08/05/21 Range/Units 17:37 17:42 17:42 WBC (3.8-10.6) k/uL RBC (4.30-5.90) m/uL Hgb (13.0-17.5) gm/dL Hct (39.0-53.0) % MCV (80.0-100.0) fL MCH (25.0-35.0) pg MCHC (31.0-37.0) g/dL RDW (11.5-15.5) % Plt Count (150-450) k/uL MPV Neutrophils % % Lymphocytes % % Monocytes % % Eosinophils % % Basophils % % Neutrophils # (1.3-7.7) k/uL Lymphocytes # (1.0-4.8) k/uL Monocytes # (0-1.0) k/uL Eosinophils # (0-0.7) k/uL Basophils # (0-0.2) k/uL Manual Slide Review Hypochromasia Poikilocytosis Anisocytosis Microcytosis Ovalocytes Stomatocytes PT 11.0 (9.0-12.0) sec INR 1.0 (<1.2) APTT 25.4 (22.0-30.0) sec Sodium 131 L (137-145) mmol/L Potassium 3.6 (3.5-5.1) mmol/L Chloride 92 L (98-107) mmol/L Carbon Dioxide 26 (22-30) mmol/L Anion Gap 13 mmol/L BUN 60 H (9-20) mg/dL Creatinine 1.07 (0.66-1.25) mg/dL Est GFR (CKD-EPI)AfAm 80 (>60 ml/min/1.73 sqM) Est GFR (CKD-EPI)NonAf 70 (>60 ml/min/1.73 sqM) Glucose 171 H (74-99) mg/dL POC Glucose (mg/dL) 194 H (75-99) mg/dL POC Glu Security Supervisor ID Frantz Mahmood Calcium 9.7 (8.4-10.2) mg/dL Total Bilirubin 0.5 (0.2-1.3) mg/dL AST 23 (17-59) U/L ALT 16 (4-49) U/L Alkaline Phosphatase 74 (38-126) U/L Troponin I (0.000-0.034) ng/mL NT-Pro-B Natriuret Pep pg/mL Total Protein 7.3 (6.3-8.2) g/dL Albumin 4.2 (3.5-5.0) g/dL Urine Color Urine Appearance (Clear) Urine pH (5.0-8.0) Ur Specific [place] (1.001-1.035) Urine Protein (Negative) Urine Glucose (UA) (Negative) Urine Ketones (Negative) Urine Blood (Negative) Urine Nitrite (Negative) Urine Bilirubin (Negative) Urine Urobilinogen (<2.0) mg/dL Ur Leukocyte Esterase (Negative) Stool Occult Blood (Negative) Coronavirus (PCR) (Not Detectd) 08/05/21 08/05/21 08/05/21 Range/Units 17:42 18:01 18:10 WBC (3.8-10.6) k/uL RBC (4.30-5.90) m/uL Hgb (13.0-17.5) gm/dL Hct (39.0-53.0) % MCV (80.0-100.0) fL MCH (25.0-35.0) pg MCHC (31.0-37.0) g/dL RDW (11.5-15.5) % Plt Count (150-450) k/uL MPV Neutrophils % % Lymphocytes % % Monocytes % % Eosinophils % % Basophils % % Neutrophils # (1.3-7.7) k/uL Lymphocytes # (1.0-4.8) k/uL Monocytes # (0-1.0) k/uL Eosinophils # (0-0.7) k/uL Basophils # (0-0.2) k/uL Manual Slide Review Hypochromasia Poikilocytosis Anisocytosis Microcytosis Ovalocytes Stomatocytes PT (9.0-12.0) sec INR (<1.2) APTT (22.0-30.0) sec Sodium (137-145) mmol/L Potassium (3.5-5.1) mmol/L Chloride (98-107) mmol/L Carbon Dioxide (22-30) mmol/L Anion Gap mmol/L BUN (9-20) mg/dL Creatinine (0.66-1.25) mg/dL Est GFR (CKD-EPI)AfAm (>60 ml/min/1.73 sqM) Est GFR (CKD-EPI)NonAf (>60 ml/min/1.73 sqM) Glucose (74-99) mg/dL POC Glucose (mg/dL) (75-99) mg/dL POC Glu Security Supervisor ID Calcium (8.4-10.2) mg/dL Total Bilirubin (0.2-1.3) mg/dL AST (17-59) U/L ALT (4-49) U/L Alkaline Phosphatase (38-126) U/L Troponin I 0.020 (0.000-0.034) ng/mL NT-Pro-B Natriuret Pep 248 pg/mL Total Protein (6.3-8.2) g/dL Albumin (3.5-5.0) g/dL Urine Color Urine Appearance (Clear) Urine pH (5.0-8.0) Ur Specific [place] (1.001-1.035) Urine Protein (Negative) Urine Glucose (UA) (Negative) Urine Ketones (Negative) Urine Blood (Negative) Urine Nitrite (Negative) Urine Bilirubin (Negative) Urine Urobilinogen (<2.0) mg/dL Ur Leukocyte Esterase (Negative) Stool Occult Blood Negative (Negative) Coronavirus (PCR) (Not Detectd) - EKG Data -: EKG Interpreted by Me EKG Comments: 12-lead Electrocardiogram Interpretation Note EKG was reviewed and interpreted by myself. 12-lead ECG performed at 1231 is interpreted by me as revealing atrial fibrillation/flutter that is rate controlled at a rate of 52 beats per minute.. Nenzel is normal. TX interval is unobtainable, QRS duration is 126 ms, QTc is 431 ms.. There were no ST or T wave abnormalities to suggest myocardial ischemia or injury. R wave progression across the precordium was satisfactory. By my interpretation this EKG is non- diagnostic for acute ischemia. Disposition Clinical Impression: Dyspnea, Symptomatic anemia, Atrial fibrillation, Microcytic anemia Disposition: ADMITTED IP TO THIS HOSP Condition: Stable
[2021-08-05] MEDS ORDERED: allopurinoL 100 MG TAB PO SCH (21:00)
[2021-08-05] MEDS ORDERED: ATORVASTATIN 40 MG TAB PO SCH (21:00)
[2021-08-05] MEDS ORDERED: CHOLECALCIFEROL 25 MCG (1000 IU) TABLET PO SCH (21:00)
[2021-08-05 22:42] LABS: Glucose,Whole Blood 242 mg/dL (75-99)
[2021-08-05] MEDS: metFORMIN 500 MG TAB PO SCH (22:43)
[2021-08-05] MEDS: APIXABAN 5 MG TAB PO SCH (22:43)
[2021-08-05] MEDS: hydrALAZINE HCL 25 MG TAB PO SCH (22:44)
[2021-08-05] MEDS: FUROSEMIDE 40 MG TAB PO SCH ×2 (22:48→22:50)
[2021-08-06] MEDS: Insulin Aspart (For Pump) 100 UNIT/ML VIAL SQ-PUMP SCH ×3 (07:00→13:16)
[2021-08-06] MEDS ORDERED: PANTOPRAZOLE 40 MG TABLET PO SCH (07:30)
[2021-08-06 07:34] LABS: Glucose,Whole Blood 188 mg/dL (75-99)
[2021-08-06] MEDS: INSULIN ASPART (NovoLOG) 100 UNIT/ML VIAL SQ SCH ×2 (07:55→13:16)
[2021-08-06] MEDS: APIXABAN 5 MG TAB PO SCH (08:04)
[2021-08-06] MEDS: hydrALAZINE HCL 25 MG TAB PO SCH (08:05)
[2021-08-06] MEDS: metFORMIN 500 MG TAB PO SCH (08:05)
[2021-08-06] MEDS: FUROSEMIDE 40 MG TAB PO SCH (08:05)
[2021-08-06] MEDS ORDERED: SENNOSIDES-DOCUSATE SODIUM 1 EACH TAB PO SCH (09:00)
[2021-08-06] MEDS ORDERED: amLODIPine 5 MG TAB PO SCH (09:00)
[2021-08-06] MEDS ORDERED: MAGNESIUM OXIDE 400 MG TAB PO SCH (09:00)
[2021-08-06] MEDS ORDERED: ZINC SULFATE 220 MG CAP PO SCH (09:00)
[2021-08-06] MEDS ORDERED: metOLazone 2.5 MG TAB PO SCH (09:00)
[2021-08-06 10:09] VITALS: RESP 18
[2021-08-06] MEDS ORDERED: lisinopriL 10 MG TAB PO SCH (11:00)
[2021-08-06 12:07] LABS: Anisocytosis Slight; Basophils % (A) 1 %; Eosinophils # (A) 0.1 k/uL (0-0.7); Eosinophils % (A) 1 %; HCT 25.2 % (39.0-53.0); HGB 7.5 gm/dL (13.0-17.5); Hypochromasia Marked; Lymphocytes % (A) 11 %; MCH 24.6 pg (25.0-35.0); MCHC 29.6 g/dL (31.0-37.0); Microcytosis Slight; Monocytes # (A) 0.7 k/uL (0-1.0); Monocytes % (A) 8 %; Neutrophils # (A) 6.7 k/uL (1.3-7.7); Neutrophils % (A) 77 %; Platelet Count 234 k/uL (150-450); Poikilocytosis Marked; RBC 3.04 m/uL (4.30-5.90); RDW 18.9 % (11.5-15.5); WBC 8.7 k/uL (3.8-10.6)
[2021-08-06 12:17] LABS: MCV 82.9 fL (80.0-100.0)
[2021-08-06 12:18] LABS: African American GFR (CKD) 80 (>60 ml/min/1.73 sqM); Anion Gap 13 mmol/L; Blood Urea Nitrogen 55 mg/dL (9-20); Carbon Dioxide 25 mmol/L (22-30); Chloride 93 mmol/L (98-107); Glucose 145 mg/dL (74-99); Non-African American GFR(CKD) 70 (>60 ml/min/1.73 sqM); Potassium 3.9 mmol/L (3.5-5.1); Sodium 131 mmol/L (137-145)
[2021-08-06 12:42] LABS: Glucose,Whole Blood 157 mg/dL (75-99)
--- NOTE | 2021-08-06 12:58 | P.HPIM ---
History of Present Illness H&P Date: 08/06/21 (Both H&P and discharge summary) Chief Complaint: Shortness of breath, dizziness History of present illness 71 years old male patient of Dr. Jacome with past medical history type 2 diabetes, hypertension, hyperlipidemia, chronic kidney disease stage III, history of chronic lower extremity cellulitis, history of aortic stenosis, paroxysmal atrial fibrillation on Eliquis, microcytic anemia for which patient follows research food technologist at [facility] comes in with worsening shortness of breath, dizziness for the past 5 days. Patient has noticed significant worsening of lower extremity swelling. He has history of low hemoglobin for the past 1 year and had multiple transfusions. He has not had any hematology workup including workup for multiple myeloma. He does have a follow-up appointment at [facility] research food technologist for his severe aortic stenosis that probably need surgical replacement. In the ER, was noted to be afebrile pulse 54 respiratory rate 20 blood pressure 142/51. Labs were reviewed patient is a hemoglobin of 6.7 piece MCV 77 platelet 245 normal WBC sodium 131, potassium 3.6 chloride 92 BUN 60 creatinine 1.07 troponin 1 was negative. ProBNP was 248 UA was negative for infection COVID negative. EKG obtained suggestive wide QRS rhythm nonspecific intraventricular block T-wave abnormality in the inferior leads. Chest x-ray showed mild 8Z of the left lung base compared to the old exam normal heart failure normal heart. Echocardiogram from August 2020 seconds is moderate concentric left hypertrophy with EF 55-60% moderate to severe aortic valve sclerosis with a peak gradient of 24. No recent E echocardiogram in the chart. Patient received 1 unit of PRBC this morning to help correct patient's anemia. Patient is asymptomatic on evaluation is doing well. He has a follow- up appointment with cardiology for decision regarding aortic stenosis correction. ROS Constitutional: Denies chills, Denies fever, Denies lethargy, Denies malaise, Denies poor appetite, Denies weakness, Denies weight loss Eyes: denies decreased vision, denies diplopia, denies discharge, denies pain Ears: deny: decreased hearing Ears, nose, mouth and throat: Denies dental pain, Denies headache, Denies nasal discharge, Denies nose pain Cardiovascular: Denies chest pain, endorses decreased exercise tolerance, endorses edema, Denies high blood pressure, Denies irregular heart beat, Denies palpitations, Denies paroxysmal nocturnal dyspnea, Denies rapid heart beat, endorses shortness of breath Respiratory: Denies congestion, Denies cough, Denies cough with sputum, Denies dyspnea, Denies home oxygen, Denies wheezing Gastrointestinal: Denies abdominal pain, Denies change in bowel habits, Denies coffee ground emesis, Denies early satiety, Denies excessive gas, Denies heartburn, Denies hematemesis, Denies hematochezia, Denies loss of appetite, Denies nausea, Denies vomiting Genitourinary: Denies dysuria, Denies flank pain, Denies kidney stones, Denies menorrhagia, Denies urgency, Denies urinary frequency Musculoskeletal: Denies gait dysfunction, Denies limitation of motion, Denies morning stiffness, Denies muscle cramps Integumentary: Denies rash, Denies wounds, Denies brittle nails, Denies change in hair/nails, Denies darkening of skin Neurological: Endorses balance difficulties, Denies change in speech, Denies double vision, Denies gait dysfunction, Denies loss of vision, Denies motor di sturbance, Denies numbness, Denies paralysis, Denies paresthesias, Denies seizures Psychiatric: Denies anxiety, Denies depression Endocrine: Denies excessive sweating, Denies excessive thirst, Denies high blood sugars, Denies palpitations Hematologic/Lymphatic: Denies easy bruising, Denies lymphadenopathy SOCIAL HISTORY Patient is a lifelong nonsmoker. No alcohol use, marijuana or illicit drug use. 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 He lives at home alone. He is a . FAMILY HISTORY Mother at age 60 from lung cancer. Father at 57 after a fall off a roof. He has one brother that of cancer secondary to agent orange exposure. He has 4 half-sisters that he is never met. Patient has 2 children and 1 has an autoimmune disorder and waiting for double lung transplant. Second child has no major medical problems.. Physical exam - Constitutional General appearance: cooperative, no acute distress, obese - EENT Eyes: anicteric sclerae, PERRLA, normal appearance ENT: hearing grossly normal - Neck Neck: no lymphadenopathy, normal ROM, no other, no rigidity, no stridor, no thyromegaly - Respiratory Respiratory: bilateral: CTA, negative: diminished, dullness, rales, rhonchi - Cardiovascular Rhythm: regular Heart sounds: normal: S1, S2 Abnormal Heart Sounds: 4/6 systolic murmur, no diastolic murmur, no rub, no S3 Gallop, no S4 Gallop, no click, 2+ bilateral pitting edema with bulla formation involving the lateral surface of right leg - Gastrointestinal General gastrointestinal: normal bowel sounds, soft nontender - Integumentary Integumentary: no rash - Neurologic Neurologic: No motor or sensory deficit - Musculoskeletal Musculoskeletal: gait normal, strength equal bilaterally - Psychiatric Psychiatric: A&O x's 3, appropriate affect Assessment and plan Acute shortness of breath likely secondary to severe aortic stenosis combination with microcytic anemia - Improved with transfusion -Repeat hemoglobin 7.2. -Patient to follow up with primary care for repeat CBC - Maintaining oxygen saturation on room air -COVID negative -No pneumonia Microcytic anemia - Fecal occult negative for blood loss - Patient need a bone marrow biopsy to evaluate for the cause of anemia - Since patient is already received transfusion iron studies would not be accurate. Patient need follow up with iron studies as outpatient and may need transfusion if hemoglobin is less than 6.5 due to national shortage of blood product - Rule out multiple myeloma, free kappa/3 lambda chains ordered. Immunoglobulin levels ordered - Patient requested to follow hematology. He will discuss with primary care physician before going forward to evaluation by dispatch associate severe aortic stenosis - Patient has symptomatic aortic stenosis with dizziness and shortness of breath. - He has a pending appointment with his research food technologist for discussion of TAVR versus surgical replacement - Echocardiogram from August 2020 suggesting severe aortic stenosis -Continue Lipitor 40 mg daily at bedtime paroxysmal atrial fibrillation - Continue Eliquis 5 mg twice a day -Patient not on any rate control medication. Type 2 diabetes -Continue metformin 1000 twice a day -Continue insulin pump Stasis dermatitis - Bilateral lower extremity edema, recommend Lasix increased to 40 3 times a day with metolazone every other day - Patient to keep leg elevated and use compression stocking while ambulating. - INR monitoring and daily weights Hypertension - Continue hydralazine 25 mg 3 times a day GERD - Continue omeprazole 20 mg by mouth daily Hyperlipidemia -Continue Lipitor 40 mg daily at bedtime Gout - Continue allopurinol 200 mg daily at bedtime DVT prophylaxis on Eliquis CODE STATUS full code Disposition discharged today after stabilization Past Medical History Past Medical History: Blood Disorder, Coronary Artery Disease (CAD), Diabetes Me llitus, Hyperlipidemia, Hypertension, Osteoarthritis (OA), Skin Disorder Additional Past Medical History / Comment(s): wounds on both legs and swelling of the legs-treated for cellulitis Jul-2020. ANEMIA. History of Any Multi-Drug Resistant Organisms: None Reported Past Surgical History: Appendectomy, Heart Catheterization Additional Past Surgical History / Comment(s): carpal tunnel surgery Past Anesthesia/Blood Transfusion Reactions: No Reported Reaction Past Psychological History: No Psychological Hx Reported Smoking Status: Never smoker Past Alcohol Use History: None Reported Past Drug Use History: None Reported - Past Family History Mother Family Medical History: Cancer, Thyroid Disorder Additional Family Medical History / Comment(s): of lung infection age 59 Brother(s) Family Medical History: COPD, Respiratory Disorder Additional Family Medical History / Comment(s): hx agent orange. Still living age 64 now Medications and Allergies Home Medications Medication Instructions Recorded Confirmed Type Omeprazole [PriLOSEC] 20 mg PO DAILY 08/09/15 08/05/21 History allopurinoL [Zyloprim] 200 mg PO HS 08/09/15 08/05/21 History metFORMIN HCL [Glucophage] 1,000 mg PO BID 07/15/16 08/05/21 History Atorvastatin [Lipitor] 40 mg PO HS 06/01/18 08/05/21 History Insulin Aspart (For Pump) [NovoLOG 0.01 unit SQ-PUMP CONTINUOUS 07/23/20 08/05/21 History (For Pump)] Zinc 100 mg PO DAILY 07/23/20 08/05/21 History hydrALAZINE HCL [Apresoline] 25 mg PO TID #90 tab 07/26/20 08/05/21 Rx Furosemide [Lasix] 40 mg PO BID 08/25/20 08/05/21 History Sennosides-Docusate Sodium 2 tab PO DAILY 08/25/20 08/05/21 History [Senokot-S] Apixaban [Eliquis] 5 mg PO BID 11/20/20 08/05/21 History Cholecalciferol [Vitamin D3 (25 25 mcg PO HS 08/05/21 08/05/21 History Mcg = 1000 Iu)] Magnesium 250 mg PO DAILY 08/05/21 08/05/21 History metOLazone 2.5 mg PO Q48H 08/05/21 08/05/21 History Allergies Allergy/AdvReac Type Severity Reaction Status Date / Time Sulfa (Sulfonamide Allergy Rash/Hives Verified 08/05/21 19:03 Antibiotics) codeine AdvReac Unknown Verified 08/05/21 19:03 ivory soap Allergy Rash/Hives Uncoded 08/05/21 19:03 Physical Exam Vitals: Vital Signs Temp Pulse Pulse Resp BP BP Pulse Ox 08/06/21 10:14 54 L 141/59 08/06/21 08:31 54 L 18 145/69 08/06/21 08:01 59 L 16 139/51 08/06/21 07:51 98 F 54 L 18 151/63 99 08/06/21 02:00 98.3 F 55 L 18 149/65 100 08/05/21 23:25 98.4 F 55 L 16 162/66 95 08/05/21 22:58 16 08/05/21 22:00 61 16 196/73 99 08/05/21 19:00 58 L 16 145/59 97 08/05/21 16:38 57 L 20 162/48 98 Intake and Output 08/05/21 08/06/21 08/06/21 22:59 06:59 14:59 Intake Total 310 Balance 310 Intake: Blood Product 310 Rc As-1 Unit 310 [id number] Other: Voiding Method Toilet Toilet # Voids 1 # Bowel Movements 1 Weight 123.377 kg Results CBC & Chem 7: 08/06/21 11:30 08/06/21 11:30 Labs: Abnormal Lab Results - Last 24 Hours (Table) 08/05/21 08/05/21 08/05/21 Range/Units 17:03 17:35 17:37 RBC 2.85 L (4.30-5.90) m/uL Hgb 6.7 L* (13.0-17.5) gm/dL Hct 22.1 L (39.0-53.0) % MCV 77.4 L (80.0-100.0) fL MCH 23.4 L (25.0-35.0) pg MCHC 30.3 L (31.0-37.0) g/dL RDW 18.8 H (11.5-15.5) % Sodium (137-145) mmol/L Chloride (98-107) mmol/L BUN (9-20) mg/dL Glucose (74-99) mg/dL POC Glucose (mg/dL) 194 H (75-99) mg/dL Urine Protein Trace H (Negative) Crossmatch 08/05/21 08/05/21 08/05/21 Range/Units 17:42 18:10 22:40 RBC (4.30-5.90) m/uL Hgb (13.0-17.5) gm/dL Hct (39.0-53.0) % MCV (80.0-100.0) fL MCH (25.0-35.0) pg MCHC (31.0-37.0) g/dL RDW (11.5-15.5) % Sodium 131 L (137-145) mmol/L Chloride 92 L (98-107) mmol/L BUN 60 H (9-20) mg/dL Glucose 171 H (74-99) mg/dL POC Glucose (mg/dL) 242 H (75-99) mg/dL Urine Protein (Negative) Crossmatch See Detail 08/06/21 08/06/21 08/06/21 Range/Units 07:33 11:30 11:30 RBC 3.04 L (4.30-5.90) m/uL Hgb 7.5 L (13.0-17.5) gm/dL Hct 25.2 L (39.0-53.0) % MCV (80.0-100.0) fL MCH 24.6 L (25.0-35.0) pg MCHC 29.6 L (31.0-37.0) g/dL RDW 18.9 H (11.5-15.5) % Sodium 131 L (137-145) mmol/L Chloride 93 L (98-107) mmol/L BUN 55 H (9-20) mg/dL Glucose 145 H (74-99) mg/dL POC Glucose (mg/dL) 188 H (75-99) mg/dL Urine Protein (Negative) Crossmatch 08/06/21 Range/Units 12:40 RBC (4.30-5.90) m/uL Hgb (13.0-17.5) gm/dL Hct (39.0-53.0) % MCV (80.0-100.0) fL MCH (25.0-35.0) pg MCHC (31.0-37.0) g/dL RDW (11.5-15.5) % Sodium (137-145) mmol/L Chloride (98-107) mmol/L BUN (9-20) mg/dL Glucose (74-99) mg/dL POC Glucose (mg/dL) 157 H (75-99) mg/dL Urine Protein (Negative) Crossmatch Thrombosis Risk Factor Assmnt - Choose All That Apply Any of the Below Risk Factors Present?: Yes Each Factor Represents 1 point: Obesity (BMI >25) Each Risk Factor Represents 2 Points: Age 61-74 years Thrombosis Risk Factor Assessment Total Risk Factor Score: 3 Thrombosis Risk Factor Assessment Level: Moderate Risk
[2021-08-06 13:19] VITALS: BP 169/56; PULSE 55; TEMP 98.3
[2021-08-06 18:34] LABS: Immunoglobulin M 99.2 mg/dL (40.0-280.0)
[2021-08-09 13:59] LABS: Free Kappa Lt Chain Qnt, Serum 5.93 mg/dL (0.33-1.94); Free Lambda Lt Chain Qnt, Seru 3.45 mg/dL (0.57-2.63)
== END 2021-08-06 14:54 | disposition home or self-care (01) ==
LOC: EC 12:02 → 5NMEDONC 18:56 → INTOOBSV 18:56 → 5NMEDONC 20:15 → UNDODISIN 08-06 14:54
PROVIDERS: ADMIT Internal Medicine; ATTEND Internal Medicine
PROC: 30233N1 Transfusion of Nonautologous Red Blood Cells into Peripheral Vein, Percutaneous Approach (ICD-10-PCS; principal; 2021-08-05)
DX: I35.0 Nonrheumatic aortic (valve) stenosis (principal); I13.0 Hypertensive heart and chronic kidney disease with heart failure and stage 1 through stage 4 chronic kidney disease, or unspecified chronic kidney disease; I50.9 Heart failure, unspecified; E11.22 Type 2 diabetes mellitus with diabetic chronic kidney disease; N18.30 Chronic kidney disease, stage 3 unspecified; Z20.822 Contact with and (suspected) exposure to COVID-19; D50.9 Iron deficiency anemia, unspecified; E78.5 Hyperlipidemia, unspecified; I35.8 Other nonrheumatic aortic valve disorders; I25.10 Atherosclerotic heart disease of native coronary artery without angina pectoris; I48.0 Paroxysmal atrial fibrillation; I87.2 Venous insufficiency (chronic) (peripheral); K21.9 Gastro-esophageal reflux disease without esophagitis; M19.90 Unspecified osteoarthritis, unspecified site; M10.9 Gout, unspecified; E66.9 Obesity, unspecified; Z68.41 Body mass index [BMI] 40.0-44.9, adult; Z79.01 Long term (current) use of anticoagulants; Z79.4 Long term (current) use of insulin; Z79.899 Other long term (current) drug therapy; Z88.2 Allergy status to sulfonamides; Z88.5 Allergy status to narcotic agent; Z91.048 Other nonmedicinal substance allergy status; Z96.41 Presence of insulin pump (external) (internal); Z80.1 Family history of malignant neoplasm of trachea, bronchus and lung; Z82.5 Family history of asthma and other chronic lower respiratory diseases; Z84.89 Family history of other specified conditions
CPT/HCPCS: 99285; 36415; 93005; 86900; 86901; 83880; 80053; 80048; 82784 ×4; 84484; 85025 ×2; 85610; 85730; 86850; 86920; 82272; 81003; 82785; 86334; 83883; 87635; 71046; G0378 ×2; P9016; 36430

== ENCOUNTER 2021-08-09 15:46 | Observation (INO) | payer MEDICARE ==
--- NOTE | 2021-08-09 16:13 | ED ---
General Adult HPI - General Chief complaint: Recheck/Abnormal Lab/Rx Stated complaint: Needs transfusion Time Seen by Provider: 08/09/21 15:59 Source: patient, RN notes reviewed Mode of arrival: ambulatory Limitations: no limitations - History of Present Illness Initial comments: This is a pleasant 71-year-old male with a history of atrial fibrillation, kidney disease, and symptomatic anemia. Patient presents to the emergency department today stating that he went to his regular physician for a follow-up and was found to have a hemoglobin of below 7 again. Patient was sent back in for another blood transfusion. Patient was seen here on Thursday and kept overnight. Patient states he received 1 unit of blood and was discharged that next morning. Patient's only complaint is ongoing fatigue. He denies any chest pain or shortness of breath. He denies any fever or chills. No melena or hematochezia. Patient states that everything was checked, the urine, the stool, they could not rule out where the blood was coming from. Note that the patient is on A[place]quist for atrial fibrillation. No headache, no fever or chills, no changes in vision or hearing, no sore throat or difficulty with speech, no neck pain, no chest pain or shortness of breath, no abdominal pain, no nausea or vomiting, no changes in urination or bowel movements, no numbness or tingling, no extremity pain, no skin rashes or lesions. Patient now adding that he has had multiple recurrent nosebleeds over the past few months. Patient has seen Dr. Chau. Most recent nosebleed was yesterday. - Related Data Home Medications Medication Instructions Recorded Confirmed Omeprazole [PriLOSEC] 20 mg PO DAILY 08/09/15 08/09/21 allopurinoL [Zyloprim] 200 mg PO HS 08/09/15 08/09/21 metFORMIN HCL [Glucophage] 1,000 mg PO BID 07/15/16 08/09/21 Atorvastatin [Lipitor] 40 mg PO HS 06/01/18 08/09/21 Insulin Aspart (For Pump) [NovoLOG 0.01 unit SQ-PUMP CONTINUOUS 07/23/20 08/09/21 (For Pump)] Zinc 100 mg PO DAILY 07/23/20 08/09/21 Sennosides-Docusate Sodium 2 tab PO DAILY 08/25/20 08/09/21 [Senokot-S] Apixaban [Eliquis] 5 mg PO BID 11/20/20 08/09/21 Cholecalciferol [Vitamin D3 (25 25 mcg PO HS 08/05/21 08/09/21 Mcg = 1000 Iu)] Magnesium 250 mg PO DAILY 08/05/21 08/09/21 metOLazone 2.5 mg PO Q48H 08/05/21 08/09/21 Previous Rx's Medication Instructions Recorded hydrALAZINE HCL [Apresoline] 25 mg PO TID #90 tab 07/26/20 Furosemide [Lasix] 40 mg PO TID #0 08/06/21 Allergies Allergy/AdvReac Type Severity Reaction Status Date / Time Sulfa (Sulfonamide Allergy Rash/Hives Verified 08/09/21 17:47 Antibiotics) codeine AdvReac Unknown Verified 08/09/21 17:47 ivory soap Allergy Rash/Hives Uncoded 08/09/21 15:47 Review of Systems ROS Statement: Those systems with pertinent positive or pertinent negative responses have been documented in the HPI. ROS Other: All systems not noted in ROS Statement are negative. Past Medical History Past Medical History: Blood Disorder, Coronary Artery Disease (CAD), Diabetes Mellitus, Hyperlipidemia, Hypertension, Osteoarthritis (OA), Skin Disorder Additional Past Medical History / Comment(s): wounds on both legs and swelling of the legs-treated for cellulitis Jul-2020. ANEMIA. History of Any Multi-Drug Resistant Organisms: None Reported Past Surgical History: Appendectomy, Heart Catheterization Additional Past Surgical History / Comment(s): carpal tunnel surgery Past Anesthesia/Blood Transfusion Reactions: No Reported Reaction Past Psychological History: No Psychological Hx Reported Smoking Status: Never smoker Past Alcohol Use History: None Reported Past Drug Use History: None Reported - Past Family History Mother Family Medical History: Cancer, Thyroid Disorder Additional Family Medical History / Comment(s): of lung infection age 59 Brother(s) Family Medical History: COPD, Respiratory Disorder Additional Family Medical History / Comment(s): hx agent orange. Still living age 64 now General Exam - General Exam Comments Initial Comments: Deconditioned elderly male in no significant distress at the time I'm seeing him. Appears to be adequately hydrated. No increased work of breathing at rest. Limitations: no limitations General appearance: alert, in no apparent distress Head exam: Present: atraumatic, normocephalic, normal inspection Eye exam: Present: normal appearance, PERRL, EOMI. Absent: scleral icterus, conjunctival injection, periorbital swelling ENT exam: Present: normal exam, mucous membranes moist Neck exam: Present: normal inspection. Absent: tenderness, meningismus, lymphadenopathy Respiratory exam: Present: normal lung sounds bilaterally. Absent: respiratory distress, wheezes, rales, rhonchi, stridor Cardiovascular Exam: Present: regular rate, normal rhythm, systolic murmur. Absent: diastolic murmur, rubs, gallop, clicks GI/Abdominal exam: Present: soft, normal bowel sounds. Absent: distended, tenderness, guarding, rebound, rigid Extremities exam: Present: normal inspection, full ROM, normal capillary refill. Absent: tenderness, pedal edema, joint swelling, calf tenderness Back exam: Present: normal inspection Neurological exam: Present: alert, oriented X3, CN II-XII intact Psychiatric exam: Present: normal affect, normal mood Skin exam: Present: warm, dry, intact, normal color. Absent: rash Course Vital Signs 08/09/21 15:47 Temperature 98.3 F Pulse Rate 74 Respiratory 20 Rate Blood Pressure 176/60 O2 Sat by Pulse 96 Oximetry Medical Decision Making - Medical Decision Making Patient presents for blood transfusion after having a follow-up appointment with his regular physician. Patient really has no complaints other than ongoing weakness. Etiology of blood loss was not found at the previous visit. Patient is anticoagulated. Case discussed with Dr. Thomas, the on-call ear nose and throat doctor. He did suggest a CT of the sinuses without contrast, tighter blood pressure control, and follow-up with Dr. Chau on an outpatient basis. - Lab Data Result diagrams: 08/09/21 16:18 08/09/21 16:18 Lab Results 08/09/21 08/09/21 08/09/21 Range/Units 16:15 16:18 16:18 WBC 7.9 (3.8-10.6) k/uL RBC 2.98 L (4.30-5.90) m/uL Hgb 6.8 L* (13.0-17.5) gm/dL Hct 23.4 L (39.0-53.0) % MCV 78.7 L (80.0-100.0) fL MCH 23.0 L (25.0-35.0) pg MCHC 29.2 L (31.0-37.0) g/dL RDW 19.4 H (11.5-15.5) % Plt Count 218 (150-450) k/uL MPV 9.2 Neutrophils % MORTGAGE COORDINATOR Neutrophils % (Manual) 82 % Lymphocytes % MORTGAGE COORDINATOR Lymphocytes % (Manual) 10 % Monocytes % MORTGAGE COORDINATOR Monocytes % (Manual) 7 % Eosinophils % MORTGAGE COORDINATOR Eosinophils % (Manual) 1 % Basophils % MORTGAGE COORDINATOR Neutrophils # MORTGAGE COORDINATOR Neutrophils # (Manual) 6.48 (1.3-7.7) k/uL Lymphocytes # MORTGAGE COORDINATOR Lymphocytes # (Manual) 0.79 L (1.0-4.8) k/uL Monocytes # MORTGAGE COORDINATOR Monocytes # (Manual) 0.55 (0-1.0) k/uL Eosinophils # MORTGAGE COORDINATOR Eosinophils # (Manual) 0.08 (0-0.7) k/uL Basophils # MORTGAGE COORDINATOR Nucleated RBCs 0 (0-0) /100 WBC Manual Slide Review Performed Hypochromasia Marked Poikilocytosis Marked Poikilocytosis (manual Present Anisocytosis Slight Microcytosis Slight Ovalocytes Present Stomatocytes Present Sodium (137-145) mmol/L Potassium (3.5-5.1) mmol/L Chloride (98-107) mmol/L Carbon Dioxide (22-30) mmol/L Anion Gap mmol/L BUN (9-20) mg/dL Creatinine (0.66-1.25) mg/dL Est GFR (CKD-EPI)AfAm (>60 ml/min/1.73 sqM) Est GFR (CKD-EPI)NonAf (>60 ml/min/1.73 sqM) Glucose (74-99) mg/dL Calcium (8.4-10.2) mg/dL Total Bilirubin (0.2-1.3) mg/dL AST (17-59) U/L ALT (4-49) U/L Alkaline Phosphatase (38-126) U/L Total Protein (6.3-8.2) g/dL Albumin (3.5-5.0) g/dL Stool Occult Blood Negative (Negative) Coronavirus (PCR) (Not Detectd) Crossmatch See Detail 08/09/21 08/09/21 Range/Units 16:18 17:05 WBC (3.8-10.6) k/uL RBC (4.30-5.90) m/uL Hgb (13.0-17.5) gm/dL Hct (39.0-53.0) % MCV (80.0-100.0) fL MCH (25.0-35.0) pg MCHC (31.0-37.0) g/dL RDW (11.5-15.5) % Plt Count (150-450) k/uL MPV Neutrophils % Neutrophils % (Manual) % Lymphocytes % Lymphocytes % (Manual) % Monocytes % Monocytes % (Manual) % Eosinophils % Eosinophils % (Manual) % Basophils % Neutrophils # Neutrophils # (Manual) (1.3-7.7) k/uL Lymphocytes # Lymphocytes # (Manual) (1.0-4.8) k/uL Monocytes # Monocytes # (Manual) (0-1.0) k/uL Eosinophils # Eosinophils # (Manual) (0-0.7) k/uL Basophils # Nucleated RBCs (0-0) /100 WBC Manual Slide Review Hypochromasia Poikilocytosis Poikilocytosis (manual Anisocytosis Microcytosis Ovalocytes Stomatocytes Sodium 132 L (137-145) mmol/L Potassium 4.2 (3.5-5.1) mmol/L Chloride 91 L (98-107) mmol/L Carbon Dioxide 24 (22-30) mmol/L Anion Gap 17 mmol/L BUN 69 H (9-20) mg/dL Creatinine 1.33 H (0.66-1.25) mg/dL Est GFR (CKD-EPI)AfAm 62 (>60 ml/min/1.73 sqM) Est GFR (CKD-EPI)NonAf 53 (>60 ml/min/1.73 sqM) Glucose 264 H (74-99) mg/dL Calcium 10.0 (8.4-10.2) mg/dL Total Bilirubin 0.5 (0.2-1.3) mg/dL AST 26 (17-59) U/L ALT 18 (4-49) U/L Alkaline Phosphatase 75 (38-126) U/L Total Protein 7.5 (6.3-8.2) g/dL Albumin 4.3 (3.5-5.0) g/dL Stool Occult Blood (Negative) Coronavirus (PCR) Not Detected (Not Detectd) Crossmatch Disposition Clinical Impression: Symptomatic anemia, Fatigue, Recurrent epistaxis, Hypertension, poor control Disposition: ADMITTED IP TO THIS [facility] Condition: Stable Referrals: Adam Jacome DO [Primary Care Provider] - 1-2 days
[2021-08-09 16:30] LABS: Anisocytosis Slight; HCT 23.4 % (39.0-53.0); Hypochromasia Marked; MCHC 29.2 g/dL (31.0-37.0); MCV 78.7 fL (80.0-100.0); Mean Platelet Volume 9.2; Microcytosis Slight; Platelet Count 218 k/uL (150-450); Poikilocytosis Marked; RBC 2.98 m/uL (4.30-5.90); RDW 19.4 % (11.5-15.5); WBC 7.9 k/uL (3.8-10.6)
[2021-08-09 16:33] LABS: Albumin 4.3 g/dL (3.5-5.0); Potassium 4.2 mmol/L (3.5-5.1); Total Bilirubin 0.5 mg/dL (0.2-1.3); Total Protein 7.5 g/dL (6.3-8.2)
[2021-08-09 16:49] LABS: HGB 6.8 gm/dL (13.0-17.5)
[2021-08-09 17:06] LABS: Eosinophils # (M) 0.08 k/uL (0-0.7); Lymphocytes # (M) 0.79 k/uL (1.0-4.8); Monocytes # (M) 0.55 k/uL (0-1.0); Neutrophils # (M) 6.48 k/uL (1.3-7.7); Neutrophils % (M) 82 %; Nucleated Red Blood Cells 0 /100 WBC (0-0); Total Cells Counted 100
[2021-08-09 17:08] LABS: Ovalocytes Present; Poikilocytosis (M) Present; Stomatocytes Present
[2021-08-09] MEDS ORDERED: MELATONIN 3 MG TABLET PO PRN (17:34)
[2021-08-09] MEDS ORDERED: ONDANSETRON 4 MG/2 ML VIAL IVP PRN (17:34)
[2021-08-09] MEDS ORDERED: ACETAMINOPHEN TAB 325 MG TAB PO PRN (17:34)
[2021-08-09] MEDS ORDERED: NALOXONE 0.4 MG/ML 1 ML VIAL IV PRN (17:34)
--- NOTE | 2021-08-09 19:04 | CT ---
EXAMINATION TYPE: CT sinus wo con DATE OF EXAM: 08/09/2021 COMPARISON: None HISTORY: Recurrent nosebleeds. CT DLP: 476.2 mGycm Automated exposure control for dose reduction was used. Images obtained from the top of the frontal sinuses to the bottom of the maxilla with no contrast. Parotid glands are symmetric. The maxilla is intact. There is fairly normal aeration of the maxillary sinuses. Nasal bone is intact. There is no evidence of retro-orbital mass. There is bilateral patenc y of the ostiomeatal complex. There is fairly normal aeration of the frontal and ethmoid and sphenoid sinuses. There is no evidence of nasopharyngeal mass. There is some mild atrophy of the left middle and superior nasal turbinates. IMPRESSION: Atrophy of the nasal turbinates on the left side. Normal paranasal sinuses.
[2021-08-09 20:26] LABS: Glucose,Whole Blood 261 mg/dL (75-99)
[2021-08-09] MEDS ORDERED: INSULIN ASPART (NovoLOG) 100 UNIT/ML VIAL SQ PRN (21:18)
[2021-08-09] MEDS ORDERED: INSPUCOR MISCELLANE PRN (21:18)
[2021-08-09] MEDS ORDERED: INSULIN PUMP BASAL RATES 1 EACH MISC MISCELLANE PRN (21:18)
[2021-08-09] MEDS ORDERED: ATORVASTATIN 40 MG TAB PO SCH (21:30)
[2021-08-09] MEDS ORDERED: CHOLECALCIFEROL 25 MCG (1000 IU) TABLET PO SCH (21:30)
[2021-08-09] MEDS ORDERED: allopurinoL 100 MG TAB PO SCH (21:30)
[2021-08-09] MEDS: hydrALAZINE HCL 25 MG TAB PO SCH (21:45)
[2021-08-09] MEDS: FUROSEMIDE 40 MG TAB PO SCH (21:45)
[2021-08-09] MEDS: APIXABAN 5 MG TAB PO SCH (21:45)
[2021-08-09] MEDS: metFORMIN 500 MG TAB PO SCH (21:47)
[2021-08-09 22:54] LABS: Glucose,Whole Blood 260 mg/dL (75-99)
[2021-08-09 23:19] LABS: Anisocytosis Slight; HCT 23.2 % (39.0-53.0); Hypochromasia Marked; MCH 23.6 pg (25.0-35.0); MCHC 29.9 g/dL (31.0-37.0); Mean Platelet Volume 7.9; Microcytosis Slight; Platelet Count 200 k/uL (150-450); Poikilocytosis Marked; RBC 2.94 m/uL (4.30-5.90); RDW 19.1 % (11.5-15.5); WBC 8.9 k/uL (3.8-10.6)
[2021-08-09 23:27] LABS: HGB 6.9 gm/dL (13.0-17.5)
[2021-08-09] MEDS: INSULIN PUMP MEAL BOLUS 1 UNIT MISC MISCELLANE SCH (23:30)
[2021-08-10 01:56] LABS: Glucose,Whole Blood 202 mg/dL (75-99)
[2021-08-10 06:51] LABS: Glucose,Whole Blood 148 mg/dL (75-99)
[2021-08-10] MEDS ORDERED: INSULIN PUMP MEAL BOLUS 1 UNIT MISC MISCELLANE SCH (07:30)
[2021-08-10] MEDS ORDERED: metOLazone 2.5 MG TAB PO SCH (09:00)
[2021-08-10] MEDS ORDERED: SENNOSIDES-DOCUSATE SODIUM 1 EACH TAB PO SCH (09:00)
[2021-08-10] MEDS ORDERED: PANTOPRAZOLE 40 MG TABLET PO SCH (09:00)
[2021-08-10] MEDS ORDERED: MAGNESIUM OXIDE 400 MG TAB PO SCH (09:00)
[2021-08-10] MEDS ORDERED: ZINC SULFATE 220 MG CAP PO SCH (09:00)
[2021-08-10] MEDS: APIXABAN 5 MG TAB PO SCH (09:14)
[2021-08-10] MEDS: hydrALAZINE HCL 25 MG TAB PO SCH ×2 (09:14→16:53)
[2021-08-10] MEDS: INSULIN PUMP MEAL BOLUS 1 UNIT MISC MISCELLANE SCH ×3 (09:15→17:33)
[2021-08-10] MEDS: metFORMIN 500 MG TAB PO SCH (09:15)
[2021-08-10] MEDS: FUROSEMIDE 40 MG TAB PO SCH ×2 (09:15→16:53)
[2021-08-10 11:40] LABS: Glucose,Whole Blood 209 mg/dL (75-99)
[2021-08-10 11:50] LABS: Basophils # (A) 0.05 X 10*3/uL (0.00-0.10); Basophils % (A) 0.6 %; Eosinophils # (A) 0.07 X 10*3/uL (0.04-0.35); Eosinophils % (A) 0.8 %; HCT 22.3 % (39.6-50.0); HGB 6.4 g/dL (13.0-17.0); Immature Grans, Automated 0.4 %; Lymphocytes # (A) 1.33 X 10*3/uL (0.90-5.00); MCH 22.7 pg (27.0-32.0); MCHC 28.7 g/dL (32.0-37.0); MCV 79.1 fL (80.0-97.0); Mean Platelet Volume 10.9 fL (9.5-12.2); Monocytes # (A) 0.99 X 10*3/uL (0.20-1.00); Monocytes % (A) 11.9 %; NRBC Per 100 WBC 0 /100 WBCS (0.0-0.0); Neutrophils # (A) 5.86 X 10*3/uL (1.80-7.70); Neutrophils % (A) 70.3 %; Platelet Count 208 X 10*3/uL (140-440); RBC 2.82 X 10*6/uL (4.40-5.60); RDW 20.3 % (11.5-14.5); WBC 8.33 X 10*3/uL (4.50-10.00)
[2021-08-10 11:56] VITALS: BMI 41.3
[2021-08-10 12:45] LABS: Anion Gap 14.8 mmol/L (10.00-18.00); BUN/Creat Ratio 44.49 Ratio (12.00-20.00); Blood Urea Nitrogen 47.6 mg/dL (9.0-27.0); Calcium 9.9 mg/dL (8.7-10.3); Carbon Dioxide 25.9 mmol/L (20.0-27.5); Potassium 3.9 mmol/L (3.5-5.5)
[2021-08-10 14:48] VITALS: RESP 16; TEMP 97.7
[2021-08-10 16:15] LABS: Glucose,Whole Blood 219 mg/dL (75-99)
--- NOTE | 2021-08-10 16:44 | P.HPIM ---
History of Present Illness H&P Date: 08/10/21 (This document is both H&P and discharge summary) History of present illness 71 years old male patient of Dr. Jacome with past medical history type 2 diabetes, hypertension, hyperlipidemia, chronic kidney disease stage III, history of chronic lower extremity cellulitis, history of aortic stenosis, paroxysmal atrial fibrillation on Eliquis, microcytic anemia for which patient follows student success advisor at [facility] who was recently admitted on 08/06/2021 for anemia of unclear etiology. Patient presented with shortness of breath and dizziness during that admission was found to have an hemoglobin of 6.7 and was given 1 unit of blood. Patient has noticed significant worsening of lower extremity swelling. He has history of low hemoglobin for the past 1 year and had multiple transfusions. He has not had any hematology workup including workup for multiple myeloma. He does have a follow-up appointment at [facility] student success advisor for his severe aortic stenosis that probably need surgical replacement. Patient followed with his primary care physician after discharge from the hospital for repeated his labs. Since patient's hemoglobin dropped low patient was sent back to the hospital. On evaluation in the ER patient also mentioned fatigue and nosebleeds that are happening more frequently. Patient states such he sees ENT physician as outpatient and then has treatments by Dr. Mejias in the past. Vitals with. Patient is afebrile heart rate 58 respiratory rate 16 blood pressure 133/56. The blood draw suggested hemoglobin 6.9 for patient could not get transfusion and repeat hemoglobin this morning was 6.4 and patient was ordered 1 unit of blood due to national shortage of blood products. Echocardiogram from August 2020 seconds is moderate concentric left hypertrophy with EF 55-60% moderate to severe aortic valve sclerosis with a peak gradient of 24. No recent E echocardiogram in the chart. Patient received 1 unit of PRBC this morning to help correct patient's anemia. Patient is asymptomatic on evaluation is doing well. He has a follow-up appointment with cardiology for decision regarding aortic stenosis correction. Patient is a follow-up appointment with Dr. Candelaria office. He would like to be discharged today and will follow with Dr. Candelaria as outpatient. Patient has no intention of staying in the hospital for further workup despite explaining to the patient that this is his second admission for the same reason. Patient tried to explain that he is only here for transfusion to the ER practitioner yesterday but he decided getting CAT scan as well as admitting the patient. Sinus CT were done showed atrophy of the nasal turbinates on the left side normal paranasal ROS Constitutional: Denies chills, Denies fever, Denies lethargy, Denies malaise, Denies poor appetite, Denies weakness, Denies weight loss Eyes: denies decreased vision, denies diplopia, denies discharge, denies pain Ears: deny: decreased hearing Ears, nose, mouth and throat: Denies dental pain, Denies headache, Denies nasal discharge, Denies nose pain Cardiovascular: Denies chest pain, endorses decreased exercise tolerance, end orses edema, Denies high blood pressure, Denies irregular heart beat, Denies palpitations, Denies paroxysmal nocturnal dyspnea, Denies rapid heart beat, endorses shortness of breath Respiratory: Denies congestion, Denies cough, Denies cough with sputum, Denies dyspnea, Denies home oxygen, Denies wheezing Gastrointestinal: Denies abdominal pain, Denies change in bowel habits, Denies coffee ground emesis, Denies early satiety, Denies excessive gas, Denies heartburn, Denies hematemesis, Denies hematochezia, Denies loss of appetite, Denies nausea, Denies vomiting Genitourinary: Denies dysuria, Denies flank pain, Denies kidney stones, Denies menorrhagia, Denies urgency, Denies urinary frequency Musculoskeletal: Denies gait dysfunction, Denies limitation of motion, Denies morning stiffness, Denies muscle cramps Integumentary: Denies rash, Denies wounds, Denies brittle nails, Denies change in hair/nails, Denies darkening of skin Neurological: Endorses balance difficulties, Denies change in speech, Denies double vision, Denies gait dysfunction, Denies loss of vision, Denies motor disturbance, Denies numbness, Denies paralysis, Denies paresthesias, Denies seizures Psychiatric: Denies anxiety, Denies depression Endocrine: Denies excessive sweating, Denies excessive thirst, Denies high blood sugars, Denies palpitations Hematologic/Lymphatic: Denies easy bruising, Denies lymphadenopathy SOCIAL HISTORY Patient is a lifelong nonsmoker. No alcohol use, marijuana or illicit drug use. 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 He lives at pending sale to [facility] alone. He is a . FAMILY HISTORY Mother at age 60 from lung cancer. Father at 57 after a fall off a roof. He has one brother that of cancer secondary to agent orange exposure. He has 4 half-sisters that he is never met. Patient has 2 children and 1 has an autoimmune disorder and waiting for double lung transplant. Second child has no major medical problems.. Physical exam - Constitutional General appearance: cooperative, no acute distress, obese - EENT Eyes: anicteric sclerae, PERRLA, normal appearance ENT: hearing grossly normal - Neck Neck: no lymphadenopathy, normal ROM, no other, no rigidity, no stridor, no thyromegaly - Respiratory Respiratory: bilateral: CTA, negative: diminished, dullness, rales, rhonchi - Cardiovascular Rhythm: regular Heart sounds: normal: S1, S2 Abnormal Heart Sounds: 4/6 systolic murmur, no diastolic murmur, no rub, no S3 Gallop, no S4 Gallop, no click, 2+ bilateral pitting edema with bulla formation involving the lateral surface of right leg - Gastrointestinal General gastrointestinal: normal bowel sounds, soft nontender - Integumentary Integumentary: no rash - Neurologic Neurologic: No motor or sensory deficit - Musculoskeletal Musculoskeletal: gait normal, strength equal bilaterally - Psychiatric Psychiatric: A&O x's 3, appropriate affect Assessment and plan Fatigue likely secondary to severe aortic stenosis combination with microcytic anemia - Improved with transfusion -Repeat hemoglobin is pending -Patient to follow up with primary care for repeat CBC - Maintaining oxygen saturation on room air -COVID negative -No pneumonia Microcytic anemia with elevated 3 cup and 3 lab - Fecal occult negative for blood loss - Patient need a bone marrow biopsy to evaluate for the cause of anemia - Rule out multiple myeloma, free kappa/3 lambda chains were elevated on 08/05 Immunoglobulin levels were normal. Oncology consult was placed but patient refused to stay in the hospital another night for evaluation - Patient requested to follow hematology. He will see Dr. Candelaria as outpatient severe aortic stenosis - Patient has symptomatic aortic stenosis with dizziness and shortness of breath. - He has a pending appointment with his student success advisor for discussion of TAVR versus surgical replacement - Echocardiogram from August 2020 suggesting severe aortic stenosis -Continue Lipitor 40 mg daily at bedtime paroxysmal atrial fibrillation - Continue Eliquis 5 mg twice a day -Patient not on any rate control medication. Type 2 diabetes -Continue metformin 1000 twice a day -Continue insulin pump Stasis dermatitis - Bilateral lower extremity edema, recommend Lasix increased to 40 3 times a day with metolazone every other day - Patient to keep leg elevated and use compression stocking while ambulating. - INR monitoring and daily weights Hypertension - Continue hydralazine 25 mg 3 times a day GERD - Continue omeprazole 20 mg by mouth daily Hyperlipidemia -Continue Lipitor 40 mg daily at bedtime Gout - Continue allopurinol 200 mg daily at bedtime DVT prophylaxis on Eliquis CODE STATUS full code Disposition discharged today after stabilization Past Medical History Past Medical History: Blood Disorder, Coronary Artery Disease (CAD), Diabetes Mellitus, Hyperlipidemia, Hypertension, Osteoarthritis (OA), Skin Disorder Additional Past Medical History / Comment(s): wounds on both legs and swelling of the legs-treated for cellulitis Jul-2020. ANEMIA. History of Any Multi-Drug Resistant Organisms: None Reported Past Surgical History: Appendectomy, Heart Catheterization Additional Past Surgical History / Comment(s): carpal tunnel surgery Past Anesthesia/Blood Transfusion Reactions: No Reported Reaction Past Psychological History: No Psychological Hx Reported Smoking Status: Never smoker Past Alcohol Use History: None Reported Past Drug Use History: None Reported - Past Family History Mother Family Medical History: Cancer, Thyroid Disorder Additional Family Medical History / Comment(s): of lung infection age 59 Brother(s) Family Medical History: COPD, Respiratory Disorder Additional Family Medical History / Comment(s): hx agent orange. Still living age 65 now Medications and Allergies Home Medications Medication Instructions Recorded Confirmed Type Omeprazole [PriLOSEC] 20 mg PO DAILY 08/09/15 08/09/21 History allopurinoL [Zyloprim] 200 mg PO HS 08/09/15 08/09/21 History metFORMIN HCL [Glucophage] 1,000 mg PO BID 07/15/16 08/09/21 History Atorvastatin [Lipitor] 40 mg PO HS 06/01/18 08/09/21 History Insulin Aspart (For Pump) [NovoLOG 0.01 unit SQ-PUMP CONTINUOUS 07/23/2007/21 History (For Pump)] Zinc 100 mg PO DAILY 07/23/20 08/09/21 History hydrALAZINE HCL [Apresoline] 25 mg PO TID #90 tab 07/26/20 08/09/21 Rx Sennosides-Docusate Sodium 2 tab PO DAILY 08/25/20 08/09/21 History [Senokot-S] Apixaban [Eliquis] 5 mg PO BID 11/20/20 08/09/21 History Cholecalciferol [Vitamin D3 (25 25 mcg PO HS 08/05/21 08/09/21 History Mcg = 1000 Iu)] Magnesium 250 mg PO DAILY 08/05/21 08/09/21 History metOLazone 2.5 mg PO Q48H 08/05/21 08/09/21 History Furosemide [Lasix] 40 mg PO TID #0 08/06/21 08/09/21 Rx Allergies Allergy/AdvReac Type Severity Reaction Status Date / Time Sulfa (Sulfonamide Allergy Rash/Hives Verified 08/09/21 17:47 Antibiotics) codeine AdvReac Unknown Verified 08/09/21 17:47 ivory soap Allergy Rash/Hives Uncoded 08/09/21 15:47 Physical Exam Vitals: Vital Signs Temp Pulse Pulse Resp BP BP Pulse Ox 08/10/21 15:24 58 L 16 135/59 100 08/10/21 14:54 57 L 16 135/52 08/10/21 14:44 97.7 F 58 L 16 133/56 08/10/21 13:14 98.1 F 55 L 18 150/68 100 08/10/21 09:15 55 L 16 08/10/21 01:53 98.0 F 55 L 16 177/61 99 08/09/21 20:23 97.6 F 56 L 15 173/72 99 08/09/21 19:36 58 L 20 129/50 97 Intake and Output 08/10/21 08/10/21 08/10/21 06:59 14:59 22:59 Intake Total 540 0 Balance 540 0 Intake: Oral 540 Blood Product 0 Rc As-1 Unit 0 [id number] Other: # Voids 2 Weight 123.377 kg Results CBC & Chem 7: 08/10/21 07:13 08/10/21 07:13 Labs: Abnormal Lab Results - Last 24 Hours (Table) 08/09/21 08/09/21 08/09/21 Range/Units 16:15 16:18 20:21 RBC 2.98 L (4.30-5.90) m/uL Hgb 6.8 L* (13.0-17.5) gm/dL Hct 23.4 L (39.0-53.0) % MCV 78.7 L (80.0-100.0) fL MCH 23.0 L (25.0-35.0) pg MCHC 29.2 L (31.0-37.0) g/dL RDW 19.4 H (11.5-15.5) % Lymphocytes # (Manual) 0.79 L (1.0-4.8) k/uL Sodium (135-145) mmol/L Chloride (96-109) mmol/L BUN (9.0-27.0) mg/dL BUN/Creatinine Ratio (12.00-20.00) Ratio Glucose (70-110) mg/dL POC Glucose (mg/dL) 261 H (75-99) mg/dL Hemoglobin A1c (0.0-6.0) % Crossmatch See Detail 08/09/21 08/09/21 08/10/21 Range/Units 22:27 22:53 01:55 RBC 2.94 L (4.30-5.90) m/uL Hgb 6.9 L* (13.0-17.5) gm/dL Hct 23.2 L (39.0-53.0) % MCV 79.0 L (80.0-100.0) fL MCH 23.6 L (25.0-35.0) pg MCHC 29.9 L (31.0-37.0) g/dL RDW 19.1 H (11.5-15.5) % Lymphocytes # (Manual) (1.0-4.8) k/uL Sodium (135-145) mmol/L Chloride (96-109) mmol/L BUN (9.0-27.0) mg/dL BUN/Creatinine Ratio (12.00-20.00) Ratio Glucose (70-110) mg/dL POC Glucose (mg/dL) 260 H 202 H (75-99) mg/dL Hemoglobin A1c (0.0-6.0) % Crossmatch 08/10/21 08/10/21 08/10/21 Range/Units 06:48 07:13 07:13 RBC 2.82 L (4.30-5.90) m/uL Hgb 6.4 L* (13.0-17.5) gm/dL Hct 22.3 L (39.0-53.0) % MCV 79.1 L (80.0-100.0) fL MCH 22.7 L (25.0-35.0) pg MCHC 28.7 L (31.0-37.0) g/dL RDW 20.3 H (11.5-15.5) % Lymphocytes # (Manual) (1.0-4.8) k/uL Sodium 134 L (135-145) mmol/L Chloride 93 L (96-109) mmol/L BUN 47.6 H (9.0-27.0) mg/dL BUN/Creatinine Ratio 44.49 H (12.00-20.00) Ratio Glucose 129 H (70-110) mg/dL POC Glucose (mg/dL) 148 H (75-99) mg/dL Hemoglobin A1c (0.0-6.0) % Crossmatch 08/10/21 08/10/21 08/10/21 Range/Units 07:13 11:37 16:13 RBC (4.30-5.90) m/uL Hgb (13.0-17.5) gm/dL Hct (39.0-53.0) % MCV (80.0-100.0) fL MCH (25.0-35.0) pg MCHC (31.0-37.0) g/dL RDW (11.5-15.5) % Lymphocytes # (Manual) (1.0-4.8) k/uL Sodium (135-145) mmol/L Chloride (96-109) mmol/L BUN (9.0-27.0) mg/dL BUN/Creatinine Ratio (12.00-20.00) Ratio Glucose (70-110) mg/dL POC Glucose (mg/dL) 209 H 219 H (75-99) mg/dL Hemoglobin A1c 8.0 H (0.0-6.0) % Crossmatch Thrombosis Risk Factor Assmnt - Choose All That Apply Any of the Below Risk Factors Present?: Yes Each Factor Represents 1 point: Obesity (BMI >25) Other Risk Factors: Yes Each Risk Factor Represents 2 Points: Age 61-74 years Each Risk Factor Represents 3 Points: Family history of DVT/PE Other congenital or acquired thrombophilia - If yes, enter type in comment: No Thrombosis Risk Factor Assessment Total Risk Factor Score: 6 Thrombosis Risk Factor Assessment Level: High Risk
[2021-08-10 18:03] VITALS: BP 149/61; PULSE 60
[2021-08-12] MEDS ORDERED: metOLazone 2.5 MG TAB PO SCH (09:00)
== END 2021-08-10 16:25 | disposition home or self-care (01) ==
LOC: EC 15:46 → 4SSUR 17:58 → INTOOBSV 17:58 → 4SSUR 19:16 → UNDODISIN 08-10 16:25
PROVIDERS: ADMIT Internal Medicine; ATTEND Internal Medicine
DX: D50.9 Iron deficiency anemia, unspecified (principal); I12.9 Hypertensive chronic kidney disease with stage 1 through stage 4 chronic kidney disease, or unspecified chronic kidney disease; E11.22 Type 2 diabetes mellitus with diabetic chronic kidney disease; N18.30 Chronic kidney disease, stage 3 unspecified; I48.0 Paroxysmal atrial fibrillation; I25.10 Atherosclerotic heart disease of native coronary artery without angina pectoris; E78.5 Hyperlipidemia, unspecified; M19.90 Unspecified osteoarthritis, unspecified site; R04.0 Epistaxis; J34.89 Other specified disorders of nose and nasal sinuses; I35.0 Nonrheumatic aortic (valve) stenosis; M79.89 Other specified soft tissue disorders; I35.8 Other nonrheumatic aortic valve disorders; I87.2 Venous insufficiency (chronic) (peripheral); K21.9 Gastro-esophageal reflux disease without esophagitis; M10.9 Gout, unspecified; R60.0 Localized edema; E66.9 Obesity, unspecified; Z68.41 Body mass index [BMI] 40.0-44.9, adult; Z20.822 Contact with and (suspected) exposure to COVID-19; Z79.899 Other long term (current) drug therapy; Z79.84 Long term (current) use of oral hypoglycemic drugs; Z79.4 Long term (current) use of insulin; Z79.01 Long term (current) use of anticoagulants; Z88.5 Allergy status to narcotic agent; Z88.2 Allergy status to sulfonamides; Z91.048 Other nonmedicinal substance allergy status; Z86.19 Personal history of other infectious and parasitic diseases; Z90.49 Acquired absence of other specified parts of digestive tract; Z96.41 Presence of insulin pump (external) (internal); Z82.5 Family history of asthma and other chronic lower respiratory diseases; Z80.1 Family history of malignant neoplasm of trachea, bronchus and lung; Z84.89 Family history of other specified conditions; Z83.49 Family history of other endocrine, nutritional and metabolic diseases; Z82.49 Family history of ischemic heart disease and other diseases of the circulatory system; Z83.6 Family history of other diseases of the respiratory system
CPT/HCPCS: 99284; 36415; 86900; 86901; 80053; 80048 ×2; 82728; 83540; 83550; 85025 ×3; 85027; 85045; 86850; 86920; 82272; 83036; 87635; 70486; 36430; G0378 ×2; P9016

== ENCOUNTER 2022-06-06 10:18 | Day surgery (SDC) | payer MEDICARE ==
[2022-06-04 16:14] VITALS: BMI 39.2
[~2022-06-06 10:18] MED LIST: LACTATED RINGERS 1,000 ML IV SCH; MOXIFLOXACIN HCL 0.5% DROPS 3 ML BTL OP PRN; TETRACAINE 0.5% OPHTH (PF) DROPS 4 ML BTL OP PRN; TIMOLOL 0.5% OPHTH DROPS 5 ML BTL OP PRN
[2022-06-06] MEDS: CYCLOPENTOLATE 1% OPHTH SOLN 2 ML BTL OP PRN ×3 (10:53→11:05)
[2022-06-06] MEDS: PHENYLEPHRINE 2.5% OPHTH DRP 2ML OP PRN ×3 (10:56→11:08)
[2022-06-06 11:14] VITALS: RESP 16; TEMP 98.3
[2022-06-06 11:28] LABS: Glucose,Whole Blood 205 mg/dL (70-110)
[2022-06-06] MEDS ORDERED: HYALURONATE SODIUM INTRAOCULAR 1 EACH SYRINGE (12MG/ML) INTRAOCULA ONE (11:57)
[2022-06-06] MEDS ORDERED: BALANCED SALT IRRIG SOLN COMB2 15 ML IRRIG.SOLN IRRIGATION ONE (11:57)
[2022-06-06] MEDS ORDERED: LIDOCAINE 1% (PF) 10MG/ML VIAL MISCELLANE ONE (11:57)
[2022-06-06] MEDS ORDERED: EPINEPHrine (PF) 0.3 ML in BALANCED SALT IRRIG SOLN COMB2 500 ML IRRIGATION ONE (11:59)
[2022-06-06] MEDS ORDERED: MIDAZOLAM 2 MG/2 ML VIAL ONE (12:00)
[2022-06-06] MEDS ORDERED: fentaNYL (PF) 50 MCG/ML 2 ML AMP ONE (12:00)
--- NOTE | 2022-06-06 12:27 | P.OP ---
Date of Procedure: 06/06/22 Preoperative Diagnosis: NS Postoperative Diagnosis: same Procedure(s) Performed: PIOL< OD Implants: MX60E 21.00 Anesthesia: MAC Surgeon: Mohan Shirley Pathology: none sent Condition: stable Disposition: same day Indications for Procedure: blurry vision Operative Findings: no complications
[2022-06-06 13:01] VITALS: BP 141/66; PULSE 55
--- NOTE | 2022-06-07 01:18 | OP ---
OPERATIVE REPORT PROCEDURE: Phacoemulsification of cataract and intraocular lens implant of the right eye. PREOPERATIVE DIAGNOSIS: Nuclear sclerosis. POSTOPERATIVE DIAGNOSIS: Nuclear sclerosis. ESTIMATED BLOOD LOSS: Zero. SPECIMEN TAKEN: None. NARRATIVE: After obtaining the appropriate consent, the patient was brought to the operating room where the patient was placed under cardiac monitoring and prepped and draped in the usual sterile manner. At the 11 o'clock position, a 15-degree super sharp blade was used to create a paracentesis followed by instillation of 1% Xylocaine MPF 50:50 mix with BSS into the anterior chamber. This was followed by Amvisc viscoelastic to stabilize the anterior chamber. At the 9 o'clock position, a self-sealing corneal flap incision was created using 2.8 mm anton keratome. A cystotome was used to initiate a continuous tear capsulorrhexis, which was completed with the Utrata forceps. A Binkhorst cannula was used to hydrodissect the lens nucleus followed by hydrodelineation. Phacoemulsification of the lens was performed utilizing phacochop in 32.64 seconds at 20%power. The remaining cortical material was removed using the irrigation aspiration mode followed by additional 1% Xylocaine MPF into the anterior chamber followed by viscoelastic to stabilize the capsular bag. A [employer]ch [employer] Lomb MX60E 21.0 diopters posterior chamber lens was placed into the capsular bag without difficulty. The remaining viscoelastic material was removed from the anterior chamber with the irrigation/aspiration. Balanced salt solution was used to normalize the intraocular pressure. The incision was checked for watertight integrity. The patient then received 2 drops of 0.5% timolol followed by 2 drops Vigamox, was lightly patched and shielded in the usual manner. There were no complications from the procedure. The patient tolerated the procedure well and was returned to recovery in good condition. MMODL / IJN: [id number] /
== END 2022-06-06 13:37 | disposition home or self-care (01) ==
LOC: OR 10:18
PROVIDERS: ATTEND Ophthalmology
DX: H25.11 Age-related nuclear cataract, right eye (principal); E11.9 Type 2 diabetes mellitus without complications; E78.00 Pure hypercholesterolemia, unspecified; I10 Essential (primary) hypertension; I48.91 Unspecified atrial fibrillation
CPT/HCPCS: 66984; C1780; J2250; J0171; J3010; J2001

== ENCOUNTER 2022-07-02 07:36 | Day surgery (SDC) | payer MEDICARE ==
[~2022-07-02 07:36] MED LIST changes: +CYCLOPENTOLATE 1% OPHTH SOLN 2 ML BTL OP PRN; +LIDOCAINE 1% (10MG/ML) FOR IV START INTRADERMA PRN
[2022-07-02] MEDS ORDERED: LACTATED RINGERS 1,000 ML IV ONE (07:50)
[2022-07-02] MEDS: PHENYLEPHRINE 2.5% OPHTH DRP 2ML OP PRN ×3 (08:00→08:12)
[2022-07-02] MEDS: CYCLOPENTOLATE 1% OPHTH SOLN 2 ML BTL LEFT EYE ONE ×2 (08:03→08:09)
[2022-07-02 08:05] VITALS: TEMP 98.9
[2022-07-02 08:14] LABS: Glucose,Whole Blood 195 mg/dL (70-110)
[2022-07-02] MEDS ORDERED: MIDAZOLAM 2 MG/2 ML VIAL ONE (09:00)
[2022-07-02] MEDS ORDERED: fentaNYL (PF) 50 MCG/ML 2 ML AMP ONE (09:00)
[2022-07-02] MEDS ORDERED: EPINEPHrine (PF) 0.3 ML in BALANCED SALT IRRIG SOLN COMB2 500 ML IRRIGATION ONE (09:15)
[2022-07-02] MEDS ORDERED: HYALURONATE SODIUM INTRAOCULAR 1 EACH SYRINGE (12MG/ML) INTRAOCULA ONE (09:22)
[2022-07-02] MEDS ORDERED: BALANCED SALT IRRIG SOLN COMB2 15 ML IRRIG.SOLN INTRAOCULA ONE (09:23)
[2022-07-02] MEDS ORDERED: LIDOCAINE 1% (PF) 10MG/ML VIAL MISCELLANE ONE (09:23)
--- NOTE | 2022-07-02 09:26 | P.OP ---
Date of Procedure: 07/02/22 Preoperative Diagnosis: NS Postoperative Diagnosis: same Procedure(s) Performed: PIOL< OS Implants: MX60E 20.50 Anesthesia: MAC Surgeon: Mohan Shirley Pathology: none sent Condition: stable Disposition: same day Indications for Procedure: blurry vision Operative Findings: no complications
[2022-07-02 09:40] VITALS: RESP 20
[2022-07-02 09:42] LABS: Glucose,Whole Blood 184 mg/dL (70-110)
[2022-07-02 10:16] VITALS: BP 151/62; PULSE 50
--- NOTE | 2022-07-03 11:38 | OP ---
OPERATIVE REPORT PROCEDURE: Phacoemulsification of cataract and intraocular lens implant of the left eye. PREOPERATIVE DIAGNOSIS: Nuclear sclerosis. POSTOPERATIVE DIAGNOSIS: Nuclear sclerosis. ESTIMATED BLOOD LOSS: Zero. SPECIMEN TAKEN: None. NARRATIVE: After obtaining the appropriate consent, the patient was brought to the operating room where the patient was placed under cardiac monitoring and prepped and draped in the usual sterile manner. At the 5 o'clock position, a 15-degree super sharp blade was used to create a paracentesis followed by instillation of 1% Xylocaine MPF 50:50 mix with BSS into the anterior chamber. This was followed by Amvisc viscoelastic to stabilize the anterior chamber. At the 3 o'clock position a self-sealing corneal flap incision was created using 2.8 mm anton keratome. A cystotome was used to initiate a continuous tear capsulorrhexis which was completed with the Utrata forceps. A Binkhorst cannula was used to hydrodissect the lens nucleus followed by hydrodelineation. Phacoemulsification of the lens was performed utilizing phacochop in 26.33 seconds at 26% power. The remaining cortical material was removed using the irrigation aspiration mode followed by additional 1% Xylocaine MPF into the anterior chamber followed by viscoelastic to stabilize the capsular bag. A [employer]ch [employer] Lomb MX60E 20.5 diopters posterior chamber lens was placed into the capsular bag without difficulty. The remaining viscoelastic material was removed from the anterior chamber with the irrigation/aspiration. Balanced salt solution was used to normalize the intraocular pressure. The incision was checked for watertight integrity. The patient then received 2 drops of 0.5% timolol followed by 2 drops Vigamox, was lightly patched and shielded in the usual manner. There were no complications from the procedure. The patient tolerated the procedure well and was returned to recovery in good condition. MMODL / IJN: [id number] /
== END 2022-07-02 10:23 | disposition home or self-care (01) ==
LOC: OR 07:36
PROVIDERS: ATTEND Ophthalmology
DX: H25.12 Age-related nuclear cataract, left eye (principal); I10 Essential (primary) hypertension; E11.9 Type 2 diabetes mellitus without complications; H52.223 Regular astigmatism, bilateral; Z96.1 Presence of intraocular lens; Z79.899 Other long term (current) drug therapy
CPT/HCPCS: 66984; C1780; J2250; J0171; J3010; J2001

== ENCOUNTER 2023-02-20 14:09 | Observation (INO) | payer MEDICARE ==
--- NOTE | 2023-02-20 14:49 | ED ---
Recheck HPI - General Source: patient, RN notes reviewed Mode of arrival: wheelchair Limitations: no limitations <Kacie Grayson - Last Filed: 02/20/23 14:46> <Judd Walker - Last Filed: 02/20/23 19:06> - General Chief Complaint: Recheck/Abnormal Lab/Rx Stated Complaint: Abnormal Lab Time Seen by Provider: 02/20/23 14:45 - History of Present Illness Initial Comments: This is a 72-year-old male who presents to the emergency department for low hemoglobin. Patient was having blood work done at [facility] today, when his hemoglobin was found to be 6.9. He has a long-standing history of anemia and has required blood transfusions in the past. (Kacie Grayson) 72-year-old male with past medical history significant for chronic anemia presents to the ED with a chief complaint of low hemoglobin. Patient states that he was going to have an iron infusion upstairs when they noted his hemogl obin to be 6.9 and sent to the ED for further evaluation. Denies blood in the stool however notes his stools are usually dark due to being on an iron supplement. Denies lightheadedness or near syncope however notes he has been more fatigued over the past few days. Denies nausea, vomiting, hematochezia. Denies blood in the urine. Denies chest pain shortness breath. Last colonoscopy 2 years ago without any findings setting for GI bleeding. No recent EGD performed. No other complaints. (Judd Walker) - Related Data Home Medications Medication Instructions Recorded Confirmed Omeprazole [PriLOSEC] 20 mg PO DAILY 08/09/15 02/20/23 metFORMIN HCL [Glucophage] 1,000 mg PO BID 07/15/16 02/20/23 Atorvastatin [Lipitor] 40 mg PO HS 06/01/18 02/20/23 Insulin Aspart (For Pump) [NovoLOG 0.01 unit SQ-PUMP CONTINUOUS 07/23/2002/20 (For Pump)] Zinc 100 mg PO DAILY 07/23/20 02/20/23 Sennosides-Docusate Sodium 2 tab PO DAILY 08/25/20 02/20/23 [Senokot-S] Apixaban [Eliquis] 5 mg PO BID 11/20/20 02/20/23 Cholecalciferol [Vitamin D3 (25 25 mcg PO DAILY 08/05/21 02/20/23 Mcg = 1000 Iu)] Magnesium 250 mg PO DAILY 08/05/21 02/20/23 metOLazone 2.5 mg PO Q48H 08/05/21 02/20/23 Furosemide [Lasix] 40 mg PO TID 06/04/22 02/20/23 Ferrous Sulfate [Feosol] 325 mg PO BID 06/05/22 02/20/23 Potassium Chloride ER [K-Dur 20] 20 meq PO BID 06/05/22 02/20/23 lisinopriL 2.5 mg PO DAILY 06/06/22 02/20/23 hydrALAZINE HCL [Apresoline] 25 mg PO BID 11/06/22 02/20/23 Sinarest Nasal Drops 2 drops EA NOSTRIL BID 02/20/23 02/20/23 allopurinoL [Zyloprim] 300 mg PO HS 02/20/23 02/20/23 Allergies Allergy/AdvReac Type Severity Reaction Status Date / Time prednisone Allergy Unknown Verified 02/20/23 18:14 Sulfa (Sulfonamide Allergy Rash/Hives Verified 02/20/23 18:14 Antibiotics) codeine AdvReac Unknown Verified 02/20/23 18:14 ivory soap Allergy Rash/Hives Uncoded 02/20/23 18:14 Review of Systems ROS Other: All systems not noted in ROS Statement are negative. <Kacie Grayson - Last Filed: 02/20/23 14:46> ROS Other: All systems not noted in ROS Statement are negative. <Judd Walker - Last Filed: 02/20/23 19:06> ROS Statement: Those systems with pertinent positive or pertinent negative responses have been documented in the HPI. Past Medical History Past Medical History: Blood Disorder, Coronary Artery Disease (CAD), Diabetes Mellitus, Hyperlipidemia, Hypertension, Osteoarthritis (OA), Skin Disorder Additional Past Medical History / Comment(s): wounds on both legs and swelling of the legs-treated for cellulitis Jul-2020. ANEMIA. History of Any Multi-Drug Resistant Organisms: None Reported Past Surgical History: Appendectomy, Heart Catheterization Additional Past Surgical History / Comment(s): carpal tunnel surgery Past Anesthesia/Blood Transfusion Reactions: No Reported Reaction Past Psychological History: No Psychological Hx Reported Smoking Status: Former smoker Past Alcohol Use History: None Reported Past Drug Use History: None Reported - Past Family History Mother Family Medical History: Cancer, Thyroid Disorder Additional Family Medical History / Comment(s): of lung infection age 59 Brother(s) Family Medical History: Cancer, COPD, Respiratory Disorder Additional Family Medical History / Comment(s): hx agent orange, <Kacie Grayson - Last Filed: 02/20/23 14:46> General Exam Limitations: no limitations <aKcie Grayson - Last Filed: 02/20/23 14:46> Limitations: no limitations General appearance: alert, in no apparent distress Eye exam: Present: normal appearance Respiratory exam: Present: normal lung sounds bilaterally Cardiovascular Exam: Present: regular rate, normal rhythm GI/Abdominal exam: Present: soft Extremities exam: Present: other (1+ pitting edema bilaterally with erythema of bilateral lower extremities. No significant warmth. DP/PT pulses equal and intact.) Neurological exam: Present: alert, oriented X3 Psychiatric exam: Present: normal affect, normal mood Skin exam: Present: warm, dry <Judd Walker - Last Filed: 02/20/23 19:06> - General Exam Comments Initial Comments: Visual Physical Exam Vital signs reviewed General: Well-appearing, nontoxic, no acute distress. Head: Normocephalic, atraumatic Eyes: PERRLA, EOMI ENT: Airway patent Chest: Nonlabored breathing Skin: No visual rash, normal skin tone Neuro: Alert and oriented 3 Musculoskeletal: No gross abnormalities (Kacie Grayson) Course Vital Signs 02/20/23 02/20/23 02/20/23 14:39 18:58 19:00 Temperature 98.2 F 98.5 F Pulse Rate 60 53 L 51 L Respiratory 16 18 20 Rate Blood Pressure 134/53 155/53 147/65 O2 Sat by Pulse 99 95 Oximetry Medical Decision Making <Kacie Grayson - Last Filed: 02/20/23 14:46> - Lab Data Result diagrams: 02/20/23 15:44 02/20/23 15:44 <Judd Walker - Last Filed: 02/20/23 19:06> - Medical Decision Making I performed the QuickNote portion of this chart. Signed Kacie Grayson PA-C. (Kacie Grayson) Was pt. sent in by a medical professional or institution ([facility] Kamara, [employer]ENT [employer] WORKER, urgent care, hospital, or [facility]...) When possible be specific @ -[No] Did you speak to anyone other than the patient for history (EMS, parent, family, police, friend...)? What history was obtained from this source @ -[No] Did you review nursing and triage notes (agree or disagree)? Why? @ -[I reviewed and agree with nursing and triage notes] Were old charts reviewed (outside hosp., previous admission, EMS record, old EKG, old radiological studies, urgent care reports/EKG's, [facility] records)? Report findings @ -Prior laboratory results reviewed showing history of anemia. Differential Diagnosis (chest pain, altered mental status, abdominal pain women, abdominal pain men, vaginal bleeding, weakness, fever, dyspnea, syncope, headache, dizziness, GI bleed, back pain, seizure, CVA, palpatations, mental health, musculoskeletal)? @ -Differential GI Bleed: Esophageal varices, aortoenteric fistula, Vicky-Cardoza, gastritis, peptic ulcer disease, diverticulosis, inflammatory bowel disease, hemorrhoids, fissure, colitis, malignancy, Meckels diverticulum, this is not meant to be an all- inclusive list. EKG interpreted by me (3pts min.). @ -[As above] X-rays interpreted by me (1pt min.). @ -[None done] CT interpreted by me (1pt min.). @ -[None done] U/S interpreted by me (1pt. min.). @ -[None done] What testing was considered but not performed or refused? (CT, X-rays, U/S, labs)? Why? @ -[None] What meds were considered but not given or refused? Why? @ -[None] Did you discuss the management of the patient with other professionals (professionals i.e. [facility] Kamara, RODENT CONTROL WORKER, lab, RT, psych nurse, social media designer, rug receiving clerk, teacher, sea air land officer, case finishing machine adjuster)? Give summary @ -[No] Was smoking cessation discussed for >3mins.? @ -[No] Was critical care preformed (if so, how long)? @ -[No] Were there social determinants of health that impacted care today? How? (Homelessness, low income, unemployed, alcoholism, drug addiction, transportation, low edu. Level, literacy, decrease access to med. care, nursing home, rehab)? @ -[No] Was there de-escalation of care discussed even if they declined (Discuss DNR or withdrawal of care, Hospice)? DNR status @ -[No] What co-morbidities impacted this encounter? (DM, HTN, Smoking, COPD, CAD, Cancer, CVA, ARF, Chemo, Hep., AIDS, mental health diagnosis, sleep apnea, morbid obesity)? @ -Chronic anemia Was patient admitted / discharged? Hospital course, mention meds given and route, prescriptions, significant lab abnormalities, going to OR and other pertinent info. @ -Admission. Laboratory studies significant for a hemoglobin of 6.9. Occult blood positive however patient is on iron supplement and no gross blood on exam. At time of admission urine pending. Ordered 1 unit of packed red blood cells with repeat CBC ordered for the morning. Blood thinner held. The splenic area patient who is in agreement. Undiagnosed new problem with uncertain prognosis? @ -[No] Drug Therapy requiring intensive monitoring for toxicity (Heparin, Nitro, In sulin, Cardizem)? @ -[No] Were any procedures done? @ -[No] Diagnosis/symptom? @ -Anemia Acute, or Chronic, or Acute on Chronic? @ -Acute on chronic Uncomplicated (without systemic symptoms) or Complicated (systemic symptoms)? @ -Uncomplicated Side effects of treatment? @ -[No] Exacerbation, Progression, or Severe Exacerbation? @ -[No] Poses a threat to life or bodily function? How? (Chest pain, USA, MT, pneumonia, PE, COPD, DKA, ARF, appy, cholecystitis, CVA, Diverticulitis, Homicidal, Suicidal, threat to staff... and all critical care pts) @ -Yes, anemia 6.9. (Judd Walker) - Lab Data Lab Results 02/20/23 02/20/23 02/20/23 Range/Units 15:41 15:44 15:44 WBC 9.3 (3.8-10.6) k/uL RBC 2.65 L (4.30-5.90) m/uL Hgb 6.9 L* (13.0-17.5) gm/dL Hct 22.2 L (39.0-53.0) % MCV 83.8 (80.0-100.0) fL MCH 26.1 (25.0-35.0) pg MCHC 31.2 (31.0-37.0) g/dL RDW 16.3 H (11.5-15.5) % Plt Count 189 (150-450) k/uL MPV 10.1 Neutrophils % 77 % Lymphocytes % 10 % Monocytes % 8 % Eosinophils % 1 % Basophils % 0 % Neutrophils # 7.2 (1.3-7.7) k/uL Lymphocytes # 0.9 L (1.0-4.8) k/uL Monocytes # 0.7 (0-1.0) k/uL Eosinophils # 0.1 (0-0.7) k/uL Basophils # 0.0 (0-0.2) k/uL Hypochromasia Marked Poikilocytosis Moderate Anisocytosis Slight Sodium 129 L (137-145) mmol/L Potassium 4.6 (3.5-5.1) mmol/L Chloride 92 L (98-107) mmol/L Carbon Dioxide 22 (22-30) mmol/L Anion Gap 15 mmol/L BUN 70 H (9-20) mg/dL Creatinine 1.51 H (0.66-1.25) mg/dL Est GFR (CKD-EPI)AfAm 53 (>60 ml/min/1.73 sqM) Est GFR (CKD-EPI)NonAf 45 (>60 ml/min/1.73 sqM) Glucose 239 H (74-99) mg/dL POC Glucose (mg/dL) (70-110) mg/dL POC Glu [employer] ID Calcium 9.1 (8.4-10.2) mg/dL Total Bilirubin 0.4 (0.2-1.3) mg/dL AST 27 (17-59) U/L ALT 20 (4-49) U/L Alkaline Phosphatase 75 (38-126) U/L Total Protein 7.3 (6.3-8.2) g/dL Albumin 4.1 (3.5-5.0) g/dL Stool Occult Blood (Negative) Blood Type A Positive Blood Type Recheck A Pos Bld Type Recheck Status No Antibody Screen NEGATIVE Crossmatch See Detail Spec Expiration Date 02/23/2023 - 234002/20/23 02/20/23 Range/Units 16:47 17:42 WBC (3.8-10.6) k/uL RBC (4.30-5.90) m/uL Hgb (13.0-17.5) gm/dL Hct (39.0-53.0) % MCV (80.0-100.0) fL MCH (25.0-35.0) pg MCHC (31.0-37.0) g/dL RDW (11.5-15.5) % Plt Count (150-450) k/uL MPV Neutrophils % % Lymphocytes % % Monocytes % % Eosinophils % % Basophils % % Neutrophils # (1.3-7.7) k/uL Lymphocytes # (1.0-4.8) k/uL Monocytes # (0-1.0) k/uL Eosinophils # (0-0.7) k/uL Basophils # (0-0.2) k/uL Hypochromasia Poikilocytosis Anisocytosis Sodium (137-145) mmol/L Potassium (3.5-5.1) mmol/L Chloride (98-107) mmol/L Carbon Dioxide (22-30) mmol/L Anion Gap mmol/L BUN (9-20) mg/dL Creatinine (0.66-1.25) mg/dL Est GFR (CKD-EPI)AfAm (>60 ml/min/1.73 sqM) Est GFR (CKD-EPI)NonAf (>60 ml/min/1.73 sqM) Glucose (74-99) mg/dL POC Glucose (mg/dL) 244 H (70-110) mg/dL POC Glu [employer] ID Gillian Osuna Calcium (8.4-10.2) mg/dL Total Bilirubin (0.2-1.3) mg/dL AST (17-59) U/L ALT (4-49) U/L Alkaline Phosphatase (38-126) U/L Total Protein (6.3-8.2) g/dL Albumin (3.5-5.0) g/dL Stool Occult Blood Positive (Negative) Blood Type Blood Type Recheck Bld Type Recheck Status Antibody Screen Crossmatch Spec Expiration Date - EKG Data EKG Comments: EKG shows a supraventricular rhythm at [address] or T-wave changes. QRS 110, QT/QTc 430/417. (Judd Walker) Disposition <Kacie Grayson - Last Filed: 02/20/23 14:46> Time of Disposition: 17:29 <Judd Walker - Last Filed: 02/20/23 19:06> Clinical Impression: Anemia Disposition: ADMITTED IP TO THIS [facility] Condition: Good Referrals: None,Stated [REFERRING] - 1-2 days
[2023-02-20 16:03] LABS: ALT 20 U/L (4-49); AST 27 U/L (17-59); African American GFR (CKD) 53 (>60 ml/min/1.73 sqM); Albumin 4.1 g/dL (3.5-5.0); Alkaline Phosphatase 75 U/L (38-126); Anion Gap 15 mmol/L; Blood Urea Nitrogen 70 mg/dL (9-20); Calcium 9.1 mg/dL (8.4-10.2); Carbon Dioxide 22 mmol/L (22-30); Chloride 92 mmol/L (98-107); Glucose 239 mg/dL (74-99); Non-African American GFR(CKD) 45 (>60 ml/min/1.73 sqM); Potassium 4.6 mmol/L (3.5-5.1); Sodium 129 mmol/L (137-145); Total Bilirubin 0.4 mg/dL (0.2-1.3); Total Protein 7.3 g/dL (6.3-8.2)
[2023-02-20 16:04] LABS: Anisocytosis Slight; Basophils % (A) 0 %; Eosinophils # (A) 0.1 k/uL (0-0.7); Eosinophils % (A) 1 %; HCT 22.2 % (39.0-53.0); Hypochromasia Marked; Lymphocytes # (A) 0.9 k/uL (1.0-4.8); Lymphocytes % (A) 10 %; MCH 26.1 pg (25.0-35.0); MCHC 31.2 g/dL (31.0-37.0); MCV 83.8 fL (80.0-100.0); Mean Platelet Volume 10.1; Monocytes # (A) 0.7 k/uL (0-1.0); Monocytes % (A) 8 %; Neutrophils # (A) 7.2 k/uL (1.3-7.7); Neutrophils % (A) 77 %; Platelet Count 189 k/uL (150-450); Poikilocytosis Moderate; RBC 2.65 m/uL (4.30-5.90); RDW 16.3 % (11.5-15.5); WBC 9.3 k/uL (3.8-10.6)
[2023-02-20 16:18] LABS: HGB 6.9 gm/dL (13.0-17.5)
[2023-02-20 16:49] LABS: Glucose,Whole Blood 244 mg/dL (70-110)
[2023-02-20] MEDS ORDERED: NALOXONE 0.4 MG/ML 1 ML VIAL IV PRN (18:10)
[2023-02-20] MEDS ORDERED: ACETAMINOPHEN TAB 325 MG TAB PO PRN (18:10)
[2023-02-20] MEDS ORDERED: LORazepam 0.5 MG TAB PO PRN (18:10)
[2023-02-20 19:36] LABS: Appearance,Urine Turbid (Clear); Bacteria,Urine Occasional /hpf; Bilirubin,Urine Negative (Negative); Blood,Urine Small (Negative); Color,Urine Light Yellow; Glucose,Urine (UA) Negative (Negative); Ketones,Urine Negative (Negative); Leukocyte Esterase,Urine Large (Negative); Nitrite,Urine Positive (Negative); Protein,Urine Trace (Negative); RBC,Urine 13 /hpf (0-5); Specific Gravity,Urine 1.014 (1.001-1.035); Urobilinogen,Urine <2.0 mg/dL (<2.0); WBC,Urine >182 /hpf (0-5)
[2023-02-20] MEDS ORDERED: DEXTROSE 50% SYRINGE 50 ML IVP PRN ×2 (21:59)
[2023-02-20 22:25] LABS: Glucose,Whole Blood 221 mg/dL (70-110)
[2023-02-20] MEDS: hydrALAZINE HCL 25 MG TAB PO SCH (22:36)
[2023-02-20] MEDS: [UNRECOGNIZED DRUG - OTHER] EA NOSTRIL SCH (22:36)
[2023-02-20] MEDS: ATORVASTATIN 40 MG TAB PO SCH (22:36)
[2023-02-21 07:16] LABS: Glucose,Whole Blood 132 mg/dL (70-110)
[2023-02-21] MEDS ORDERED: INSULIN ASPART (NovoLOG) 100 UNIT/ML VIAL SQ SCH (07:30)
[2023-02-21 09:10] LABS: African American GFR (CKD) 70 (>60 ml/min/1.73 sqM); Anion Gap 10 mmol/L; Blood Urea Nitrogen 59 mg/dL (9-20); Carbon Dioxide 24 mmol/L (22-30); Chloride 97 mmol/L (98-107); Glucose 115 mg/dL (74-99); Non-African American GFR(CKD) 61 (>60 ml/min/1.73 sqM); Potassium 4.3 mmol/L (3.5-5.1); Sodium 131 mmol/L (137-145)
[2023-02-21 09:12] LABS: Basophils # (A) 0.07 X 10*3/uL (0.00-0.10); Basophils % (A) 0.7 %; Eosinophils # (A) 0.15 X 10*3/uL (0.04-0.35); Eosinophils % (A) 1.5 %; HCT 24.9 % (39.6-50.0); HGB 7.4 d/dL (13.0-17.0); Lymphocytes % (A) 9.1 %; MCH 25.9 pg (27.0-32.0); MCHC 29.7 d/dL (32.0-37.0); MCV 87.1 FL (80.0-97.0); Mean Platelet Volume 10.9 FL (9.5-12.2); Monocytes # (A) 1.26 X 10*3/uL (0.20-1.00); Monocytes % (A) 12.7 %; NRBC Per 100 WBC 0 X 10*3/uL (0.00-0.01); Neutrophils # (A) 7.48 X 10*3/uL (1.80-7.70); Neutrophils % (A) 75.5 %; Platelet Count 229 X 10*3/uL (140-440); RBC 2.86 X 10*6/uL (4.40-5.60); RDW 15.6 % (11.5-14.5); WBC 9.91 X 10*3/uL (4.50-10.00)
[2023-02-21] MEDS: MAGNESIUM OXIDE 400 MG TAB PO SCH (09:15)
[2023-02-21] MEDS: CHOLECALCIFEROL 25 MCG (1000 IU) TABLET PO SCH (09:15)
[2023-02-21] MEDS: SENNOSIDES-DOCUSATE SODIUM 1 EACH TAB PO SCH (09:15)
[2023-02-21] MEDS: ZINC SULFATE 220 MG CAP PO SCH (09:15)
[2023-02-21] MEDS: PANTOPRAZOLE 40 MG TABLET PO SCH (09:15)
[2023-02-21] MEDS: hydrALAZINE HCL 25 MG TAB PO SCH ×2 (09:15→20:25)
[2023-02-21] MEDS: [UNRECOGNIZED DRUG - OTHER] EA NOSTRIL SCH ×2 (09:17→21:07)
[2023-02-21 11:40] LABS: Glucose,Whole Blood 218 mg/dL (70-110)
[2023-02-21] MEDS: Insulin Aspart (For Pump) 100 UNIT/ML VIAL SQ-PUMP SCH (16:50)
[2023-02-21 17:27] LABS: Glucose,Whole Blood 158 mg/dL (70-110)
[2023-02-21] MEDS: metFORMIN 500 MG TAB PO SCH (20:24)
[2023-02-21] MEDS: allopurinoL 300 MG TAB PO SCH (20:24)
[2023-02-21] MEDS: FUROSEMIDE 40 MG TAB PO SCH (20:25)
[2023-02-21] MEDS: ATORVASTATIN 40 MG TAB PO SCH (20:25)
[2023-02-21] MEDS: FERROUS SULFATE 325 MG TAB PO SCH (20:25)
[2023-02-21] MEDS: POTASSIUM CHLORIDE ER 20 MEQ TAB.ER PO SCH (20:25)
[2023-02-21 20:32] LABS: Glucose,Whole Blood 192 mg/dL (70-110)
--- NOTE | 2023-02-21 21:31 | P.HPIM ---
History of Present Illness H&P Date: 02/20/23 Chief Complaint: Low hemoglobin 72-year-old male with past medical history significant for chronic anemia presents to the ED with a chief complaint of low hemoglobin. Patient states that he was going to have an iron infusion upstairs when they noted his hemoglobin to be 6.9 and sent to the ED for further evaluation. Denies blood in the stool however notes his stools are usually dark due to being on an iron supplement. Denies lightheadedness or near syncope however notes he has been more fatigued over the past few days. Denies nausea, vomiting, hematochezia. Denies blood in the urine. Denies chest pain shortness breath. Last colonoscopy 2 years ago without any findings setting for GI bleeding. No recent EGD performed. No other complaints. We will complete continue to have exudative esophagitis 0.3, hemoglobin of 6.9, hematocrit 22.2 and platelet count of 189, 129,/creatinine of 70/1.5 on with a blood glucose of 239 --- In the ED stool occult blood was found to be positive; patient is currently on iron supplement; resume anticoagulation for atrial fibrillation which has been placed on hold Review of Systems REVIEW OF SYSTEMS: CONSTITUTIONAL: No fever, no malaise, no fatigue. HEENT: No recent visual problems or hearing problems. Denied any sore throat. CARDIOVASCULAR: No chest pain, orthopnea, PND, no palpitations, no syncope. PULMONARY: No shortness of breath, no cough, no hemoptysis. GASTROINTESTINAL: No diarrhea, no nausea, no vomiting, no abdominal pain. NEUROLOGICAL: No headaches, no weakness, no numbness. HEMATOLOGICAL: Denies any bleeding or petechiae. GENITOURINARY: Denies any burning micturition, frequency, or urgency. MUSCULOSKELETAL/RHEUMATOLOGICAL: Denies any joint pain, swelling, or any muscle pain. ENDOCRINE: Denies any polyuria or polydipsia. The rest of the 14-point review of systems is negative. Past Medical History Past Medical History: Blood Disorder, Coronary Artery Disease (CAD), Diabetes Mellitus, Hyperlipidemia, Hypertension, Osteoarthritis (OA), Skin Disorder Additional Past Medical History / Comment(s): wounds on both legs and swelling of the legs-treated for cellulitis Jul-2020. ANEMIA. History of Any Multi-Drug Resistant Organisms: None Reported Past Surgical History: Appendectomy, Heart Catheterization Additional Past Surgical History / Comment(s): carpal tunnel surgery Past Anesthesia/Blood Transfusion Reactions: No Reported Reaction Past Psychological History: No Psychological Hx Reported Smoking Status: Former smoker Past Alcohol Use History: None Reported Past Drug Use History: None Reported - Past Family History Mother Family Medical History: Cancer, Thyroid Disorder Additional Family Medical History / Comment(s): of lung infection age 59 Brother(s) Family Medical History: Cancer, COPD, Respiratory Disorder Additional Family Medical History / Comment(s): hx agent orange, Medications and Allergies Home Medications Medication Instructions Recorded Confirmed Type Omeprazole [PriLOSEC] 20 mg PO DAILY 08/09/15 02/20/23 History metFORMIN HCL [Glucophage] 1,000 mg PO BID 07/15/16 02/20/23 History Atorvastatin [Lipitor] 40 mg PO HS 06/01/18 02/20/23 History Insulin Aspart (For Pump) [NovoLOG 0.01 unit SQ-PUMP CONTINUOUS 07/23/2011/09 History (For Pump)] Zinc 100 mg PO DAILY 07/23/20 02/20/23 History Sennosides-Docusate Sodium 2 tab PO DAILY 08/25/20 02/20/23 History [Senokot-S] Apixaban [Eliquis] 5 mg PO BID 11/20/20 02/20/23 History Cholecalciferol [Vitamin D3 (25 25 mcg PO DAILY 08/05/21 02/20/23 History Mcg = 1000 Iu)] Magnesium 250 mg PO DAILY 08/05/21 02/20/23 History metOLazone 2.5 mg PO Q48H 08/05/21 02/20/23 History Furosemide [Lasix] 40 mg PO TID 06/04/22 02/20/23 History Ferrous Sulfate [Feosol] 325 mg PO BID 06/05/22 02/20/23 History Potassium Chloride ER [K-Dur 20] 20 meq PO BID 06/05/22 02/20/23 History lisinopriL 2.5 mg PO DAILY 06/06/22 02/20/23 History hydrALAZINE HCL [Apresoline] 25 mg PO BID 11/06/22 02/20/23 History Sinarest Nasal Drops 2 drops EA NOSTRIL BID 02/20/23 02/20/23 History allopurinoL [Zyloprim] 300 mg PO HS 02/20/23 02/20/23 History Allergies Allergy/AdvReac Type Severity Reaction Status Date / Time prednisone Allergy Unknown Verified 02/20/23 18:14 Sulfa (Sulfonamide Allergy Rash/Hives Verified 02/20/23 18:14 Antibiotics) codeine AdvReac Unknown Verified 02/20/23 18:14 ivory soap Allergy Rash/Hives Uncoded 02/20/23 18:14 Physical Exam Vitals: Vital Signs Temp Pulse Resp BP Pulse Ox 02/20/23 14:39 98.2 F 60 16 134/53 99 Intake and Output 02/20/23 02/20/23 02/20/23 06:59 14:59 22:59 Other: Weight 118.841 kg General appearance: alert, in no apparent distress Eye exam: Present: normal appearance Respiratory exam: Present: normal lung sounds bilaterally Cardiovascular Exam: Present: regular rate, normal rhythm GI/Abdominal exam: Present: soft Extremities exam: Present: other (1+ pitting edema bilaterally with erythema of bilateral lower extremities. No significant warmth. DP/PT pulses equal and intact.) Neurological exam: Present: alert, oriented X3 Psychiatric exam: Present: normal affect, normal mood Skin exam: Present: warm, dry Results CBC & Chem 7: 02/21/23 05:23 02/21/23 05:23 Labs: Abnormal Lab Results - Last 24 Hours (Table) 02/20/23 02/20/23 02/20/23 Range/Units 15:41 15:44 15:44 RBC 2.65 L (4.30-5.90) m/uL Hgb 6.9 L* (13.0-17.5) gm/dL Hct 22.2 L (39.0-53.0) % RDW 16.3 H (11.5-15.5) % Lymphocytes # 0.9 L (1.0-4.8) k/uL Sodium 129 L (137-145) mmol/L Chloride 92 L (98-107) mmol/L BUN 70 H (9-20) mg/dL Creatinine 1.51 H (0.66-1.25) mg/dL Glucose 239 H (74-99) mg/dL POC Glucose (mg/dL) (70-110) mg/dL Crossmatch See Detail 02/20/23 Range/Units 16:47 RBC (4.30-5.90) m/uL Hgb (13.0-17.5) gm/dL Hct (39.0-53.0) % RDW (11.5-15.5) % Lymphocytes # (1.0-4.8) k/uL Sodium (137-145) mmol/L Chloride (98-107) mmol/L BUN (9-20) mg/dL Creatinine (0.66-1.25) mg/dL Glucose (74-99) mg/dL POC Glucose (mg/dL) 244 H (70-110) mg/dL Crossmatch Assessment and Plan Assessment: 1. Acute on chronic anemia - Patient does have history of chronic anemia and receives iron infusions regularly - Patient has been ordered 1 unit of packed RBCs; we will monitor H&H closely with plans to transfuse if hemoglobin is less than 7.0 - Start patient on IV Protonix; hold anticoagulation therapy - Patient does have history of colonoscopy done in the past but no history of EGD - We will plan to consult general surgery for EGD/colonoscopy if patient continues to drop hemoglobin 2. Acute renal injury; BUN/creatinine is elevated at 70/1.51; patient has been placed on IV fluid hydration; monitor strict ARA's, daily weights, renal function and electrolytes; avoid nephrotoxins and hypotension 3. Hyponatremia; continue with IV fluids in form of normal saline; continues to monitor electrolytes closely and supplement as needed 4. Hyperglycemia/history of diabetes mellitus; patient takes metformin thousand milligrams twice a day along with insulin aspart via insulin pump 5. Hyperlipidemia; Lipitor 40 mg by mouth daily at bedtime 6. Hypertension; hydralazine 25 mg daily; lisinopril 2.5 mg daily 7. Atrial fibrillation; remains rate controlled; currently on anticoagulation with has been placed on hold 8. CAD/CHF; patient remains on Lasix 40 mg 3 times a day and hydralazine 25 mg twice a day along with metolazone 2.5 mg every 48 hours
[2023-02-21 22:52] LABS: Anisocytosis Slight; HCT 25.3 % (39.0-53.0); HGB 8.1 gm/dL (13.0-17.5); Hypochromasia Marked; MCH 27.1 pg (25.0-35.0); MCV 84.8 fL (80.0-100.0); Mean Platelet Volume 9.3; Platelet Count 205 k/uL (150-450); Poikilocytosis Moderate; RBC 2.98 m/uL (4.30-5.90); RDW 16.1 % (11.5-15.5)
[2023-02-22 07:43] LABS: Glucose,Whole Blood 96 mg/dL (70-110)
[2023-02-22] MEDS ORDERED: metOLazone 2.5 MG TAB PO SCH (09:00)
[2023-02-22 09:14] LABS: BUN/Creat Ratio 31.75 Ratio (12.00-20.00); Blood Urea Nitrogen 38.1 mg/dL (9.0-27.0); Calcium 9.4 mg/dL (8.7-10.3); Carbon Dioxide 24.2 mmol/L (21.6-31.8); Chloride 97 mmol/L (96-109); Glucose 88 mg/dL (70-110); Potassium 4.2 mmol/L (3.5-5.5); Sodium 133 mmol/L (135-145)
[2023-02-22] MEDS: metFORMIN 500 MG TAB PO SCH ×2 (09:14→21:17)
[2023-02-22] MEDS: hydrALAZINE HCL 25 MG TAB PO SCH ×2 (09:14→21:17)
[2023-02-22] MEDS: MAGNESIUM OXIDE 400 MG TAB PO SCH (09:14)
[2023-02-22] MEDS: PANTOPRAZOLE 40 MG TABLET PO SCH (09:14)
[2023-02-22] MEDS: FERROUS SULFATE 325 MG TAB PO SCH ×2 (09:14→21:17)
[2023-02-22] MEDS: ZINC SULFATE 220 MG CAP PO SCH (09:14)
[2023-02-22] MEDS: POTASSIUM CHLORIDE ER 20 MEQ TAB.ER PO SCH ×2 (09:14→21:17)
[2023-02-22] MEDS: FUROSEMIDE 40 MG TAB PO SCH ×3 (09:14→21:17)
[2023-02-22] MEDS: SENNOSIDES-DOCUSATE SODIUM 1 EACH TAB PO SCH (09:14)
[2023-02-22] MEDS: CHOLECALCIFEROL 25 MCG (1000 IU) TABLET PO SCH (09:14)
[2023-02-22] MEDS: [UNRECOGNIZED DRUG - OTHER] EA NOSTRIL SCH ×2 (09:16→21:17)
--- NOTE | 2023-02-22 11:26 | P.PN ---
Subjective Progress Note Date: 02/21/23 72-year-old male with past medical history significant for chronic anemia presents to the ED with a chief complaint of low hemoglobin. Patient states that he was going to have an iron infusion upstairs when they noted his hemoglobin to be 6.9 and sent to the ED for further evaluation. Denies blood in the stool however notes his stools are usually dark due to being on an iron supplement. Denies lightheadedness or near syncope however notes he has been more fatigued over the past few days. Denies nausea, vomiting, hematochezia. Denies blood in the urine. Denies chest pain shortness breath. Last colonoscopy 2 years ago without any findings setting for GI bleeding. No recent EGD performed. No other complaints. We will complete continue to have exudative esophagitis 0.3, hemoglobin of 6.9, hematocrit 22.2 and platelet count of 189, 129,/creatinine of 70/1.5 on with a blood glucose of 239 --- In the ED stool occult blood was found to be positive; patient is currently on iron supplement; resume anticoagulation for atrial fibrillation which has been placed on hold -- Hemoglobin is up to 7.4 after transfusion 1 unit packed RBCs; patient denies any bloody stools; has been placed on IV Rocephin for UTI; urine culture is pending -- Eliquis remains on hold; I will plan to monitor H&H closely and resume on liquids if hemoglobin remained stable posttransfusion; patient is agreeable to this plan of care Objective - Vital Signs Vital signs: Vital Signs Temp 97.9 F 02/21/23 11:35 Pulse 55 L 02/21/23 11:35 Resp 20 02/21/23 11:35 BP 136/63 02/21/23 11:35 Pulse Ox 100 02/21/23 11:35 FiO2 Intake & Output 02/20/23 02/21/23 02/21/23 18:59 06:59 18:59 Intake Total 0 310 Balance 0 310 Weight 118.841 kg 118.841 kg Intake: Blood Product 0 310 Rc As-1 Unit 0 310 [id number] Other: Voiding Method Toilet Toilet # Voids 1 - Exam General appearance: alert, in no apparent distress Eye exam: Present: normal appearance Respiratory exam: Present: normal lung sounds bilaterally Cardiovascular Exam: Present: regular rate, normal rhythm GI/Abdominal exam: Present: soft Extremities exam: Present: other (1+ pitting edema bilaterally with erythema of bilateral lower extremities. No significant warmth. DP/PT pulses equal and intact.) Neurological exam: Present: alert, oriented X3 Psychiatric exam: Present: normal affect, normal mood Skin exam: Present: warm, dry - Labs CBC & Chem 7: 02/21/23 22:31 02/22/23 06:35 Labs: Abnormal Lab Results - Last 24 Hours (Table) 02/20/23 02/20/23 02/20/23 Range/Units 15:41 15:44 15:44 RBC 2.65 L (4.30-5.90) m/uL Hgb 6.9 L* (13.0-17.5) gm/dL Hct 22.2 L (39.0-53.0) % MCH (27.0-32.0) pg MCHC (32.0-37.0) d/dL RDW 16.3 H (11.5-15.5) % Lymphocytes # 0.9 L (1.0-4.8) k/uL Monocytes # (0.20-1.00) X 10*3/uL Sodium 129 L (137-145) mmol/L Chloride 92 L (98-107) mmol/L BUN 70 H (9-20) mg/dL Creatinine 1.51 H (0.66-1.25) mg/dL Glucose 239 H (74-99) mg/dL POC Glucose (mg/dL) (70-110) mg/dL Hemoglobin A1c (<=6.0) % Urine Protein (Negative) Urine Blood (Negative) Ur Leukocyte Esterase (Negative) Urine RBC (0-5) /hpf Urine WBC (0-5) /hpf Urine WBC Clumps (None) /hpf Urine Bacteria (None) /hpf Crossmatch See Detail 02/20/23 02/20/23 02/20/23 Range/Units 16:47 17:42 22:24 RBC (4.30-5.90) m/uL Hgb (13.0-17.5) gm/dL Hct (39.0-53.0) % MCH (27.0-32.0) pg MCHC (32.0-37.0) d/dL RDW (11.5-15.5) % Lymphocytes # (1.0-4.8) k/uL Monocytes # (0.20-1.00) X 10*3/uL Sodium (137-145) mmol/L Chloride (98-107) mmol/L BUN (9-20) mg/dL Creatinine (0.66-1.25) mg/dL Glucose (74-99) mg/dL POC Glucose (mg/dL) 244 H 221 H (70-110) mg/dL Hemoglobin A1c (<=6.0) % Urine Protein Trace H (Negative) Urine Blood Small H (Negative) Ur Leukocyte Esterase Large H (Negative) Urine RBC 13 H (0-5) /hpf Urine WBC >182 H (0-5) /hpf Urine WBC Clumps Moderate H (None) /hpf Urine Bacteria Occasional H (None) /hpf Crossmatch 02/21/23 02/21/23 02/21/23 Range/Units 05:23 05:23 05:23 RBC 2.86 L (4.30-5.90) m/uL Hgb 7.4 L (13.0-17.5) gm/dL Hct 24.9 L (39.0-53.0) % MCH 25.9 L (27.0-32.0) pg MCHC 29.7 L (32.0-37.0) d/dL RDW 15.6 H (11.5-15.5) % Lymphocytes # (1.0-4.8) k/uL Monocytes # 1.26 H (0.20-1.00) X 10*3/uL Sodium 131 L (137-145) mmol/L Chloride 97 L (98-107) mmol/L BUN 59 H (9-20) mg/dL Creatinine (0.66-1.25) mg/dL Glucose 115 H (74-99) mg/dL POC Glucose (mg/dL) (70-110) mg/dL Hemoglobin A1c 7.6 H (<=6.0) % Urine Protein (Negative) Urine Blood (Negative) Ur Leukocyte Esterase (Negative) Urine RBC (0-5) /hpf Urine WBC (0-5) /hpf Urine WBC Clumps (None) /hpf Urine Bacteria (None) /hpf Crossmatch 02/21/23 02/21/23 Range/Units 07:07 11:38 RBC (4.30-5.90) m/uL Hgb (13.0-17.5) gm/dL Hct (39.0-53.0) % MCH (27.0-32.0) pg MCHC (32.0-37.0) d/dL RDW (11.5-15.5) % Lymphocytes # (1.0-4.8) k/uL Monocytes # (0.20-1.00) X 10*3/uL Sodium (137-145) mmol/L Chloride (98-107) mmol/L BUN (9-20) mg/dL Creatinine (0.66-1.25) mg/dL Glucose (74-99) mg/dL POC Glucose (mg/dL) 132 H 218 H (70-110) mg/dL Hemoglobin A1c (<=6.0) % Urine Protein (Negative) Urine Blood (Negative) Ur Leukocyte Esterase (Negative) Urine RBC (0-5) /hpf Urine WBC (0-5) /hpf Urine WBC Clumps (None) /hpf Urine Bacteria (None) /hpf Crossmatch Assessment and Plan Assessment: 1. Acute on chronic anemia - Patient does have history of chronic anemia and receives iron infusions regularly - Patient has been ordered 1 unit of packed RBCs; we will monitor H&H closely with plans to transfuse if hemoglobin is less than 7.0 - Start patient on IV Protonix; hold anticoagulation therapy - Patient does have history of colonoscopy done in the past but no history of EGD - We will plan to consult general surgery for EGD/colonoscopy if patient continues to drop hemoglobin 2. Acute renal injury; BUN/creatinine is elevated at 70/1.51; patient has been placed on IV fluid hydration; monitor strict ARA's, daily weights, renal function and electrolytes; avoid nephrotoxins and hypotension 3. Hyponatremia; continue with IV fluids in form of normal saline; continues to monitor electrolytes closely and supplement as needed 4. Hyperglycemia/history of diabetes mellitus; patient takes metformin thousand milligrams twice a day along with insulin aspart via insulin pump 5. Hyperlipidemia; Lipitor 40 mg by mouth daily at bedtime 6. Hypertension; hydralazine 25 mg daily; lisinopril 2.5 mg daily 7. Atrial fibrillation; remains rate controlled; currently on anticoagulation with has been placed on hold 8. CAD/CHF; patient remains on Lasix 40 mg 3 times a day and hydralazine 25 mg twice a day along with metolazone 2.5 mg every 48 hours
[2023-02-22 11:45] LABS: Glucose,Whole Blood 123 mg/dL (70-110)
[2023-02-22] MEDS ORDERED: FUROSEMIDE 10 MG/ML 4 ML VIAL IV STA (12:25)
--- NOTE | 2023-02-22 12:35 | P.NPCON ---
History of Present Illness - Reason for Consult chronic renal failure - History of Present Illness Patient is a 70-year-old male with history of chronic kidney disease NKF stage III with baseline creatinine around 1.2-1.5 mg/dL. Patient was admitted to the hospital as he was noticed to have a hemoglobin of 6.9 on 02/20/2023 when he had come in for a routine Aranesp injection. Patient is maintained on Aranesp on a weekly basis. Previous hemoglobin has been about 7.4-8.1 g/dL. Status post 1 unit packed RBCs transfusion. Hemoglobin was 8.1 g/dL yesterday. Stool for occult blood was positive but patient states that he has had hemorrhoids. EGD has been discussed with the patient but patient is currently refusing as he is not able to lie down for the procedure due to significant history of epistaxis. Patient is also noted to have significant pyuria. He currently denies any urinary symptoms. No fever noted. Started on antibiotics. Patient states he wants to go home Review of Systems As per HPI. Past Medical History Past Medical History: Blood Disorder, Coronary Artery Disease (CAD), Diabetes Mellitus, Hyperlipidemia, Hypertension, Osteoarthritis (OA), Skin Disorder Additional Past Medical History / Comment(s): wounds on both legs and swelling of the legs-treated for cellulitis Jul-2020. ANEMIA. History of Any Multi-Drug Resistant Organisms: None Reported Past Surgical History: Appendectomy, Heart Catheterization Additional Past Surgical History / Comment(s): carpal tunnel surgery Past Anesthesia/Blood Transfusion Reactions: No Reported Reaction Past Psychological History: No Psychological Hx Reported Smoking Status: Former smoker Past Alcohol Use History: None Reported Past Drug Use History: None Reported - Past Family History Mother Family Medical History: Cancer, Thyroid Disorder Additional Family Medical History / Comment(s): of lung infection age 59 Brother(s) Family Medical History: Cancer, COPD, Respiratory Disorder Additional Family Medical History / Comment(s): hx agent orange, Medications and Allergies Home Medications Medication Instructions Recorded Confirmed Type Omeprazole [PriLOSEC] 20 mg PO DAILY 08/09/15 02/20/23 History metFORMIN HCL [Glucophage] 1,000 mg PO BID 07/15/16 02/20/23 History Atorvastatin [Lipitor] 40 mg PO HS 06/01/18 02/20/23 History Insulin Aspart (For Pump) [NovoLOG 0.01 unit SQ-PUMP CONTINUOUS 07/23/20 02/20/23 History (For Pump)] Zinc 100 mg PO DAILY 07/23/20 02/20/23 History Sennosides-Docusate Sodium 2 tab PO DAILY 08/25/20 02/20/23 History [Senokot-S] Apixaban [Eliquis] 5 mg PO BID 11/20/20 02/20/23 History Cholecalciferol [Vitamin D3 (25 25 mcg PO DAILY 08/05/21 02/20/23 History Mcg = 1000 Iu)] Magnesium 250 mg PO DAILY 08/05/21 02/20/23 History metOLazone 2.5 mg PO Q48H 08/05/21 02/20/23 History Furosemide [Lasix] 40 mg PO TID 06/04/22 02/20/23 History Ferrous Sulfate [Feosol] 325 mg PO BID 06/05/22 02/20/23 History Potassium Chloride ER [K-Dur 20] 20 meq PO BID 06/05/22 02/20/23 History lisinopriL 2.5 mg PO DAILY 06/06/22 02/20/23 History hydrALAZINE HCL [Apresoline] 25 mg PO BID 11/06/22 02/20/23 History Sinarest Nasal Drops 2 drops EA NOSTRIL BID 02/20/23 02/20/23 History allopurinoL [Zyloprim] 300 mg PO HS 02/20/23 02/20/23 History Allergies Allergy/AdvReac Type Severity Reaction Status Date / Time prednisone Allergy Unknown Verified 02/20/23 18:14 Sulfa (Sulfonamide Allergy Rash/Hives Verified 02/20/23 18:14 Antibiotics) codeine AdvReac Unknown Verified 02/20/23 18:14 ivory soap Allergy Rash/Hives Uncoded 02/20/23 18:14 Physical Exam Vitals: Vital Signs Temp Pulse Resp BP Pulse Ox 02/22/23 11:40 97.6 F 54 L 16 146/64 97 02/22/23 07:31 97.5 F L 51 L 18 122/63 99 02/22/23 00:54 98.8 F 57 L 18 176/66 98 02/21/23 19:39 98 F 57 L 18 152/56 99 Intake and Output 02/21/23 02/22/23 02/22/23 22:59 06:59 14:59 Other: Voiding Method Toilet Toilet # Voids 1 2 Patient is awake, comfortable, no acute distress Examination of the heart S1 and S2 Examination of the lungs bilateral breath sounds are heard Abdomen is soft morbidly obese Examination of lower extremities shows chronic skin changes with chronic edema bilaterally [employer]RI[employer] exam grossly intact Results - Lab Results Most recent lab results Calcium 9.4 mg/dL (8.7-10.3) 02/22/23 06:35 02/21/23 22:31 02/22/23 06:35 Assessment and Plan Assessment: 1. Acute kidney injury secondary to severe anemia, hemodynamic ATN, currently improved 2. Chronic kidney disease NKF stage IIIa secondary to nephrosclerosis with baseline creatinine around 1.2 mg/dL 3. Acute anemia on top of anemia of chronic disease. Stool for occult blood was positive but patient states that he has hemorrhoids. Currently refusing EGD as patient states he is not able to lay down flat due to significant history of epistaxis. Status post packed RBCs transfusion. 4. Chronic lower extremity edema, slightly worse over the last couple of days 5. Chronic A. fib maintained on eliquis Plan: Resume home dose of loop diuretics. IV Lasix 1 IV iron 1 Patient can be discharged from nephrology standpoint. Finish course of oral antibiotics. Follow-up as outpatient Aranesp 60 g 1 prior to discharge. Next Thank you for the consultation. We will continue to follow the patient with you.
[2023-02-22 13:11] LABS: Anisocytosis Slight; Basophils % (A) 0 %; Eosinophils % (A) 2 %; HCT 25.7 % (39.0-53.0); HGB 7.6 gm/dL (13.0-17.5); Hypochromasia Marked; Lymphocytes % (A) 11 %; MCH 25.9 pg (25.0-35.0); MCHC 29.5 g/dL (31.0-37.0); MCV 87.8 fL (80.0-100.0); Mean Platelet Volume 9.7; Monocytes % (A) 9 %; Neutrophils # (A) 5.8 k/uL (1.3-7.7); Neutrophils % (A) 73 %; Platelet Count 218 k/uL (150-450); Poikilocytosis Moderate; RBC 2.93 m/uL (4.30-5.90); RDW 16.1 % (11.5-15.5)
[2023-02-22 13:12] LABS: Eosinophils # (A) 0.1 k/uL (0-0.7); Lymphocytes # (A) 0.9 k/uL (1.0-4.8); Monocytes # (A) 0.7 k/uL (0-1.0)
[2023-02-22] MEDS ORDERED: SODIUM FERRIC GLUCONAT-SUCROSE 125 MG in SODIUM CHLORIDE 0.9% 100 ML IVPB ONE (13:30)
[2023-02-22] MEDS ORDERED: DARBEPOETIN ALFA 60 MCG/0.3 ML SYRINGE SQ SCH (14:00)
[2023-02-22] MEDS: Insulin Aspart (For Pump) 100 UNIT/ML VIAL SQ-PUMP SCH (16:28)
[2023-02-22 17:09] LABS: Glucose,Whole Blood 135 mg/dL (70-110)
--- NOTE | 2023-02-22 20:21 | P.PN ---
Subjective Progress Note Date: 02/22/23 72-year-old male with past medical history significant for chronic anemia presents to the ED with a chief complaint of low hemoglobin. Patient states that he was going to have an iron infusion upstairs when they noted his hemoglobin to be 6.9 and sent to the ED for further evaluation. Denies blood in the stool however notes his stools are usually dark due to being on an iron supplement. Denies lightheadedness or near syncope however notes he has been more fatigued over the past few days. Denies nausea, vomiting, hematochezia. Denies blood in the urine. Denies chest pain shortness breath. Last colonoscopy 2 years ago without any findings setting for GI bleeding. No recent EGD performed. No other complaints. We will complete continue to have exudative esophagitis 0.3, hemoglobin of 6.9, hematocrit 22.2 and platelet count of 189, 129,/creatinine of 70/1.5 on with a blood glucose of 239 --- In the ED stool occult blood was found to be positive; patient is currently on iron supplement; resume anticoagulation for atrial fibrillation which has been placed on hold -- Hemoglobin is up to 7.4 after transfusion 1 unit packed RBCs; patient denies any bloody stools; has been placed on IV Rocephin for UTI; urine culture is pending -- Eliquis remains on hold; I will plan to monitor H&H closely and resume on liquids if hemoglobin remained stable posttransfusion; patient is agreeable to this plan of care 02/22/2023 Patient is seen and evaluated sitting up in bedside chair; in color to be discharged home Vital signs are reviewed and remained stable Lab review shows a sodium of 133, potassium 4.2, BUN/creatinine of 38.1/1.2, WBC 8.0, hemoglobin of 7.6 which is a downward trend from 8.1 after transfusion yesterday Ahlquist remains on hold; hemoglobin continues to trend down despite holding anticoagulation therapy; patient has had colonoscopy done about 2 years ago but no recent EGD done - We will consult general surgery for further evaluation; continue to hold anticoagulation therapy Objective - Vital Signs Vital signs: Vital Signs Temp 97.5 F L 02/22/23 07:31 Pulse 51 L 02/22/23 07:31 Resp 18 02/22/23 07:31 BP 122/63 02/22/23 07:31 Pulse Ox 99 02/22/23 07:31 FiO2 Intake & Output 02/21/23 02/22/23 02/22/23 18:59 06:59 18:59 Other: Voiding Method Toilet Toilet Toilet # Voids 1 2 - Exam General appearance: alert, in no apparent distress Eye exam: Present: normal appearance Respiratory exam: Present: normal lung sounds bilaterally Cardiovascular Exam: Present: regular rate, normal rhythm GI/Abdominal exam: Present: soft Extremities exam: Present: other (1+ pitting edema bilaterally with erythema of bilateral lower extremities. No significant warmth. DP/PT pulses equal and intact.) Neurological exam: Present: alert, oriented X3 Psychiatric exam: Present: normal affect, normal mood Skin exam: Present: warm, dry - Labs CBC & Chem 7: 02/22/23 06:35 02/22/23 06:35 Labs: Abnormal Lab Results - Last 24 Hours (Table) 02/21/23 02/21/23 02/21/23 Range/Units 05:23 11:38 17:25 RBC (4.30-5.90) m/uL Hgb (13.0-17.5) gm/dL Hct (39.0-53.0) % RDW (11.5-15.5) % Sodium (135-145) mmol/L BUN (9.0-27.0) mg/dL BUN/Creatinine Ratio (12.00-20.00) Ratio POC Glucose (mg/dL) 218 H 158 H (70-110) mg/dL Hemoglobin A1c 7.6 H (<=6.0) % 02/21/23 02/21/23 02/22/23 Range/Units 20:30 22:31 06:35 RBC 2.98 L (4.30-5.90) m/uL Hgb 8.1 L (13.0-17.5) gm/dL Hct 25.3 L (39.0-53.0) % RDW 16.1 H (11.5-15.5) % Sodium 133 L (135-145) mmol/L BUN 38.1 H (9.0-27.0) mg/dL BUN/Creatinine Ratio 31.75 H (12.00-20.00) Ratio POC Glucose (mg/dL) 192 H (70-110) mg/dL Hemoglobin A1c (<=6.0) % Assessment and Plan Assessment: 1. Acute on chronic anemia - Patient does have history of chronic anemia and receives iron infusions regularly - Patient has been ordered 1 unit of packed RBCs; we will monitor H&H closely with plans to transfuse if hemoglobin is less than 7.0 - Start patient on IV Protonix; hold anticoagulation therapy - Patient does have history of colonoscopy done in the past but no history of EGD - We will plan to consult general surgery for EGD/colonoscopy if patient continues to drop hemoglobin 2. Acute renal injury; BUN/creatinine is elevated at 70/1.51; patient has been placed on IV fluid hydration; monitor strict ARA's, daily weights, renal fun ction and electrolytes; avoid nephrotoxins and hypotension 3. Hyponatremia; continue with IV fluids in form of normal saline; continues to monitor electrolytes closely and supplement as needed 4. Hyperglycemia/history of diabetes mellitus; patient takes metformin thousand milligrams twice a day along with insulin aspart via insulin pump 5. Hyperlipidemia; Lipitor 40 mg by mouth daily at bedtime 6. Hypertension; hydralazine 25 mg daily; lisinopril 2.5 mg daily 7. Atrial fibrillation; remains rate controlled; currently on anticoagulation with has been placed on hold 8. CAD/CHF; patient remains on Lasix 40 mg 3 times a day and hydralazine 25 mg twice a day along with metolazone 2.5 mg every 48 hours
[2023-02-22 20:49] LABS: Glucose,Whole Blood 139 mg/dL (70-110)
[2023-02-22] MEDS: ATORVASTATIN 40 MG TAB PO SCH (21:17)
[2023-02-22] MEDS: allopurinoL 300 MG TAB PO SCH (21:17)
[2023-02-22 22:02] LABS: Anisocytosis Slight; HCT 28.5 % (39.0-53.0); HGB 8.5 gm/dL (13.0-17.5); Hypochromasia Marked; MCH 25.7 pg (25.0-35.0); MCHC 29.7 g/dL (31.0-37.0); MCV 86.4 fL (80.0-100.0); Platelet Count 251 k/uL (150-450); Poikilocytosis Moderate; RBC 3.31 m/uL (4.30-5.90); RDW 16.1 % (11.5-15.5); WBC 8.6 k/uL (3.8-10.6)
[2023-02-23 07:16] LABS: Glucose,Whole Blood 161 mg/dL (70-110)
--- NOTE | 2023-02-23 08:36 | P.PN ---
Subjective Patient is seen in follow-up for acute kidney injury on chronic kidney disease. Renal function near baseline. Good urine output. Hemodynamically stable. Denies any active bleeding. Wants to go home. Vital signs are stable. General: No acute distress. HEENT: Head exam is unremarkable. LUNGS: No audible rhonchi or wheezes. HEART: Rate and Rhythm are regular. ABDOMEN: Soft, obese. EXTREMITITES: 1+ edema. No drainage. Erythema noted. Objective - Vital Signs Vital signs: Vital Signs Temp 98 F 02/23/23 07:15 Pulse 52 L 02/23/23 07:15 Resp 18 02/23/23 07:15 BP 132/69 02/23/23 07:15 Pulse Ox 98 02/23/23 07:15 FiO2 Intake & Output 02/22/23 02/23/23 02/23/23 18:59 06:59 18:59 Other: Voiding Method Toilet Toilet # Voids 3 2 - Labs CBC & Chem 7: 02/22/23 21:08 02/22/23 06:35 Labs: Abnormal Lab Results - Last 24 Hours (Table) 02/22/23 02/22/23 02/22/23 Range/Units 06:35 06:35 11:43 RBC 2.93 L (4.30-5.90) m/uL Hgb 7.6 L (13.0-17.5) gm/dL Hct 25.7 L (39.0-53.0) % MCHC 29.5 L (31.0-37.0) g/dL RDW 16.1 H (11.5-15.5) % Lymphocytes # 0.9 L (1.0-4.8) k/uL Sodium 133 L (135-145) mmol/L BUN 38.1 H (9.0-27.0) mg/dL BUN/Creatinine Ratio 31.75 H (12.00-20.00) Ratio POC Glucose (mg/dL) 123 H (70-110) mg/dL 02/22/23 02/22/23 02/22/23 Range/Units 17:07 20:48 21:08 RBC 3.31 L (4.30-5.90) m/uL Hgb 8.5 L (13.0-17.5) gm/dL Hct 28.5 L (39.0-53.0) % MCHC 29.7 L (31.0-37.0) g/dL RDW 16.1 H (11.5-15.5) % Lymphocytes # (1.0-4.8) k/uL Sodium (135-145) mmol/L BUN (9.0-27.0) mg/dL BUN/Creatinine Ratio (12.00-20.00) Ratio POC Glucose (mg/dL) 135 H 139 H (70-110) mg/dL 02/23/23 Range/Units 07:15 RBC (4.30-5.90) m/uL Hgb (13.0-17.5) gm/dL Hct (39.0-53.0) % MCHC (31.0-37.0) g/dL RDW (11.5-15.5) % Lymphocytes # (1.0-4.8) k/uL Sodium (135-145) mmol/L BUN (9.0-27.0) mg/dL BUN/Creatinine Ratio (12.00-20.00) Ratio POC Glucose (mg/dL) 161 H (70-110) mg/dL Assessment and Plan Plan: Assessment: 1. Acute kidney injury secondary to ischemic ATN secondary to acute blood loss anemia. Better. Creatinine 1.2 yesterday. 2. Chronic kidney disease stage III secondary to nephrosclerosis with baseline creatinine near 1.2. 3. Acute blood loss anemia with component of chronic kidney disease. Received blood transfusion this admission. On Aranesp. Surgery consulted. 4. Lower extremity edema better with diuresis. 5. Diabetes mellitus. 6. Hypertension with chronic kidney disease. Stable. Plan: Maintain Lasix. Advised patient to maintain low-salt diet and fluid restriction of less than 50 ounces per day. Check iron studies. Avoid nephrotoxins. Continue to monitor renal function and urine output.
[2023-02-23 08:43] LABS: Blood Urea Nitrogen 41.7 mg/dL (9.0-27.0); Calcium 9.2 mg/dL (8.7-10.3); Carbon Dioxide 23.7 mmol/L (21.6-31.8); Chloride 94 mmol/L (96-109); Glucose 150 mg/dL (70-110); Potassium 4.2 mmol/L (3.5-5.5); Sodium 131 mmol/L (135-145)
[2023-02-23 08:49] LABS: Basophils # (A) 0.06 X 10*3/uL (0.00-0.10); Basophils % (A) 0.7 %; Eosinophils # (A) 0.15 X 10*3/uL (0.04-0.35); Eosinophils % (A) 1.6 %; HCT 25.4 % (39.6-50.0); HGB 7.5 d/dL (13.0-17.0); Lymphocytes # (A) 0.92 X 10*3/uL (0.90-5.00); Lymphocytes % (A) 10.1 %; MCH 25.5 pg (27.0-32.0); MCHC 29.5 d/dL (32.0-37.0); MCV 86.4 FL (80.0-97.0); Monocytes # (A) 1.21 X 10*3/uL (0.20-1.00); Monocytes % (A) 13.3 %; NRBC Per 100 WBC 0 X 10*3/uL (0.00-0.01); Neutrophils # (A) 6.71 X 10*3/uL (1.80-7.70); Neutrophils % (A) 73.8 %; Platelet Count 254 X 10*3/uL (140-440); RBC 2.94 X 10*6/uL (4.40-5.60); RDW 15.8 % (11.5-14.5)
[2023-02-23] MEDS: hydrALAZINE HCL 25 MG TAB PO SCH (08:58)
[2023-02-23] MEDS: PANTOPRAZOLE 40 MG TABLET PO SCH (08:58)
[2023-02-23] MEDS: FERROUS SULFATE 325 MG TAB PO SCH (08:58)
[2023-02-23] MEDS: CHOLECALCIFEROL 25 MCG (1000 IU) TABLET PO SCH (08:58)
[2023-02-23] MEDS: metFORMIN 500 MG TAB PO SCH (08:58)
[2023-02-23] MEDS: SENNOSIDES-DOCUSATE SODIUM 1 EACH TAB PO SCH (08:58)
[2023-02-23] MEDS: POTASSIUM CHLORIDE ER 20 MEQ TAB.ER PO SCH (08:58)
[2023-02-23] MEDS: FUROSEMIDE 40 MG TAB PO SCH ×2 (08:58→15:12)
[2023-02-23] MEDS: ZINC SULFATE 220 MG CAP PO SCH (08:58)
[2023-02-23] MEDS: MAGNESIUM OXIDE 400 MG TAB PO SCH (08:58)
[2023-02-23] MEDS: [UNRECOGNIZED DRUG - OTHER] EA NOSTRIL SCH (08:59)
[2023-02-23 11:26] LABS: % Iron Saturation 3.52 (15.00-50.00); Ferritin 14.1 ng/mL (22.0-322.0)
[2023-02-23 12:11] LABS: Glucose,Whole Blood 103 mg/dL (70-110)
[2023-02-23] MEDS ORDERED: SODIUM FERRIC GLUCONAT-SUCROSE 125 MG in SODIUM CHLORIDE 0.9% 100 ML IVPB SCH (13:00)
[2023-02-23] MEDS: Insulin Aspart (For Pump) 100 UNIT/ML VIAL SQ-PUMP SCH (15:03)
--- NOTE | 2023-02-23 16:19 | P.GSCN ---
History of Present Illness Consult date: 02/23/23 History of present illness: CHIEF COMPLAINT: Anemia HISTORY OF PRESENT ILLNESS: This is a 72-year-old male who presented to the hospital due to hemoglobin of 6.9 in the outpatient setting. He does report having black stools but does take iron pills at home. He does report having a history of anemia requiring blood transfusions and does receive IV iron injections. Also history of chronic kidney disease. Last colonoscopy was about 6 years ago and reported as negative. His stool for occult blood was positive. Patient did receive a unit of blood for hemoglobin of 6.9. Hemoglobin did come up to 8.5 and is now trending down to 7.5. He is on Eliquis for atrial fibrillation. Patient denies any abdominal pain. Denies any nausea or vomiting. Surgical services was consulted for possible endoscopies. PAST MEDICAL HISTORY: See list. PAST SURGICAL HISTORY: See list. MEDICATIONS: See list. ALLERGIES: See list. SOCIAL HISTORY: No illicit drug use. REVIEW OF SYSTEMS: CONSTITUTIONAL: Denies fever or chills. HEENT: Denies blurred vision, vision changes, or eye pain. Denies hemoptysis ENDOCRINE: Denies heat or cold intolerance. CARDIOVASCULAR: Denies chest pain or pressure. RESPIRATORY: No shortness of breath. GASTROINTESTINAL: Denies abdominal pain. Denies nausea or vomiting. NEURO: Denies history of seizures. PSYCH: No depression or suicidal ideation HEMATOLOGIC: Denies bleeding disorders. LYMPHATIC: The patient denies any lumps and bumps around the neck. GENITOURINARY: Denies any blood in urine or increased urinary frequency. MUSCULOSKELETAL: Denies myalgias. Denies joint swelling. Denies decreased range of motion beyond patients baseline. SKIN: Denies pruitis. Denies rash. PHYSICAL EXAM: VITAL SIGNS: Reviewed GENERAL: Well-developed in no acute distress. HEENT: No sclera icterus. Extraocular movements grossly intact. Moist buccal mucosa. Head is atraumatic, normocephalic. Hears conversational speech. No nasal drai nage. NECK: Supple without lymphadenopathy. CHEST: Non-labored respirations and equal bilateral excursions. CARDIOVASCULAR: Palpable 2+ radial pulses. ABDOMEN: Soft. Nondistended. Nontender MUSCULOSKELETAL: No clubbing or cyanosis. NEUROLOGIC: No focal or lateralizing signs. Cranial nerves II through XII grossly intact. PSYCH: Appropriate affect. Alert and oriented to person, place and time. SKIN: Well perfused. Good skin turgor. LABORATORY DATA: WBC is 9.0 Hgb 7.5 platelets 254 sodium 131 and creatinine 1.5 IMAGING: ASSESSMENT: 1. Anemia with black stools 2. History of iron deficiency anemia and chronic anemia 3. Chronic kidney disease 4. History of atrial fibrillation on Eliquis 5. History of epistaxis when laying down PLAN: -Recommended EGD and colonoscopy during hospitalization for further workup on patient's anemia. However, patient is being discharged as per medicine service orders with plans for outpatient endoscopies -Continue to hold Eliquis -Continue to monitor for any signs or symptoms of bleeding Physician [place] note has been reviewed by physician. Signing provider agrees with the documented findings, assessment, and plan of care. CHIEF COMPLAINT: Anemia HISTORY OF PRESENT ILLNESS: The patient is a 72 year old male who presents with anemia. He presents with severe low hemoglobin 6.9. She has personal history of blood transfusion. She has not had a recent workup for anemia. No blood in stools. no hemoptysis. He is on iron pills and has dark stools. He is on blood thinners for atrial fibrillation. General surgery is consulted for anemia. PAST MEDICAL HISTORY: See list and reviewed PAST SURGICAL HISTORY: See list and reviewed MEDICATIONS: See list and reviewed ALLERGIES: See list and reviewed SOCIAL HISTORY: See list and reviewed FAMILY HISTORY: See list and reviewed REVIEW OF ORGAN SYSTEMS: CONSTITUTIONAL: No fevers or chills. No recent weight loss. EYES: Denies any trouble with vision. No glasses. HEENT: No difficulties with hearing. No nosebleeds. No difficulty swallowing. RESPIRATORY: Denies pneumonia. Denies any troubles with breathing or dyspnea on exertion. CARDIOVASCULAR: Has hyperlipidemia. Has hypertensive heart disease. Previous cardiac catheterization. Has coronary artery disease. GASTROINTESTINAL: Has gastroesophageal reflux disease. GENITOURINARY: Denies any blood in urine or increased urinary frequency. NEUROLOGICAL: Denies any numbness or tingling along the distal extremities. No seizure disorders or headaches. MUSCULOSKELETAL: Has back pain, stiffness or joint arthritis. Has gout. SKIN: No current skin cancer. No rash. PSYCHIATRIC: Denies current depression or suicidal thoughts. ENDOCRINE: Denies current thyroid disorders. Diabetes type 2 insulin-dependent. HEME/LYMPHATIC: Denies any lumps and bumps around the neck. No recent deep venous thrombosis. Anemia. ALLERGY/IMMUNOLOGY: No immunoglobulin therapy. No immune deficiencies. BREAST: Denies current breast lumps, pain or nipple discharge. PHYSICAL EXAM: VITALS: Reviewed CONSTITUTIONAL: Well developed and in no acute distress. EYES: Conjuctivae without sclera icterus. Extraocular movements grossly intact. HEAD, EARS, NOSE, THROAT: Moist buccal mucosa. Head is atraumatic, normocephalic. Hears conversational speech. No nasal drainage. NECK: Supple. No JV distention. No thyroidomegaly. RESPIRATORY: Non-labored respirations and equal bilateral excursions. No gross wheezes. CARDIOVASCULAR: Palpable 2+ radial pulses. ABDOMEN: Nontender. LYMPH: No neck lymphadenopathy. MUSCULOSKELETAL: No clubbing cyanosis or edema SKIN: Warm and well perfused with good skin turgor. NEUROLOGIC: Cranial nerves II through XII grossly intact. No focal or lateralizing signs. PSYCH: Appropriate affect. Alert and oriented to person, place and time. Displays appropriate insight. CLINCAL LABS: Reviewed. hemoglobin 6.9 on admission now to 8.5 after 1 unit of blood. ASSESSMENT: 1. Anemia 2. Status post blood transfusion 3. Diabetes type 2, insulin-dependent 4. Atrial fibrillation 5. Chronic anticoagulation 6. Gastroesophageal reflux disease 7. Coronary artery disease 8. Hypertensive heart disease PLAN: 1. Recommend upper and lower endoscopy for chronic anemia 2. Recommend holding anticoagulation 3. Per discussion was admitted team, patient being discharged. We'll arrange for outpatient endoscopy ADVANCE DIRECTIVE: Thank you for this kind consultation. Past Medical History Past Medical History: Blood Disorder, Coronary Artery Disease (CAD), Diabetes Mellitus, Hyperlipidemia, Hypertension, Osteoarthritis (OA), Skin Disorder Additional Past Medical History / Comment(s): wounds on both legs and swelling of the legs-treated for cellulitis Jul-2020. ANEMIA. History of Any Multi-Drug Resistant Organisms: None Reported Past Surgical History: Appendectomy, Heart Catheterization Additional Past Surgical History / Comment(s): carpal tunnel surgery Past Anesthesia/Blood Transfusion Reactions: No Reported Reaction Past Psychological History: No Psychological Hx Reported Smoking Status: Former smoker Past Alcohol Use History: None Reported Past Drug Use History: None Reported - Past Family History Mother Family Medical History: Cancer, Thyroid Disorder Additional Family Medical History / Comment(s): of lung infection age 59 Brother(s) Family Medical History: Cancer, COPD, Respiratory Disorder Additional Family Medical History / Comment(s): hx agent orange, Medications and Allergies Home Medications Medication Instructions Recorded Confirmed Type Omeprazole [PriLOSEC] 20 mg PO DAILY 08/09/15 04/09/23 History metFORMIN HCL [Glucophage] 1,000 mg PO BID 07/15/16 04/09/23 History Atorvastatin [Lipitor] 40 mg PO HS 06/01/18 04/09/23 History Insulin Aspart (For Pump) [NovoLOG 0.01 unit SQ-PUMP CONTINUOUS 07/23/20 04/09/23 History (For Pump)] Zinc 100 mg PO DAILY 07/23/20 04/09/23 History Sennosides-Docusate Sodium 2 tab PO DAILY 08/25/20 04/09/23 History [Senokot-S] Cholecalciferol [Vitamin D3 (25 25 mcg PO DAILY 08/05/21 04/09/23 History Mcg = 1000 Iu)] Magnesium 250 mg PO DAILY 08/05/21 04/09/23 History metOLazone 2.5 mg PO Q48H 08/05/21 04/09/23 History Furosemide [Lasix] 40 mg PO TID 06/04/22 04/09/23 History Ferrous Sulfate [Iron (65 MG 325 mg PO BID 06/05/22 04/09/23 History Elemental)] Potassium Chloride ER [K-Dur 20] 20 meq PO BID 06/05/22 04/09/23 History lisinopriL 2.5 mg PO DAILY 06/06/22 04/09/23 History hydrALAZINE HCL [Apresoline] 25 mg PO BID 11/06/22 04/09/23 History Sinarest Nasal Drops 2 drops EA NOSTRIL BID 02/20/23 04/09/23 History allopurinoL [Zyloprim] 300 mg PO HS 02/20/23 04/09/23 History Acetaminophen Tab [Tylenol] 650 mg PO Q6HR PRN tab 02/23/23 04/09/23 Rx Darbepoetin Mat [Aranesp] 60 mcg SQ Q7D each 02/23/23 04/09/23 Rx Pantoprazole [Protonix] 40 mg PO DAILY #30 tab 02/23/23 04/09/23 Rx Sucralfate [Carafate] 1 gm PO BID #30 tablet 02/25/23 04/09/23 Rx Allergies Allergy/AdvReac Type Severity Reaction Status Date / Time prednisone Allergy Unknown Verified 04/09/23 09:07 Sulfa (Sulfonamide Allergy Rash/Hives Verified 04/09/23 09:07 Antibiotics) codeine AdvReac Unknown Verified 04/09/23 09:07 ivory soap Allergy Rash/Hives Uncoded 04/09/23 09:07 Surgical - Exam Vital Signs Temp Pulse Resp BP Pulse Ox 98.2 F 60 16 134/53 99 02/20/23 14:39 02/20/23 14:39 02/20/23 14:39 02/20/23 14:39 02/20/23 14:39 Results - Labs 02/23/23 05:54 02/23/23 05:54 Abnormal Lab Results - Last 24 Hours (Table) 02/22/23 02/22/23 02/22/23 Range/Units 06:35 11:43 17:07 RBC 2.93 L (4.30-5.90) m/uL Hgb 7.6 L (13.0-17.5) gm/dL Hct 25.7 L (39.0-53.0) % MCH (27.0-32.0) pg MCHC 29.5 L (31.0-37.0) g/dL RDW 16.1 H (11.5-15.5) % Lymphocytes # 0.9 L (1.0-4.8) k/uL Monocytes # (0.20-1.00) X 10*3/uL Sodium (135-145) mmol/L Chloride (96-109) mmol/L Anion Gap (4.00-12.00) mmol/L BUN (9.0-27.0) mg/dL Est GFR (CKD-EPI) (>=60) BUN/Creatinine Ratio (12.00-20.00) Ratio Glucose (70-110) mg/dL POC Glucose (mg/dL) 123 H 135 H (70-110) mg/dL 02/22/23 02/22/23 02/23/23 Range/Units 20:48 21:08 05:54 RBC 3.31 L 2.94 L (4.30-5.90) m/uL Hgb 8.5 L 7.5 L (13.0-17.5) gm/dL Hct 28.5 L 25.4 L (39.0-53.0) % MCH 25.5 L (27.0-32.0) pg MCHC 29.7 L 29.5 L (31.0-37.0) g/dL RDW 16.1 H 15.8 H (11.5-15.5) % Lymphocytes # (1.0-4.8) k/uL Monocytes # 1.21 H (0.20-1.00) X 10*3/uL Sodium (135-145) mmol/L Chloride (96-109) mmol/L Anion Gap (4.00-12.00) mmol/L BUN (9.0-27.0) mg/dL Est GFR (CKD-EPI) (>=60) BUN/Creatinine Ratio (12.00-20.00) Ratio Glucose (70-110) mg/dL POC Glucose (mg/dL) 139 H (70-110) mg/dL 02/23/23 02/23/23 Range/Units 05:54 07:15 RBC (4.30-5.90) m/uL Hgb (13.0-17.5) gm/dL Hct (39.0-53.0) % MCH (27.0-32.0) pg MCHC (31.0-37.0) g/dL RDW (11.5-15.5) % Lymphocytes # (1.0-4.8) k/uL Monocytes # (0.20-1.00) X 10*3/uL Sodium 131 L (135-145) mmol/L Chloride 94 L (96-109) mmol/L Anion Gap 13.30 H (4.00-12.00) mmol/L BUN 41.7 H (9.0-27.0) mg/dL Est GFR (CKD-EPI) 49 L (>=60) BUN/Creatinine Ratio 27.80 H (12.00-20.00) Ratio Glucose 150 H (70-110) mg/dL POC Glucose (mg/dL) 161 H (70-110) mg/dL Diabetes panel 02/23/23 Range/Units 05:54 Sodium 131 L (135-145) mmol/L Potassium 4.2 (3.5-5.5) mmol/L Chloride 94 L (96-109) mmol/L Carbon Dioxide 23.7 (21.6-31.8) mmol/L BUN 41.7 H (9.0-27.0) mg/dL Creatinine 1.5 (0.6-1.5) mg/dL Glucose 150 H (70-110) mg/dL Calcium 9.2 (8.7-10.3) mg/dL Calcium panel 02/23/23 Range/Units 05:54 Calcium 9.2 (8.7-10.3) mg/dL Pituitary panel 02/23/23 Range/Units 05:54 Sodium 131 L (135-145) mmol/L Potassium 4.2 (3.5-5.5) mmol/L Chloride 94 L (96-109) mmol/L Carbon Dioxide 23.7 (21.6-31.8) mmol/L BUN 41.7 H (9.0-27.0) mg/dL Creatinine 1.5 (0.6-1.5) mg/dL Glucose 150 H (70-110) mg/dL Calcium 9.2 (8.7-10.3) mg/dL Adrenal panel 02/23/23 Range/Units 05:54 Sodium 131 L (135-145) mmol/L Potassium 4.2 (3.5-5.5) mmol/L Chloride 94 L (96-109) mmol/L Carbon Dioxide 23.7 (21.6-31.8) mmol/L BUN 41.7 H (9.0-27.0) mg/dL Creatinine 1.5 (0.6-1.5) mg/dL Glucose 150 H (70-110) mg/dL Calcium 9.2 (8.7-10.3) mg/dL
[2023-02-23 17:08] LABS: Glucose,Whole Blood 164 mg/dL (70-110)
[2023-02-23 17:42] VITALS: BP 139/46; PULSE 55; RESP 20; TEMP 98.5
--- NOTE | 2023-02-23 22:50 | DS ---
DISCHARGE SUMMARY FINAL DIAGNOSES: 1. Acute on chronic anemia. 2. Acute renal injury. 3. Hyponatremia. 4. Hyperglycemia. 5. Hyperlipidemia .. 6. Multiple medical issues. DISCHARGE DISPOSITION: The patient will be discharged in stable condition with guarded prognosis. Patient is extremely keen on going home. HISTORY: This is a 72-year-old gentleman admitted with symptomatic anemia. The patient was transfused. Multiple consultants saw the patient. Hemoglobin is currently stable at 7.5. Dr. Chauhan saw the patient, recommended outpatient colonoscopy. PHYSICAL EXAMINATION: VITALS: Stable. CARDIOVASCULAR: S1, S2 muffled. ABDOMEN: Soft. NERVOUS SYSTEM: Nonfocal. Continue current medications, otherwise Aranesp 60 mg subcu q.7 days, Protonix 40 mg daily. Followup colonoscopy by Dr. Chauhan. Hold Elirobin for now and follow up with Dr. Jacome. Follow up with Dr. Oliveira and Dr. Chauhan as recommended. See orders for further details. Once again, the patient is discharged in stable condition, guarded prognosis. MMODL / IJN: [id number] /
--- NOTE | 2023-02-23 23:57 | P.PN ---
Progress Note - Text Progress Note Date: 02/23/23 Overall, patient is high-risk for re-bleed with blood thinners. Last colonoscopy over 6 years ago. Patient has underlying congestive heart failure with increased risk for exacerbation of heart failure doing bowel prep. Hemoglobin less than 7.0 on admission. Do recommend inpatient hospitalization with inpatient upper and lower endoscopy. Information conveyed with medicine team. Admitting team discharged patient.
== END 2023-02-23 18:03 | disposition home or self-care (01) ==
LOC: EC 14:09 → 5NMEDONC 17:35 → OBSVTOIN 02-23 09:12 → INTOOBSV 02-23 09:12 → UNDODISIN 02-23 18:03
PROVIDERS: ADMIT Internal Medicine; ATTEND Internal Medicine
DX: D50.9 Iron deficiency anemia, unspecified (principal); N17.9 Acute kidney failure, unspecified; E11.65 Type 2 diabetes mellitus with hyperglycemia; E87.1 Hypo-osmolality and hyponatremia; I13.0 Hypertensive heart and chronic kidney disease with heart failure and stage 1 through stage 4 chronic kidney disease, or unspecified chronic kidney disease; I50.9 Heart failure, unspecified; N18.31 Chronic kidney disease, stage 3a; E11.22 Type 2 diabetes mellitus with diabetic chronic kidney disease; D63.1 Anemia in chronic kidney disease; R60.0 Localized edema; I48.20 Chronic atrial fibrillation, unspecified; I25.10 Atherosclerotic heart disease of native coronary artery without angina pectoris; E78.5 Hyperlipidemia, unspecified; K21.9 Gastro-esophageal reflux disease without esophagitis; E66.9 Obesity, unspecified; Z68.39 Body mass index [BMI] 39.0-39.9, adult; Z87.891 Personal history of nicotine dependence; Z79.899 Other long term (current) drug therapy; Z79.84 Long term (current) use of oral hypoglycemic drugs; Z79.4 Long term (current) use of insulin; Z79.01 Long term (current) use of anticoagulants; Z96.41 Presence of insulin pump (external) (internal); Z88.2 Allergy status to sulfonamides; Z88.5 Allergy status to narcotic agent
CPT/HCPCS: 36430 ×2; 96365; 96366 ×2; 96367; 96372; 96375; 99285; 36415; 93005 ×2; 86900; 86901; 80053; 80048 ×3; 82728; 83540; 83550; 85025 ×4; 85027 ×2; 86850; 86920 ×2; 82272; 81001; 83036; G0378 ×5; P9016 ×2; J1940; J0696 ×3; J2916 ×2; J0881

== ENCOUNTER → 2023-02-25 | Day surgery (SDC) | payer MEDICARE ==
[~2023-02-25] MED LIST changes: -CYCLOPENTOLATE 1% OPHTH SOLN 2 ML BTL OP PRN; +GLYCOPYRROLATE 0.2 MG/ML 2 ML VIAL ONE; -MOXIFLOXACIN HCL 0.5% DROPS 3 ML BTL OP PRN; +PROPOFOL 10 MG/ML 20 ML VIAL IV ONE; -TETRACAINE 0.5% OPHTH (PF) DROPS 4 ML BTL OP PRN; -TIMOLOL 0.5% OPHTH DROPS 5 ML BTL OP PRN
--- NOTE | 2023-02-25 07:57 | P.GSHP ---
History of Present Illness H&P Date: 02/25/23 CHIEF COMPLAINT: GI bleed HISTORY OF PRESENT ILLNESS: The patient is a 72 year male who presents with GI bleed. Upper and lower endoscopy were offered for further evaluation and management. PAST MEDICAL HISTORY: Please see list. PAST SURGICAL HISTORY: Please see list. MEDICATIONS: Please see list. ALLERGIES: Please see list. SOCIAL HISTORY: No illicit drug use FAMILY HISTORY: No reports of Crohn disease or ulcerative colitis. REVIEW OF ORGAN SYSTEMS: CONSTITUTIONAL: No reports of fevers or chills. GI: Denies any blood in stools or constipation. PHYSICAL EXAM: VITAL SIGNS: Stable GENERAL: Well-developed pleasant in no acute distress. HEENT: No scleral icterus. Extraocular movements grossly intact. Moist buccal mucosa. NECK: Supple without lymphadenopathy. CHEST: Unlabored respirations. Equal bilateral excursions. CARDIOVASCULAR: Regular rate and rhythm. Distal 2+ pulses. ABDOMEN: Soft, nondistended. MUSCULOSKELETAL: No clubbing, cyanosis, or edema. ASSESSMENT: 1. GI bleed PLAN: 1. Recommend proceeding with an upper and lower endoscopy Past Medical History Past Medical History: Atrial Fibrillation, Blood Disorder, Coronary Artery Disease (CAD), Diabetes Mellitus, Hyperlipidemia, Hypertension, Osteoarthritis (OA), Renal Disease, Skin Disorder Additional Past Medical History / Comment(s): swelling of the legs & some scabbing from dropping something on them but nothing open, past hx. of cellulitis Jul-2020, recent adm [facility] for anemia, 6.9 hgb & was transfused, d/c yesterday History of Any Multi-Drug Resistant Organisms: None Reported Past Surgical History: Appendectomy, Heart Catheterization, Orthopedic Surgery Additional Past Surgical History / Comment(s): carpal tunnel surgery Past Anesthesia/Blood Transfusion Reactions: No Reported Reaction Smoking Status: Never smoker - Past Family History Mother Family Medical History: Cancer, Thyroid Disorder Additional Family Medical History / Comment(s): of lung infection age 59 Brother(s) Family Medical History: Cancer, COPD, Respiratory Disorder Additional Family Medical History / Comment(s): hx agent orange, Medications and Allergies Home Medications Medication Instructions Recorded Confirmed Type Omeprazole [PriLOSEC] 20 mg PO DAILY 08/09/15 02/24/23 History metFORMIN HCL [Glucophage] 1,000 mg PO BID 07/15/16 02/24/23 History Atorvastatin [Lipitor] 40 mg PO HS 06/01/18 02/24/23 History Insulin Aspart (For Pump) [NovoLOG 0.01 unit SQ-PUMP CONTINUOUS 07/23/20 02/24/23 History (For Pump)] Zinc 100 mg PO DAILY 07/23/20 02/24/23 History Sennosides-Docusate Sodium 2 tab PO DAILY 08/25/20 02/24/23 History [Senokot-S] Cholecalciferol [Vitamin D3 (25 25 mcg PO DAILY 08/05/21 02/24/23 History Mcg = 1000 Iu)] Magnesium 250 mg PO DAILY 08/05/21 02/24/23 History metOLazone 2.5 mg PO Q48H 08/05/21 02/24/23 History Furosemide [Lasix] 40 mg PO TID 06/04/22 02/24/23 History Ferrous Sulfate [Iron (65 MG 325 mg PO BID 06/05/22 02/24/23 History Elemental)] Potassium Chloride ER [K-Dur 20] 20 meq PO BID 06/05/22 02/24/23 History lisinopriL 2.5 mg PO DAILY 06/06/22 02/24/23 History hydrALAZINE HCL [Apresoline] 25 mg PO BID 11/06/22 02/24/23 History Sinarest Nasal Drops 2 drops EA NOSTRIL BID 02/20/23 02/24/23 History allopurinoL [Zyloprim] 300 mg PO HS 02/20/23 02/24/23 History Acetaminophen Tab [Tylenol] 650 mg PO Q6HR PRN tab 02/23/23 02/24/23 Rx Darbepoetin Mat [Aranesp] 60 mcg SQ Q7D each 02/23/23 02/24/23 Rx Pantoprazole [Protonix] 40 mg PO DAILY #30 tab 02/23/23 02/24/23 Rx Allergies Allergy/AdvReac Type Severity Reaction Status Date / Time prednisone Allergy Unknown Verified 02/24/23 08:51 Sulfa (Sulfonamide Allergy Rash/Hives Verified 02/24/23 08:51 Antibiotics) codeine AdvReac Unknown Verified 02/24/23 08:51 ivory soap Allergy Rash/Hives Uncoded 02/24/23 08:51
[2023-02-25 09:16] VITALS: TEMP 97.9
[2023-02-25 09:32] LABS: Glucose,Whole Blood 194 mg/dL (70-110)
--- NOTE | 2023-02-25 09:51 | P.PCN ---
Date of Procedure: 02/25/23 Description of Procedure: PREOPERATIVE DIAGNOSIS: Acute blood loss anemias Anticoagulant use POSTOPERATIVE DIAGNOSIS: Gastric ulcer without active bleeding Gastritis, acute on chronic Gastric polyps Sliding diaphragmatic had a hernia OPERATION: Esophagogastroduodenoscopy SURGEON: Ellen Chauhan MD ANESTHESIA: MAC. INDICATIONS: The patient is a 72-year-old male who presents with gastrointestinal bleeding. Benefits and risks of the procedure were described. Informed consent was obtained. DESCRIPTION: The patient was brought into the endoscopy suite and laid in the left lateral decubitus position. An Olympus gastroscope was passed along the posterior oropharynx down to the distal esophagus where the squamocolumnar junction was encountered at 43 cm from the incisors. The stomach was entered and no bile reflux was found. Additional findings are listed below. The first through third portion of the duodenum was examined and unremarkable. Retroflexion of the scope confirmed Hill grade 2 lower esophageal valve. The squamocolumnar junction demonstrated LA grade B erosive esophagitis. The stomach was desufflated. The patient tolerated the procedure well. FINDINGS: Squamocolumnar junction 42 cm from the incisors. Diaphragmatic hiatus at 43 cm. Hiatal hernia, 1 cm Hill grade 2 lower esophageal valve. LA grade B erosive esophagitis. No active duodenitis. Chronic gastritis with gastric ulcer 3 mm at antrum without active bleeding RECOMMENDATIONS: Hold blood thinner for 5 days Recommend Carafate for 2 weeks
[2023-02-25 10:30] LABS: Glucose,Whole Blood 178 mg/dL (70-110)
[2023-02-25 10:39] VITALS: BP 126/72; PULSE 53; RESP 16
--- NOTE | 2023-02-25 11:07 | P.PCN ---
Date of Procedure: 02/25/23 Description of Procedure: PREOPERATIVE DIAGNOSIS: Gastrointestinal bleed Anemia POSTOPERATIVE DIAGNOSIS: Gastrointestinal bleed Anemia ChloraPrep OPERATION: Colonoscopy to the hepatic flexure Colonoscopy with hot snare polypectomy SURGEON: Ellen Chauhan MD. ANESTHESIA: MAC. INDICATIONS: The patient is an 72-year-old male who presents family history of malignant colon polyps and personal history of colon polyps. Last colonoscopy 5 years. Benefits and risks were described and informed consent was obtained. DESCRIPTION OF PROCEDURE: The patient had undergone Suprep. The patient had been brought into the operating room and laid in the left lateral decubitus position. After adequate intravenous sedation, the rectum was examined with 2% lidocaine jelly. The prostate was unremarkable. External hemorrhoids were encountered. The rectal tone was loose. No lesions were palpated in the rectal vault. An Olympus colonoscope was advanced with poor prep compromising evaluation of the mucosa. The prep was poor. Sigmoid diverticulosis was encountered. Colonic polyps were found and removed. No evidence of focal colitis was found. Retroflexion of the scope demonstrated grade 2 internal hemorrhoids without active bleeding or inflammation. The colon was desufflated. The patient had tolerated the procedure well. Withdrawal time was over 6 minutes. FINDINGS: Aronchick preparation quality scale 4 (1-5) Internal hemorrhoids, grade 3 External hemorrhoids, grade 3. Nondiagnostic colonoscopy polyps due to poor prep No active blood in stools or bleeding identified. No arteriovenous malformations. Sigmoid diverticulosis Removal of 2 polyps: - Snare polypectomy at hepatic flexure, 12 mm piecemeal resection of adenoma RECOMMENDATIONS: Recommend repeat colonoscopy in 6 months, August 2023 Plan - Discharge Summary Discharge Rx Participant: No New Discharge Prescriptions: New Sucralfate [Carafate] 1 gm PO BID #30 tablet Continue Omeprazole [PriLOSEC] 20 mg PO DAILY metFORMIN HCL [Glucophage] 1,000 mg PO BID Atorvastatin [Lipitor] 40 mg PO HS Insulin Aspart (For Pump) [NovoLOG (For Pump)] 0.01 unit SQ-PUMP CONTINUOUS Zinc 100 mg PO DAILY Sennosides-Docusate Sodium [Senokot-S] 2 tab PO DAILY Cholecalciferol [Vitamin D3 (25 Mcg = 1000 Iu)] 25 mcg PO DAILY Magnesium 250 mg PO DAILY Furosemide [Lasix] 40 mg PO TID lisinopriL 2.5 mg PO DAILY Sinarest Nasal Drops 2 drops EA NOSTRIL BID Acetaminophen Tab [Tylenol] 650 mg PO Q6HR PRN tab PRN Reason: Mild Pain Or Fever > 100.5 metOLazone 2.5 mg PO Q48H Potassium Chloride ER [K-Dur 20] 20 meq PO BID Ferrous Sulfate [Iron (65 MG Elemental)] 325 mg PO BID hydrALAZINE HCL [Apresoline] 25 mg PO BID allopurinoL [Zyloprim] 300 mg PO HS Darbepoetin Mta [Aranesp] 60 mcg SQ Q7D each Pantoprazole [Protonix] 40 mg PO DAILY #30 tab Discontinued Apixaban [Eliquis] 5 mg PO BID Discharge Medication List Omeprazole [PriLOSEC] 20 mg PO DAILY 08/09/15 [History] metFORMIN HCL [Glucophage] 1,000 mg PO BID 07/15/16 [History] Atorvastatin [Lipitor] 40 mg PO HS 06/01/18 [History] Insulin Aspart (For Pump) [NovoLOG (For Pump)] 0.01 unit SQ-PUMP CONTINUOUS 07/23/20 [History] Zinc 100 mg PO DAILY 07/23/20 [History] Sennosides-Docusate Sodium [Senokot-S] 2 tab PO DAILY 08/25/20 [History] Cholecalciferol [Vitamin D3 (25 Mcg = 1000 Iu)] 25 mcg PO DAILY 08/05/21 [History] Magnesium 250 mg PO DAILY 08/05/21 [History] metOLazone 2.5 mg PO Q48H 08/05/21 [History] Furosemide [Lasix] 40 mg PO TID 06/04/22 [History] Ferrous Sulfate [Iron (65 MG Elemental)] 325 mg PO BID 06/05/22 [History] Potassium Chloride ER [K-Dur 20] 20 meq PO BID 06/05/22 [History] lisinopriL 2.5 mg PO DAILY 06/06/22 [History] hydrALAZINE HCL [Apresoline] 25 mg PO BID 11/06/22 [History] Sinarest Nasal Drops 2 drops EA NOSTRIL BID 02/20/23 [History] allopurinoL [Zyloprim] 300 mg PO HS 02/20/23 [History] Acetaminophen Tab [Tylenol] 650 mg PO Q6HR PRN tab 02/23/23 [Rx] Darbepoetin Mat [Aranesp] 60 mcg SQ Q7D each 02/23/23 [Rx] Pantoprazole [Protonix] 40 mg PO DAILY #30 tab 02/23/23 [Rx] Sucralfate [Carafate] 1 gm PO BID #30 tablet 02/25/23 [Rx] Follow up Appointment(s)/Referral(s): Ellen Chauhan MD [STAFF PHYSICIAN] - 03/24/23 9:00 am Patient Instructions/Handouts: *Surgery [facility] - (Anesthesia) Discharge Instructions Outpatient Surgery, Peptic Ulcer (DC), Colorectal Polyps (GEN) Activity/Diet/Wound Care/Special Instructions: Did not resume all of class for 1 week until 03/04/23 Discharge Disposition: HOME SELF-CARE
== END | disposition home or self-care (01) ==
LOC: ORWHC2ENDO 08:30
PROVIDERS: ATTEND Surgery Plastic and Reconstructive Surgery
DX: D12.3 Benign neoplasm of transverse colon (principal); K29.50 Unspecified chronic gastritis without bleeding; K21.9 Gastro-esophageal reflux disease without esophagitis; D64.9 Anemia, unspecified; K31.7 Polyp of stomach and duodenum; K44.9 Diaphragmatic hernia without obstruction or gangrene; K57.30 Diverticulosis of large intestine without perforation or abscess without bleeding; K64.1 Second degree hemorrhoids; I48.91 Unspecified atrial fibrillation; I10 Essential (primary) hypertension; E78.5 Hyperlipidemia, unspecified; I25.10 Atherosclerotic heart disease of native coronary artery without angina pectoris; E11.9 Type 2 diabetes mellitus without complications; Z90.49 Acquired absence of other specified parts of digestive tract; Z83.49 Family history of other endocrine, nutritional and metabolic diseases; Z79.4 Long term (current) use of insulin; Z79.84 Long term (current) use of oral hypoglycemic drugs; Z79.899 Other long term (current) drug therapy
CPT/HCPCS: 88305; 45385; 43235; J2704

== ENCOUNTER → 2023-05-13 | Outpatient (CLI) | payer MEDICARE ==
[2023-05-14 04:25] LABS: Appearance,Urine Turbid (Clear); Bilirubin,Urine Negative (Negative); Blood,Urine Small (Negative); Color,Urine Yellow (Yellow); Ketones,Urine Negative (Negative); Nitrite,Urine Negative (Negative); PH, Urine 6.5; Specific Gravity,Urine 1.011 (1.001-1.030); Urobilinogen,Urine 0.2 E.U./DL
[2023-05-14 04:58] LABS: Bacteria,Urine 4+ (None Seen)
== END | disposition home or self-care (01) ==
LOC: LABWHC1 16:14
PROVIDERS: ATTEND Internal Medicine Infectious Disease
DX: N39.0 Urinary tract infection, site not specified (principal)
CPT/HCPCS: 81001; 87077; 87086; 87186

== ENCOUNTER → 2023-06-05 | Outpatient (CLI) | payer MEDICARE | END | disposition home or self-care (01) | LOC: LABWHC1 14:25 | PROVIDERS: ATTEND Internal Medicine Infectious Disease | DX: N39.0 Urinary tract infection, site not specified (principal) | CPT/HCPCS: 87086 ==

== ENCOUNTER 2024-07-31 04:13 | Emergency (ER) | payer MEDICARE ==
--- NOTE | 2024-07-31 04:29 | ED ---
Nausea/Vomiting/Diarrhea HPI - General Chief complaint: Nausea/Vomiting/Diarrhea Stated complaint: Dizziness, Nausea Time Seen by Provider: 07/31/24 04:26 Source: patient, RN notes reviewed, old records reviewed Mode of arrival: EMS Limitations: no limitations - History of Present Illness Initial comments: This is a 74-year-old male for dizziness feels as if he unable to stand up severe ataxia and difficulty with ambulation and severe weakness please his iron may be low MD complaint: nausea, other (Dizziness weakness) -: days(s) Radiation: none Severity: moderate Consistency: intermittent Improves with: none Worsens with: movement Context: other (Patient low hemoglobin) Associated Symptoms: malaise, weakness - Related Data Home Medications Medication Instructions Recorded Confirmed Omeprazole [PriLOSEC] 20 mg PO DAILY 08/09/15 05/19/24 metFORMIN HCL [Glucophage] 1,000 mg PO BID 07/15/16 05/19/24 Atorvastatin [Lipitor] 40 mg PO HS 06/01/18 05/19/24 Insulin Aspart (For Pump) [NovoLOG 0.01 unit SQ-PUMP CONTINUOUS 07/23/20 05/19/24 (For Pump)] Zinc 100 mg PO DAILY 07/23/20 05/19/24 Sennosides-Docusate Sodium 2 tab PO DAILY 08/25/20 05/19/24 [Senokot-S] Cholecalciferol [Vitamin D3 (25 25 mcg PO DAILY 08/05/21 05/19/24 Mcg = 1000 Iu)] Magnesium 250 mg PO DAILY 08/05/21 05/19/24 metOLazone 2.5 mg PO Q48H 08/05/21 05/19/24 Furosemide [Lasix] 40 mg PO TID 06/04/22 05/19/24 Ferrous Sulfate [Iron (65 MG 325 mg PO BID 06/05/22 05/19/24 Elemental)] Potassium Chloride ER [K-Dur 20] 20 meq PO BID 06/05/22 05/19/24 lisinopriL 2.5 mg PO DAILY 06/06/22 05/19/24 hydrALAZINE HCL [Apresoline] 25 mg PO BID 11/06/22 05/19/24 Sinarest Nasal Drops 2 drops EA NOSTRIL BID 02/20/23 05/19/24 allopurinoL [Zyloprim] 300 mg PO HS 02/20/23 05/19/24 Previous Rx's Medication Instructions Recorded Acetaminophen Tab [Tylenol] 650 mg PO Q6HR PRN tab 02/23/23 Darbepoetin Mat [Aranesp] 60 mcg SQ Q7D each 02/23/23 Pantoprazole [Protonix] 40 mg PO DAILY #30 tab 02/23/23 Sucralfate [Carafate] 1 gm PO BID #30 tablet 02/25/23 Allergies Allergy/AdvReac Type Severity Reaction Status Date / Time prednisone Allergy Unknown Verified 05/19/24 13:31 Sulfa (Sulfonamide Allergy Rash/Hives Verified 05/19/24 13:31 Antibiotics) codeine AdvReac Unknown Verified 05/19/24 13:31 ivory soap Allergy Rash/Hives Uncoded 05/19/24 13:31 Review of Systems ROS Statement: Those systems with pertinent positive or pertinent negative responses have been documented in the HPI. ROS Other: All systems not noted in ROS Statement are negative. Past Medical History Past Medical History: Blood Disorder, Coronary Artery Disease (CAD), Diabetes Mellitus, Hyperlipidemia, Hypertension, Osteoarthritis (OA), Skin Disorder Additional Past Medical History / Comment(s): wounds on both legs and swelling of the legs-treated for cellulitis Jul-2020. ANEMIA. History of Any Multi-Drug Resistant Organisms: ESBL Date of last positivie culture/infection: 06/18/23 MDRO Source:: uti Past Surgical History: Appendectomy, Heart Catheterization Additional Past Surgical History / Comment(s): carpal tunnel surgery Past Anesthesia/Blood Transfusion Reactions: No Reported Reaction Past Psychological History: No Psychological Hx Reported Smoking Status: Former smoker Past Alcohol Use History: None Reported Past Drug Use History: None Reported - Past Family History Mother Family Medical History: Cancer, Thyroid Disorder Additional Family Medical History / Comment(s): of lung infection age 59 Brother(s) Family Medical History: Cancer, COPD, Respiratory Disorder Additional Family Medical History / Comment(s): hx agent orange, General Exam General appearance: alert, in no apparent distress Head exam: Present: atraumatic, normocephalic, normal inspection Eye exam: Present: normal appearance, PERRL, EOMI. Absent: scleral icterus, conjunctival injection, periorbital swelling ENT exam: Present: normal exam, mucous membranes moist Neck exam: Present: normal inspection. Absent: tenderness, meningismus, lymphadenopathy Respiratory exam: Present: normal lung sounds bilaterally. Absent: respiratory distress, wheezes, rales, rhonchi, stridor Cardiovascular Exam: Present: regular rate, normal rhythm, normal heart sounds. Absent: systolic murmur, diastolic murmur, rubs, gallop, clicks GI/Abdominal exam: Present: soft, normal bowel sounds. Absent: distended, tenderness, guarding, rebound, rigid Extremities exam: Present: normal inspection, full ROM, normal capillary refill. Absent: tenderness, pedal edema, joint swelling, calf tenderness Back exam: Present: normal inspection Neurological exam: Present: alert, oriented X3, CN II-XII intact Psychiatric exam: Present: normal affect, normal mood Skin exam: Present: warm, dry, intact, normal color. Absent: rash Course Vital Signs 07/31/24 07/31/24 07/31/24 04:15 06:20 08:07 Temperature 97.3 F L 97.9 F Pulse Rate 54 L 64 Respiratory 18 18 16 Rate Blood Pressure 142/51 116/50 129/44 O2 Sat by Pulse 100 95 Oximetry - Reevaluation(s) Reevaluation #1: 07/31/24 06:26 Medical records reviewed Reevaluation #2: 07/31/24 06:26 Patient symptoms unchanged Reevaluation #3: 07/31/24 06:26 Patient informed of results and questions answered Reevaluation #4: Was pt. sent in by a medical professional or institution (, PA, W[facility]ER, urgent care, hospital, or [facility]...) When possible be specific @ -no Did you speak to anyone other than the patient for history (EMS, parent, family, police, friend...)? What history was obtained from this source @ -no Did you review nursing and triage notes (agree or disagree)? Why? @ -agree Are old charts reviewed (outside hosp., previous admission, EMS record, old EKG, old radiological studies, urgent care reports/EKG's, [facility] records)? Report findings @ -yes Differential Diagnosis (chest pain, altered mental status, abdominal pain women, abdominal pain men, vaginal bleeding, weakness, fever, dyspnea, syncope, headache, dizziness, GI bleed, back pain, seizure, CVA, palpatations, mental health, musculoskeletal)? @ -prior EKG interpreted by me (3pts min.). @ -yes X-rays interpreted by me (1pt min.). @ -no CT interpreted by me (1pt min.). @ -yes negative for acute disease U/S interpreted by me (1pt. min.). @ -no What testing was considered but not performed or refused? (CT, X-rays, U/S, labs)? Why? @ -none What meds were considered but not given or refused? Why? @ -none Did you discuss the management of the patient with other professionals (professionals i.e. Dr., PA, W[employer] [facility], lab, RT, psych nurse, adoption social worker, antisqueak worker, teacher, ship officer, piano case and bench assembler)? Give summary @ -no Was smoking cessation discussed for >3mins.? @ -no Was critical care preformed (if so, how long)? @ -no Were there social determinants of health that impacted care today? How? (Homelessness, low income, unemployed, alcoholism, drug addiction, transportation, low edu. Level, literacy, decrease access to med. care, longterm, rehab)? @ -none Was there de-escalation of care discussed even if they declined (Discuss DNR or withdrawal of care, Hospice)? DNR status @ -no What co-morbidities impacted this encounter? (DM, HTN, Smoking, COPD, CAD, Cancer, CVA, ARF, Chemo, Hep., AIDS, mental health diagnosis, sleep apnea, morbid obesity)? @ -none Was patient admitted / discharged? Hospital course, mention meds given and route, prescriptions, significant lab abnormalities, going to OR and other pertinent info. @ - 74 female to the ER for evaluation of dizziness, patient believes that she is having significant anemia. Patient is having severe anemia and dizziness here in the ER but no acute findings either on CT scan or labs. She can be discharged Discharge dizziness weakness anemia Undiagnosed new problem with uncertain prognosis? @ -no Drug Therapy requiring intensive monitoring for toxicity (Heparin, Nitro, Insulin, Cardizem)? @ -no Were any procedures done? @ -no Diagnosis/symptom? @ - Acute, or Chronic, or Acute on Chronic? @ -Acute Uncomplicated (without systemic symptoms) or Complicated (systemic symptoms)? @ -Complicated Side effects of treatment? @ -no Exacerbation, Progression, or Severe Exacerbation? @ -exacerbation Poses a threat to life or bodily function? How? (Chest pain, [place], VA, pneumonia, PE, COPD, DKA, ARF, appy, cholecystitis, CVA, Diverticulitis, Homicidal, Suicidal, threat to staff... and all critical care pts) @ -yes extremes of age Reevaluation #5: Differential Dizziness: Benign paroxysmal positional Vertigo, Meniere's disease, otitis media, acoustic neuroma, vertebrobasilar insufficiency, cerebellar stroke, encephalitis, hypovolemic, arrhythmia, coronary artery syndrome, anemia, this is not meant to be an all-inclusive list Medical Decision Making - Medical Decision Making 74 female to the ER for evaluation of dizziness, patient believes that she is having significant anemia. Patient is having severe anemia and dizziness here in the ER but no acute findings either on CT scan or labs. She can be discharged - Lab Data Result diagrams: 07/31/24 04:49 07/31/24 04:49 Lab Results 07/31/24 07/31/24 07/31/24 Range/Units 04:49 04:49 04:49 WBC 8.3 (3.8-10.6) k/uL RBC 2.76 L (4.30-5.90) m/uL Hgb 8.5 L D (13.0-17.5) gm/dL Hct 25.7 L (39.0-53.0) % MCV 93.1 (80.0-100.0) fL MCH 30.9 (25.0-35.0) pg MCHC 33.1 (31.0-37.0) g/dL RDW 15.3 (11.5-15.5) % Plt Count 200 (150-450) k/uL MPV 8.7 Neutrophils % 77 % Lymphocytes % 9 % Monocytes % 8 % Eosinophils % 1 % Basophils % 0 % Neutrophils # 6.4 (1.3-7.7) k/uL Lymphocytes # 0.8 L (1.0-4.8) k/uL Monocytes # 0.7 (0-1.0) k/uL Eosinophils # 0.1 (0-0.7) k/uL Basophils # 0.0 (0-0.2) k/uL PT 11.0 (10.0-12.5) sec INR 1.0 (<1.2) APTT 25.8 (22.0-30.0) sec Sodium 129 L (137-145) mmol/L Potassium 4.7 (3.5-5.1) mmol/L Chloride 92 L (98-107) mmol/L Carbon Dioxide 25 (22-30) mmol/L Anion Gap 12 mmol/L BUN 118 H* (9-20) mg/dL Creatinine 1.84 H (0.66-1.25) mg/dL Est GFR (CKD-EPI)AfAm 41 (>60 ml/min/1.73 sqM) Est GFR (CKD-EPI)NonAf 35 (>60 ml/min/1.73 sqM) Glucose 185 H (74-99) mg/dL Lactic Ac Sepsis Rflx Plasma Lactic Acid Clint (0.7-2.0) mmol/L Calcium 9.5 (8.4-10.2) mg/dL Phosphorus 4.5 (2.5-4.5) mg/dL Magnesium 1.8 (1.6-2.3) mg/dL Total Bilirubin 0.2 (0.2-1.3) mg/dL AST 20 (17-59) U/L ALT 18 (4-49) U/L Alkaline Phosphatase 67 (38-126) U/L Troponin I (0.000-0.034) ng/mL NT-Pro-B Natriuret Pep 118 pg/mL Total Protein 6.7 (6.3-8.2) g/dL Albumin 4.0 (3.5-5.0) g/dL Urine Color Urine Appearance (Clear) Urine pH (5.0-8.0) Ur Specific [place] (1.001-1.035) Urine Protein (Negative) Urine Glucose (UA) (Negative) Urine Ketones (Negative) Urine Blood (Negative) Urine Nitrite (Negative) Urine Bilirubin (Negative) Urine Urobilinogen (<2.0) mg/dL Ur Leukocyte Esterase (Negative) Urine RBC (0-5) /hpf Urine WBC (0-5) /hpf Urine WBC Clumps (None) /hpf Urine Bacteria (None) /hpf Hyaline Casts (0-2) /lpf 07/31/24 07/31/24 07/31/24 Range/Units 04:49 04:49 05:41 WBC (3.8-10.6) k/uL RBC (4.30-5.90) m/uL Hgb (13.0-17.5) gm/dL Hct (39.0-53.0) % MCV (80.0-100.0) fL MCH (25.0-35.0) pg MCHC (31.0-37.0) g/dL RDW (11.5-15.5) % Plt Count (150-450) k/uL MPV Neutrophils % % Lymphocytes % % Monocytes % % Eosinophils % % Basophils % % Neutrophils # (1.3-7.7) k/uL Lymphocytes # (1.0-4.8) k/uL Monocytes # (0-1.0) k/uL Eosinophils # (0-0.7) k/uL Basophils # (0-0.2) k/uL PT (10.0-12.5) sec INR (<1.2) APTT (22.0-30.0) sec Sodium (137-145) mmol/L Potassium (3.5-5.1) mmol/L Chloride (98-107) mmol/L Carbon Dioxide (22-30) mmol/L Anion Gap mmol/L BUN (9-20) mg/dL Creatinine (0.66-1.25) mg/dL Est GFR (CKD-EPI)AfAm (>60 ml/min/1.73 sqM) Est GFR (CKD-EPI)NonAf (>60 ml/min/1.73 sqM) Glucose (74-99) mg/dL Lactic Ac Sepsis Rflx Y Plasma Lactic Acid Clint 2.5 H* (0.7-2.0) mmol/L Calcium (8.4-10.2) mg/dL Phosphorus (2.5-4.5) mg/dL Magnesium (1.6-2.3) mg/dL Total Bilirubin (0.2-1.3) mg/dL AST (17-59) U/L ALT (4-49) U/L Alkaline Phosphatase (38-126) U/L Troponin I 0.072 H* (0.000-0.034) ng/mL NT-Pro-B Natriuret Pep pg/mL Total Protein (6.3-8.2) g/dL Albumin (3.5-5.0) g/dL Urine Color Urine Appearance (Clear) Urine pH (5.0-8.0) Ur Specific [place] (1.001-1.035) Urine Protein (Negative) Urine Glucose (UA) (Negative) Urine Ketones (Negative) Urine Blood (Negative) Urine Nitrite (Negative) Urine Bilirubin (Negative) Urine Urobilinogen (<2.0) mg/dL Ur Leukocyte Esterase (Negative) Urine RBC (0-5) /hpf Urine WBC (0-5) /hpf Urine WBC Clumps (None) /hpf Urine Bacteria (None) /hpf Hyaline Casts (0-2) /lpf 07/31/24 Range/Units 06:25 WBC (3.8-10.6) k/uL RBC (4.30-5.90) m/uL Hgb (13.0-17.5) gm/dL Hct (39.0-53.0) % MCV (80.0-100.0) fL MCH (25.0-35.0) pg MCHC (31.0-37.0) g/dL RDW (11.5-15.5) % Plt Count (150-450) k/uL MPV Neutrophils % % Lymphocytes % % Monocytes % % Eosinophils % % Basophils % % Neutrophils # (1.3-7.7) k/uL Lymphocytes # (1.0-4.8) k/uL Monocytes # (0-1.0) k/uL Eosinophils # (0-0.7) k/uL Basophils # (0-0.2) k/uL PT (10.0-12.5) sec INR (<1.2) APTT (22.0-30.0) sec Sodium (137-145) mmol/L Potassium (3.5-5.1) mmol/L Chloride (98-107) mmol/L Carbon Dioxide (22-30) mmol/L Anion Gap mmol/L BUN (9-20) mg/dL Creatinine (0.66-1.25) mg/dL Est GFR (CKD-EPI)AfAm (>60 ml/min/1.73 sqM) Est GFR (CKD-EPI)NonAf (>60 ml/min/1.73 sqM) Glucose (74-99) mg/dL Lactic Ac Sepsis Rflx Plasma Lactic Acid Clint (0.7-2.0) mmol/L Calcium (8.4-10.2) mg/dL Phosphorus (2.5-4.5) mg/dL Magnesium (1.6-2.3) mg/dL Total Bilirubin (0.2-1.3) mg/dL AST (17-59) U/L ALT (4-49) U/L Alkaline Phosphatase (38-126) U/L Troponin I (0.000-0.034) ng/mL NT-Pro-B Natriuret Pep pg/mL Total Protein (6.3-8.2) g/dL Albumin (3.5-5.0) g/dL Urine Color Light Yellow Urine Appearance Turbid (Clear) Urine pH 5.5 (5.0-8.0) Ur Specific [place] 1.018 (1.001-1.035) Urine Protein 1+ H (Negative) Urine Glucose (UA) Negative (Negative) Urine Ketones Negative (Negative) Urine Blood Moderate H (Negative) Urine Nitrite Negative (Negative) Urine Bilirubin Negative (Negative) Urine Urobilinogen <2.0 (<2.0) mg/dL Ur Leukocyte Esterase Large H (Negative) Urine RBC 7 H (0-5) /hpf Urine WBC >182 H (0-5) /hpf Urine WBC Clumps Many H (None) /hpf Urine Bacteria Many H (None) /hpf Hyaline Casts 28 H (0-2) /lpf - EKG Data -: EKG Interpreted by Me (EKG sinus 55 QRS 158 QTc 430) - Radiology Data Radiology results: report reviewed (CT Brain is negative for acute disease), image reviewed Disposition Clinical Impression: Weakness, Dizziness Disposition: HOME SELF-CARE Condition: Good Instructions (If sedation given, give patient instructions): Dizziness (ED) Is patient prescribed a controlled substance at d/c from ED?: No Referrals: Adam Jacome DO [Primary Care Provider] - 1-2 days Time of Disposition: 07:20
[2024-07-31] MEDS: SODIUM CHLORIDE 0.9% 1,000 ML IV STA (04:52)
[2024-07-31 05:09] LABS: Basophils % (A) 0 %; Eosinophils # (A) 0.1 k/uL (0-0.7); Eosinophils % (A) 1 %; HCT 25.7 % (39.0-53.0); Lymphocytes # (A) 0.8 k/uL (1.0-4.8); Lymphocytes % (A) 9 %; MCH 30.9 pg (25.0-35.0); MCHC 33.1 g/dL (31.0-37.0); MCV 93.1 fL (80.0-100.0); Mean Platelet Volume 8.7; Monocytes # (A) 0.7 k/uL (0-1.0); Monocytes % (A) 8 %; Neutrophils # (A) 6.4 k/uL (1.3-7.7); Neutrophils % (A) 77 %; Platelet Count 200 k/uL (150-450); RBC 2.76 m/uL (4.30-5.90); RDW 15.3 % (11.5-15.5); WBC 8.3 k/uL (3.8-10.6)
[2024-07-31 05:20] LABS: Partial Thromboplastin Time 25.8 sec (22.0-30.0)
[2024-07-31 05:25] LABS: ALT 18 U/L (4-49); AST 20 U/L (17-59); African American GFR (CKD) 41 (>60 ml/min/1.73 sqM); Alkaline Phosphatase 67 U/L (38-126); Anion Gap 12 mmol/L; Calcium 9.5 mg/dL (8.4-10.2); Carbon Dioxide 25 mmol/L (22-30); Chloride 92 mmol/L (98-107); Glucose 185 mg/dL (74-99); Magnesium 1.8 mg/dL (1.6-2.3); Non-African American GFR(CKD) 35 (>60 ml/min/1.73 sqM); Phosphorus 4.5 mg/dL (2.5-4.5); Potassium 4.7 mmol/L (3.5-5.1); Sodium 129 mmol/L (137-145); Total Bilirubin 0.2 mg/dL (0.2-1.3); Total Protein 6.7 g/dL (6.3-8.2)
[2024-07-31 05:34] LABS: NT-Pro-B-Type Natriuretic Pept 118 pg/mL
[2024-07-31 05:37] LABS: HGB 8.5 gm/dL (13.0-17.5)
[2024-07-31 05:41] LABS: Blood Urea Nitrogen 118 mg/dL (9-20)
[2024-07-31 06:56] LABS: Appearance,Urine Turbid (Clear); Bacteria,Urine Many /hpf; Bilirubin,Urine Negative (Negative); Blood,Urine Moderate (Negative); Color,Urine Light Yellow; Glucose,Urine (UA) Negative (Negative); Hyaline Casts,Urine 28 /lpf (0-2); Ketones,Urine Negative (Negative); Leukocyte Esterase,Urine Large (Negative); Nitrite,Urine Negative (Negative); PH, Urine 5.5 (5.0-8.0); Protein,Urine 1+ (Negative); RBC,Urine 7 /hpf (0-5); Specific Gravity,Urine 1.018 (1.001-1.035); Urobilinogen,Urine <2.0 mg/dL (<2.0); WBC,Urine >182 /hpf (0-5)
--- NOTE | 2024-07-31 07:21 | CT ---
EXAMINATION TYPE: CT brain wo con DATE OF EXAM: 07/31/2024 6:54 AM COMPARISON: 07/23/2020 CLINICAL INDICATION: Male, 74 years old with history of ams, difficulty walking nausea and vomiting d izziness TECHNIQUE: CT of the brain is performed utilizing 3 mm thick sections through the posterior fossa and 3 mm thick sections through the remaining calvarium. Study is performed within 24 hours of arrival to the hospital. Contrast used: mL of , (none if empty) CT DLP: 1168.4 mGycm, Automated exposure control for dose reduction was used. FINDINGS: No abnormal hyperdensity is present to suggest an acute intracranial hemorrhage. No mass lesion is evident. No acute infarcts are evident. Ventricles and sulci are appropriate for the patient age. Paranasal sinuses and mastoid air cells within the [id number] are clear. IMPRESSION: 1. No acute intracranial process. Follow up MRI can be performed as clinically indicated. [facility], , 07/31/2024 7:17 AM
[2024-07-31 08:08] VITALS: BP 129/44; PULSE 64; RESP 16; TEMP 97.9
== END 2024-07-31 08:25 | disposition home or self-care (01) ==
LOC: EC 04:13
DX: R53.1 Weakness (principal); R42 Dizziness and giddiness; Z87.891 Personal history of nicotine dependence; Z88.2 Allergy status to sulfonamides; Z88.5 Allergy status to narcotic agent; Z88.8 Allergy status to other drugs, medicaments and biological substances
CPT/HCPCS: 36415; 70450; 80053; 81001; 83605; 83735; 83880; 84100; 84484; 85025; 85610; 85730; 93005; 96360; 99284